=== PATIENT | female | born 1940 | race Caucasian/White ===

== ENCOUNTER 2017-09-02 17:19 | Inpatient (IN) | payer MEDICARE, MEDICAID ==
--- NOTE | 2017-09-02 17:44 | ED Physician Chart ---
ED Chief Complaint/HPI - Patient Information Date Seen:: 09/02/17 Time Seen:: 17:10 Chief Complaint:: Syncope; S/P Fall History of Present Illness:: onset x 2 hours of an unwitnessed fall from wheel chair resulting in left hip pain with syncope episode; pt denies H/As, neck pain, C/P, SOB, Abd. Pain, A/N/V /D/C, fever, chills, dizziness, cough, urinary s/s, or vertigo Allergies:: Allergies Allergy/AdvReac Type Severity Reaction Status Date / Time No Known Allergies Allergy Verified 09/02/17 17:27 Historian:: Patient, EMS Review:: Nurse's Note Reviewed, EMS run form Reviewed ED Review of Systems - Review of Systems General/Constitutional: Fever, Chills, No weight loss, Weakness, No diaphoresis , No edema, No loss of appetite Skin: No skin lesions, No rash, No bruising Head: No headache, No light-headedness Eyes: No loss of vision, No pain, No diplopia ENT: No earache, No nasal drainage, No sore throat, No tinnitus Neck: No neck pain, No swelling, No thyromegaly, No stiffness, No mass noted Cardio Vascular: No chest pain, No palpitations, No PND, No orthopnea, No edema Pulmonary: No SOB, No cough, No sputum, No wheezing GI: No nausea, No vomiting, No diarrhea, No pain, No melena, No hematochezia, No constipation, No hematemesis G/U: No dysuria, No frequency, No hematuria Musculoskeletal: No bone or joint pain, No back pain, No muscle pain Endocrine: No polyuria, No polydipsia Psychiatric: No prior psych history, No depression, No anxiety, No suicidal ideation Hematopoietic: No bruising, No lymphadenopathy Allergic/Immuno: No urticaria, No angioedema Neurological: Syncope, No focal symptoms, Weakness, No paresthesia, No headache , No seizure, No dizziness, Confusion, No vertigo ED Past Medical History - Past Medical History Obtainable: Yes Past Medical History: HTN, DM, CAD, CHF, Dyslipidemia, ESRD, Arthritis, Dementia Family History: Diabetes Melitus, HTN Social History: Non Smoker, No Alcohol, No Drug Use, Single, Care Facility Surgical History: other ([facility] Dialysis Catheter Insertion) Psychiatricy History: Dementia Medication: Reviewed Family Medical History - Family Member Mother History Unknown: Yes Living Status: ED Physical Exam - Physical Examination General/Constitutional: Awake, Well-developed, well-nourished, Alert, No distress, GCS 15, Non-toxic appearing, Ambulatory Head: Atraumatic Eyes: Lids, conjuctiva normal, PERRL, EOMI Skin: Nl inspection, No rash, No skin lesions, No ecchymosis, Well hydrated, No lymphadenopathy ENMT: External ears, nose nl, Nasal exam nl, Lips, teeth, gums nl Neck: Nontender, Full ROM w/o pain, No JVD, No nuchal rigidity, No bruit, No mass, No stridor Respiratory: Nl effort/Exclusion Other Respiratory comments:: Lungs: + Bibasilar Rales Cardio Vascular: RRR, No murmur, gallop, rubs, NL S1 S2 GI: No tenderness/rebounding/guarding, No organomegaly, No hernia, Normal BS's, Nondistended, No mass/bruits, No McBurney tenderness : No CVA tenderness Extremities: No tenderness or effusion, Full ROM, normal strength in all extremities, No edema, Normal digits & nails Other Extremities comments:: Left Hip tenderness Neuro/Psych: Alert/oriented, DTR's symmetric, Normal sensory exam, Normal motor strength, Judgement/insight normal, Mood normal, Normal gait, No focal deficits Other Neuro/Psych comments:: Disoriented and Confused Misc: Normal back, No paraspinal tenderness ED Labs/Radiology/EKG Results - Lab Results Comments:: Na+: 130; Glucose: 343; BUN: 27; Cr: 2.1; BNP: 3450; ED Septic Shock - . Is Septic Shock (SBP<90, OR Lactate>4 mmol\L) present?: No ED Reassessment (Disposition) - Reassessment Reassessment Condition:: Improved - Diagnosis Diagnosis:: Dx: Anemia; Hyponatremia; ESRD; S/P Dialysis; CHF; Hyperglycemia; Uncontrolled DM; Syncope; S/P Fall; Hip Pain - Aftercare/Follow up Instructions Aftercare/Follow-Up Instructions:: Counseled pt regarding lab results/diagnosis & need follow up, Counseled pt & family regarding lab results/diagnosis & need follow up - Patient Disposition Discharge/Transfer:: Acute Care w/in this hosp Accepting Physician:: Dr. Shane Time Called:: 1929 Time Responded:: 19:30 Admitted to:: Telemetry Spoke to:: Dr. Shane Admitting Medical Physician:: Dr. Shane Condition at Disposition:: Stable, Improved
[2017-09-02 18:19] LABS: % BASOPHILS 0.2 % (0.0-2.0); % EOSINOPHILS 2.2 % (0.0-5.0); % LYMPHOCYTES 12.1 % (20.0-50.0); % MONOCYTES 8.1 % (2.0-10.0); % NEUTROPHILS 77.4 % (40.0-80.0); MEAN CELL VOLUME 97.6 fl (81-100); MEAN CORPUSCULAR HEMOGLOBIN 33.6 pg (27.0-31.0); MEAN CORPUSCULAR HGB CONC 34.5 pg (28.0-36.0); MEAN PLATELET VOLUME 7.9 fl; NEUTROPHILE ABSOLUTE 4.8 Th/cmm (1.8-8.0); RED BLOOD COUNT 3.27 Mil/cmm (3.80-5.20); RED CELL DISTRIBUTION WIDTH 14.9 % (11.5-20.0); WHITE BLOOD COUNT 6.2 Th/cmm (4.8-10.8)
[2017-09-02 18:29] LABS: INR 1.14 (0.5-1.4)
[2017-09-02 18:34] LABS: HEMATOCRIT 31.9 % (41.0-60); PLATELET COUNT 165 Th/cmm (150-400)
[2017-09-02 18:45] LABS: ALB/GLOB RATIO 1.1 (1.0-1.8); ALKALINE PHOSPHATASE 203 U/L (34-104); ANION GAP 12.5 (7.0-16.0); BILIRUBIN,TOTAL 0.6 mg/dL (0.3-1.0); BUN - UREA NITROGEN 27 mg/dL (7-25); BUN/CREATININE RATIO 12.9; CALCIUM SERUM 8.6 mg/dL (8.6-10.3); CARBON DIOXIDE 24.5 mEq/L (21.0-31.0); CHLORIDE 97 mEq/L (98-107); CHOLESTEROL 117 mg/dL (<200); CREATININE - SERUM 2.1 mg/dL (0.6-1.2); GLUCOSE 343 mg/dL (70-105); SGOT 21 U/L (13-39); SGPT/ALT 15 U/L (7-52); SODIUM SERUM 130 mEq/L (136-145); TRIGLYCERIDES 120 mg/dL (<150)
[2017-09-02] MEDS ORDERED: INSULIN ASPART, RECOMBINANT 100 UNITS/ML SUBQ ONE (19:32)
[2017-09-02] MEDS ORDERED: BIOTIN PO SCH (20:45)
[2017-09-02] MEDS ORDERED: [UNRECOGNIZED DRUG - OTHER] PO SCH (20:45)
[2017-09-02] MEDS ORDERED: VIT B CMPLX PO SCH (20:45)
[2017-09-02] MEDS: Ferrous Sulfate 325 MG TAB PO SCH (22:29)
[2017-09-02 22:47] VITALS: BP 145/65
[2017-09-03] MEDS ORDERED: Levothyroxine 0.1 Mg Tab PO SCH (07:30)
--- NOTE | 2017-09-03 07:59 | Diagnostic Imaging Report ---
Pelvis and left hip 2 views Indication: pain Comparison: none Findings: Right femoral partially visualized fracture fixation hardware is noted. There appears to be a previous likely old fracture of the right inferior pubic ramus. Subtle lucency of the left inferior pubic ramus is noted. There is also indeterminate lucency of the left proximal femur. No dislocation. Mild degenerative changes of the hip joints are noted. Impression: Indeterminate lucency of the left proximal femurs possibly projectional, however, a nondisplaced fracture cannot be excluded. CT examination is recommended for further assessment. Questionable previous nondisplaced fractures of the bilateral inferior pubic rami. Again CT would further clarify. Partially visualized right femoral fracture fixation. In the setting of trauma, if clinical symptoms persist and there is continued concern for an occult fracture, follow up exams in 5-7 days is suggested.
[2017-09-03] MEDS ORDERED: INSULIN ASPART SLIDING SCALE 100 UNITS/ML UNIT SUBQ SCH (08:00)
--- NOTE | 2017-09-03 08:00 | Diagnostic Imaging Report ---
CHEST X-RAY: AP view INDICATION: pain COMPARISON: None FINDINGS: Findings of CHF are seen with right effusion and right lung infiltrates. Cardiomegaly is noted with atherosclerosis. A right-sided dialysis catheter seen with tip in the cavoatrial junction. The osseous structures are intact. IMPRESSION: CHF with small right effusion and right basal infiltrates. Cardiomegaly and atherosclerosis Right dialysis catheter with tip in the cavoatrial junction.
--- NOTE | 2017-09-03 08:06 | Diagnostic Imaging Report ---
Head CT without intravenous contrast Indication: Dementia, syncope, fall Comparison: None Technique: Axial images were obtained from the vertex to the skull base without IV contrast. Coronal reconstructions were made. Total DLP: 551, CTDI30 FINDINGS: Exam is motion. Images of the brain obtained without contrast demonstrate no evidence of acute hemorrhage. Atrophy is noted. Moderate supratentorial white matter disease noted. The ventricles and basal cisterns are patent. Mass effect or midline shift. Atherosclerosis is noted. No evidence of skull fracture or focal soft tissue swelling. IMPRESSION: No evidence of an acute intracranial hemorrhage. Moderate supratentorial white matter disease which is nonspecific and may be due to chronic microvessel ischemia.. Atrophy. Atherosclerotic vascular disease.
[2017-09-03] MEDS: Multivitamin Tab PO SCH (09:57)
[2017-09-03] MEDS: Ferrous Sulfate 325 MG TAB PO SCH (09:57)
--- NOTE | 2017-09-03 12:30 | Diagnostic Imaging Report ---
CT pelvis without IV contrast HISTORY: Fall, rule out fracture COMPARISON: Pelvis and left hip x-rays on 12/03/2016 Technique: Axial images were obtained from the lower abdomen to the proximal bilateral femurs without IV contrast. Reconstructions were made. total DLP: 446, CTDI12.4 Findings: There is diffuse anasarca. Copious stool is noted. There is a diastases of the rectus abdominis muscles with protrusion of the anterior abdominal wall at the midline. Mild free fluid is seen within the pelvis. Diffuse atherosclerotic vascular disease is noted. Diffuse anasarca is noted. Small pocket of gas is seen within the urinary bladder. Degenerative changes of the lower lumbar spine are noted. Degenerative changes of the SI joints are noted. There is a nondisplaced chronic right inferior pubic ramus fracture. There is partially visualized fracture fixation of the right proximal femoral shaft. Moderate degenerative changes of both hip joints are noted. The left hip joint is preserved. No evidence of an acute fracture. IMPRESSION: Evidence of fracture fixation of right femur with screw luis, partially visualized. Otherwise no evidence of an acute fracture. No evidence of dislocation. Degenerative changes. Anasarca. Small amount of free fluid is noted within the pelvis. Copious amount of stool noted. Mild diastases of the rectus muscles with slight protrusion of fat at the midline. Small pocket of gas along the nondependent aspect of the urinary bladder which may be due to recent instrumentation or infectious or inflammatory process. Atherosclerotic vascular disease.
[2017-09-03] MEDS: Nystatin Cream 100,000 u/gm Cream 15 gm TP SCH ×2 (13:00→20:30)
--- NOTE | 2017-09-03 15:32 | Diagnostic Imaging Report ---
Carotid ultrasound HISTORY: Dizziness COMPARISON: None Technique: Longitudinal and transverse sonographic sector images of the carotid arteries were obtained with doppler analysis. FINDINGS: Exam of the right side demonstrates mild generalized atherosclerotic vascular disease. The velocity and velocity ratios are within normal limits. Exam of the left side demonstrates moderate generalized atherosclerotic vascular disease with areas of calcified plaque formation greatest within the carotid bulb and proximal ICA. The velocity and velocity ratios are within normal limits. Antegrade vertebral artery flow is demonstrated bilaterally. IMPRESSION: Mild to moderate atherosclerotic vascular disease, left greater than right. No evidence of hemodynamically significant stenosis.
--- NOTE | 2017-09-03 17:15 | Cardiology ---
09/03/[address] Justin Shane. M-MODE ECHOCARDIOGRAM: Mitral valve, anterior leaflet of mitral valve shows decreased excursion, EF velocity. Posterior leaflet of mitral valve shows decreased excursion. Left ventricular posterior wall shows increased thickness, decreased excursion. Interventricular septum shows increased thickness, decreased excursion. There is hypertrophy of the left ventricle, ejection fraction 25%. Left atrium normal. Aortic root shows normal dimension, normal excursion of aortic leaflets. CONCLUSION: Hypertrophy of the left ventricle, cardiomyopathy, ejection fraction 25%. 2D ECHO: Long axis view shows enlarged left ventricular cavity with decreased ejection fraction, hypertrophy of the left ventricle. Left atrium normal. Aortic root shows normal dimension, normal excursion of aortic leaflets. Short axis view of mitral valve normal. Short axis view of aortic valve normal. Apical four chamber view shows hypertrophy of the left ventricle, ejection fraction 25%. Left atrium normal. Right ventricular cavity, right atrium normal, no pericardial effusion. CONCLUSION: Cardiomyopathy, ejection fraction 25%. Doppler study shows mild mitral regurgitation, mild tricuspid regurgitation, mild pulmonary regurgitation. Right ventricular systolic pressure 42 mmHg. JOB# [id number]
[2017-09-03] MEDS ORDERED: INSULIN ASPART, RECOMBINANT 100 UNITS/ML SUBQ ONE (17:37)
--- NOTE | 2017-09-03 19:05 | History & Physical ---
ADMIT DATE: 09/02/2017 CHIEF COMPLAINT: Fall. HISTORY OF PRESENT ILLNESS: This is a 76-year-old female with underlying history of end-stage renal disease, on hemodialysis on Thursday, Thursday, Thursday; diabetes with neuropathy; hypothyroidism and hypertension; prior history of fall, right hip fracture per family, who brought into the Emergency Room for evaluation of the fall and possible syncope. The patient is Hungarian speaking, grandson was at the bedside who helped providing most of the history. Per grandson, after finishing her dialysis yesterday while she was getting out of the facility sustained a fall. I was unclear whether she lost the consciousness or not. The patient was unable to provide me any history and family history. The patient does have some underlying history of dementia, so she is not good at providing any history. No proper informations about whether the patient had lost of consciousness available. The patient had a head CT done, which was negative for any stroke or any bleeding. The patient ____ Emergency Room hip and pelvis x-ray done which was suggestive of questionable nondisplaced fracture of the pelvis, so the patient was admitted for further evaluation and treatment. PAST MEDICAL HISTORY: ESRD, on hemodialysis on Thursday, Thursday, Thursday; diabetes with neuropathy; hypertension; and hypothyroidism. PAST SURGICAL HISTORY: Right hip fracture infection in the past. FAMILY HISTORY: No significant family history. SOCIAL HISTORY: Lives with family. No reported alcohol, tobacco or street drug use. CURRENT MEDICATIONS: The patient is currently on Lasix, Neurontin, Synthroid, Cozaar, Iron sulfate, Coreg, aspirin and vitamin C. REVIEW OF SYSTEMS: The patient denies any fever, no chills, no cough, no chest pain, no shortness of breath, no dizziness, no palpitations, no nausea, no vomiting, no diarrhea. No bloody stool. Complained of right hip area pain. ALLERGIES: No drug allergies reported. PHYSICAL EXAMINATION: VITAL SIGNS: Temperature 96.5, pulse 95, respirations 18, blood pressure ____. GENERAL APPEARANCE: The patient does not seem in acute distress. HEART: S1, S2 normal. LUNGS: Clear to auscultation bilaterally. ABDOMEN: Soft, nontender. NEUROLOGIC: The patient is awake. Moves all extremities. Grossly nonfocal exam. EXTREMITIES: Mild edema noted. No calf tenderness noted. AVAILABLE LABORATORY DATA: As follows; WBC is 6.2, hemoglobin 11.0, hematocrit 31.9, platelet count is 165. Sodium 130, potassium 4.0, BUN ____, A1c 8.8, AST 20, ALT 15. BNP is 3450, albumin 3.4, triglyceride 120, cholesterol 117 ____. Troponin 0.02 and 0.04. ____ right basilar infiltrate. Cardiomegaly noted. Pelvic x-ray questionable pubic rami fracture. ASSESSMENT: 1. Fall. 2. Questionable syncope. 3. Questionable nondisplaced pelvis fracture. 4. End stage renal disease, on hemodialysis on Thursday, Thursday, and Thursday. 5. Diabetes mellitus with hyperglycemia. 6. Diabetic neuropathy. 7. Hypertension. 8. Generalized debility. 9. Congestive heart failure. 10. [place] dermatitis. PLAN: The patient admitted to tele unit. The patient was continued on Lasix, beta-joslyn, insulin, Accu-Cheks has been ordered. Cardiology has been consulted. CT pelvis for further evaluation for underlying questionable fracture, orthostatic vitals ordered, carotid Doppler was ordered. We will follow up on the CAT scan results. Discussed with grandson ____ regarding patient's conditions and plan of care. The patient will be given nystatin cream for fungal rash on the abdominal fold area. JOB# [id number]
[2017-09-03] MEDS: INSULIN ASPART SLIDING SCALE 100 UNITS/ML UNIT SUBQ SCH (20:38)
--- NOTE | 2017-09-03 23:04 | Consultation ---
DATE OF CONSULTATION: 09/03/[address] Justin Shane. HISTORY AND PHYSICAL: This is a 76-year-old female patient who had a fall. Following this, the patient was brought to the Emergency Room. According to the family, the patient finished dialysis. Following this, the patient was going home the patient had a fall. No knowledge of possible syncope, loss of consciousness. The patient has dementia and difficult to get any history. PAST MEDICAL HISTORY: Diabetes mellitus type 2; diabetic peripheral neuropathy; diabetic CKD stage V; end-stage renal disease, on dialysis; hypothyroid; and hypertension. Right hip fracture with surgery, osteoporosis, and iron deficiency anemia. FAMILY HISTORY: Unremarkable. SOCIAL HISTORY: No history of smoking or alcohol abuse. ALLERGIES: No known allergies. PHYSICAL EXAMINATION: VITAL SIGNS: Blood pressure 130/80, pulse 70, and respirations 20. HEAD: Normocephalic. No lumps or bumps. EYES: Pupils are equal and reactive to light. Fundi show AV nicking, sclerae white, and conjunctivae pink. NECK: Carotid 2+. Normal upstroke. JVD flat. Thyroid not palpable. Lymph nodes not palpable. CHEST: Shows increased AP diameter. No kyphosis or scoliosis. LUNGS: Bilateral bronchovesicular breath sounds. Occasional wheeze. Basilar rales. HEART: PMI sixth intercostal space with lateral to midclavicular line. S1, S2, S3, S4, soft systolic murmur. ABDOMEN: Soft. Liver and spleen not palpable. No organomegaly. Bowel sounds active. NEUROLOGIC: Peripheral neuropathy. EXTREMITIES: Peripheral pulses, 1+ pedal edema. CLINICAL IMPRESSION: 1. Syncope. 2. Nondisplaced pelvic fracture. 3. Diabetes mellitus type 2. 4. Diabetic chronic kidney disease stage V. 5. End-stage renal disease, on dialysis. 6. Diabetic peripheral neuropathy. 7. Hypertension. 8. Iron deficiency anemia. 9. Osteoporosis. 10. Congestive heart failure. 11. Systolic dysfunction. 12. [place] dermatitis. The patient had an echocardiogram. The patient also has mild carotid stenosis. Echocardiogram showed cardiomyopathy, ejection fraction 25%, mild mitral regurgitation, tricuspid regurgitation, and prominent regurgitation. PLAN: The patient to get a BNP level and monitor the patient closely, and the patient will need physical therapy because of pelvic fracture. JOB# [id number]
--- NOTE | 2017-09-04 00:05 | Consultation ---
DATE OF CONSULTATION: RENAL CONSULTATION LOCATION: [facility], room #11. ATTENDING PHYSICIAN: Dr. Shane. Thank you very much, Dr. Shane for this consult. IDENTIFICATION: This is a 76-year-old female patient who is a known case of CKD 5, on chronic hemodialysis through right subclavian tunneled catheter. The patient fell down from the wheelchair. The patient came to the Emergency Room. According to the ER staff, the patient had a syncopal episode. The patient complained of left hip pain. There were no seizures or loss of consciousness. After in the Emergency Room, the patient was evaluated and was found to have elevated BNP and CHF. The patient has been admitted for further treatment. Renal consultation has been requested for the need for dialysis. Upon coming here, I have found out that the patient goes to the [facility] across the street. I have asked Dr. Ruiz Shane to refer this patient to Dr. Simpson's group. He has told me and also the staff has told me that none of their Nephrology Group people are on staff here and so I need to take care of this patient. The patient is conscious, little bit confused. According to nursing staff, no vomiting or diarrhea. No fever, no seizures since admission. The patient is oliguric. The patient also has a poor appetite. The patient has been scheduled for fistula surgery tomorrow and so the patient wants to go home today. PAST MEDICAL AND SURGICAL HISTORY: History of hypertension, diabetes mellitus, coronary artery disease, CHF, dyslipidemia, end-stage renal disease, dementia, arthritis. SOCIAL HISTORY: No history of alcoholism, smoking, or drug use. The patient stays at the SNF area. PHYSICAL EXAMINATION: GENERAL: A 76-year-old female patient. VITAL SIGNS: Temperature 96.5, pulse 95, blood pressure 119/60, respiration rate 18. Intake 2000 mL today. Output not available. HEART: Regular. LUNGS: Rhonchi in both the bases. ABDOMEN: Soft. EXTREMITIES: 1+ edema. Right PermCath site without cellulitis or bleeding. LABORATORY DATA: WBC 6.2, hemoglobin 11, platelet 165,000. Sodium 130, potassium 4, chloride 97, CO2 of 24, BUN 27, creatinine 2.1, calcium 8.6, albumin 3.4. ASSESSMENT: 1. Chronic kidney disease 5, on chronic hemodialysis Thursday, and Thursday. 2. Congestive heart failure. 3. Diabetes mellitus. 4. Hypertension. 5. Anemia. 6. Right subclavian tunneled catheter. PLAN: Hemodialysis will be done tonight with ultrafiltration of about ____ 2000 mL. Continue the patient on levothyroxine. Check CMP, phosphorus in the morning. If phosphorus is elevated, we will start the patient on phosphate binder. Hemoglobin is more than 11, hold Epogen. I will try to reach out to Dr. Simpson and Dr. Rosenbaum groups again to find out if they can take over this patient. This case has been discussed with Dr. Shane. JOB# [id number]
[2017-09-04 06:16] LABS: ALB/GLOB RATIO 1.2 (1.0-1.8); ALKALINE PHOSPHATASE 245 U/L (34-104); ANION GAP 9.3 (7.0-16.0); BILIRUBIN,TOTAL 0.5 mg/dL (0.3-1.0); BUN - UREA NITROGEN 27 mg/dL (7-25); BUN/CREATININE RATIO 11.3; CALCIUM SERUM 8.2 mg/dL (8.6-10.3); CARBON DIOXIDE 31.4 mEq/L (21.0-31.0); CHLORIDE 94 mEq/L (98-107); CREATININE - SERUM 2.4 mg/dL (0.6-1.2); GLUCOSE 81 mg/dL (70-105); PHOSPHOROUS 2.7 mg/dL (2.5-5.0); POTASSIUM SERUM 4.7 mEq/L (3.5-5.1); SGOT 50 U/L (13-39); SGPT/ALT 36 U/L (7-52); SODIUM SERUM 130 mEq/L (136-145)
[2017-09-04] MEDS: INSULIN ASPART SLIDING SCALE 100 UNITS/ML UNIT SUBQ SCH (06:54)
[2017-09-04] MEDS: Nystatin Cream 100,000 u/gm Cream 15 gm TP SCH (08:56)
[2017-09-04] MEDS: Multivitamin Tab PO SCH (08:57)
[2017-09-04] MEDS: Ferrous Sulfate 325 MG TAB PO SCH (08:57)
== END 2017-09-04 10:30 | disposition home or self-care (01) | DRG 291 ==
LOC: ER 17:19 → TELE 19:30
PROVIDERS: ADMIT Family Medicine; ATTEND Family Medicine
DX: I13.2 Hypertensive heart and chronic kidney disease with heart failure and with stage 5 chronic kidney disease, or end stage renal disease (principal); N18.6 End stage renal disease; E11.22 Type 2 diabetes mellitus with diabetic chronic kidney disease; E11.40 Type 2 diabetes mellitus with diabetic neuropathy, unspecified; F03.90 Unspecified dementia, unspecified severity, without behavioral disturbance, psychotic disturbance, mood disturbance, and anxiety; I08.1 Rheumatic disorders of both mitral and tricuspid valves; I50.20 Unspecified systolic (congestive) heart failure; E87.1 Hypo-osmolality and hyponatremia; S32.9XXA Fracture of unspecified parts of lumbosacral spine and pelvis, initial encounter for closed fracture; R55 Syncope and collapse; E11.65 Type 2 diabetes mellitus with hyperglycemia; R53.81 Other malaise; L30.8 Other specified dermatitis; D64.9 Anemia, unspecified; W05.0XXA Fall from non-moving wheelchair, initial encounter; M81.0 Age-related osteoporosis without current pathological fracture; I25.10 Atherosclerotic heart disease of native coronary artery without angina pectoris; E78.5 Hyperlipidemia, unspecified; M19.90 Unspecified osteoarthritis, unspecified site; E03.9 Hypothyroidism, unspecified; D50.9 Iron deficiency anemia, unspecified; I65.29 Occlusion and stenosis of unspecified carotid artery; I42.9 Cardiomyopathy, unspecified; Z99.2 Dependence on renal dialysis; Z83.3 Family history of diabetes mellitus; Y93.89 Activity, other specified; Y92.89 Other specified places as the place of occurrence of the external cause; Y99.8 Other external cause status; Z82.49 Family history of ischemic heart disease and other diseases of the circulatory system
CPT/HCPCS: 36415-UA; 70450-TC; 71010-TC; 72170-TC; 72192-TC; 80053-TC; 80061-TC; 82550-TC; 82948-90; 83036-90; 83880-TC; 84100-TC; 84443-TC; 84484-TC; 85025-TC; 85610-TC; 90937; 93005; 93880-TC; 97530; J1815; J7030; Z7610

== ENCOUNTER 2017-09-27 20:53 | Inpatient (IN) | payer MEDICARE, MEDICAID ==
--- NOTE | 2017-09-27 21:16 | ED Physician Chart ---
ED Chief Complaint/HPI - Patient Information Date Seen:: 09/27/17 Time Seen:: 21:05 Chief Complaint:: Suspected syncope with unwitnessed fall. History of Present Illness:: Brought in by ambulance from LTAC facility because pt had an unwitnessed fall at about 7 pm repeatedly. Pt has not been noticed to sustain any injury. Pt is [place] speaking. Interpretation is provided by nursing staff member Caitlyn. Pt has h/o dementia and is not fully cooperative; thus, H & P are limited. Pt has no specific complaint and appears to be comfortable. Allergies:: Allergies Allergy/AdvReac Type Severity Reaction Status Date / Time iodine Allergy Verified 09/27/17 21:04 morphine Allergy Verified 09/27/17 21:04 Vitals:: see Nurse Note. Historian:: Patient, Medical Records (from transferring facility) Family MD/PCP:: Dr. Moreira LMP:: postmenopausal Review:: Nurse's Note Reviewed, Transfer documents Reviewed ED Review of Systems - Review of Systems General/Constitutional: Other (Pt does not cooperate for ROS.) ED Past Medical History - Past Medical History Past Medical History: HTN, Thyroid disorder, Dementia, Other (ESRD on hemodialysis. Chronic anemia) Family History: Other (Pt does not cooperate to provide info on FHx.) Social History: Care Facility, Other (Pt does not cooperate to provide info on SHx.) Surgical History: other (Pt does not cooperate to provide info on Surgical Hx.) Psychiatricy History: Dementia Medication: Reviewed Family Medical History - Family Member Mother History Unknown: Yes Living Status: ED Physical Exam - Physical Examination General/Constitutional: Awake, Well-developed, well-nourished, Alert, No distress Other Gen/Cons comments:: Breathes comfortably, speaks clearly, but is not cooperative. Head: Atraumatic Eyes: PERRL, EOMI Other Eyes comments:: Mildly pale conjunctiva noticed. Skin: No ecchymosis, No lymphadenopathy ENMT: External ears, nose nl, Nasal exam nl, Oropharynx nl Neck: Nontender, Full ROM w/o pain, No JVD, No nuchal rigidity, No mass, No stridor Respiratory: Nl effort/Exclusion, Clear to Auscultation, No Wheeze/Rhonchi/Rales Cardio Vascular: RRR, No murmur, gallop, rubs Other Cardio Vascular comments:: A dialysis catheter noticed in R upper chest with clean site without erythema or exudate. GI: No tenderness/rebounding/guarding, No organomegaly, No hernia, Normal BS's, Nondistended, No mass/bruits Other GI comments:: Abdomen is soft. Extremities: No edema Other Extremities comments:: Both hips are nontender with good passive ROM. Nontender. No leg length discrepany. Pt can medially and laterally rotate both hips without difficulty. Neuro/Psych: Alert/oriented (knows her name and that she is in hospital.) Other Neuro/Psych comments:: Spontaneous movements noticed in all 4 extremities. Pt does not cooperate for full neurological exam. Misc: No paraspinal tenderness Other Misc comments:: Back: Nontender. Unremarkable. ED Labs/Radiology/EKG Results - Lab Results Results: Laboratory Tests 09/27/17 09/27/17 09/27/17 21:56 21:56 21:56 WBC 8.5 D RBC 3.47 L Hgb 11.3 L Hct 34.0 L MCV 98.2 MCH 32.5 H MCHC Differential 33.1 RDW 15.0 Plt Count 162 MPV 8.0 Neutrophils % 76.5 Lymphocytes % 11.1 L Monocytes % 9.0 Eosinophils % 2.3 Basophils % 1.1 PT 11.6 H INR 1.11 PTT (Actin FS) 29.0 Sodium 131 L Potassium 5.1 Chloride 95 L Carbon Dioxide 27.6 Anion Gap 13.5 BUN 48 H Creatinine 3.7 H Est GFR ( Amer) TNP Est GFR (Non-Af Amer) TNP BUN/Creatinine Ratio 13.0 Glucose 148 H Calcium 8.9 Total Bilirubin 0.6 AST 33 ALT 23 Alkaline Phosphatase 491 H Creatine Kinase 31 Troponin I Total Protein 6.9 Albumin 3.4 L Globulin 3.5 Albumin/Globulin Ratio 1.0 09/27/17 21:56 WBC RBC Hgb Hct MCV MCH MCHC Differential RDW Plt Count MPV Neutrophils % Lymphocytes % Monocytes % Eosinophils % Basophils % PT INR PTT (Actin FS) Sodium Potassium Chloride Carbon Dioxide Anion Gap BUN Creatinine Est GFR ( Amer) Est GFR (Non-Af Amer) BUN/Creatinine Ratio Glucose Calcium Total Bilirubin AST ALT Alkaline Phosphatase Creatine Kinase Troponin I 0.03 Total Protein Albumin Globulin Albumin/Globulin Ratio Urinalysis was not performed because pt is anuric. - EKG Interpretations EKG Time:: 21:34 Rate & Rhythm: NSR with VR 82 Comments:: LVH NSSTT changes. ED Septic Shock - . Is Septic Shock (SBP<90, OR Lactate>4 mmol\L) present?: No ED Reassessment (Disposition) - Reassessment Reassessment:: 2255 Pt has been repeatedly evaluated. Pt remains stable. Remaining lab results just became available. Case was discussed with Dr. Moreira with pertinent H & P, EKG, lab findings reviewed. Pt is to be admitted to Telemetry [place] for observation. Reassessment Condition:: Improved - Diagnosis Diagnosis:: H/O fall without any signs of physical trauma. Consider syncope vs deconditioning. Stable. ESRD on hemodialysis. Stable Chronic anemia. Stable Diabetes mellitus. Stable Dementia. Stable HTN. Stable. Elevated alkaline phosphatase of unknown significance. - Patient Disposition Admitted to:: Telemetry Admitting Medical Physician:: Serjio Moreira Time:: 22:55 Condition at Disposition:: Stable
[2017-09-27 22:13] LABS: % BASOPHILS 1.1 % (0.0-2.0); % EOSINOPHILS 2.3 % (0.0-5.0); % LYMPHOCYTES 11.1 % (20.0-50.0); % NEUTROPHILS 76.5 % (40.0-80.0); HEMOGLOBIN 11.3 gm/dL (12-16); MEAN CELL VOLUME 98.2 fl (81-100); MEAN CORPUSCULAR HEMOGLOBIN 32.5 pg (27.0-31.0); MEAN CORPUSCULAR HGB CONC 33.1 pg (28.0-36.0); NEUTROPHILE ABSOLUTE 6.5 Th/cmm (1.8-8.0); PLATELET COUNT 162 Th/cmm (150-400); RED BLOOD COUNT 3.47 Mil/cmm (3.80-5.20)
[2017-09-27 22:19] LABS: WHITE BLOOD COUNT 8.5 Th/cmm (4.8-10.8)
[2017-09-27 22:27] LABS: INR 1.11 (0.5-1.4); PROTHROMBIN TIME (TEST) 11.6 SECONDS (9.5-11.5)
[2017-09-27 22:30] LABS: ALKALINE PHOSPHATASE 491 U/L (34-104); ANION GAP 13.5 (7.0-16.0); BILIRUBIN,TOTAL 0.6 mg/dL (0.3-1.0); BUN - UREA NITROGEN 48 mg/dL (7-25); CALCIUM SERUM 8.9 mg/dL (8.6-10.3); CARBON DIOXIDE 27.6 mEq/L (21.0-31.0); CHLORIDE 95 mEq/L (98-107); CREATININE - SERUM 3.7 mg/dL (0.6-1.2); GLUCOSE 148 mg/dL (70-105); POTASSIUM SERUM 5.1 mEq/L (3.5-5.1); SGOT 33 U/L (13-39); SGPT/ALT 23 U/L (7-52); SODIUM SERUM 131 mEq/L (136-145)
[2017-09-28 05:23] LABS: % LYMPHOCYTES 15.6 % (20.0-50.0); % MONOCYTES 10.6 % (2.0-10.0); % NEUTROPHILS 69.8 % (40.0-80.0); HEMATOCRIT 33.4 % (41.0-60); MEAN CELL VOLUME 99.1 fl (81-100); MEAN CORPUSCULAR HEMOGLOBIN 32.6 pg (27.0-31.0); MEAN CORPUSCULAR HGB CONC 32.9 pg (28.0-36.0); MEAN PLATELET VOLUME 8.1 fl; NEUTROPHILE ABSOLUTE 5.2 Th/cmm (1.8-8.0); PLATELET COUNT 150 Th/cmm (150-400); RED BLOOD COUNT 3.37 Mil/cmm (3.80-5.20); RED CELL DISTRIBUTION WIDTH 15.1 % (11.5-20.0); WHITE BLOOD COUNT 7.5 Th/cmm (4.8-10.8)
[2017-09-28 05:50] LABS: ALKALINE PHOSPHATASE 448 U/L (34-104); BILIRUBIN,TOTAL 0.5 mg/dL (0.3-1.0); BUN - UREA NITROGEN 53 mg/dL (7-25); BUN/CREATININE RATIO 13.6; CALCIUM SERUM 8.6 mg/dL (8.6-10.3); CHLORIDE 96 mEq/L (98-107); CREATININE - SERUM 3.9 mg/dL (0.6-1.2); GLUCOSE 139 mg/dL (70-105); SGOT 30 U/L (13-39); SGPT/ALT 21 U/L (7-52); SODIUM SERUM 129 mEq/L (136-145)
[2017-09-28] MEDS ORDERED: Hydrocodone/APAP 5mg/325mg Tab PO PRN (08:15)
--- NOTE | 2017-09-28 11:24 | Diagnostic Imaging Report ---
Head CT without intravenous contrast Indication: Trauma Comparison: Head CT on 09/02/2017 Technique: Axial images were obtained from the vertex to the skull base without IV contrast. Coronal reconstructions were made. Total DLP: 584, CTDI31.8 FINDINGS: Images of the brain obtained without contrast demonstrate no evidence of an acute hemorrhage. Unchanged punctate calcifications the right frontal lobe are noted. Mild white matter disease is noted. Mild atrophy is noted. The ventricles and basal cisterns are patent. No mass effect or midline shift. No evidence of a skull fracture or focal soft tissue swelling. There is mild mucosal thickening of the paranasal sinuses. Atherosclerosis noted. IMPRESSION: No acute intracranial abnormality Mild atrophy. Mild supratentorial white matter disease which is nonspecific and may be due to chronic microvessel ischemia. Atherosclerotic vascular disease.
[2017-09-28] MEDS ORDERED: INSULIN ASPART, RECOMBINANT 100 UNITS/ML SUBQ SCH (11:30)
[2017-09-28] MEDS: INSULIN ASPART SLIDING SCALE 100 UNITS/ML UNIT SUBQ SCH ×2 (17:34→22:13)
[2017-09-28] MEDS ORDERED: Insulin Detemir 100 units/mL 10mL Vial SUBQ SCH (21:00)
--- NOTE | 2017-09-28 21:06 | History and Physical ---
History of Present Illness - HPI Chief Complaint: syncope HPI: 76 year old female who was brought to ER due to unwitness fall patient is admitted for further evaluation. Patient is a poor historian due to confusion. Vital Signs: Last Vital Signs Temp 98.5 F 09/28/17 20:00 Pulse 80 09/28/17 20:00 Resp 18 09/28/17 20:00 BP 130/59 09/28/17 20:00 Pulse Ox 97 09/28/17 20:00 Past Medical History Cardiovascular: Report: HTN Other History: hypothyroid dementia esrd on hd chronic anemia dm Family Medical History - Family Member Mother History Unknown: Yes (noncontributory) Living Status: Social History Smoke: No Alcohol: None Drugs: None [facility] - Medications Home Medications: Home Medication Medication Instructions Recorded Type Carvedilol [Coreg] 3.125 mg PO BID 09/02/17 History Furosemide [Lasix] 40 mg PO DAILY 09/02/17 History Losartan Potassium [Cozaar] 25 mg PO DAILY 09/02/17 History Acetaminophen [Tylenol] 650 mg PO Q6HR PRN 09/27/17 History Gabapentin [Neurontin] 300 mg PO TID 09/27/17 History Hydrocodone/Acetaminophen [[place] 1 tab PO Q6HR PRN 09/27/17 History 325 mg-5 mg*] Insulin Aspart, Recombinant See Protocol SUBQ ACHS 09/27/17 History [NovoLOG] Insulin Detemir [Levemir Insulin] 15 units SUBQ HS 09/27/17 History Levothyroxine [Synthroid] 0.1 mg PO QDAC 09/27/17 History Ondansetron [Zofran ODT] 4 mg PO Q6HR PRN 09/27/17 History - Allergies Allergies/Adverse Reactions: Allergies Allergy/AdvReac Type Severity Reaction Status Date / Time iodine Allergy Verified 09/27/17 21:04 morphine Allergy Verified 09/27/17 21:04 Review of Systems - Review of Systems Constitutional: Report: Weakness Eyes: Report: No Significant ENT: Report: No Significant Respiratory: Report: No Significant Cardiovascular: Report: No Significant Gastrointestinal: Report: No Significant Genitourinary: Report: No Significant Musculoskeletal: Report: No Significant Skin: Report: No Significant Neurological: Report: No Significant Physical Exam - Physical Exam HEENT: Report: Ears Nose Throat within normal limits Neck: Report: Within normal limits Cardiovascular Systems: Report: +s1/s2 noted Respiratory: Report: Breath Sounds are within normal limits Abdomen: Report: Non-tender to palpation Back: Report: Inspection of back is within normal limits. Extremities: Report: Non-tender to palpation. Skin: Report: Color of skin is within normal limits Neuro/Psych: Report: Disoriented to name time or place - Lab Results All Lab Results last 24 hours: Laboratory Results - last 24 hr 09/28/17 09/28/17 09/28/17 05:00 05:00 16:45 WBC 7.5 RBC 3.37 L Hgb 11.0 L Hct 33.4 L MCV 99.1 MCH 32.6 H MCHC Differential 32.9 RDW 15.1 Plt Count 150 MPV 8.1 Neutrophils % 69.8 Lymphocytes % 15.6 L Monocytes % 10.6 H Eosinophils % 3.0 Basophils % 1.0 Sodium 129 L Potassium 5.0 Chloride 96 L Carbon Dioxide 27.0 Anion Gap 11.0 BUN 53 H Creatinine 3.9 H Est GFR ( Amer) TNP Est GFR (Non-Af Amer) TNP BUN/Creatinine Ratio 13.6 Glucose 139 H POC Glucose 169 H Calcium 8.6 Total Bilirubin 0.5 AST 30 ALT 21 Alkaline Phosphatase 448 H Total Protein 6.4 Albumin 3.2 L Globulin 3.2 Albumin/Globulin Ratio 1.0 - Assessment Assessment: syncope s/p fall hyponatremia mild protein calorie malnutrition htn hypothyroid esrd on hd chronic anemia dm - Plan Plan: nephrology consult renal diet insuline sliding scale, accucheck fall precautions continue orders as per order sheet
[2017-09-29] VITALS: BP 125/62
[2017-09-29 05:16] LABS: % BASOPHILS 0.9 % (0.0-2.0); % EOSINOPHILS 2.6 % (0.0-5.0); % LYMPHOCYTES 18.6 % (20.0-50.0); % MONOCYTES 12.1 % (2.0-10.0); % NEUTROPHILS 65.8 % (40.0-80.0); HEMATOCRIT 36.4 % (41.0-60); HEMOGLOBIN 12.3 gm/dL (12-16); MEAN CELL VOLUME 97.8 fl (81-100); MEAN CORPUSCULAR HEMOGLOBIN 32.9 pg (27.0-31.0); MEAN CORPUSCULAR HGB CONC 33.7 pg (28.0-36.0); MEAN PLATELET VOLUME 7.9 fl; NEUTROPHILE ABSOLUTE 6.3 Th/cmm (1.8-8.0); PLATELET COUNT 174 Th/cmm (150-400); RED BLOOD COUNT 3.73 Mil/cmm (3.80-5.20); RED CELL DISTRIBUTION WIDTH 14.9 % (11.5-20.0)
[2017-09-29 05:31] LABS: WHITE BLOOD COUNT 9.6 Th/cmm (4.8-10.8)
[2017-09-29 05:35] LABS: ANION GAP 13.3 (7.0-16.0); BUN - UREA NITROGEN 39 mg/dL (7-25); BUN/CREATININE RATIO 12.6; CALCIUM SERUM 8.8 mg/dL (8.6-10.3); CHLORIDE 96 mEq/L (98-107); CREATININE - SERUM 3.1 mg/dL (0.6-1.2); GLUCOSE 47 mg/dL (70-105); POTASSIUM SERUM 4.3 mEq/L (3.5-5.1); SODIUM SERUM 134 mEq/L (136-145)
[2017-09-29] MEDS ORDERED: GLUCAGON HCl 1 MG KIT ONE (06:44)
--- NOTE | 2017-09-29 06:51 | History & Physical ---
ADMIT DATE: 09/28/2017 HISTORY OF PRESENT ILLNESS: The patient came from [facility] because he had unwitnessed fall, hit his head. The patient complaining of more confused than before. The patient is known to have underlying dementia. The patient seen in the ER and was admitted for head trauma, history of dementia and history of prior medical problems. PAST MEDICAL HISTORY: As enumerated above, has history of dementia, history of psychosis. PHYSICAL EXAMINATION: GENERAL: Alert, oriented, elderly female. VITAL SIGNS: As noted. HEAD: Normal. ENT: Normal. NECK: Supple. LUNGS: Clear. CARDIOVASCULAR SYSTEM: S1, S2 heard. ABDOMEN: Soft. Bowel sounds are heard. CENTRAL NERVOUS SYSTEM: Decreased sensorium and confusion. DIAGNOSES: The patient had a diagnosis of head trauma, confusion, loss of consciousness, toxic metabolic encephalopathy, history of dementia, and history of prior psychosis. PLAN: The patient is being admitted for neuropsychological evaluation including Neurology consult. Again the diagnosis; the patient has end-stage renal disease, on hemodialysis; chronic anemia; diabetes; dementia; elevated alkaline phosphatase and also head trauma. JOB# [id number]
[2017-09-29] MEDS: Levothyroxine 0.1 Mg Tab PO SCH (07:54)
[2017-09-29] MEDS: INSULIN ASPART SLIDING SCALE 100 UNITS/ML UNIT SUBQ SCH ×2 (07:54→20:26)
--- NOTE | 2017-09-29 10:00 | General Progress Note ---
Subjective - Review of Systems Events since last encounter: patient continues to be confused denies chest pain Objective - Results Result Diagrams: 09/29/17 04:50 09/29/17 04:50 Recent Labs: Laboratory Last Values WBC 9.6 Th/cmm (4.8-10.8) D 09/29/17 04:50 RBC 3.73 Mil/cmm (3.80-5.20) L 09/29/17 04:50 Hgb 12.3 gm/dL (12-16) 09/29/17 04:50 Hct 36.4 % (41.0-60) L 09/29/17 04:50 MCV 97.8 fl (81-100) 09/29/17 04:50 MCH 32.9 pg (27.0-31.0) H 09/29/17 04:50 MCHC Differential 33.7 pg (28.0-36.0) 09/29/17 04:50 RDW 14.9 % (11.5-20.0) 09/29/17 04:50 Plt Count 174 Th/cmm (150-400) 09/29/17 04:50 MPV 7.9 fl 09/29/17 04:50 Neutrophils % 65.8 % (40.0-80.0) 09/29/17 04:50 Lymphocytes % 18.6 % (20.0-50.0) L 09/29/17 04:50 Monocytes % 12.1 % (2.0-10.0) H 09/29/17 04:50 Eosinophils % 2.6 % (0.0-5.0) 09/29/17 04:50 Basophils % 0.9 % (0.0-2.0) 09/29/17 04:50 PT 11.6 SECONDS (9.5-11.5) H 09/27/17 21:56 INR 1.11 (0.5-1.4) 09/27/17 21:56 PTT (Actin FS) 29.0 SECONDS (26.0-38.0) 09/27/17 21:56 Sodium 134 mEq/L (136-145) L 09/29/17 04:50 Potassium 4.3 mEq/L (3.5-5.1) 09/29/17 04:50 Chloride 96 mEq/L (98-107) L 09/29/17 04:50 Carbon Dioxide 29.0 mEq/L (21.0-31.0) 09/29/17 04:50 Anion Gap 13.3 (7.0-16.0) 09/29/17 04:50 BUN 39 mg/dL (7-25) H 09/29/17 04:50 Creatinine 3.1 mg/dL (0.6-1.2) H 09/29/17 04:50 Est GFR ( Amer) TNP 09/29/17 04:50 Est GFR (Non-Af Amer) TNP 09/29/17 04:50 BUN/Creatinine Ratio 12.6 09/29/17 04:50 Glucose 47 mg/dL (70-105) L 09/29/17 04:50 POC Glucose 82 MG/DL (70 - 105) 09/29/17 09:34 Calcium 8.8 mg/dL (8.6-10.3) 09/29/17 04:50 Total Bilirubin 0.5 mg/dL (0.3-1.0) 09/28/17 05:00 AST 30 U/L (13-39) 09/28/17 05:00 ALT 21 U/L (7-52) 09/28/17 05:00 Alkaline Phosphatase 448 U/L (34-104) H 09/28/17 05:00 Creatine Kinase 31 U/L (30-223) 09/27/17 21:56 Troponin I 0.03 ng/mL (0.01-0.05) 09/27/17 21:56 Total Protein 6.4 gm/dL (6.0-8.3) 09/28/17 05:00 Albumin 3.2 gm/dL (3.7-5.3) L 09/28/17 05:00 Globulin 3.2 gm/dL 09/28/17 05:00 Albumin/Globulin Ratio 1.0 (1.0-1.8) 09/28/17 05:00 - Physical Exam Vitals and I&O: Vital Signs Temp 97.0 F 09/29/17 07:45 Pulse 75 09/29/17 09:49 Resp 19 09/29/17 07:45 BP 136/74 09/29/17 09:49 Pulse Ox 97 09/29/17 07:45 Intake & Output 09/28/17 09/29/17 09/29/17 18:59 06:59 18:59 Intake Total 200 Balance 200 Weight (lbs) 71.668 kg Intake: Oral 200 Other: # Voids 3 # Bowel Movements 1 Stool Characteristics Formed Active Medications: Current Medications Acetaminophen (Tylenol) 650 mg PO Q6H PRN PRN Reason: Pain or Fever >101 Stop: 11/27/17 08:14 Acetaminophen/Hydrocodone Bitart ([place] 5mg/325mg) 1 tab PO Q6H PRN PRN Reason: Pain (Moderate) Stop: 11/27/17 08:14 Carvedilol (Coreg) 3.125 mg PO BID ALINE Stop: 11/27/17 09:59 Last Admin: 09/29/17 09:49 Dose: 3.125 mg Furosemide (Lasix) 40 mg PO DAILY ALINE Stop: 11/27/17 09:59 Last Admin: 09/29/17 09:49 Dose: 40 mg Gabapentin (Neurontin) 300 mg PO TID ALINE Stop: 11/27/17 08:59 Last Admin: 09/29/17 09:49 Dose: 300 mg Levothyroxine Sodium (Synthroid) 0.1 mg PO QDAC ALINE Stop: 11/28/17 07:29 Last Admin: 09/29/17 07:54 Dose: Not Given Lorazepam (Ativan) 1 mg IVP Q6HR PRN; Protocol PRN Reason: Agitation Stop: 11/27/17 16:42 Last Admin: 09/28/17 17:35 Dose: 1 mg Losartan Potassium (Cozaar) 25 mg PO DAILY ALINE Stop: 11/27/17 09:59 Last Admin: 09/28/17 11:13 Dose: Not Given Miscellaneous (Clinical Monitoring) 1 ea MC DAILY PRN PRN Reason: RENAL Stop: 11/28/17 08:34 Ondansetron HCl (Zofran Odt) 4 mg PO Q6H PRN PRN Reason: Nausea / Vomiting Stop: 11/27/17 08:14 General: No acute distress HEENT: Atraumatic Neck: Supple Cardiovascular: Regular rate, Normal S1 Abdomen: Bowel sounds - Procedures Procedures: Procedures Procedure Code Date INJECT/INFUSE NEC 99.29 06/24/13 Assessment/Plan - Problem List Patient Problems: All Active Problems Chronic anemia (Acute) D64.9 Diabetes (Acute) E11.9 ESRD (end stage renal disease) on dialysis (Acute) N18.6, Z99.2 HTN (hypertension) (Acute) I10 Hyponatremia (Acute) E87.1 Hypothyroid (Acute) E03.9 Mild protein-calorie malnutrition (Acute) E44.1 Status post fall (Acute) Z91.81 Syncope (Acute) R55 Hyperglycemia (Active) R73.9 - Assessment Assessment: syncope s/p fall hyponatremia mild protein calorie malnutrition htn hypothyroid esrd on hd chronic anemia dm - Plan Plan: nephrology consult renal diet insuline sliding scale, accucheck fall precautions continue orders as per order sheet Nutritional Asmnt/Malnutr-PDOC - Dietary Evaluation Malnutrition Findings (Please click <Entered> for more info): Nutritional Asmnt/Malnutrition Start: 09/29/17 08: 02 Text: Status: Complete Freq: Document 09/29/17 08:02 [email or web address] (Rec: 09/29/17 08:23 [id number]) Nutritional Asmnt/Malnutrition Patient General Information Nutritional Screening Consult Diagnosis fall, syncope, head trauma, ESRD Pertinent Medical Hx/Surgical Hx ESRD on HD, DM, HTN, dementia, hypothyroidism, chronic anemia Subjective Information Pt just moved to ICU, sleeping , not intubated. Is confused and Cambodian speaking. Does not answer questions. No family present to answer questions. Current Diet Order/ Nutrition Support renal, 2 gm Na Patient / S.O Not Indicated Pertinent Medications lasix, insulin, synthroid Pertinent Labs 09/29 Na: 134, BUN: 39, cr: 3. 1, POC: 121-221 Nutritional Hx/Data Height 1.63 m Height (Calculated Centimeters) 162.6 Current Weight (lbs) 71.668 kg Weight (Calculated Kilograms) 71.7 Weight (Calculated Grams) 15560.6 [place] Body Weight 120 lbs % [place] Body Weight 132 Weight Status Overweight GI Symptoms GI Symptoms Last BM Food Allergies No Usual diet at home unable to obtain Skin Integrity/Comment: intact, scar tissue to L buttocks and coccyx, evaluated by wound RN Current %PO Good (75-100%) Estimated Nutritional Goals BEE in Kcals: Using Current wt Calories/Kcals/Kg 25-30 Kcals Calculated 9763-8413 kcals Protein: Using Current wt Protein g/k.2-1.5 Protein Calculated 98-108 g Fluid: ml 1500 mL or per MD order Nutritional Problem 1. Problem Problem Altered nutrition related lab values Etiology renal dysfunction, endocrine dysfunction Signs/Symptoms: POC: 121-221, BUN: 39, cr: 3.1 Malnutrition Alert Protein-Calorie Malnutrition N/A Is there a minimum of two criteria No selected? Query Text:Check all the applicable criteria. A minimum of two criteria are recommended for diagnosis of either severe or non-severe malnutrition. Malnutrition Related to Morbid Obesity Malnutrition related to morbid obesity No Intervention/Recommendation Recommendations by RD Protein supplementation Comments 1. Change diet to consistent CHO, renal for optimal glycemic control 2. Add Nepro daily for HD Expected Outcomes/Goals Expected Outcomes/Goals Goals: PO intake> 75%, consume 1 supplement/day, wt stable, labs approach WNL
--- NOTE | 2017-09-29 14:52 | Consultation ---
DATE OF CONSULTATION: 09/28/2017 RENAL CONSULTATION REASON FOR CONSULTATION: End-stage renal disease. HISTORY OF PRESENT ILLNESS: I was kindly asked by Dr. Moreira to evaluate this 76-year-old female who has dementia, hypertension and diabetes and hypothyroidism. She was brought to the Emergency Room because of chief complaint for fall. The patient was suspected for having a syncopal episode and therefore, she was admitted to the hospital. PAST MEDICAL HISTORY: Includes diabetes, hypertension, end-stage renal disease, and dementia. PAST SURGICAL HISTORY: Hemodialysis access. ALLERGIES: IODINE AND MORPHINE. SOCIAL HISTORY: Negative for smoking, alcohol or drugs. LABORATORY DATA: White count is 87.5, H and H is 11 and 33, platelets is 150. Chemistry shows serum sodium is 129, potassium 5.0, BUN is 53, creatinine is 3.9 and alkaline phosphatase is 440. PHYSICAL EXAMINATION: VITAL SIGNS: Blood pressure is 116/57, heart rate is 76, temperature is 97.4. HEENT: Anicteric sclerae. NECK: Supple. No JVD. LUNGS: Clear to auscultation bilaterally. CARDIOVASCULAR: Regular rate and rhythm. ABDOMEN: Soft, nontender, nondistended. EXTREMITIES: No edema. ASSESSMENT: A 76-year-old female with history of diabetes, hypertension, dementia, end-stage renal disease, admitted with possible syncopal episode. The patient will get her hemodialysis. We will continue to monitor the patient, continue her medications from the longterm and we will follow the patient closely. [facility]# [id number]
[2017-09-30 05:05] LABS: % EOSINOPHILS 2.8 % (0.0-5.0); % LYMPHOCYTES 15.9 % (20.0-50.0); % MONOCYTES 8.9 % (2.0-10.0); % NEUTROPHILS 72.4 % (40.0-80.0); HEMOGLOBIN 11.9 gm/dL (12-16); MEAN CELL VOLUME 98.6 fl (81-100); MEAN CORPUSCULAR HEMOGLOBIN 32.7 pg (27.0-31.0); MEAN CORPUSCULAR HGB CONC 33.2 pg (28.0-36.0); MEAN PLATELET VOLUME 7.9 fl; NEUTROPHILE ABSOLUTE 5.3 Th/cmm (1.8-8.0); PLATELET COUNT 164 Th/cmm (150-400); RED BLOOD COUNT 3.65 Mil/cmm (3.80-5.20); RED CELL DISTRIBUTION WIDTH 14.9 % (11.5-20.0)
[2017-09-30 05:22] LABS: WHITE BLOOD COUNT 7.2 Th/cmm (4.8-10.8)
[2017-09-30 05:23] LABS: ALKALINE PHOSPHATASE 461 U/L (34-104); ANION GAP 13.8 (7.0-16.0); BILIRUBIN,TOTAL 0.6 mg/dL (0.3-1.0); BUN - UREA NITROGEN 61 mg/dL (7-25); BUN/CREATININE RATIO 15.6; CALCIUM SERUM 8.6 mg/dL (8.6-10.3); CARBON DIOXIDE 26.8 mEq/L (21.0-31.0); CHLORIDE 95 mEq/L (98-107); CREATININE - SERUM 3.9 mg/dL (0.6-1.2); GLUCOSE 177 mg/dL (70-105); POTASSIUM SERUM 4.6 mEq/L (3.5-5.1); SGOT 27 U/L (13-39); SGPT/ALT 19 U/L (7-52); SODIUM SERUM 131 mEq/L (136-145)
[2017-09-30] MEDS: INSULIN ASPART SLIDING SCALE 100 UNITS/ML UNIT SUBQ SCH ×2 (06:32→11:38)
[2017-09-30] MEDS: Levothyroxine 0.1 Mg Tab PO SCH (06:32)
--- NOTE | 2017-09-30 09:26 | General Progress Note ---
Subjective - Review of Systems Events since last encounter: patient confused no fever Objective - Results Result Diagrams: 09/30/17 04:50 09/30/17 04:50 Recent Labs: Laboratory Last Values WBC 7.2 Th/cmm (4.8-10.8) D 09/30/17 04:50 RBC 3.65 Mil/cmm (3.80-5.20) L 09/30/17 04:50 Hgb 11.9 gm/dL (12-16) L 09/30/17 04:50 Hct 36.0 % (41.0-60) L 09/30/17 04:50 MCV 98.6 fl (81-100) 09/30/17 04:50 MCH 32.7 pg (27.0-31.0) H 09/30/17 04:50 MCHC Differential 33.2 pg (28.0-36.0) 09/30/17 04:50 RDW 14.9 % (11.5-20.0) 09/30/17 04:50 Plt Count 164 Th/cmm (150-400) 09/30/17 04:50 MPV 7.9 fl 09/30/17 04:50 Neutrophils % 72.4 % (40.0-80.0) 09/30/17 04:50 Lymphocytes % 15.9 % (20.0-50.0) L 09/30/17 04:50 Monocytes % 8.9 % (2.0-10.0) 09/30/17 04:50 Eosinophils % 2.8 % (0.0-5.0) 09/30/17 04:50 Basophils % 0.0 % (0.0-2.0) 09/30/17 04:50 PT 11.6 SECONDS (9.5-11.5) H 09/27/17 21:56 INR 1.11 (0.5-1.4) 09/27/17 21:56 PTT (Actin FS) 29.0 SECONDS (26.0-38.0) 09/27/17 21:56 Sodium 131 mEq/L (136-145) L 09/30/17 04:50 Potassium 4.6 mEq/L (3.5-5.1) 09/30/17 04:50 Chloride 95 mEq/L (98-107) L 09/30/17 04:50 Carbon Dioxide 26.8 mEq/L (21.0-31.0) 09/30/17 04:50 Anion Gap 13.8 (7.0-16.0) 09/30/17 04:50 BUN 61 mg/dL (7-25) H 09/30/17 04:50 Creatinine 3.9 mg/dL (0.6-1.2) H 09/30/17 04:50 Est GFR ( Amer) TNP 09/30/17 04:50 Est GFR (Non-Af Amer) TNP 09/30/17 04:50 BUN/Creatinine Ratio 15.6 09/30/17 04:50 Glucose 177 mg/dL (70-105) H 09/30/17 04:50 POC Glucose 291 MG/DL (70 - 105) H 09/29/17 20:23 Calcium 8.6 mg/dL (8.6-10.3) 09/30/17 04:50 Total Bilirubin 0.6 mg/dL (0.3-1.0) 09/30/17 04:50 AST 27 U/L (13-39) 09/30/17 04:50 ALT 19 U/L (7-52) 09/30/17 04:50 Alkaline Phosphatase 461 U/L (34-104) H 09/30/17 04:50 Creatine Kinase 31 U/L (30-223) 09/27/17 21:56 Troponin I 0.03 ng/mL (0.01-0.05) 09/27/17 21:56 Total Protein 6.7 gm/dL (6.0-8.3) 09/30/17 04:50 Albumin 3.3 gm/dL (3.7-5.3) L 09/30/17 04:50 Globulin 3.4 gm/dL 09/30/17 04:50 Albumin/Globulin Ratio 1.0 (1.0-1.8) 09/30/17 04:50 - Physical Exam Vitals and I&O: Vital Signs Temp 96.8 F 09/30/17 08:00 Pulse 81 09/30/17 08:00 Resp 18 09/30/17 08:00 BP 133/72 09/30/17 08:00 Pulse Ox 97 09/30/17 08:00 Intake & Output 1009/30/17 09/30/17 18:59 06:59 18:59 Intake Total 600 270 Balance 600 270 Weight (lbs) 71.033 kg 69.853 kg Intake: Oral 600 270 Other: # Voids 2 # Bowel Movements 1 1 Active Medications: Current Medications Acetaminophen (Tylenol) 650 mg PO Q6H PRN PRN Reason: Pain or Fever >101 Stop: 11/27/17 08:14 Acetaminophen/Hydrocodone Bitart ([place] 5mg/325mg) 1 tab PO Q6H PRN PRN Reason: Pain (Moderate) Stop: 11/27/17 08:14 Last Admin: 09/29/17 21:54 Dose: 1 tab Carvedilol (Coreg) 3.125 mg PO BID ALINE Stop: 11/27/17 09:59 Last Admin: 09/30/17 08:25 Dose: Not Given Furosemide (Lasix) 40 mg PO DAILY ALINE Stop: 11/27/17 09:59 Last Admin: 09/30/17 08:25 Dose: Not Given Gabapentin (Neurontin) 300 mg PO TID ALINE Stop: 11/27/17 08:59 Last Admin: 09/30/17 08:25 Dose: Not Given Insulin Aspart (Novolog Insulin Sliding Scale) 0 units SUBQ ACHS ALINE PRN Reason: Protocol Stop: 11/28/17 20:59 Last Admin: 09/30/17 06:32 Dose: 2 units Levothyroxine Sodium (Synthroid) 0.1 mg PO QDAC ALINE Stop: 11/28/17 07:29 Last Admin: 09/30/17 06:32 Dose: 0.1 mg Lorazepam (Ativan) 1 mg IVP Q6HR PRN; Protocol PRN Reason: Agitation Stop: 11/27/17 16:42 Last Admin: 09/28/17 17:35 Dose: 1 mg Losartan Potassium (Cozaar) 25 mg PO DAILY ALINE Stop: 11/27/17 09:59 Last Admin: 09/30/17 08:26 Dose: Not Given Miscellaneous (Clinical Monitoring) 1 ea MC DAILY PRN PRN Reason: RENAL Stop: 11/28/17 08:34 Mupirocin (Bactroban Oint) 1 appl NS BID ALINE Stop: 10/04/17 17:01 Last Admin: 09/30/17 08:24 Dose: 1 appl Ondansetron HCl (Zofran Odt) 4 mg PO Q6H PRN PRN Reason: Nausea / Vomiting Stop: 11/27/17 08:14 General: No acute distress HEENT: Atraumatic Neck: Supple Cardiovascular: Regular rate, Normal S1 Abdomen: Bowel sounds - Procedures Procedures: Procedures Procedure Code Date INJECT/INFUSE NEC 99.29 06/24/13 Assessment/Plan - Problem List Patient Problems: All Active Problems Chronic anemia (Acute) D64.9 Diabetes (Acute) E11.9 ESRD (end stage renal disease) on dialysis (Acute) N18.6, Z99.2 HTN (hypertension) (Acute) I10 Hyponatremia (Acute) E87.1 Hypothyroid (Acute) E03.9 Mild protein-calorie malnutrition (Acute) E44.1 Status post fall (Acute) Z91.81 Syncope (Acute) R55 Hyperglycemia (Active) R73.9 - Assessment Assessment: syncope s/p fall hyponatremia mild protein calorie malnutrition htn hypothyroid esrd on hd chronic anemia dm - Plan Plan: nephrology consult renal diet insuline sliding scale, accucheck fall precautions continue orders as per order sheet Nutritional Asmnt/Malnutr-PDOC - Dietary Evaluation Malnutrition Findings (Please click <Entered> for more info): Nutritional Asmnt/Malnutrition Start: 09/29/17 08: 02 Text: Status: Complete Freq: Document 09/29/17 08:02 [email or web address] (Rec: 09/29/17 08:23 [email or web address]) Nutritional Asmnt/Malnutrition Patient General Information Nutritional Screening Consult Diagnosis fall, syncope, head trauma, ESRD Pertinent Medical Hx/Surgical Hx ESRD on HD, DM, HTN, dementia, hypothyroidism, chronic anemia Subjective Information Pt just moved to ICU, sleeping , not intubated. Is confused and Omani speaking. Does not answer questions. No family present to answer questions. Current Diet Order/ Nutrition Support renal, 2 gm Na Patient / S.O Not Indicated Pertinent Medications lasix, insulin, synthroid Pertinent Labs 09/29 Na: 134, BUN: 39, cr: 3. 1, POC: 121-221 Nutritional Hx/Data Height 1.63 m Height (Calculated Centimeters) 162.6 Current Weight (lbs) 71.668 kg Weight (Calculated Kilograms) 71.7 Weight (Calculated Grams) 97995.6 [place] Body Weight 120 lbs % [place] Body Weight 132 Weight Status Overweight GI Symptoms GI Symptoms Last BM Food Allergies No Usual diet at home unable to obtain Skin Integrity/Comment: intact, scar tissue to L buttocks and coccyx, evaluated by wound RN Current %PO Good (75-100%) Estimated Nutritional Goals BEE in Kcals: Using Current wt Calories/Kcals/Kg 25-30 Kcals Calculated 4891-9940 kcals Protein: Using Current wt Protein g/k.2-1.5 Protein Calculated 98-108 g Fluid: ml 1500 mL or per MD order Nutritional Problem 1. Problem Problem Altered nutrition related lab values Etiology renal dysfunction, endocrine dysfunction Signs/Symptoms: POC: 121-221, BUN: 39, cr: 3.1 Malnutrition Alert Protein-Calorie Malnutrition N/A Is there a minimum of two criteria No selected? Query Text:Check all the applicable criteria. A minimum of two criteria are recommended for diagnosis of either severe or non-severe malnutrition. Malnutrition Related to Morbid Obesity Malnutrition related to morbid obesity No Intervention/Recommendation Recommendations by RD Protein supplementation Comments 1. Change diet to consistent CHO, renal for optimal glycemic control 2. Add Nepro daily for HD Expected Outcomes/Goals Expected Outcomes/Goals Goals: PO intake> 75%, consume 1 supplement/day, wt stable, labs approach WNL
--- NOTE | 2017-09-30 19:53 | Cardiology ---
09/30/2017 ECHOCARDIOGRAM REPORT The patient of Dr. Moreira M-MODE ECHOCARDIOGRAM: Mitral valve, anterior leaflet of the mitral valve shows decreased excursion, EF velocity. Posterior leaflet of mitral valve shows decreased excursion. Left ventricular posterior wall shows increased thickness, decreased excursion. Interventricular septum shows increased thickness, decreased excursion, ejection fraction of 30%. Left atrium normal. Aortic root shows normal dimension, normal excursion of aortic leaflets. CONCLUSION: Hypertrophy of the left ventricle, cardiomyopathy, ejection fraction of 30%. 2D echo on the same patient long axis view shows enlarged left ventricular cavity with decreased ejection fraction, hypertrophy of the left ventricle. Left atrium normal. Aortic root shows normal dimension, normal excursion of aortic leaflets. Short axis view of mitral valve normal. Short axis view of aortic valve normal. Apical four chamber view shows enlarged left ventricular cavity with decreased ejection fraction, hypertrophy of the left ventricle. Left atrium normal. Right ventricular cavity, right atrium normal, no pericardial effusion. CONCLUSION: Hypertrophy of the left ventricle, cardiomyopathy, ejection fraction 30%, and mild tricuspid regurgitation. JOB# [id number]
--- NOTE | 2017-09-30 20:20 | Consultation ---
DATE OF CONSULTATION: 09/29/[address] Moreira. HISTORY AND PHYSICAL: This is a 76-year-old female patient who had a fall. Following this, the patient had a head injury and the patient was brought to [facility] to the regular floor. The patient developed hypoglycemia. At this time, the patient was transferred to ICU and patient is sleepy and lethargic at that time. PAST MEDICAL HISTORY: The patient has a history of concussion, head injury, diabetes mellitus type 2, episodes of hypoglycemia, diabetes mellitus chronic kidney disease stage 5, end-stage renal disease on dialysis, iron deficiency anemia, dementia, psychosis, hypertension, protein-calorie malnutrition, hypothyroid. FAMILY HISTORY: Unremarkable. SOCIAL HISTORY: No history of smoking, alcohol abuse. ALLERGIES: None. PHYSICAL EXAMINATION: VITAL SIGNS: Blood pressure 128/82, pulse 78, respirations 28. HEAD: The patient has a head trauma. EYES: Pupils are equal and reactive to light. Fundi show AV nicking, sclerae white, conjunctivae pink. NECK: Carotid 2+. Normal upstroke. JVD flat. Thyroid not palpable. Lymph nodes not palpable. CHEST: Shows increased AP diameter. No kyphosis or scoliosis. LUNGS: Bilateral bronchovesicular breath sounds. Occasional wheeze. No rales. HEART: PMI fifth intercostal space with lateral to midclavicular line. S1, S2. No S3, S4, soft systolic murmur. ABDOMEN: Soft. Liver and spleen not palpable. No organomegaly. Bowel sounds active. NEUROLOGIC: No focal neurological deficit. EXTREMITIES: Peripheral pulses 2+. No pedal edema. CLINICAL IMPRESSION: Concussion, head trauma, hypoglycemia, diabetes mellitus type 2, diabetic chronic kidney disease stage 5, end-stage renal disease on dialysis, iron deficiency anemia, dementia, psychosis, hypertension, protein-calorie malnutrition, hypothyroid. PLAN: The patient to be monitored on ICU. Control diabetes. Echocardiogram and EKG to monitor for any arrhythmias. JOB# [id number]
--- NOTE | 2017-10-03 04:33 | Discharge Summary ---
DATE OF DISCHARGE: 09/30/2017 DISPOSITION: Discharged to [facility] where the patient was initially admitted because of history of fall and also the patient has a history of head trauma. HOSPITAL COURSE: The patient was admitted for head trauma and history of syncope, hyponatremia, hypothyroidism, ESRD, on hemodialysis, anemia, diabetes. The patient improved. The patient had a complete cardiac workup. The patient at one point became hypoglycemic, was transferred to ICU. The patient improved. The patient was stable for discharge on 09/30/2017 and discharged the patient back to [facility] and I will be following the patient there. FINAL DIAGNOSES: Status post syncope and status post fall and history of head trauma, status post hyponatremia, and history of end-stage renal disease, on dialysis, anemia and diabetes. MEDICATIONS: See reconciliation sheet. JOB# [id number]
== END 2017-09-30 13:20 | disposition home or self-care (01) | DRG 640 ==
LOC: ER 20:53 → TELE 23:00 → ICU 09-29 07:28 → TELE 09-30 05:19
PROVIDERS: ADMIT Internal Medicine; ATTEND Internal Medicine
PROC: 5A1D70Z Performance of Urinary Filtration, Intermittent, Less than 6 Hours Per Day (ICD-10-PCS; principal; 2017-09-28)
PROC: 5A1D70Z Performance of Urinary Filtration, Intermittent, Less than 6 Hours Per Day (ICD-10-PCS; 2017-09-29)
DX: E87.8 Other disorders of electrolyte and fluid balance, not elsewhere classified (principal); G92 Toxic encephalopathy; E11.22 Type 2 diabetes mellitus with diabetic chronic kidney disease; E11.649 Type 2 diabetes mellitus with hypoglycemia without coma; E44.1 Mild protein-calorie malnutrition; S06.0X9A Concussion with loss of consciousness of unspecified duration, initial encounter; N18.6 End stage renal disease; I12.0 Hypertensive chronic kidney disease with stage 5 chronic kidney disease or end stage renal disease; E87.1 Hypo-osmolality and hyponatremia; F03.90 Unspecified dementia, unspecified severity, without behavioral disturbance, psychotic disturbance, mood disturbance, and anxiety; D50.9 Iron deficiency anemia, unspecified; E03.9 Hypothyroidism, unspecified; W18.30XA Fall on same level, unspecified, initial encounter; Y93.89 Activity, other specified; Y92.89 Other specified places as the place of occurrence of the external cause; Y99.8 Other external cause status; Z68.26 Body mass index [BMI] 26.0-26.9, adult; Z88.5 Allergy status to narcotic agent; Z91.041 Radiographic dye allergy status; Z79.4 Long term (current) use of insulin; Z99.2 Dependence on renal dialysis
CPT/HCPCS: 36415-UA; 70450-TC; 80048-TC; 80053-TC; 82550-TC; 82948-90; 84484-TC; 85025-TC; 85610-TC; 90937; 93005; J1610; J1644; J1815; J2060; J7030; Z7610

== ENCOUNTER 2017-12-28 23:20 | Inpatient (IN) | payer MEDICARE, MEDICAID ==
[2017-12-28] MEDS ORDERED: Haloperidol Lactate 5 mg/mL 1mL Vial IM STA ×2 (23:50→23:55)
--- NOTE | 2017-12-28 23:54 | ED Physician Chart ---
ED Chief Complaint/HPI - Patient Information Date Seen:: 12/28/17 Time Seen:: 23:40 Chief Complaint:: clotted permacath History of Present Illness:: Dialysis could not be done today because patient's permacath was clotted. Allergies:: Allergies Allergy/AdvReac Type Severity Reaction Status Date / Time iodine Allergy Verified 09/27/17 21:04 morphine Allergy Verified 09/27/17 21:04 Vitals:: Vital Signs - 8 hr 12/28/17 23:31 Temp 97.7 F HR 69 RR 18 BP 106/77 O2 Sat % 96 Historian:: Patient, EMS Review:: Nurse's Note Reviewed, Transfer documents Reviewed ED Review of Systems - Review of Systems General/Constitutional: No fever, No chills Skin: No skin lesions Head: No headache Eyes: No loss of vision ENT: Earache Neck: No neck pain Cardio Vascular: No chest pain Pulmonary: No SOB GI: No nausea, No vomiting G/U: No hematuria Musculoskeletal: No bone or joint pain, No back pain, No muscle pain Endocrine: No polyuria, No polydipsia Psychiatric: No prior psych history Hematopoietic: No bruising Allergic/Immuno: No urticaria Neurological: No syncope ED Past Medical History - Past Medical History Past Medical History: HTN, DM, CHF, Thyroid disorder, Other (anemia; status post pneumonia; diabetic neuropathy; sacral decubitus; ) Family History: Other (unavailable) Social History: Care Facility Surgical History: other (permacath) Psychiatricy History: None Medication: Reviewed Family Medical History - Family Member Mother History Unknown: Yes (noncontributory) Living Status: Son Living Status: Still Living ED Physical Exam - Physical Examination General/Constitutional: Well-developed, well-nourished, Alert Other Gen/Cons comments:: Resists physical exam; pushes examiner away Head: Atraumatic Eyes: Lids, conjuctiva normal, PERRL Skin: Nl inspection, No rash ENMT: External ears, nose nl, Nasal exam nl Neck: No nuchal rigidity Respiratory: Nl effort/Exclusion Other Respiratory comments:: Left sided rales Cardio Vascular: RRR, No murmur, gallop, rubs GI: No tenderness/rebounding/guarding, No organomegaly Extremities: Normal digits & nails Neuro/Psych: No focal deficits ED Labs/Radiology/EKG Results - Lab Results Results: Chest x-ray showed cardiomegaly and right pleural effusion. ED Septic Shock - . Is Septic Shock (SBP<90, OR Lactate>4 mmol\L) present?: No - <6hrs of presentation: Vital Signs: Vital Signs - 8 hr 12/28/17 23:31 Temp 97.7 F HR 69 RR 18 BP 106/77 O2 Sat % 96 ED Reassessment (Disposition) - Reassessment Reassessment Condition:: Unchanged - Diagnosis Diagnosis:: Carotid permacath; the failure on dialysis; diabetes - Patient Disposition Admitted to:: Med/Surg Spoke to:: Serjio Moreira Admitting Medical Physician:: Serjio Moreira
[2017-12-28] MEDS ORDERED: Haloperidol Lactate 5 mg/mL 1mL Vial ONE (23:59)
[2017-12-29 04:38] VITALS: BP 164/66
[2017-12-29 05:49] LABS: HEMATOCRIT 32.1 % (41.0-60); HEMOGLOBIN 10.6 gm/dL (12-16); MEAN CELL VOLUME 94.6 fl (81-100); MEAN CORPUSCULAR HEMOGLOBIN 31.2 pg (27.0-31.0); MEAN CORPUSCULAR HGB CONC 32.9 pg (28.0-36.0); RED BLOOD COUNT 3.39 Mil/cmm (3.80-5.20)
[2017-12-29 05:55] LABS: PLATELET COUNT 228 Th/cmm (150-400); WHITE BLOOD COUNT 11.9 Th/cmm (4.8-10.8)
[2017-12-29 06:02] LABS: INR 1.27 (0.5-1.4); PROTHROMBIN TIME (TEST) 13.4 SECONDS (9.5-11.5)
[2017-12-29 06:06] LABS: ALBUMIN 3.4 gm/dL (3.7-5.3); ALKALINE PHOSPHATASE 219 U/L (34-104); ANION GAP 22.2 (7.0-16.0); BILIRUBIN,TOTAL 0.9 mg/dL (0.3-1.0); BUN - UREA NITROGEN 68 mg/dL (7-25); CALCIUM SERUM 8.9 mg/dL (8.6-10.3); CARBON DIOXIDE 20.2 mEq/L (21.0-31.0); CHLORIDE 92 mEq/L (98-107); GLUCOSE 207 mg/dL (70-105); SGOT 15 U/L (13-39); SGPT/ALT 13 U/L (7-52); SODIUM SERUM 128 mEq/L (136-145); TOTAL PROTEIN,SERUM 6.7 gm/dL (6.0-8.3)
[2017-12-29 06:29] LABS: POTASSIUM SERUM 6.4 mEq/L (3.5-5.1)
[2017-12-29 06:30] LABS: CREATININE - SERUM 4.9 mg/dL (0.6-1.2)
[2017-12-29] MEDS: INSULIN ASPART SLIDING SCALE 100 UNITS/ML UNIT SUBQ SCH ×4 (07:13→22:24)
[2017-12-29 07:25] LABS: BAND NEUTROPHILE 1 % (0-10); LYMPHOCYTE 6 % (20-50); MONOCYTE 5 % (2-10); TOTAL CELLS COUNTED 100
[2017-12-29 07:26] LABS: NEUTROPHILS 88 % (40-80); PLATELET ESTIMATE ADEQUATE (NORMAL)
[2017-12-29] MEDS ORDERED: Levothyroxine 0.1 Mg Tab PO SCH (07:30)
--- NOTE | 2017-12-29 08:25 | Diagnostic Imaging Report ---
CHEST X-RAY: AP view INDICATION: Left-sided rales COMPARISON: 09/02/2017 FINDINGS: Right dialysis catheter is noted with tip in the SVC. Findings of CHF are noted with right effusion. Bilateral infiltrates are seen right greater than left. Cardiomegaly is noted with atherosclerosis. Degenerative changes of the spine are noted. IMPRESSION: CHF and right effusion. Bilateral infiltrates are noted, right greater than left. Cardiomegaly and atherosclerotic vascular disease.
[2017-12-29] MEDS ORDERED: Pneumococcal Vaccine 0.5 mL Vial IM ONE (10:00)
[2017-12-29] MEDS ORDERED: Influenza Vaccine 0.5 mL Syr IM ONE (10:00)
--- NOTE | 2017-12-29 11:14 | General Progress Note ---
Subjective - Review of Systems Service Date: 12/29/17 Events since last encounter: K 6.4, getting Kayexalate left arm Steffanie likely not working well, was checked here few weeks ago, is patent will order Cathflo Objective - Results Result Diagrams: 12/29/17 05:04 12/29/17 05:04 Recent Labs: Laboratory Last Values WBC 11.9 Th/cmm (4.8-10.8) H D 12/29/17 05:04 RBC 3.39 Mil/cmm (3.80-5.20) L 12/29/17 05:04 Hgb 10.6 gm/dL (12-16) L 12/29/17 05:04 Hct 32.1 % (41.0-60) L D 12/29/17 05:04 MCV 94.6 fl (81-100) 12/29/17 05:04 MCH 31.2 pg (27.0-31.0) H 12/29/17 05:04 MCHC Differential 32.9 pg (28.0-36.0) 12/29/17 05:04 RDW 18.0 % (11.5-20.0) 12/29/17 05:04 Plt Count 228 Th/cmm (150-400) D 12/29/17 05:04 MPV 8.0 fl 12/29/17 05:04 Band Neutrophils % 1 % (0-10) 12/29/17 05:04 Neutrophils (Manual) 88 % (40-80) H 12/29/17 05:04 Lymphocytes 6 % (20-50) L 12/29/17 05:04 Monocytes 5 % (2-10) 12/29/17 05:04 Platelet Estimate ADEQUATE (NORMAL) 12/29/17 05:04 PT 13.4 SECONDS (9.5-11.5) H 12/29/17 05:04 INR 1.27 (0.5-1.4) 12/29/17 05:04 PTT (Actin FS) 27.9 SECONDS (26.0-38.0) 12/29/17 05:04 Sodium 128 mEq/L (136-145) L 12/29/17 05:04 Potassium 6.4 mEq/L (3.5-5.1) H* 12/29/17 05:04 Chloride 92 mEq/L (98-107) L 12/29/17 05:04 Carbon Dioxide 20.2 mEq/L (21.0-31.0) L 12/29/17 05:04 Anion Gap 22.2 (7.0-16.0) H 12/29/17 05:04 BUN 68 mg/dL (7-25) H 12/29/17 05:04 Creatinine 4.9 mg/dL (0.6-1.2) H* 12/29/17 05:04 Est GFR ( Amer) TNP 12/29/17 05:04 Est GFR (Non-Af Amer) TNP 12/29/17 05:04 BUN/Creatinine Ratio 13.9 12/29/17 05:04 Glucose 207 mg/dL (70-105) H 12/29/17 05:04 POC Glucose 211 MG/DL (70 - 105) H 12/29/17 05:01 Calcium 8.9 mg/dL (8.6-10.3) 12/29/17 05:04 Total Bilirubin 0.9 mg/dL (0.3-1.0) 12/29/17 05:04 AST 15 U/L (13-39) 12/29/17 05:04 ALT 13 U/L (7-52) 12/29/17 05:04 Alkaline Phosphatase 219 U/L (34-104) H 12/29/17 05:04 Total Protein 6.7 gm/dL (6.0-8.3) 12/29/17 05:04 Albumin 3.4 gm/dL (3.7-5.3) L 12/29/17 05:04 Globulin 3.3 gm/dL 12/29/17 05:04 Albumin/Globulin Ratio 1.0 (1.0-1.8) 12/29/17 05:04 - Physical Exam Vitals and I&O: Vital Signs Temp 100.3 F 12/29/17 08:00 Pulse 91 12/29/17 10:25 Resp 18 12/29/17 08:00 BP 140/96 12/29/17 10:25 Pulse Ox 100 12/29/17 08:00 Intake & Output 12/28/17 12/29/17 12/29/17 18:59 06:59 18:59 Intake Total 25 Balance 25 Weight (lbs) 69.853 kg Intake: Oral 25 Tube Feeding 0 Other: # Voids 2 # Bowel Movements 1 Stool Characteristics Soft Soft Formed Formed Active Medications: Current Medications Acetaminophen (Tylenol) 650 mg PO Q4H PRN PRN Reason: Pain or Fever >101 Stop: 02/27/18 09:47 Carvedilol (Coreg) 3.125 mg PO BID ALINE Stop: 02/27/18 08:59 Last Admin: 12/29/17 10:25 Dose: Not Given Insulin Aspart (Novolog Insulin Sliding Scale) 0 units SUBQ ACHS ALINE PRN Reason: Protocol Stop: 02/27/18 07:29 Last Admin: 12/29/17 07:13 Dose: 4 units Levothyroxine Sodium (Synthroid) 0.1 mg PO QDAC ALINE Stop: 02/27/18 07:29 Last Admin: 12/29/17 07:14 Dose: 0.1 mg Lorazepam (Ativan) 1 mg IVP Q6HR PRN; Protocol PRN Reason: Agitation Stop: 02/27/18 01:57 Losartan Potassium (Cozaar) 25 mg PO HS ALINE Stop: 02/27/18 20:59 Sodium Polystyrene Sulfonate (Kayexalate) 60 gm PO X1 ONE Stop: 12/29/17 13:01 - Procedures Procedures: Procedures Procedure Code Date INJECT/INFUSE NEC 99.29 06/24/13 PERFORMANCE OF URINARY FILTRATION, <6 HRS/DAY [id number] 09/27/17 Assessment/Plan - Problem List Patient Problems: All Active Problems Hyperglycemia (Active) R73.9 Chronic anemia (Acute) D64.9 Diabetes (Acute) E11.9 ESRD (end stage renal disease) on dialysis (Acute) N18.6, Z99.2 HTN (hypertension) (Acute) I10 Hyponatremia (Acute) E87.1 Hypothyroid (Acute) E03.9 Mild protein-calorie malnutrition (Acute) E44.1 Status post fall (Acute) Z91.81 Syncope (Acute) R55
--- NOTE | 2017-12-29 14:38 | Diagnostic Imaging Report ---
Left upper extremity arterial Doppler History: Steffanie fistula, Clotted shunt Comparison: None Technique: Sonography left upper external arteries was performed Doppler analysis. Findings: Exam of the left upper extremity arteries demonstrate moderate atherosclerotic vascular disease with areas of biphasic and monophasic waveforms. Patient's fistula was not well identified and may be occluded. IMPRESSION: Patient's left upper extremity fistula was not well identified and may be excluded. Please correlate clinically. If indicated dedicated fistulogram may be obtained for further assessment Moderate atherosclerotic vascular disease.
[2017-12-29] MEDS ORDERED: Dextrose 50% 50 mL Abboject IVP PRN (15:03)
[2017-12-29] MEDS ORDERED: INSULIN HUMAN REGULAR 100 UNITS/ML UNIT SUBQ SCH (16:30)
--- NOTE | 2017-12-29 21:28 | History and Physical ---
History of Present Illness - HPI Chief Complaint: clotted shunt HPI: This is a 77 year old female who is admitted to the telemetry due to clotted shunt patient was unable to get HD done. Vital Signs: Last Vital Signs Temp 97.4 F 12/29/17 15:55 Pulse 85 12/29/17 17:09 Resp 22 12/29/17 15:55 BP 125/75 12/29/17 17:09 Pulse Ox 97 12/29/17 15:55 Past Medical History Other History: HTN, DM, CHF, Thyroid disorder, anemia; status post pneumonia; diabetic neuropathy; sacral decubitus; ) - Past Surgical History Past Surgical History: Other (av shunt) Family Medical History - Family Member Mother History Unknown: Yes (noncontributory) Living Status: Son History Unknown: Yes Living Status: Still Living Social History Smoke: No Alcohol: None Drugs: None Lives: [facility] - Medications Home Medications: Home Medication Medication Instructions Recorded Type Carvedilol [Coreg] 3.125 mg PO BID 12/29/17 History Dextrose 50% [D50w] 50 ml IV PRN PRN 12/29/17 History Donepezil Hcl [Aricept] 5 mg PO DAILY 12/29/17 History Furosemide [Lasix] 40 mg PO DAILY 12/29/17 History Hydrocodone/Acetaminophen [[place] 1 each PO Q6H PRN 12/29/17 History 325 mg-5 mg*] Insulin Human Regular [NovoLIN R] See Protocol SUBQ ACHS 12/29/17 History Levothyroxine [Synthroid] 0.1 mg PO QDAC 12/29/17 History Losartan Potassium [Cozaar] 25 mg PO HS 12/29/17 History Memantine [Namenda] 5 mg PO DAILY 12/29/17 History QUEtiapine Fumarate [SEROquel] 12.5 mg PO BID 12/29/17 History - Allergies Allergies/Adverse Reactions: Allergies Allergy/AdvReac Type Severity Reaction Status Date / Time iodine Allergy Verified 09/27/17 21:04 morphine Allergy Verified 09/27/17 21:04 Review of Systems - Review of Systems Constitutional: Report: No Significant Eyes: Report: No Significant ENT: Report: No Significant Respiratory: Report: No Significant Cardiovascular: Report: No Significant Gastrointestinal: Report: No Significant Genitourinary: Report: No Significant Neurological: Report: Weakness Physical Exam - Physical Exam HEENT: Report: Ears Nose Throat within normal limits Neck: Report: Within normal limits Cardiovascular Systems: Report: +s1/s2 noted Respiratory: Report: Breath Sounds are within normal limits Abdomen: Report: Non-tender to palpation Extremities: Report: Non-tender to palpation. Skin: Report: Warm, Dry Neuro/Psych: Report: Mood affect is within normal limits - Lab Results All Lab Results last 24 hours: Laboratory Results - last 24 hr 12/29/17 12/29/17 12/29/17 05:01 05:04 05:04 WBC 11.9 H D RBC 3.39 L Hgb 10.6 L Hct 32.1 L D MCV 94.6 MCH 31.2 H MCHC Differential 32.9 RDW 18.0 Plt Count 228 D MPV 8.0 Band Neutrophils % 1 Neutrophils (Manual) 88 H Lymphocytes 6 L Monocytes 5 Platelet Estimate ADEQUATE PT 13.4 H INR 1.27 PTT (Actin FS) 27.9 Sodium Potassium Chloride Carbon Dioxide Anion Gap BUN Creatinine Est GFR ( Amer) Est GFR (Non-Af Amer) BUN/Creatinine Ratio Glucose POC Glucose 211 H Whole Bld Lactic Acid Calcium Total Bilirubin AST ALT Alkaline Phosphatase Total Protein Albumin Globulin Albumin/Globulin Ratio 12/29/17 12/29/17 12/29/17 05:04 11:00 11:23 WBC RBC Hgb Hct MCV MCH MCHC Differential RDW Plt Count MPV Band Neutrophils % Neutrophils (Manual) Lymphocytes Monocytes Platelet Estimate PT INR PTT (Actin FS) Sodium 128 L Potassium 6.4 H* Chloride 92 L Carbon Dioxide 20.2 L Anion Gap 22.2 H BUN 68 H Creatinine 4.9 H* Est GFR ( Amer) TNP Est GFR (Non-Af Amer) TNP BUN/Creatinine Ratio 13.9 Glucose 207 H POC Glucose 220 H Whole Bld Lactic Acid 1.68 Calcium 8.9 Total Bilirubin 0.9 AST 15 ALT 13 Alkaline Phosphatase 219 H Total Protein 6.7 Albumin 3.4 L Globulin 3.3 Albumin/Globulin Ratio 1.0 12/29/17 17:05 WBC RBC Hgb Hct MCV MCH MCHC Differential RDW Plt Count MPV Band Neutrophils % Neutrophils (Manual) Lymphocytes Monocytes Platelet Estimate PT INR PTT (Actin FS) Sodium Potassium Chloride Carbon Dioxide Anion Gap BUN Creatinine Est GFR ( Amer) Est GFR (Non-Af Amer) BUN/Creatinine Ratio Glucose POC Glucose 288 H Whole Bld Lactic Acid Calcium Total Bilirubin AST ALT Alkaline Phosphatase Total Protein Albumin Globulin Albumin/Globulin Ratio - Assessment Assessment: av shunt malfunction HTN DM CHF hypothyroid , anemia esrd on hd - Plan Plan: nephro consult surgical consult follow up labs in am continue current orders
[2017-12-30 06:41] LABS: % BASOPHILS 0.6 % (0.0-2.0); % EOSINOPHILS 0.4 % (0.0-5.0); % LYMPHOCYTES 8.7 % (20.0-50.0); % NEUTROPHILS 81.3 % (40.0-80.0); BASOPHILE ABSOLUTE 0.1 Th/cumm (0-0.2); HEMATOCRIT 30.8 % (41.0-60); HEMOGLOBIN 10.2 gm/dL (12-16); LYMPHOCYTE ABSOLUTE 0.9 Th/cmm (1.5-3.0); MEAN CELL VOLUME 94.9 fl (81-100); MEAN CORPUSCULAR HEMOGLOBIN 31.3 pg (27.0-31.0); MONOCYTE ABSOLUTE 0.9 Th/cmm (0.3-1.0); NEUTROPHILE ABSOLUTE 8.1 Th/cmm (1.8-8.0); PLATELET COUNT 223 Th/cmm (150-400); RED BLOOD COUNT 3.25 Mil/cmm (3.80-5.20); RED CELL DISTRIBUTION WIDTH 18.2 % (11.5-20.0)
[2017-12-30] MEDS: INSULIN ASPART SLIDING SCALE 100 UNITS/ML UNIT SUBQ SCH ×4 (06:58→21:50)
[2017-12-30] MEDS: Levothyroxine 0.1 Mg Tab PO SCH (06:59)
[2017-12-30 07:04] LABS: ALBUMIN 3.3 gm/dL (3.7-5.3); ALKALINE PHOSPHATASE 207 U/L (34-104); ANION GAP 20.6 (7.0-16.0); BILIRUBIN,TOTAL 0.7 mg/dL (0.3-1.0); BUN - UREA NITROGEN 70 mg/dL (7-25); CALCIUM SERUM 8.6 mg/dL (8.6-10.3); CHLORIDE 95 mEq/L (98-107); GLUCOSE 236 mg/dL (70-105); POTASSIUM SERUM 4.6 mEq/L (3.5-5.1); SGOT 23 U/L (13-39); SGPT/ALT 16 U/L (7-52); SODIUM SERUM 134 mEq/L (136-145); TOTAL PROTEIN,SERUM 6.5 gm/dL (6.0-8.3)
[2017-12-30 07:07] LABS: CREATININE - SERUM 5.4 mg/dL (0.6-1.2)
[2017-12-30] MEDS ORDERED: fentaNYL Citrate 100 mcg/2mL Vial ONE (08:22)
[2017-12-30] MEDS ORDERED: Midazolam 1mg/ml 2 ml vial IV ONE (08:23)
[2017-12-30] MEDS ORDERED: Thrombin, Bovine 5,000 IU Vial TP ONE (08:28)
[2017-12-30] MEDS ORDERED: Gelatin Sponge 100cm Spg TP ONE (08:29)
--- NOTE | 2017-12-30 10:08 | General Progress Note ---
Subjective - Review of Systems Events since last encounter: patient admitted for clotted shunt in no distress Objective - Results Result Diagrams: 12/30/17 06:10 12/30/17 06:10 Recent Labs: Laboratory Last Values WBC 10.0 Th/cmm (4.8-10.8) 12/30/17 06:10 RBC 3.25 Mil/cmm (3.80-5.20) L 12/30/17 06:10 Hgb 10.2 gm/dL (12-16) L 12/30/17 06:10 Hct 30.8 % (41.0-60) L 12/30/17 06:10 MCV 94.9 fl (81-100) 12/30/17 06:10 MCH 31.3 pg (27.0-31.0) H 12/30/17 06:10 MCHC Differential 33.0 pg (28.0-36.0) 12/30/17 06:10 RDW 18.2 % (11.5-20.0) 12/30/17 06:10 Plt Count 223 Th/cmm (150-400) 12/30/17 06:10 MPV 8.0 fl 12/30/17 06:10 Neutrophils % 81.3 % (40.0-80.0) H 12/30/17 06:10 Band Neutrophils % 1 % (0-10) 12/29/17 05:04 Lymphocytes % 8.7 % (20.0-50.0) L 12/30/17 06:10 Monocytes % 9.0 % (2.0-10.0) 12/30/17 06:10 Eosinophils % 0.4 % (0.0-5.0) 12/30/17 06:10 Basophils % 0.6 % (0.0-2.0) 12/30/17 06:10 Neutrophils (Manual) 88 % (40-80) H 12/29/17 05:04 Lymphocytes 6 % (20-50) L 12/29/17 05:04 Monocytes 5 % (2-10) 12/29/17 05:04 Platelet Estimate ADEQUATE (NORMAL) 12/29/17 05:04 PT 13.4 SECONDS (9.5-11.5) H 12/29/17 05:04 INR 1.27 (0.5-1.4) 12/29/17 05:04 PTT (Actin FS) 27.9 SECONDS (26.0-38.0) 12/29/17 05:04 Sodium 134 mEq/L (136-145) L 12/30/17 06:10 Potassium 4.6 mEq/L (3.5-5.1) 12/30/17 06:10 Chloride 95 mEq/L (98-107) L 12/30/17 06:10 Carbon Dioxide 23.0 mEq/L (21.0-31.0) 12/30/17 06:10 Anion Gap 20.6 (7.0-16.0) H 12/30/17 06:10 BUN 70 mg/dL (7-25) H 12/30/17 06:10 Creatinine 5.4 mg/dL (0.6-1.2) H* 12/30/17 06:10 Est GFR ( Amer) TNP 12/30/17 06:10 Est GFR (Non-Af Amer) TNP 12/30/17 06:10 BUN/Creatinine Ratio 13.0 12/30/17 06:10 Glucose 236 mg/dL (70-105) H 12/30/17 06:10 POC Glucose 227 MG/DL (70 - 105) H 12/30/17 07:48 Whole Bld Lactic Acid 1.68 mmol/L (0.60-1.99) 12/29/17 11:00 Calcium 8.6 mg/dL (8.6-10.3) 12/30/17 06:10 Total Bilirubin 0.7 mg/dL (0.3-1.0) 12/30/17 06:10 AST 23 U/L (13-39) 12/30/17 06:10 ALT 16 U/L (7-52) 12/30/17 06:10 Alkaline Phosphatase 207 U/L (34-104) H 12/30/17 06:10 Total Protein 6.5 gm/dL (6.0-8.3) 12/30/17 06:10 Albumin 3.3 gm/dL (3.7-5.3) L 12/30/17 06:10 Globulin 3.2 gm/dL 12/30/17 06:10 Albumin/Globulin Ratio 1.0 (1.0-1.8) 12/30/17 06:10 - Physical Exam Vitals and I&O: Vital Signs Temp 97.2 F 12/30/17 09:00 Pulse 89 12/30/17 09:00 Resp 18 12/30/17 09:42 BP 150/39 12/30/17 09:00 Pulse Ox 98 12/30/17 09:00 Intake & Output 12/29/17 12/30/17 12/30/17 18:59 06:59 18:59 Intake Total 200 Balance 200 Weight (lbs) 69.853 kg 66.451 kg Intake: Oral 200 Other: # Voids 2 # Bowel Movements 1 Stool Characteristics Soft Soft Soft Formed Brown Brown Active Medications: Current Medications Acetaminophen (Tylenol) 650 mg PO Q4H PRN PRN Reason: Pain or Fever >101 Stop: 02/27/18 09:47 Carvedilol (Coreg) 3.125 mg PO BID [facility] Stop: 02/27/18 08:59 Last Admin: 12/29/17 17:09 Dose: 3.125 mg Dextrose (D50w) 50 ml IVP PRN PRN PRN Reason: HYPOGLYCEMIA BS BELOW 70 Donepezil HCl (Aricept) 5 mg PO DAILY [facility] Stop: 02/28/18 08:59 Furosemide (Lasix) 40 mg PO DAILY [facility] Stop: 02/28/18 08:59 Insulin Aspart (Novolog Insulin Sliding Scale) 0 units SUBQ ACHS [facility] PRN Reason: Protocol Stop: 02/27/18 07:29 Last Admin: 12/30/17 06:58 Dose: 4 units Levothyroxine Sodium (Synthroid) 0.1 mg PO QDAC [facility] Stop: 02/28/18 07:29 Last Admin: 12/30/17 06:59 Dose: Not Given Lorazepam (Ativan) 1 mg IVP Q6HR PRN; Protocol PRN Reason: Agitation Stop: 02/27/18 01:57 Losartan Potassium (Cozaar) 25 mg PO HS [facility] Stop: 02/27/18 20:59 Last Admin: 12/29/17 22:24 Dose: 25 mg Memantine (Namenda) 5 mg PO DAILY [facility] Stop: 02/28/18 08:59 Miscellaneous (Clinical Monitoring) 1 ea MC DAILY PRN PRN Reason: RENAL Stop: 02/27/18 12:39 Quetiapine Fumarate (Seroquel) 12.5 mg PO BID [facility] PRN Reason: Protocol Stop: 02/27/18 16:59 General: No acute distress HEENT: Atraumatic Neck: Supple Cardiovascular: Regular rate, Normal S1 Lungs: Clear to auscultation Abdomen: Bowel sounds - Procedures Procedures: Procedures Procedure Code Date INJECT/INFUSE NEC 99.29 06/24/13 PERFORMANCE OF URINARY FILTRATION, <6 HRS/DAY [id number] 09/27/17 Assessment/Plan - Problem List Patient Problems: All Active Problems Hyperglycemia (Active) R73.9 Chronic anemia (Acute) D64.9 Diabetes (Acute) E11.9 ESRD (end stage renal disease) on dialysis (Acute) N18.6, Z99.2 HTN (hypertension) (Acute) I10 Hyponatremia (Acute) E87.1 Hypothyroid (Acute) E03.9 Mild protein-calorie malnutrition (Acute) E44.1 Status post fall (Acute) Z91.81 Syncope (Acute) R55 - Plan Plan: cpm Nutritional Asmnt/Malnutr-PDOC - Dietary Evaluation Malnutrition Findings (Please click <Entered> for more info): Nutritional Asmnt/Malnutrition Start: 12/29/17 16: 28 Text: Status: Complete Freq: Document 12/29/17 16:28 LCHENG (Rec: 12/29/17 16:43 [email or web address] [id number]) Nutritional Asmnt/Malnutrition Patient General Information Nutritional Screening High Risk Consult Diagnosis clotted shunt Pertinent Medical Hx/Surgical Hx HTN, DM, CHF, thyroid disorder , anemia, s/p PNA, sacral decubitus, diabetic neuropathy , permacath Subjective Information Consult received for DM and ESRD. Pt is [place]ian speaking. Pt seen having U/S at time of visit. Spoke with nurse, pt had oatmeal and some pancake this morning, PO intake about 25% of breakfast. Per nurse note pt does not want to eat today. Pt will receive dialysis noted. Current Diet Order/ Nutrition Support Renal Pertinent Medications Lasix, novolog, wynthroid, seroquel Pertinent Labs 12/29 Na 128, K 6.4, Cl 92, BUN 68, Cr 4.9, GLucose 207, POC 220, Alb 3.4 Nutritional Hx/Data Height 1.63 m Height (Calculated Centimeters) 162.6 Current Weight (lbs) 69.853 kg Weight (Calculated Kilograms) 69.9 Weight (Calculated Grams) 42247.2 [place] Body Weight 120 % [place] Body Weight 128 Body Mass Index (BMI) 26.4 Weight Status Overweight GI Symptoms GI Symptoms None Last BM 12/29 Difficult in: None Skin Integrity/Comment: rash to buttocks, scar to sacrum Estimated Nutritional Goals BEE in Kcals: Adj wt of IBW Calories/Kcals/Kg 25-30 Kcals Calculated 3686-6203 Protein: Adj wt of IBW Protein g/k-1.2 Protein Calculated 58-70 Fluid: ml 1450-1740ml (1ml/kcal) or per MD Nutritional Problem 1. Problem Problem altered nutrition related lab values Etiology hx of ESRD and DM Signs/Symptoms: BUN 68, Cr 4.9, GLucose 207, POC 220 Malnutrition Alert Protein-Calorie Malnutrition N/A Is there a minimum of two criteria No selected? Query Text:Check all the applicable criteria. A minimum of two criteria are recommended for diagnosis of either severe or non-severe malnutrition. Intervention/Recommendation Comments 1. Recommend [facility] renal diet for optiaml glycemic control. NITZA Cardenas notified. 2. Monitor PO intake, wt, labs and skin integrity 3. F/U as high risk in 2-3 days, 2/1-2/2 Expected Outcomes/Goals Expected Outcomes/Goals 1. PO intake to meet at least 75% of nutritional needs. 2. Wt stability, skin to remain intact, labs to improve
--- NOTE | 2017-12-30 11:03 | Diagnostic Imaging Report ---
Portable chest x-ray HISTORY: Shortness of breath, vascular catheter placement Compared to prior exam of December 29, 2017, a right-sided vascular catheter is seen with the tip in the superior vena cava near the junction with the right clavian vein. The heart remains enlarged. There is evidence for right pleural effusion. Pulmonary vascular redistribution and hazy interstitial markings consistent with mild edema noted. IMPRESSION: 1. Vascular catheter placement as noted above 2. Persistent cardiomegaly with evidence of congestive heart failure as described above.
--- NOTE | 2017-12-30 11:04 | Diagnostic Imaging Report ---
Vascular catheter placement (intraoperative fluoroscopic images and services) Intraoperative fluoroscopic images and services were provided for facilitation of a vascular catheter placement. 41 seconds fluoroscopy time was utilized.
[2017-12-30] MEDS ORDERED: VTE Chemical Prophylaxis Screen/Admission MC PRN (11:41)
--- NOTE | 2017-12-30 12:50 | General Progress Note ---
Subjective - Review of Systems Service Date: 12/30/17 Subjective: PATIENT HAS A NEW CATHETER Objective - Results Result Diagrams: 12/30/17 06:10 12/30/17 06:10 Recent Labs: Laboratory Last Values WBC 10.0 Th/cmm (4.8-10.8) 12/30/17 06:10 RBC 3.25 Mil/cmm (3.80-5.20) L 12/30/17 06:10 Hgb 10.2 gm/dL (12-16) L 12/30/17 06:10 Hct 30.8 % (41.0-60) L 12/30/17 06:10 MCV 94.9 fl (81-100) 12/30/17 06:10 MCH 31.3 pg (27.0-31.0) H 12/30/17 06:10 MCHC Differential 33.0 pg (28.0-36.0) 12/30/17 06:10 RDW 18.2 % (11.5-20.0) 12/30/17 06:10 Plt Count 223 Th/cmm (150-400) 12/30/17 06:10 MPV 8.0 fl 12/30/17 06:10 Neutrophils % 81.3 % (40.0-80.0) H 12/30/17 06:10 Band Neutrophils % 1 % (0-10) 12/29/17 05:04 Lymphocytes % 8.7 % (20.0-50.0) L 12/30/17 06:10 Monocytes % 9.0 % (2.0-10.0) 12/30/17 06:10 Eosinophils % 0.4 % (0.0-5.0) 12/30/17 06:10 Basophils % 0.6 % (0.0-2.0) 12/30/17 06:10 Neutrophils (Manual) 88 % (40-80) H 12/29/17 05:04 Lymphocytes 6 % (20-50) L 12/29/17 05:04 Monocytes 5 % (2-10) 12/29/17 05:04 Platelet Estimate ADEQUATE (NORMAL) 12/29/17 05:04 PT 13.4 SECONDS (9.5-11.5) H 12/29/17 05:04 INR 1.27 (0.5-1.4) 12/29/17 05:04 PTT (Actin FS) 27.9 SECONDS (26.0-38.0) 12/29/17 05:04 Sodium 134 mEq/L (136-145) L 12/30/17 06:10 Potassium 4.6 mEq/L (3.5-5.1) 12/30/17 06:10 Chloride 95 mEq/L (98-107) L 12/30/17 06:10 Carbon Dioxide 23.0 mEq/L (21.0-31.0) 12/30/17 06:10 Anion Gap 20.6 (7.0-16.0) H 12/30/17 06:10 BUN 70 mg/dL (7-25) H 12/30/17 06:10 Creatinine 5.4 mg/dL (0.6-1.2) H* 12/30/17 06:10 Est GFR ( Amer) TNP 12/30/17 06:10 Est GFR (Non-Af Amer) TNP 12/30/17 06:10 BUN/Creatinine Ratio 13.0 12/30/17 06:10 Glucose 236 mg/dL (70-105) H 12/30/17 06:10 POC Glucose 147 MG/DL (70 - 105) H 12/30/17 12:08 Whole Bld Lactic Acid 1.68 mmol/L (0.60-1.99) 12/29/17 11:00 Calcium 8.6 mg/dL (8.6-10.3) 12/30/17 06:10 Total Bilirubin 0.7 mg/dL (0.3-1.0) 12/30/17 06:10 AST 23 U/L (13-39) 12/30/17 06:10 ALT 16 U/L (7-52) 12/30/17 06:10 Alkaline Phosphatase 207 U/L (34-104) H 12/30/17 06:10 Total Protein 6.5 gm/dL (6.0-8.3) 12/30/17 06:10 Albumin 3.3 gm/dL (3.7-5.3) L 12/30/17 06:10 Globulin 3.2 gm/dL 12/30/17 06:10 Albumin/Globulin Ratio 1.0 (1.0-1.8) 12/30/17 06:10 - Physical Exam Vitals and I&O: Vital Signs Temp 98.7 F 12/30/17 12:22 Pulse 89 12/30/17 12:22 Resp 20 12/30/17 12:22 BP 116/59 12/30/17 12:22 Pulse Ox 99 12/30/17 12:22 Intake & Output 12/29/17 12/30/17 12/30/17 18:59 06:59 18:59 Intake Total 200 Balance 200 Weight (lbs) 69.853 kg 66.451 kg Intake: Oral 200 Other: # Voids 2 # Bowel Movements 1 Stool Characteristics Soft Soft Soft Formed Brown Brown Active Medications: Current Medications Acetaminophen (Tylenol) 650 mg PO Q4H PRN PRN Reason: Pain or Fever >101 Stop: 02/27/18 09:47 Carvedilol (Coreg) 3.125 mg PO BID [facility] Stop: 02/27/18 08:59 Last Admin: 12/30/17 10:44 Dose: Not Given Dextrose (D50w) 50 ml IVP PRN PRN PRN Reason: HYPOGLYCEMIA BS BELOW 70 Donepezil HCl (Aricept) 5 mg PO DAILY [facility] Stop: 02/28/18 08:59 Last Admin: 12/30/17 10:45 Dose: Not Given Furosemide (Lasix) 40 mg PO DAILY [facility] Stop: 02/28/18 08:59 Last Admin: 12/30/17 10:45 Dose: Not Given Insulin Aspart (Novolog Insulin Sliding Scale) 0 units SUBQ ACHS [facility] PRN Reason: Protocol Stop: 02/27/18 07:29 Last Admin: 12/30/17 12:10 Dose: Not Given Levothyroxine Sodium (Synthroid) 0.1 mg PO QDAC [facility] Stop: 02/28/18 07:29 Last Admin: 12/30/17 06:59 Dose: Not Given Lorazepam (Ativan) 1 mg IVP Q6HR PRN; Protocol PRN Reason: Agitation Stop: 02/27/18 01:57 Losartan Potassium (Cozaar) 25 mg PO HS [facility] Stop: 02/27/18 20:59 Last Admin: 12/29/17 22:24 Dose: 25 mg Memantine (Namenda) 5 mg PO DAILY [facility] Stop: 02/28/18 08:59 Last Admin: 12/30/17 10:46 Dose: Not Given Miscellaneous (Clinical Monitoring) 1 ea MC DAILY PRN PRN Reason: RENAL Stop: 02/27/18 12:39 Miscellaneous ([employer] Prophylaxis Screen/ Admission) 1 ea MC PRN PRN PRN Reason: PROTOCOL Stop: 02/28/18 11:40 Quetiapine Fumarate (Seroquel) 12.5 mg PO BID [facility] PRN Reason: Protocol Stop: 02/27/18 16:59 General: No acute distress HEENT: Atraumatic Neck: Supple Cardiovascular: Regular rate, Normal S1 Lungs: Clear to auscultation Abdomen: Bowel sounds - Procedures Procedures: Procedures Procedure Code Date INJECT/INFUSE NEC 99.29 06/24/13 PERFORMANCE OF URINARY FILTRATION, <6 HRS/DAY [id number] 09/27/17 Assessment/Plan - Problem List Patient Problems: All Active Problems Hyperglycemia (Active) R73.9 Chronic anemia (Acute) D64.9 Diabetes (Acute) E11.9 ESRD (end stage renal disease) on dialysis (Acute) N18.6, Z99.2 HTN (hypertension) (Acute) I10 Hyponatremia (Acute) E87.1 Hypothyroid (Acute) E03.9 Mild protein-calorie malnutrition (Acute) E44.1 Status post fall (Acute) Z91.81 Syncope (Acute) R55 - Assessment Assessment: ESRD CLOTTED CATHETER S/P REPLACE CATHETER - Plan Plan: REPEAT HD TODAY Nutritional Asmnt/Malnutr-PDOC - Dietary Evaluation Malnutrition Findings (Please click <Entered> for more info): Nutritional Asmnt/Malnutrition Start: 12/29/17 16: 28 Text: Status: Complete Freq: Document 12/29/17 16:28 ARA (Rec: 12/29/17 16:43 [place] [id number]) Nutritional Asmnt/Malnutrition Patient General Information Nutritional Screening High Risk Consult Diagnosis clotted shunt Pertinent Medical Hx/Surgical Hx HTN, DM, CHF, thyroid disorder , anemia, s/p PNA, sacral decubitus, diabetic neuropathy , permacath Subjective Information Consult received for DM and ESRD. Pt is [place] speaking. Pt seen having U/S at time of visit. Spoke with nurse, pt had oatmeal and some pancake this morning, PO intake about 25% of breakfast. Per nurse note pt does not want to eat today. Pt will receive dialysis noted. Current Diet Order/ Nutrition Support Renal Pertinent Medications Lasix, novolog, wynthroid, seroquel Pertinent Labs 12/29 Na 128, K 6.4, Cl 92, BUN 68, Cr 4.9, GLucose 207, POC 220, Alb 3.4 Nutritional Hx/Data Height 1.63 m Height (Calculated Centimeters) 162.6 Current Weight (lbs) 69.853 kg Weight (Calculated Kilograms) 69.9 Weight (Calculated Grams) 06065.2 [place] Body Weight 120 % [place] Body Weight 128 Body Mass Index (BMI) 26.4 Weight Status Overweight GI Symptoms GI Symptoms None Last BM 12/29 Difficult in: None Skin Integrity/Comment: rash to buttocks, scar to sacrum Estimated Nutritional Goals BEE in Kcals: Adj wt of IBW Calories/Kcals/Kg 25-30 Kcals Calculated 0414-3318 Protein: Adj wt of IBW Protein g/k-1.2 Protein Calculated 58-70 Fluid: ml 1450-1740ml (1ml/kcal) or per MD Nutritional Problem 1. Problem Problem altered nutrition related lab values Etiology hx of ESRD and DM Signs/Symptoms: BUN 68, Cr 4.9, GLucose 207, POC 220 Malnutrition Alert Protein-Calorie Malnutrition N/A Is there a minimum of two criteria No selected? Query Text:Check all the applicable criteria. A minimum of two criteria are recommended for diagnosis of either severe or non-severe malnutrition. Intervention/Recommendation Comments 1. Recommend [facility] renal diet for optiaml glycemic control. NITZA Cardenas notified. 2. Monitor PO intake, wt, labs and skin integrity 3. F/U as high risk in 2-3 days, 2/1-2/2 Expected Outcomes/Goals Expected Outcomes/Goals 1. PO intake to meet at least 75% of nutritional needs. 2. Wt stability, skin to remain intact, labs to improve
[2017-12-30] MEDS ORDERED: Heparin Sodium 1,000 Units/mL Vial HD ONE (15:30)
--- NOTE | 2017-12-30 15:33 | Consultation ---
DATE OF CONSULTATION: 12/29/2017 RENAL CONSULTATION REASON FOR CONSULTATION: End-stage renal disease, on chronic hemodialysis. HISTORY OF PRESENT ILLNESS: I was kindly asked to evaluate this patient who is well known to our service. The patient is a 77-year-old female with dementia, hypertension, and diabetes. The patient has had multiple admissions to hospital because of malfunctioning catheter, either because she chewed on it or she got clotted. The patient was admitted to the hospital yesterday after her catheter was not working. The patient was not dialyzed yesterday. PAST MEDICAL HISTORY: Dementia, hypertension, diabetes, and hypothyroidism. PAST SURGICAL HISTORY: Multiple hemodialysis access. ALLERGIES: IODINE and MORPHINE. SOCIAL HISTORY: Negative for smoking, alcohol, or drugs. The patient is demented. Lives with family. LABORATORY DATA: Shows her white count is 11, H and H is 10 and 32, and platelets is 228. Potassium is 6.4, serum sodium is 128, BUN 68, and creatinine is 4.9. PHYSICAL EXAMINATION: VITAL SIGNS: Blood pressure is 140/96, heart is 91, and temperature is 98.0. HEENT: Anicteric sclerae. NECK: Supple. No JVD. LUNGS: Clear to auscultation bilaterally. CARDIOVASCULAR: Regular rate and rhythm. ABDOMEN: Soft, nontender, nondistended. EXTREMITIES: There is no edema. ASSESSMENT AND PLAN: This is a 77-year-old female with history of dementia, hypertension, diabetes, end-stage renal disease, multiple failed access; admitted to the hospital with clotted Perm-A-Cath. The patient was seen by Dr. Mckinney, who placed activation of catheter. We will try to dialyze through the catheter again today. JOB# [id number]
[2017-12-30 16:22] LABS: A1C % 8.3 % (4.0-6.0)
[2017-12-30] MEDS: NYSTATIN 100000 UNITS/GM POWD TP SCH (16:52)
[2017-12-31 06:35] LABS: % BASOPHILS 0.1 % (0.0-2.0); % EOSINOPHILS 1.4 % (0.0-5.0); % LYMPHOCYTES 13.2 % (20.0-50.0); % NEUTROPHILS 74.3 % (40.0-80.0); EOSINOPHILE ABSOLUTE 0.1 Th/cmm (0.1-0.4); HEMATOCRIT 28.3 % (41.0-60); HEMOGLOBIN 9.2 gm/dL (12-16); LYMPHOCYTE ABSOLUTE 0.9 Th/cmm (1.5-3.0); MEAN CORPUSCULAR HEMOGLOBIN 30.7 pg (27.0-31.0); MEAN CORPUSCULAR HGB CONC 32.3 pg (28.0-36.0); MEAN PLATELET VOLUME 7.9 fl; MONOCYTE ABSOLUTE 0.7 Th/cmm (0.3-1.0); NEUTROPHILE ABSOLUTE 4.9 Th/cmm (1.8-8.0); PLATELET COUNT 191 Th/cmm (150-400); RED BLOOD COUNT 2.98 Mil/cmm (3.80-5.20)
[2017-12-31 06:37] LABS: WHITE BLOOD COUNT 6.6 Th/cmm (4.8-10.8)
[2017-12-31 06:50] LABS: ALBUMIN 2.8 gm/dL (3.7-5.3); ALKALINE PHOSPHATASE 152 U/L (34-104); ANION GAP 16.5 (7.0-16.0); BILIRUBIN,TOTAL 0.6 mg/dL (0.3-1.0); BUN - UREA NITROGEN 48 mg/dL (7-25); CARBON DIOXIDE 25.5 mEq/L (21.0-31.0); CHLORIDE 97 mEq/L (98-107); SGOT 11 U/L (13-39); SGPT/ALT 10 U/L (7-52); SODIUM SERUM 135 mEq/L (136-145); TOTAL PROTEIN,SERUM 5.6 gm/dL (6.0-8.3)
[2017-12-31] MEDS: INSULIN ASPART SLIDING SCALE 100 UNITS/ML UNIT SUBQ SCH ×2 (07:05→11:57)
[2017-12-31] MEDS: Levothyroxine 0.1 Mg Tab PO SCH (07:06)
[2017-12-31 07:30] LABS: CREATININE - SERUM 4.7 mg/dL (0.6-1.2)
[2017-12-31 07:31] LABS: GLUCOSE 144 mg/dL (70-105)
--- NOTE | 2017-12-31 08:29 | General Progress Note ---
Subjective - Review of Systems Events since last encounter: patient awake with no signs of pain Objective - Results Result Diagrams: 12/31/17 06:00 12/31/17 06:00 Recent Labs: Laboratory Last Values WBC 6.6 Th/cmm (4.8-10.8) D 12/31/17 06:00 RBC 2.98 Mil/cmm (3.80-5.20) L 12/31/17 06:00 Hgb 9.2 gm/dL (12-16) L 12/31/17 06:00 Hct 28.3 % (41.0-60) L 12/31/17 06:00 MCV 95.0 fl (81-100) 12/31/17 06:00 MCH 30.7 pg (27.0-31.0) 12/31/17 06:00 MCHC Differential 32.3 pg (28.0-36.0) 12/31/17 06:00 RDW 18.0 % (11.5-20.0) 12/31/17 06:00 Plt Count 191 Th/cmm (150-400) 12/31/17 06:00 MPV 7.9 fl 12/31/17 06:00 Neutrophils % 74.3 % (40.0-80.0) 12/31/17 06:00 Band Neutrophils % 1 % (0-10) 12/29/17 05:04 Lymphocytes % 13.2 % (20.0-50.0) L 12/31/17 06:00 Monocytes % 11.0 % (2.0-10.0) H 12/31/17 06:00 Eosinophils % 1.4 % (0.0-5.0) 12/31/17 06:00 Basophils % 0.1 % (0.0-2.0) 12/31/17 06:00 Neutrophils (Manual) 88 % (40-80) H 12/29/17 05:04 Lymphocytes 6 % (20-50) L 12/29/17 05:04 Monocytes 5 % (2-10) 12/29/17 05:04 Platelet Estimate ADEQUATE (NORMAL) 12/29/17 05:04 PT 13.4 SECONDS (9.5-11.5) H 12/29/17 05:04 INR 1.27 (0.5-1.4) 12/29/17 05:04 PTT (Actin FS) 27.9 SECONDS (26.0-38.0) 12/29/17 05:04 Sodium 135 mEq/L (136-145) L 12/31/17 06:00 Potassium 4.0 mEq/L (3.5-5.1) 12/31/17 06:00 Chloride 97 mEq/L (98-107) L 12/31/17 06:00 Carbon Dioxide 25.5 mEq/L (21.0-31.0) 12/31/17 06:00 Anion Gap 16.5 (7.0-16.0) H 12/31/17 06:00 BUN 48 mg/dL (7-25) H 12/31/17 06:00 Creatinine 4.7 mg/dL (0.6-1.2) H* 12/31/17 06:00 Est GFR ( Amer) TNP 12/31/17 06:00 Est GFR (Non-Af Amer) TNP 12/31/17 06:00 BUN/Creatinine Ratio 10.2 12/31/17 06:00 Glucose 144 mg/dL (70-105) H D 12/31/17 06:00 POC Glucose 163 MG/DL (70 - 105) H 12/31/17 06:27 Hemoglobin A1c % 8.3 % (4.0-6.0) H 12/29/17 05:04 Whole Bld Lactic Acid 1.68 mmol/L (0.60-1.99) 12/29/17 11:00 Calcium 8.0 mg/dL (8.6-10.3) L 12/31/17 06:00 Total Bilirubin 0.6 mg/dL (0.3-1.0) 12/31/17 06:00 AST 11 U/L (13-39) L 12/31/17 06:00 ALT 10 U/L (7-52) 12/31/17 06:00 Alkaline Phosphatase 152 U/L (34-104) H 12/31/17 06:00 Total Protein 5.6 gm/dL (6.0-8.3) L 12/31/17 06:00 Albumin 2.8 gm/dL (3.7-5.3) L 12/31/17 06:00 Globulin 2.8 gm/dL 12/31/17 06:00 Albumin/Globulin Ratio 1.0 (1.0-1.8) 12/31/17 06:00 - Physical Exam Vitals and I&O: Vital Signs Temp 98.5 F 12/31/17 05:00 Pulse 73 12/31/17 05:00 Resp 18 12/31/17 05:00 BP 142/61 12/31/17 05:00 Pulse Ox 100 12/31/17 05:00 Intake & Output 12/30/17 12/31/17 12/31/17 18:59 06:59 18:59 Intake Total 240 Balance 240 Weight (lbs) 66.451 kg 65.544 kg Intake: Oral 240 Other: # Voids 3 1 # Bowel Movements 0 Stool Characteristics Soft Soft Brown Brown Active Medications: Current Medications Acetaminophen (Tylenol) 650 mg PO Q4H PRN PRN Reason: Pain or Fever >101 Stop: 02/27/18 09:47 Carvedilol (Coreg) 3.125 mg PO BID [facility] Stop: 02/27/18 08:59 Last Admin: 12/30/17 16:50 Dose: 3.125 mg Dextrose (D50w) 50 ml IVP PRN PRN PRN Reason: HYPOGLYCEMIA BS BELOW 70 Donepezil HCl (Aricept) 5 mg PO DAILY [facility] Stop: 02/28/18 08:59 Last Admin: 12/30/17 10:45 Dose: Not Given Furosemide (Lasix) 40 mg PO DAILY [facility] Stop: 02/28/18 08:59 Last Admin: 12/30/17 10:45 Dose: Not Given Insulin Aspart (Novolog Insulin Sliding Scale) 0 units SUBQ ACHS [facility] PRN Reason: Protocol Stop: 02/27/18 07:29 Last Admin: 12/31/17 07:05 Dose: 2 units Levothyroxine Sodium (Synthroid) 0.1 mg PO QDAC [facility] Stop: 02/28/18 07:29 Last Admin: 12/31/17 07:06 Dose: Not Given Lorazepam (Ativan) 1 mg IVP Q6HR PRN; Protocol PRN Reason: Agitation Stop: 02/27/18 01:57 Losartan Potassium (Cozaar) 25 mg PO HS [facility] Stop: 02/27/18 20:59 Last Admin: 12/30/17 22:48 Dose: Not Given Memantine (Namenda) 5 mg PO DAILY [facility] Stop: 02/28/18 08:59 Last Admin: 12/30/17 10:46 Dose: Not Given Miscellaneous (Clinical Monitoring) 1 ea MC DAILY PRN PRN Reason: RENAL Stop: 02/27/18 12:39 Miscellaneous (Vte Chemical Prophylaxis Screen/ Admission) 1 ea MC PRN PRN PRN Reason: PROTOCOL Stop: 02/28/18 11:40 Mupirocin (Bactroban Oint) 1 appl NS BID [facility] Stop: 01/04/18 09:01 Last Admin: 12/30/17 16:52 Dose: 1 appl Nystatin (Nystop) 100 units TP BID [facility] Stop: 02/28/18 16:59 Last Admin: 12/30/17 16:52 Dose: 100 units Quetiapine Fumarate (Seroquel) 12.5 mg PO BID [facility] PRN Reason: Protocol Stop: 02/27/18 16:59 Last Admin: 12/30/17 16:55 Dose: 12.5 mg General: No acute distress HEENT: Atraumatic Neck: Supple Cardiovascular: Regular rate, Normal S1 Lungs: Clear to auscultation Abdomen: Bowel sounds - Procedures Procedures: Procedures Procedure Code Date INJECT/INFUSE NEC 99.29 06/24/13 PERFORMANCE OF URINARY FILTRATION, <6 HRS/DAY [id number] 09/27/17 Assessment/Plan - Problem List Patient Problems: All Active Problems Hyperglycemia (Active) R73.9 Chronic anemia (Acute) D64.9 Diabetes (Acute) E11.9 ESRD (end stage renal disease) on dialysis (Acute) N18.6, Z99.2 HTN (hypertension) (Acute) I10 Hyponatremia (Acute) E87.1 Hypothyroid (Acute) E03.9 Mild protein-calorie malnutrition (Acute) E44.1 Status post fall (Acute) Z91.81 Syncope (Acute) R55 - Plan Plan: cpm Nutritional Asmnt/Malnutr-PDOC - Dietary Evaluation Malnutrition Findings (Please click <Entered> for more info): Nutritional Asmnt/Malnutrition Start: 12/29/17 16: 28 Text: Status: Complete Freq: Document 12/29/17 16:28 GRACEG (Rec: 12/29/17 16:43 LCARAG [email or web address]) Nutritional Asmnt/Malnutrition Patient General Information Nutritional Screening High Risk Consult Diagnosis clotted shunt Pertinent Medical Hx/Surgical Hx HTN, DM, CHF, thyroid disorder , anemia, s/p PNA, sacral decubitus, diabetic neuropathy , permacath Subjective Information Consult received for DM and ESRD. Pt is Welsh speaking. Pt seen having U/S at time of visit. Spoke with nurse, pt had oatmeal and some pancake this morning, PO intake about 25% of breakfast. Per nurse note pt does not want to eat today. Pt will receive dialysis noted. Current Diet Order/ Nutrition Support Renal Pertinent Medications Lasix, novolog, wynthroid, seroquel Pertinent Labs 12/29 Na 128, K 6.4, Cl 92, BUN 68, Cr 4.9, GLucose 207, POC 220, Alb 3.4 Nutritional Hx/Data Height 1.63 m Height (Calculated Centimeters) 162.6 Current Weight (lbs) 69.853 kg Weight (Calculated Kilograms) 69.9 Weight (Calculated Grams) 80812.2 [place] Body Weight 120 % [place] Body Weight 128 Body Mass Index (BMI) 26.4 Weight Status Overweight GI Symptoms GI Symptoms None Last BM 12/29 Difficult in: None Skin Integrity/Comment: rash to buttocks, scar to sacrum Estimated Nutritional Goals BEE in Kcals: Adj wt of IBW Calories/Kcals/Kg 25-30 Kcals Calculated 4572-7403 Protein: Adj wt of IBW Protein g/k-1.2 Protein Calculated 58-70 Fluid: ml 1450-1740ml (1ml/kcal) or per MD Nutritional Problem 1. Problem Problem altered nutrition related lab values Etiology hx of ESRD and DM Signs/Symptoms: BUN 68, Cr 4.9, GLucose 207, POC 220 Malnutrition Alert Protein-Calorie Malnutrition N/A Is there a minimum of two criteria No selected? Query Text:Check all the applicable criteria. A minimum of two criteria are recommended for diagnosis of either severe or non-severe malnutrition. Intervention/Recommendation Comments 1. Recommend [facility] renal diet for optiaml glycemic control. NITZA Cardenas notified. 2. Monitor PO intake, wt, labs and skin integrity 3. F/U as high risk in 2-3 days, 2/1-2/2 Expected Outcomes/Goals Expected Outcomes/Goals 1. PO intake to meet at least 75% of nutritional needs. 2. Wt stability, skin to remain intact, labs to improve
--- NOTE | 2017-12-31 08:44 | General Progress Note ---
Subjective - Review of Systems Service Date: 12/31/17 Events since last encounter: HD via new Permcath will need permanent access Objective - Results Result Diagrams: 12/31/17 06:00 12/31/17 06:00 Recent Labs: Laboratory Last Values WBC 6.6 Th/cmm (4.8-10.8) D 12/31/17 06:00 RBC 2.98 Mil/cmm (3.80-5.20) L 12/31/17 06:00 Hgb 9.2 gm/dL (12-16) L 12/31/17 06:00 Hct 28.3 % (41.0-60) L 12/31/17 06:00 MCV 95.0 fl (81-100) 12/31/17 06:00 MCH 30.7 pg (27.0-31.0) 12/31/17 06:00 MCHC Differential 32.3 pg (28.0-36.0) 12/31/17 06:00 RDW 18.0 % (11.5-20.0) 12/31/17 06:00 Plt Count 191 Th/cmm (150-400) 12/31/17 06:00 MPV 7.9 fl 12/31/17 06:00 Neutrophils % 74.3 % (40.0-80.0) 12/31/17 06:00 Band Neutrophils % 1 % (0-10) 12/29/17 05:04 Lymphocytes % 13.2 % (20.0-50.0) L 12/31/17 06:00 Monocytes % 11.0 % (2.0-10.0) H 12/31/17 06:00 Eosinophils % 1.4 % (0.0-5.0) 12/31/17 06:00 Basophils % 0.1 % (0.0-2.0) 12/31/17 06:00 Neutrophils (Manual) 88 % (40-80) H 12/29/17 05:04 Lymphocytes 6 % (20-50) L 12/29/17 05:04 Monocytes 5 % (2-10) 12/29/17 05:04 Platelet Estimate ADEQUATE (NORMAL) 12/29/17 05:04 PT 13.4 SECONDS (9.5-11.5) H 12/29/17 05:04 INR 1.27 (0.5-1.4) 12/29/17 05:04 PTT (Actin FS) 27.9 SECONDS (26.0-38.0) 12/29/17 05:04 Sodium 135 mEq/L (136-145) L 12/31/17 06:00 Potassium 4.0 mEq/L (3.5-5.1) 12/31/17 06:00 Chloride 97 mEq/L (98-107) L 12/31/17 06:00 Carbon Dioxide 25.5 mEq/L (21.0-31.0) 12/31/17 06:00 Anion Gap 16.5 (7.0-16.0) H 12/31/17 06:00 BUN 48 mg/dL (7-25) H 12/31/17 06:00 Creatinine 4.7 mg/dL (0.6-1.2) H* 12/31/17 06:00 Est GFR ( Amer) TNP 12/31/17 06:00 Est GFR (Non-Af Amer) TNP 12/31/17 06:00 BUN/Creatinine Ratio 10.2 12/31/17 06:00 Glucose 144 mg/dL (70-105) H D 12/31/17 06:00 POC Glucose 163 MG/DL (70 - 105) H 12/31/17 06:27 Hemoglobin A1c % 8.3 % (4.0-6.0) H 12/29/17 05:04 Whole Bld Lactic Acid 1.68 mmol/L (0.60-1.99) 12/29/17 11:00 Calcium 8.0 mg/dL (8.6-10.3) L 12/31/17 06:00 Total Bilirubin 0.6 mg/dL (0.3-1.0) 12/31/17 06:00 AST 11 U/L (13-39) L 12/31/17 06:00 ALT 10 U/L (7-52) 12/31/17 06:00 Alkaline Phosphatase 152 U/L (34-104) H 12/31/17 06:00 Total Protein 5.6 gm/dL (6.0-8.3) L 12/31/17 06:00 Albumin 2.8 gm/dL (3.7-5.3) L 12/31/17 06:00 Globulin 2.8 gm/dL 12/31/17 06:00 Albumin/Globulin Ratio 1.0 (1.0-1.8) 12/31/17 06:00 - Physical Exam Vitals and I&O: Vital Signs Temp 98.5 F 12/31/17 05:00 Pulse 73 12/31/17 05:00 Resp 18 12/31/17 05:00 BP 142/61 12/31/17 05:00 Pulse Ox 100 12/31/17 05:00 Intake & Output 12/30/17 12/31/17 12/31/17 18:59 06:59 18:59 Intake Total 240 Balance 240 Weight (lbs) 66.451 kg 65.544 kg Intake: Oral 240 Other: # Voids 3 1 # Bowel Movements 0 Stool Characteristics Soft Soft Brown Brown Active Medications: Current Medications Acetaminophen (Tylenol) 650 mg PO Q4H PRN PRN Reason: Pain or Fever >101 Stop: 02/27/18 09:47 Carvedilol (Coreg) 3.125 mg PO BID [facility] Stop: 02/27/18 08:59 Last Admin: 12/30/17 16:50 Dose: 3.125 mg Dextrose (D50w) 50 ml IVP PRN PRN PRN Reason: HYPOGLYCEMIA BS BELOW 70 Donepezil HCl (Aricept) 5 mg PO DAILY [facility] Stop: 02/28/18 08:59 Last Admin: 12/30/17 10:45 Dose: Not Given Furosemide (Lasix) 40 mg PO DAILY [facility] Stop: 02/28/18 08:59 Last Admin: 12/30/17 10:45 Dose: Not Given Insulin Aspart (Novolog Insulin Sliding Scale) 0 units SUBQ ACHS [facility] PRN Reason: Protocol Stop: 02/27/18 07:29 Last Admin: 12/31/17 07:05 Dose: 2 units Levothyroxine Sodium (Synthroid) 0.1 mg PO QDAC [facility] Stop: 02/28/18 07:29 Last Admin: 12/31/17 07:06 Dose: Not Given Lorazepam (Ativan) 1 mg IVP Q6HR PRN; Protocol PRN Reason: Agitation Stop: 02/27/18 01:57 Losartan Potassium (Cozaar) 25 mg PO HS [facility] Stop: 02/27/18 20:59 Last Admin: 12/30/17 22:48 Dose: Not Given Memantine (Namenda) 5 mg PO DAILY [facility] Stop: 02/28/18 08:59 Last Admin: 12/30/17 10:46 Dose: Not Given Miscellaneous (Clinical Monitoring) 1 ea MC DAILY PRN PRN Reason: RENAL Stop: 02/27/18 12:39 Miscellaneous (Vte Chemical Prophylaxis Screen/ Admission) 1 ea MC PRN PRN PRN Reason: PROTOCOL Stop: 02/28/18 11:40 Mupirocin (Bactroban Oint) 1 appl NS BID [facility] Stop: 01/04/18 09:01 Last Admin: 12/30/17 16:52 Dose: 1 appl Nystatin (Nystop) 100 units TP BID [facility] Stop: 02/28/18 16:59 Last Admin: 12/30/17 16:52 Dose: 100 units Quetiapine Fumarate (Seroquel) 12.5 mg PO BID [facility] PRN Reason: Protocol Stop: 02/27/18 16:59 Last Admin: 12/30/17 16:55 Dose: 12.5 mg General: No acute distress HEENT: Atraumatic Neck: Supple Cardiovascular: Regular rate, Normal S1 Lungs: Clear to auscultation Abdomen: Bowel sounds - Procedures Procedures: Procedures Procedure Code Date INJECT/INFUSE NEC 99.29 06/24/13 PERFORMANCE OF URINARY FILTRATION, <6 HRS/DAY [id number] 09/27/17 Assessment/Plan - Problem List Patient Problems: All Active Problems Hyperglycemia (Active) R73.9 Chronic anemia (Acute) D64.9 Diabetes (Acute) E11.9 ESRD (end stage renal disease) on dialysis (Acute) N18.6, Z99.2 HTN (hypertension) (Acute) I10 Hyponatremia (Acute) E87.1 Hypothyroid (Acute) E03.9 Mild protein-calorie malnutrition (Acute) E44.1 Status post fall (Acute) Z91.81 Syncope (Acute) R55 Nutritional Asmnt/Malnutr-PDOC - Dietary Evaluation Malnutrition Findings (Please click <Entered> for more info): Nutritional Asmnt/Malnutrition Start: 12/29/17 16: 28 Text: Status: Complete Freq: Document 12/29/17 16:28 RODRÍGUEZ (Rec: 12/29/17 16:43 RODRÍGUEZ [facility]) Nutritional Asmnt/Malnutrition Patient General Information Nutritional Screening High Risk Consult Diagnosis clotted shunt Pertinent Medical Hx/Surgical Hx HTN, DM, CHF, thyroid disorder , anemia, s/p PNA, sacral decubitus, diabetic neuropathy , permacath Subjective Information Consult received for DM and ESRD. Pt is Azeri speaking. Pt seen having U/S at time of visit. Spoke with nurse, pt had oatmeal and some pancake this morning, PO intake about 25% of breakfast. Per nurse note pt does not want to eat today. Pt will receive dialysis noted. Current Diet Order/ Nutrition Support Renal Pertinent Medications Lasix, novolog, wynthroid, seroquel Pertinent Labs 12/29 Na 128, K 6.4, Cl 92, BUN 68, Cr 4.9, GLucose 207, POC 220, Alb 3.4 Nutritional Hx/Data Height 1.63 m Height (Calculated Centimeters) 162.6 Current Weight (lbs) 69.853 kg Weight (Calculated Kilograms) 69.9 Weight (Calculated Grams) 11273.2 [place] Body Weight 120 % [place] Body Weight 128 Body Mass Index (BMI) 26.4 Weight Status Overweight GI Symptoms GI Symptoms None Last BM 12/29 Difficult in: None Skin Integrity/Comment: rash to buttocks, scar to sacrum Estimated Nutritional Goals BEE in Kcals: Adj wt of IBW Calories/Kcals/Kg 25-30 Kcals Calculated 9612-5547 Protein: Adj wt of IBW Protein g/k-1.2 Protein Calculated 58-70 Fluid: ml 1450-1740ml (1ml/kcal) or per MD Nutritional Problem 1. Problem Problem altered nutrition related lab values Etiology hx of ESRD and DM Signs/Symptoms: BUN 68, Cr 4.9, GLucose 207, POC 220 Malnutrition Alert Protein-Calorie Malnutrition N/A Is there a minimum of two criteria No selected? Query Text:Check all the applicable criteria. A minimum of two criteria are recommended for diagnosis of either severe or non-severe malnutrition. Intervention/Recommendation Comments 1. Recommend [facility] renal diet for optiaml glycemic control. NITZA Cardenas notified. 2. Monitor PO intake, wt, labs and skin integrity 3. F/U as high risk in 2-3 days, 2/1-2/2 Expected Outcomes/Goals Expected Outcomes/Goals 1. PO intake to meet at least 75% of nutritional needs. 2. Wt stability, skin to remain intact, labs to improve
[2017-12-31] MEDS: NYSTATIN 100000 UNITS/GM POWD TP SCH ×2 (09:25→11:23)
--- NOTE | 2017-12-31 11:20 | General Progress Note ---
Subjective - Review of Systems Service Date: 12/31/17 Subjective: PATIENT HAS A NEW CATHETER Objective - Results Result Diagrams: 12/31/17 06:00 12/31/17 06:00 Recent Labs: Laboratory Last Values WBC 6.6 Th/cmm (4.8-10.8) D 12/31/17 06:00 RBC 2.98 Mil/cmm (3.80-5.20) L 12/31/17 06:00 Hgb 9.2 gm/dL (12-16) L 12/31/17 06:00 Hct 28.3 % (41.0-60) L 12/31/17 06:00 MCV 95.0 fl (81-100) 12/31/17 06:00 MCH 30.7 pg (27.0-31.0) 12/31/17 06:00 MCHC Differential 32.3 pg (28.0-36.0) 12/31/17 06:00 RDW 18.0 % (11.5-20.0) 12/31/17 06:00 Plt Count 191 Th/cmm (150-400) 12/31/17 06:00 MPV 7.9 fl 12/31/17 06:00 Neutrophils % 74.3 % (40.0-80.0) 12/31/17 06:00 Band Neutrophils % 1 % (0-10) 12/29/17 05:04 Lymphocytes % 13.2 % (20.0-50.0) L 12/31/17 06:00 Monocytes % 11.0 % (2.0-10.0) H 12/31/17 06:00 Eosinophils % 1.4 % (0.0-5.0) 12/31/17 06:00 Basophils % 0.1 % (0.0-2.0) 12/31/17 06:00 Neutrophils (Manual) 88 % (40-80) H 12/29/17 05:04 Lymphocytes 6 % (20-50) L 12/29/17 05:04 Monocytes 5 % (2-10) 12/29/17 05:04 Platelet Estimate ADEQUATE (NORMAL) 12/29/17 05:04 PT 13.4 SECONDS (9.5-11.5) H 12/29/17 05:04 INR 1.27 (0.5-1.4) 12/29/17 05:04 PTT (Actin FS) 27.9 SECONDS (26.0-38.0) 12/29/17 05:04 Sodium 135 mEq/L (136-145) L 12/31/17 06:00 Potassium 4.0 mEq/L (3.5-5.1) 12/31/17 06:00 Chloride 97 mEq/L (98-107) L 12/31/17 06:00 Carbon Dioxide 25.5 mEq/L (21.0-31.0) 12/31/17 06:00 Anion Gap 16.5 (7.0-16.0) H 12/31/17 06:00 BUN 48 mg/dL (7-25) H 12/31/17 06:00 Creatinine 4.7 mg/dL (0.6-1.2) H* 12/31/17 06:00 Est GFR ( Amer) TNP 12/31/17 06:00 Est GFR (Non-Af Amer) TNP 12/31/17 06:00 BUN/Creatinine Ratio 10.2 12/31/17 06:00 Glucose 144 mg/dL (70-105) H D 12/31/17 06:00 POC Glucose 163 MG/DL (70 - 105) H 12/31/17 06:27 Hemoglobin A1c % 8.3 % (4.0-6.0) H 12/29/17 05:04 Whole Bld Lactic Acid 1.68 mmol/L (0.60-1.99) 12/29/17 11:00 Calcium 8.0 mg/dL (8.6-10.3) L 12/31/17 06:00 Total Bilirubin 0.6 mg/dL (0.3-1.0) 12/31/17 06:00 AST 11 U/L (13-39) L 12/31/17 06:00 ALT 10 U/L (7-52) 12/31/17 06:00 Alkaline Phosphatase 152 U/L (34-104) H 12/31/17 06:00 Total Protein 5.6 gm/dL (6.0-8.3) L 12/31/17 06:00 Albumin 2.8 gm/dL (3.7-5.3) L 12/31/17 06:00 Globulin 2.8 gm/dL 12/31/17 06:00 Albumin/Globulin Ratio 1.0 (1.0-1.8) 12/31/17 06:00 - Physical Exam Vitals and I&O: Vital Signs Temp 98.5 F 12/31/17 05:00 Pulse 73 12/31/17 05:00 Resp 18 12/31/17 05:00 BP 142/61 12/31/17 05:00 Pulse Ox 100 12/31/17 05:00 Intake & Output 12/30/17 12/31/17 12/31/17 18:59 06:59 18:59 Intake Total 240 Balance 240 Weight (lbs) 66.451 kg 65.544 kg Intake: Oral 240 Other: # Voids 3 1 # Bowel Movements 0 Stool Characteristics Soft Soft Soft Brown Brown Brown Active Medications: Current Medications Acetaminophen (Tylenol) 650 mg PO Q4H PRN PRN Reason: Pain or Fever >101 Stop: 02/27/18 09:47 Carvedilol (Coreg) 3.125 mg PO BID [facility] Stop: 02/27/18 08:59 Last Admin: 12/30/17 16:50 Dose: 3.125 mg Dextrose (D50w) 50 ml IVP PRN PRN PRN Reason: HYPOGLYCEMIA BS BELOW 70 Donepezil HCl (Aricept) 5 mg PO DAILY [facility] Stop: 02/28/18 08:59 Last Admin: 12/31/17 09:25 Dose: Not Given Furosemide (Lasix) 40 mg PO DAILY [facility] Stop: 02/28/18 08:59 Last Admin: 12/31/17 09:25 Dose: Not Given Insulin Aspart (Novolog Insulin Sliding Scale) 0 units SUBQ ACHS [facility] PRN Reason: Protocol Stop: 02/27/18 07:29 Last Admin: 12/31/17 07:05 Dose: 2 units Levothyroxine Sodium (Synthroid) 0.1 mg PO QDAC [facility] Stop: 02/28/18 07:29 Last Admin: 12/31/17 07:06 Dose: Not Given Lorazepam (Ativan) 1 mg IVP Q6HR PRN; Protocol PRN Reason: Agitation Stop: 02/27/18 01:57 Losartan Potassium (Cozaar) 25 mg PO HS [facility] Stop: 02/27/18 20:59 Last Admin: 12/30/17 22:48 Dose: Not Given Memantine (Namenda) 5 mg PO DAILY [facility] Stop: 02/28/18 08:59 Last Admin: 12/31/17 09:25 Dose: Not Given Miscellaneous (Clinical Monitoring) 1 ea MC DAILY PRN PRN Reason: RENAL Stop: 02/27/18 12:39 Miscellaneous (Vte Chemical Prophylaxis Screen/ Admission) 1 ea MC PRN PRN PRN Reason: PROTOCOL Stop: 02/28/18 11:40 Mupirocin (Bactroban Oint) 1 appl NS BID [facility] Stop: 01/04/18 09:01 Last Admin: 12/30/17 16:52 Dose: 1 appl Nystatin (Nystop) 100 units TP BID [facility] Stop: 02/28/18 16:59 Last Admin: 12/30/17 16:52 Dose: 100 units Quetiapine Fumarate (Seroquel) 12.5 mg PO BID [facility] PRN Reason: Protocol Stop: 02/27/18 16:59 Last Admin: 12/30/17 16:55 Dose: 12.5 mg General: No acute distress HEENT: Atraumatic Neck: Supple Cardiovascular: Regular rate, Normal S1 Lungs: Clear to auscultation Abdomen: Bowel sounds - Procedures Procedures: Procedures Procedure Code Date INJECT/INFUSE NEC 99.29 06/24/13 PERFORMANCE OF URINARY FILTRATION, <6 HRS/DAY [id number] 09/27/17 Assessment/Plan - Problem List Patient Problems: All Active Problems Hyperglycemia (Active) R73.9 Chronic anemia (Acute) D64.9 Diabetes (Acute) E11.9 ESRD (end stage renal disease) on dialysis (Acute) N18.6, Z99.2 HTN (hypertension) (Acute) I10 Hyponatremia (Acute) E87.1 Hypothyroid (Acute) E03.9 Mild protein-calorie malnutrition (Acute) E44.1 Status post fall (Acute) Z91.81 Syncope (Acute) R55 - Assessment Assessment: ESRD CLOTTED CATHETER S/P REPLACE CATHETER - Plan Plan: stable.continue hd support Nutritional Asmnt/Malnutr-PDOC - Dietary Evaluation Malnutrition Findings (Please click <Entered> for more info): Nutritional Asmnt/Malnutrition Start: 12/29/17 16: 28 Text: Status: Complete Freq: Document 12/29/17 16:28 LCHENG (Rec: 12/29/17 16:43 LCHENG [email or web address]) Nutritional Asmnt/Malnutrition Patient General Information Nutritional Screening High Risk Consult Diagnosis clotted shunt Pertinent Medical Hx/Surgical Hx HTN, DM, CHF, thyroid disorder , anemia, s/p PNA, sacral decubitus, diabetic neuropathy , permacath Subjective Information Consult received for DM and ESRD. Pt is [place] speaking. Pt seen having U/S at time of visit. Spoke with nurse, pt had oatmeal and some pancake this morning, PO intake about 25% of breakfast. Per nurse note pt does not want to eat today. Pt will receive dialysis noted. Current Diet Order/ Nutrition Support Renal Pertinent Medications Lasix, novolog, wynthroid, seroquel Pertinent Labs 12/29 Na 128, K 6.4, Cl 92, BUN 68, Cr 4.9, GLucose 207, POC 220, Alb 3.4 Nutritional Hx/Data Height 1.63 m Height (Calculated Centimeters) 162.6 Current Weight (lbs) 69.853 kg Weight (Calculated Kilograms) 69.9 Weight (Calculated Grams) 94110.2 Odem Body Weight 120 % Odem Body Weight 128 Body Mass Index (BMI) 26.4 Weight Status Overweight GI Symptoms GI Symptoms None Last BM 12/29 Difficult in: None Skin Integrity/Comment: rash to buttocks, scar to sacrum Estimated Nutritional Goals BEE in Kcals: Adj wt of IBW Calories/Kcals/Kg 25-30 Kcals Calculated [id number] Protein: Adj wt of IBW Protein g/k-1.2 Protein Calculated 58-70 Fluid: ml 1450-1740ml (1ml/kcal) or per MD Nutritional Problem 1. Problem Problem altered nutrition related lab values Etiology hx of ESRD and DM Signs/Symptoms: BUN 68, Cr 4.9, GLucose 207, POC 220 Malnutrition Alert Protein-Calorie Malnutrition N/A Is there a minimum of two criteria No selected? Query Text:Check all the applicable criteria. A minimum of two criteria are recommended for diagnosis of either severe or non-severe malnutrition. Intervention/Recommendation Comments 1. Recommend [facility] renal diet for optiaml glycemic control. NITZA Cardenas notified. 2. Monitor PO intake, wt, labs and skin integrity 3. F/U as high risk in 2-3 days, 2/1-2/2 Expected Outcomes/Goals Expected Outcomes/Goals 1. PO intake to meet at least 75% of nutritional needs. 2. Wt stability, skin to remain intact, labs to improve
--- NOTE | 2017-12-31 13:45 | Internal Medicine Prog Note ---
Internal Medicine Subjective - Subjective Service Date: 12/31/17 Patient seen and examined:: with staff Patient is:: awake Per staff patient has:: tolerating meds Internal Medicine Objective - Results Result Diagrams: 12/31/17 06:00 12/31/17 06:00 Recent Labs: Laboratory Last Values WBC 6.6 Th/cmm (4.8-10.8) D 12/31/17 06:00 RBC 2.98 Mil/cmm (3.80-5.20) L 12/31/17 06:00 Hgb 9.2 gm/dL (12-16) L 12/31/17 06:00 Hct 28.3 % (41.0-60) L 12/31/17 06:00 MCV 95.0 fl (81-100) 12/31/17 06:00 MCH 30.7 pg (27.0-31.0) 12/31/17 06:00 MCHC Differential 32.3 pg (28.0-36.0) 12/31/17 06:00 RDW 18.0 % (11.5-20.0) 12/31/17 06:00 Plt Count 191 Th/cmm (150-400) 12/31/17 06:00 MPV 7.9 fl 12/31/17 06:00 Neutrophils % 74.3 % (40.0-80.0) 12/31/17 06:00 Band Neutrophils % 1 % (0-10) 12/29/17 05:04 Lymphocytes % 13.2 % (20.0-50.0) L 12/31/17 06:00 Monocytes % 11.0 % (2.0-10.0) H 12/31/17 06:00 Eosinophils % 1.4 % (0.0-5.0) 12/31/17 06:00 Basophils % 0.1 % (0.0-2.0) 12/31/17 06:00 Neutrophils (Manual) 88 % (40-80) H 12/29/17 05:04 Lymphocytes 6 % (20-50) L 12/29/17 05:04 Monocytes 5 % (2-10) 12/29/17 05:04 Platelet Estimate ADEQUATE (NORMAL) 12/29/17 05:04 PT 13.4 SECONDS (9.5-11.5) H 12/29/17 05:04 INR 1.27 (0.5-1.4) 12/29/17 05:04 PTT (Actin FS) 27.9 SECONDS (26.0-38.0) 12/29/17 05:04 Sodium 135 mEq/L (136-145) L 12/31/17 06:00 Potassium 4.0 mEq/L (3.5-5.1) 12/31/17 06:00 Chloride 97 mEq/L (98-107) L 12/31/17 06:00 Carbon Dioxide 25.5 mEq/L (21.0-31.0) 12/31/17 06:00 Anion Gap 16.5 (7.0-16.0) H 12/31/17 06:00 BUN 48 mg/dL (7-25) H 12/31/17 06:00 Creatinine 4.7 mg/dL (0.6-1.2) H* 12/31/17 06:00 Est GFR ( Amer) TNP 12/31/17 06:00 Est GFR (Non-Af Amer) TNP 12/31/17 06:00 BUN/Creatinine Ratio 10.2 12/31/17 06:00 Glucose 144 mg/dL (70-105) H D 12/31/17 06:00 POC Glucose 278 MG/DL (70 - 105) H 12/31/17 11:30 Hemoglobin A1c % 8.3 % (4.0-6.0) H 12/29/17 05:04 Whole Bld Lactic Acid 1.68 mmol/L (0.60-1.99) 12/29/17 11:00 Calcium 8.0 mg/dL (8.6-10.3) L 12/31/17 06:00 Total Bilirubin 0.6 mg/dL (0.3-1.0) 12/31/17 06:00 AST 11 U/L (13-39) L 12/31/17 06:00 ALT 10 U/L (7-52) 12/31/17 06:00 Alkaline Phosphatase 152 U/L (34-104) H 12/31/17 06:00 Total Protein 5.6 gm/dL (6.0-8.3) L 12/31/17 06:00 Albumin 2.8 gm/dL (3.7-5.3) L 12/31/17 06:00 Globulin 2.8 gm/dL 12/31/17 06:00 Albumin/Globulin Ratio 1.0 (1.0-1.8) 12/31/17 06:00 - Physical Exam Vitals and I&O: Vital Signs Temp 98.5 F 12/31/17 05:00 Pulse 108 12/31/17 11:24 Resp 18 12/31/17 05:00 BP 126/74 12/31/17 11:24 Pulse Ox 100 12/31/17 05:00 Intake & Output 12/30/17 12/31/17 12/31/17 18:59 06:59 18:59 Intake Total 240 Balance 240 Weight (lbs) 146 lb 8 oz 144 lb 8 oz Intake: Oral 240 Other: # Voids 3 1 # Bowel Movements 0 Stool Characteristics Soft Soft Soft Brown Brown Brown Active Medications: Current Medications Acetaminophen (Tylenol) 650 mg PO Q4H PRN PRN Reason: Pain or Fever >101 Stop: 02/27/18 09:47 Carvedilol (Coreg) 3.125 mg PO BID [facility] Stop: 02/27/18 08:59 Last Admin: 12/31/17 11:24 Dose: 3.125 mg Dextrose (D50w) 50 ml IVP PRN PRN PRN Reason: HYPOGLYCEMIA BS BELOW 70 Donepezil HCl (Aricept) 5 mg PO DAILY [facility] Stop: 02/28/18 08:59 Last Admin: 12/31/17 11:24 Dose: 5 mg Furosemide (Lasix) 40 mg PO DAILY [facility] Stop: 02/28/18 08:59 Last Admin: 12/31/17 11:23 Dose: 40 mg Insulin Aspart (Novolog Insulin Sliding Scale) 0 units SUBQ ACHS [facility] PRN Reason: Protocol Stop: 02/27/18 07:29 Last Admin: 12/31/17 11:57 Dose: 6 units Levothyroxine Sodium (Synthroid) 0.1 mg PO QDAC [facility] Stop: 02/28/18 07:29 Last Admin: 12/31/17 07:06 Dose: Not Given Lorazepam (Ativan) 1 mg IVP Q6HR PRN; Protocol PRN Reason: Agitation Stop: 02/27/18 01:57 Losartan Potassium (Cozaar) 25 mg PO HS [facility] Stop: 02/27/18 20:59 Last Admin: 12/30/17 22:48 Dose: Not Given Memantine (Namenda) 5 mg PO DAILY [facility] Stop: 02/28/18 08:59 Last Admin: 12/31/17 11:25 Dose: 5 mg Miscellaneous (Clinical Monitoring) 1 ea [facility] DAILY PRN PRN Reason: RENAL Stop: 02/27/18 12:39 Miscellaneous (Vte Chemical Prophylaxis Screen/ Admission) 1 ea [facility] PRN PRN PRN Reason: PROTOCOL Stop: 02/28/18 11:40 Mupirocin (Bactroban Oint) 1 appl NS BID [facility] Stop: 01/04/18 09:01 Last Admin: 12/31/17 11:23 Dose: 1 appl Nystatin (Nystop) 100 units TP BID [facility] Stop: 02/28/18 16:59 Last Admin: 12/31/17 11:23 Dose: 100 units Quetiapine Fumarate (Seroquel) 12.5 mg PO BID [facility] PRN Reason: Protocol Stop: 02/27/18 16:59 Last Admin: 12/31/17 11:34 Dose: 12.5 mg General: alert HEENT: NC/AT, PERRLA, EOMI Neck: Supple Lungs: CTAB Cardiovascular: RRR, Normal S1, Normal S2, without murmur Abdomen: soft, non-tender, non-distended, positive bowel sound Neurological: no change - Procedures Procedures: Procedures Procedure Code Date INJECT/INFUSE NEC 99.29 06/24/13 PERFORMANCE OF URINARY FILTRATION, <6 HRS/DAY [id number] 09/27/17 Internal Medicine Assmt/Plan - Assessment Assessment: av shunt malfunction HTN DM CHF hypothyroid , anemia esrd on hd - Plan Plan: follow up labs in am continue current orders Nutritional Asmnt/Malnutr-PDOC - Dietary Evaluation Malnutrition Findings (Please click <Entered> for more info): Nutritional Asmnt/Malnutrition Start: 12/29/17 16: 28 Text: Status: Complete Freq: Document 12/29/17 16:28 RODRÍGUEZ (Rec: 12/29/17 16:43 RODRÍGUEZ [email or web address]) Nutritional Asmnt/Malnutrition Patient General Information Nutritional Screening High Risk Consult Diagnosis clotted shunt Pertinent Medical Hx/Surgical Hx HTN, DM, CHF, thyroid disorder , anemia, s/p PNA, sacral decubitus, diabetic neuropathy , permacath Subjective Information Consult received for DM and ESRD. Pt is [place] speaking. Pt seen having U/S at time of visit. Spoke with nurse, pt had oatmeal and some pancake this morning, PO intake about 25% of breakfast. Per nurse note pt does not want to eat today. Pt will receive dialysis noted. Current Diet Order/ Nutrition Support Renal Pertinent Medications Lasix, novolog, wynthroid, seroquel Pertinent Labs 12/29 Na 128, K 6.4, Cl 92, BUN 68, Cr 4.9, GLucose 207, POC 220, Alb 3.4 Nutritional Hx/Data Height 5 ft 4 in Height (Calculated Centimeters) 162.6 Current Weight (lbs) 154 lb Weight (Calculated Kilograms) 69.9 Weight (Calculated Grams) 41575.2 [place] Body Weight 120 % [place] Body Weight 128 Body Mass Index (BMI) 26.4 Weight Status Overweight GI Symptoms GI Symptoms None Last BM 12/29 Difficult in: None Skin Integrity/Comment: rash to buttocks, scar to sacrum Estimated Nutritional Goals BEE in Kcals: Adj wt of IBW Calories/Kcals/Kg 25-30 Kcals Calculated 2233-4585 Protein: Adj wt of IBW Protein g/k-1.2 Protein Calculated 58-70 Fluid: ml 1450-1740ml (1ml/kcal) or per MD Nutritional Problem 1. Problem Problem altered nutrition related lab values Etiology hx of ESRD and DM Signs/Symptoms: BUN 68, Cr 4.9, GLucose 207, POC 220 Malnutrition Alert Protein-Calorie Malnutrition N/A Is there a minimum of two criteria No selected? Query Text:Check all the applicable criteria. A minimum of two criteria are recommended for diagnosis of either severe or non-severe malnutrition. Intervention/Recommendation Comments 1. Recommend [facility] renal diet for optiaml glycemic control. NITZA Cardenas notified. 2. Monitor PO intake, wt, labs and skin integrity 3. F/U as high risk in 2-3 days, 2/1-2/2 Expected Outcomes/Goals Expected Outcomes/Goals 1. PO intake to meet at least 75% of nutritional needs. 2. Wt stability, skin to remain intact, labs to improve
--- NOTE | 2017-12-31 18:59 | History & Physical ---
ADMIT DATE: 12/29/2017 REFERRING PHYSICIAN: Dr. Moreira. REASON FOR CONSULTATION: Clotted left arm AV shunt. Thank you for referring this patient. The patient is a 77-year-old female admitted because of nonfunctioning left arm AV shunt. The patient has a right subclavian Perm-A-Cath which is apparently is not working well either. PAST MEDICAL HISTORY: Includes hypertension, diabetes mellitus, CHF, thyroid disease, diabetic neuropathy, and sacral decubitus ulcer. LABORATORY STUDIES: WBC is normal, hemoglobin 10.2, potassium is 5.4, BUN of 17, and creatinine of 5.4. PHYSICAL EXAMINATION: The patient is very poorly cooperative. The patient underwent ultrasound study of the left arm AV shunt and this confirms occlusion of this shunt. PLAN: We will order catheterization flow to the right subclavian Perm-A-Cath and see if it can be utilized for dialysis. Otherwise, this may have to be changed, either permanent shunt or fistula will be necessary. JOB# [id number]
--- NOTE | 2018-01-01 01:11 | Operative Report ---
DATE OF SURGERY: 12/30/2017 PREOPERATIVE DIAGNOSES: 1. Clotted left arm AV shunt. 2. Malfunctioning PermCath, right subclavian vein. 3. Diabetes mellitus. 4. End-stage renal disease. POSTOPERATIVE DIAGNOSES: 1. Clotted left arm AV shunt. 2. Malfunctioning PermCath, right subclavian vein. 3. Diabetes mellitus. 4. End-stage renal disease. OPERATION DONE: Removal and replacement of right subclavian PermCath under fluoroscopy. SURGEON: Dr. Mckinney ANESTHESIA: MAC. ANESTHESIOLOGIST: Dr. Whitney DESCRIPTION OF PROCEDURE: The patient was given IV sedation. The right chest and neck were prepped with Betadine and draped. A 1% lidocaine was used to infiltrate the exit site and the entry site of the catheter. With blunt and sharp dissection, the catheter cuff was removed from the subcutaneous tissues. A guidewire was inserted under fluoroscopy and was found to follow the course into the inferior vena cava. The old catheter was removed and a new 24 cm PermCath was inserted in its place. This was anchored to the skin with 2-0 nylon. The patient tolerated the procedure well. JOB# [id number]
--- NOTE | 2018-01-23 18:12 | Discharge Summary ---
DATE OF DISCHARGE: 12/31/2017 HISTORY: Essentially, this patient, I got a call from home as the patient is having problem with starting an IV and the patient was having swelling and redness to shunt area. The patient came to the Emergency Room and then admitted a 77-year-old female, basically malfunctioning hemodialysis catheter. REVIEW OF SYSTEMS: The patient except for the arm pain and arm swelling, all the other review of systems was negative. SOCIAL HISTORY: Lives in a home and the patient has a Perma catheter in the right subclavian area. PAST MEDICAL HISTORY: The patient's past medical history included end-stage renal disease, on hemodialysis dependent; history of hypertension; history of diabetes; history of dementia; history of hypothyroidism; and history of anemia. PHYSICAL EXAMINATION: GENERAL: The patient is awake and alert. VITAL SIGNS: Stable. HEAD: Normal. ENT: Normal. NECK: Supple and nontender. LUNGS: Clear. CARDIOVASCULAR SYSTEM: S1 and S2 heard. EXTREMITIES: Left arm shunt area swelling and tenderness was noted. DIAGNOSES: Left shunt area cellulitis and nonfunctioning shunt, a right-sided subclavian Perma catheter, hemodialysis end-stage renal disease, hypertension, history of dementia, and history of osteoarthritis. PLAN: The patient was admitted and was given IV antibiotics. The magnet maker was called in and he did the dialysis. The patient's magnet maker felt that the patient still has swelling and the need to be completely treated with IV antibiotics. The patient was transferred to [facility] for continuation of care where I will be following the patient. [facility]# [id number]
== END 2017-12-31 17:22 | DRG 314 ==
LOC: ER 23:20 → MSI 23:45
PROVIDERS: ADMIT Internal Medicine; ATTEND Internal Medicine
PROC: 5A1D70Z Performance of Urinary Filtration, Intermittent, Less than 6 Hours Per Day (ICD-10-PCS; 2017-12-29)
PROC: 05PY33Z Removal of Infusion Device from Upper Vein, Percutaneous Approach (ICD-10-PCS; principal; 2017-12-30)
PROC: 02HV33Z Insertion of Infusion Device into Superior Vena Cava, Percutaneous Approach (ICD-10-PCS; 2017-12-30)
PROC: B5181ZA Fluoroscopy of Superior Vena Cava using Low Osmolar Contrast, Guidance (ICD-10-PCS; 2017-12-30)
PROC: 5A1D70Z Performance of Urinary Filtration, Intermittent, Less than 6 Hours Per Day (ICD-10-PCS; 2017-12-30)
DX: T82.41XA Breakdown (mechanical) of vascular dialysis catheter, initial encounter (principal); N18.6 End stage renal disease; I13.2 Hypertensive heart and chronic kidney disease with heart failure and with stage 5 chronic kidney disease, or end stage renal disease; E11.22 Type 2 diabetes mellitus with diabetic chronic kidney disease; E11.40 Type 2 diabetes mellitus with diabetic neuropathy, unspecified; T82.868A Thrombosis due to vascular prosthetic devices, implants and grafts, initial encounter; I50.9 Heart failure, unspecified; D64.9 Anemia, unspecified; E03.9 Hypothyroidism, unspecified; F03.90 Unspecified dementia, unspecified severity, without behavioral disturbance, psychotic disturbance, mood disturbance, and anxiety; Y83.8 Other surgical procedures as the cause of abnormal reaction of the patient, or of later complication, without mention of misadventure at the time of the procedure; Y92.89 Other specified places as the place of occurrence of the external cause; Z88.6 Allergy status to analgesic agent; Z79.4 Long term (current) use of insulin
CPT/HCPCS: 36415-UA; 71045-TC; 76000-TC; 80053-TC; 82948-90; 83036-90; 83605; 85007-TC; 85025-TC; 85027-TC; 85610-TC; 90732; 90937; 93931-LT-TC; J1630; J1644; J1815; J2250; J2997; J3010; J7030; Z7610

== ENCOUNTER 2018-01-09 01:19 | Inpatient (IN) | payer MEDICARE, MEDICAID ==
[2018-01-09 01:57] LABS: % BASOPHILS 2.4 % (0.0-2.0); % EOSINOPHILS 1.2 % (0.0-5.0); % LYMPHOCYTES 12.1 % (20.0-50.0); % MONOCYTES 8.2 % (2.0-10.0); % NEUTROPHILS 76.1 % (40.0-80.0); BASOPHILE ABSOLUTE 0.2 Th/cumm (0-0.2); EOSINOPHILE ABSOLUTE 0.1 Th/cmm (0.1-0.4); HEMOGLOBIN 9.9 gm/dL (12-16); MEAN CELL VOLUME 94.5 fl (81-100); MEAN CORPUSCULAR HGB CONC 32.9 pg (28.0-36.0); MEAN PLATELET VOLUME 7.6 fl; MONOCYTE ABSOLUTE 0.7 Th/cmm (0.3-1.0); RED BLOOD COUNT 3.17 Mil/cmm (3.80-5.20); RED CELL DISTRIBUTION WIDTH 17.3 % (11.5-20.0)
[2018-01-09 02:03] LABS: PLATELET COUNT 232 Th/cmm (150-400)
[2018-01-09 02:18] LABS: ALB/GLOB RATIO 0.9 (1.0-1.8); ALBUMIN 3.1 gm/dL (3.7-5.3); ALKALINE PHOSPHATASE 154 U/L (34-104); BILIRUBIN,TOTAL 0.5 mg/dL (0.3-1.0); CALCIUM SERUM 8.8 mg/dL (8.6-10.3); CARBON DIOXIDE 22.8 mEq/L (21.0-31.0); CHLORIDE 90 mEq/L (98-107); GLUCOSE 276 mg/dL (70-105); POTASSIUM SERUM 5.8 mEq/L (3.5-5.1); SGOT 14 U/L (13-39); SGPT/ALT 11 U/L (7-52); SODIUM SERUM 126 mEq/L (136-145); TOTAL PROTEIN,SERUM 6.5 gm/dL (6.0-8.3)
[2018-01-09 02:26] LABS: BUN - UREA NITROGEN 81 mg/dL (7-25)
[2018-01-09 02:27] LABS: CREATININE - SERUM 5.3 mg/dL (0.6-1.2)
--- NOTE | 2018-01-09 02:34 | ED Physician Chart ---
ED Chief Complaint/HPI - Patient Information Date Seen:: 01/09/18 Time Seen:: 01:45 Chief Complaint:: Permacath damaged History of Present Illness:: 77 yo female with ESRD on hemodialysis was brought from [facility] to ER due to damaged permacath which was bitten by the patient. Patient was alert and confused. Allergies:: Allergies Allergy/AdvReac Type Severity Reaction Status Date / Time iodine Allergy Verified 09/27/17 21:04 morphine Allergy Verified 09/27/17 21:04 Vitals:: Vital Signs - 8 hr 01/09/18 01:35 Temp 97.7 F HR 77 RR 18 BP 119/75 O2 Sat % 97 ED Review of Systems - Review of Systems General/Constitutional: No fever Skin: Skin lesions Head: No headache Eyes: No pain ENT: No nasal drainage Neck: No neck pain Cardio Vascular: No chest pain Pulmonary: No SOB GI: No nausea, No vomiting G/U: No frequency Musculoskeletal: No back pain Psychiatric: Prior psych history Neurological: Weakness ED Past Medical History - Past Medical History Past Medical History: HTN, DM, ESRD, Thyroid disorder, Dementia, Other (anemia) Social History: Non Smoker, No Alcohol, No Drug Use Surgical History: other (Permacath placement) Family Medical History - Family Member Mother History Unknown: Yes (noncontributory) Living Status: Son History Unknown: Yes Ethnicity: Living Status: Still Living ED Physical Exam - Physical Examination General/Constitutional: Awake Other Gen/Cons comments:: Confused Eyes: PERRL Skin: No ecchymosis ENMT: Nasal exam nl Neck: No nuchal rigidity Other Respiratory comments:: mild rhonchi, damaged permacath on the chest Cardio Vascular: RRR, No murmur, gallop, rubs, NL S1 S2 ( ) GI: No tenderness/rebounding/guarding Extremities: normal strength in all extremities Neuro/Psych: No focal deficits ED Labs/Radiology/EKG Results - Lab Results Results: Laboratory Tests 01/09/18 01/09/18 01:50 01:50 WBC 8.0 D RBC 3.17 L Hgb 9.9 L Hct 30.0 L MCV 94.5 MCH 31.0 MCHC Differential 32.9 RDW 17.3 Plt Count 232 D MPV 7.6 Neutrophils % 76.1 Lymphocytes % 12.1 L Monocytes % 8.2 Eosinophils % 1.2 Basophils % 2.4 H Sodium 126 L Potassium 5.8 H Chloride 90 L Carbon Dioxide 22.8 Anion Gap 19.0 H BUN 81 H* Creatinine 5.3 H* Est GFR ( Amer) TNP Est GFR (Non-Af Amer) TNP BUN/Creatinine Ratio 15.3 Glucose 276 H Calcium 8.8 Total Bilirubin 0.5 AST 14 ALT 11 Alkaline Phosphatase 154 H Total Protein 6.5 Albumin 3.1 L Globulin 3.4 Albumin/Globulin Ratio 0.9 L ED Assessment - Assessment General Assessment: Damaged Permacath End stage renal disease on hemodialysis Anemia of chronic kidney disease Hyponatremia Hyperkalemia Agitation Assessment/Comments:: CBC, CMP Admit to med surg for replacement of the [facility] ED Septic Shock - . Is Septic Shock (SBP<90, OR Lactate>4 mmol\L) present?: No - <6hrs of presentation: Vital Signs: Vital Signs - 8 hr 01/09/18 01:35 Temp 97.7 F HR 77 RR 18 BP 119/75 O2 Sat % 97 ED Reassessment (Disposition) - Reassessment Reassessment Condition:: Unchanged - Patient Disposition Discharge/Transfer:: Acute Care w/in this hosp Admitting Medical Physician:: Serjio Moreira ED Discharge Plan - Patient Disposition Admit/Discharge/Transfer: Acute Care w/in this hosp Condition at Disposition: Stable
[2018-01-09] MEDS ORDERED: Sodium Chloride 0.9% 1,000 ML IV SCH (07:02)
[2018-01-09 14:09] LABS: A1C % 8.6 % (4.0-6.0)
--- NOTE | 2018-01-09 19:02 | History & Physical ---
ADMIT DATE: 01/09/2018 CHIEF COMPLAINT: Hemodialysis catheter malfunction. HISTORY OF PRESENT ILLNESS: This is a 77-year-old female who was admitted from a long-term facility to the Emergency Room with a chief complaint of malfunctioned hemodialysis catheter. REVIEW OF SYSTEMS: GENERAL: This is a 77-year-old female that appears as stated. Generalized. No fever. No chills. EYES: No eye pain, no blurring of vision. NECK: No neck pain, no nuchal rigidity. CHEST: No chest pain. No palpitation. PULMONARY: No shortness of breath, no coughing. GASTROINTESTINAL: No diarrhea, no constipation, no abdominal pain. MUSCULOSKELETAL: No joint pain. No muscle pain. SOCIAL HISTORY: The patient lives in a long-term facility prior to hospitalization. PAST SURGICAL HISTORY: The patient has history of Perm-A-Cath placement. FAMILY HISTORY: Unremarkable. PAST MEDICAL HISTORY: Includes end-stage renal disease, hemodialysis dependent; hypertension; diabetes; dementia; hypothyroidism; and anemia. PHYSICAL EXAMINATION: VITAL SIGNS: Temperature 98.1, heart rate 74, respirations of 18, and blood pressure 139/65. HEENT: Head is atraumatic and normocephalic. Eyes: Bilateral conjunctivae are clear. Bilateral pupils are equally round and reactive. NECK: Supple. No JVD. CARDIOVASCULAR: S1 and S2, without murmur. PULMONARY: Clear to auscultation. GASTROINTESTINAL: Soft and nontender without guarding. Positive bowel sounds. MUSCULOSKELETAL: No clubbing. No cyanosis noted. ASSESSMENT: 1. End-stage renal disease, hemodialysis dependent. 2. Hemodialysis catheter malfunction. 3. Hypertension. 4. Dementia. 5. Osteoarthritis. PLAN: We will consult with the surgeon for hemodialysis catheter replacement. Also, we will follow up with a air motor repairer. We will try to do dialysis for today to see if the catheter could be used for the meantime. Also going to put the patient on fluid restriction and also try to call the patient's son, Abundio at [phone] to give the patient's update, but unfortunately his son was unable to answer his phone. Otherwise, we will keep the patient inpatient and monitor the patient's status. Treatment plans were discussed with the patient's nurse. Treatment plans were discussed with Dr Moreira. JOB# [id number]
--- NOTE | 2018-01-09 22:35 | Consultation ---
DATE OF CONSULTATION: 01/09/2018 RENAL CONSULTATION I was seeing this consult through the kind request of Dr. Moreira. REASON FOR CONSULTATION: Stat dialysis. HISTORY OF PRESENT ILLNESS: The patient is a 77-year-old female patient known to us with end-stage renal disease. She was brought in because her catheter was damage. She does have dementia. She has a tunneled catheter and she chews on the ports of the catheter. PAST MEDICAL HISTORY: Significant for dementia, end-stage renal disease, anemia, and diabetes. PAST SURGICAL HISTORY: She has had multiple procedures for catheters because she keeps on chewing them, damaging the catheters. ALLERGIES: IODINE and MORPHINE. CURRENT MEDICATIONS: Tylenol as needed, lorazepam as needed, and sodium chloride at 20 mL per hour. REVIEW OF SYSTEMS: Unable to obtain due to the patient's poor mental status. PHYSICAL EXAMINATION: VITAL SIGNS: Temperature 99.8, heart rate 74, respiratory rate is 18, and blood pressure 134/65. GENERAL: She is quite drowsy at this time. She is sleeping. HEENT: Normocephalic, atraumatic. Pupils are reactive. Oral mucosa is pink and moist. NECK: Supple. Tunneled catheter on the right side. LUNGS: Have few rhonchi. ABDOMEN: Soft. EXTREMITIES: Have no edema. LABORATORY DATA AND DIAGNOSTIC DATA: WBC is 8, hemoglobin 9.9, hematocrit 30, and platelets of 232. Sodium 126, potassium of 5.8, chloride 90, bicarbonate 22.8, BUN 81, creatinine 5.3, and glucose of 276. Lactic acid is 2.79 and albumin 3.1. IMPRESSION AND RECOMMENDATIONS: 1. High lactic acid. Nursing staff report that blood cultures have been sent. 2. Hyperkalemia. I ordered for Kayexalate while waiting for dialysis staff to arrive to assess to see if the catheter actually is usable or not for dialysis today. 3. Hyponatremia, partially due to hyperglycemia and partially due to renal failure. We should be able to correct with giving some insulin and for dialysis. 4. Dementia, severe. 5. Diabetes. Continue insulin. 6. Anemia. Continue Epogen. 7. Possible catheter damage from the patient biting. We will sterilize the catheter and assess once the dialysis nurse is here. JOB# [id number]
[2018-01-09] MEDS: INSULIN ASPART, RECOMBINANT 100 UNITS/ML SUBQ SCH (23:00)
--- NOTE | 2018-01-09 23:53 | Consultation ---
Consult Note - Consult Note Service Date: 01/09/18 Referring Physician: Serjio Moreira Consult Note: PHYSICIAN Consultation Note: Date of Admission: 01/09/18 Purpose of Consultation: Chief Complaint: Patient KENJI BLAKE was admitted to location Medical/ Surgical Unit I with ACUTE KIDNEY FAILURE,DIALYSIS,AGITATION,ALOC. History of Present Illness: 77 year old female with history of anxiety disorder , CKD 5 on HD, Obesity, for damaging her HD catheter on right upper chest by biting . so she was brought to ER for further evaluation. She had done the same in the past and admitted to the hospital for same reason. Her HD catheter was also changed on multiple occasions. There is no fever documented. confused. Past Medical History: Allergies Allergy/AdvReac Type Severity Reaction Status Date / Time iodine Allergy Verified 09/27/17 21:04 morphine Allergy Verified 09/27/17 21:04 Vital Signs Temp 98.1 F 01/09/18 18:00 Pulse 74 01/09/18 18:00 Resp 18 01/09/18 18:00 BP 139/65 01/09/18 18:00 Pulse Ox 94 01/09/18 18:00 Intake & Output 01/09/18 01/09/18 01/10/18 06:59 18:59 06:59 Intake Total 100 Output Total 1 Balance 99 Weight (lbs) 65.317 kg Intake: Oral 100 Output: Urine/Stool Mix 1 Other: # Voids 3 # Bowel Movements 1 Laboratory Results - last 24 hr 01/09/18 01/09/18 01/09/18 05:12 07:13 16:04 POC Glucose 281 H 340 H Hemoglobin A1c % 8.6 H Whole Bld Lactic Acid 01/09/18 01/09/18 16:29 18:54 POC Glucose Hemoglobin A1c % Whole Bld Lactic Acid 2.79 H* 1.34 Home Medication Medication Instructions Recorded Type Acetaminophen [Tylenol] 650 mg PO Q4HR PRN 01/09/18 History Amino Acids/Protein Hydrolys 30 ml PO TID 01/09/18 History [Pro-Stat Sugar Free Awc 887 ml] Carvedilol 3.125 mg PO BID 01/09/18 History Dextrose 50% [D50w] 50 ml IV PRN PRN 01/09/18 History Donepezil Hcl [Aricept] 5 mg PO DAILY 01/09/18 History Furosemide 40 mg PO DAILY 01/09/18 History Hydrocodone/Acetaminophen [[place] 1 each PO Q6H PRN 01/09/18 History 325 mg-5 mg*] Insulin Human Regular [NovoLIN R] See Protocol SUBQ ACHS 01/09/18 History Levothyroxine Sodium 100 mcg PO QDAC 01/09/18 History Losartan Potassium [Cozaar] 25 mg PO HS 01/09/18 History Memantine [Namenda] 5 mg PO DAILY 01/09/18 History QUEtiapine Fumarate [SEROquel] 12.5 mg PO DAILY 01/09/18 History QUEtiapine Fumarate [SEROquel] 25 mg PO HS 01/09/18 History Current Medications Generic Name Dose Route Start Last Admin Trade Name Freq PRN Reason Stop Dose Admin Acetaminophen 650 mg 01/09/18 15:27 01/09/18 16:01 Tylenol 650mg Supp RC 03/10/18 15:26 650 mg Q6H PRN Administration fever/pain Epoetin Artemio 5,000 units 01/09/18 18:15 Epogen SUBQ 03/10/18 18:14 TuThSa ALINE Folic Acid 1 mg 01/10/18 09:00 Folate PO 03/11/18 08:59 DAILY [facility] Sodium Chloride 1,000 mls @ 50 mls/hr 01/09/18 07:02 01/09/18 09:26 Nacl 0.9% IV 03/10/18 07:01 50 mls/hr .Q20H [facility]INE Administration Insulin Aspart 0 units 01/09/18 21:00 Novolog SUBQ 03/10/18 20:59 [facility] Protocol Lorazepam 1 mg 01/09/18 07:06 01/09/18 15:10 Ativan IVP 03/10/18 07:05 1 mg Q4HR PRN Administration Agitation Protocol Miscellaneous 1 ea 01/09/18 19:36 Vancomycin Iv Per Pharmacy MC 03/10/18 19:35 PRN PRN PROTOCOL Vitamin B Complex/Vitamin C 1 tab 01/10/18 09:00 Vitamin B Complex W/C PO 03/11/18 08:59 DAILY [facility] Review of Systems: A 12 point ROS was reviewed with the pertinent positive and negatives noted in the HPI. Social History Smoking Status Unknown if ever smoked Drug Use No Alcohol Use No Family Medical History Family Medical History Start: 01/09/18 02: 58 Freq: ONCE Status: Active Document 01/09/18 02:58 STEPHANIE (Rec: 01/09/18 14:14 STEPHANIE NANCI-WOW -ED2) Family Medical History Son History Unknown Yes Ethnicity Mother History Unknown Yes Ethnicity Physical Exam: General: Comfortable, no t in distress. HEENT: Head: NC NT. Oral cavilty is moist pink tongue, eyes pallor is present. eyes: pallor present,no icterus. Neck: Supple, no JVD, no carotid bruit. Cardio: S1 and S2 wnl. Respiratory: CTAP. Abdominal: Soft NT ND BS+ Genital/Urinary: deferred. Extremities: NCCE. Neurological: AAOx3. Assessment: 1. Malfuntion or infection of the HD catheter. 2. CKD 5 on HD. 3. Obesity Plan: Vanco IV and change the HD catheter. Signed, Doroteo Coronel M.D. [id number]
[2018-01-10] MEDS: INSULIN ASPART, RECOMBINANT 100 UNITS/ML SUBQ SCH ×4 (06:40→21:40)
[2018-01-10 06:41] LABS: HEMATOCRIT 31.8 % (41.0-60); HEMOGLOBIN 10.8 gm/dL (12-16); LYMPHOCYTE ABSOLUTE 0.5 Th/cmm (1.5-3.0); MEAN CELL VOLUME 93.9 fl (81-100); MEAN CORPUSCULAR HEMOGLOBIN 32.1 pg (27.0-31.0); MEAN CORPUSCULAR HGB CONC 34.1 pg (28.0-36.0); MEAN PLATELET VOLUME 8.1 fl; MONOCYTE ABSOLUTE 0.6 Th/cmm (0.3-1.0); NEUTROPHILE ABSOLUTE 22.4 Th/cmm (1.8-8.0); PLATELET COUNT 247 Th/cmm (150-400); RED BLOOD COUNT 3.38 Mil/cmm (3.80-5.20)
[2018-01-10 06:59] LABS: WHITE BLOOD COUNT 23.5 Th/cmm (4.8-10.8)
[2018-01-10 07:02] LABS: ALBUMIN 3.4 gm/dL (3.7-5.3); ALKALINE PHOSPHATASE 142 U/L (34-104); ANION GAP 25.1 (7.0-16.0); BILIRUBIN,TOTAL 0.8 mg/dL (0.3-1.0); CALCIUM SERUM 9.1 mg/dL (8.6-10.3); CARBON DIOXIDE 15.1 mEq/L (21.0-31.0); CHLORIDE 93 mEq/L (98-107); GLUCOSE 387 mg/dL (70-105); SGOT 12 U/L (13-39); SGPT/ALT 10 U/L (7-52); SODIUM SERUM 127 mEq/L (136-145); TOTAL PROTEIN,SERUM 6.8 gm/dL (6.0-8.3)
[2018-01-10 07:37] LABS: POTASSIUM SERUM 6.2 mEq/L (3.5-5.1)
[2018-01-10 07:38] LABS: BUN - UREA NITROGEN 89 mg/dL (7-25); CREATININE - SERUM 5.8 mg/dL (0.6-1.2)
[2018-01-10 07:49] LABS: BAND NEUTROPHILE 8 % (0-10); LYMPHOCYTE 2 % (20-50); MONOCYTE 1 % (2-10); NEUTROPHILS 89 % (40-80); TOTAL CELLS COUNTED 100
--- NOTE | 2018-01-10 09:18 | General Progress Note ---
Subjective - Review of Systems Service Date: 01/10/18 Events since last encounter: Austen left subclavian Plan: vein mapping of upper extremities as patient needs shunt or fistula - she bites catheters discussed plan with son who agrees Objective - Results Result Diagrams: 01/10/18 05:46 01/10/18 05:46 Recent Labs: Laboratory Last Values WBC 23.5 Th/cmm (4.8-10.8) H* 01/10/18 05:46 RBC 3.38 Mil/cmm (3.80-5.20) L 01/10/18 05:46 Hgb 10.8 gm/dL (12-16) L 01/10/18 05:46 Hct 31.8 % (41.0-60) L 01/10/18 05:46 MCV 93.9 fl (81-100) 01/10/18 05:46 MCH 32.1 pg (27.0-31.0) H 01/10/18 05:46 MCHC Differential 34.1 pg (28.0-36.0) 01/10/18 05:46 RDW 17.0 % (11.5-20.0) 01/10/18 05:46 Plt Count 247 Th/cmm (150-400) 01/10/18 05:46 MPV 8.1 fl 01/10/18 05:46 Neutrophils % 76.1 % (40.0-80.0) 01/09/18 01:50 Band Neutrophils % 8 % (0-10) 01/10/18 05:46 Lymphocytes % 12.1 % (20.0-50.0) L 01/09/18 01:50 Monocytes % 8.2 % (2.0-10.0) 01/09/18 01:50 Eosinophils % 1.2 % (0.0-5.0) 01/09/18 01:50 Basophils % 2.4 % (0.0-2.0) H 01/09/18 01:50 Neutrophils (Manual) 89 % (40-80) H 01/10/18 05:46 Lymphocytes 2 % (20-50) L 01/10/18 05:46 Monocytes 1 % (2-10) L 01/10/18 05:46 Sodium 127 mEq/L (136-145) L 01/10/18 05:46 Potassium 6.2 mEq/L (3.5-5.1) H* 01/10/18 05:46 Chloride 93 mEq/L (98-107) L 01/10/18 05:46 Carbon Dioxide 15.1 mEq/L (21.0-31.0) L 01/10/18 05:46 Anion Gap 25.1 (7.0-16.0) H 01/10/18 05:46 BUN 89 mg/dL (7-25) H* 01/10/18 05:46 Creatinine 5.8 mg/dL (0.6-1.2) H* 01/10/18 05:46 Est GFR ( Amer) TNP 01/10/18 05:46 Est GFR (Non-Af Amer) TNP 01/10/18 05:46 BUN/Creatinine Ratio 15.3 01/10/18 05:46 Glucose 387 mg/dL (70-105) H 01/10/18 05:46 POC Glucose 386 MG/DL (70 - 105) H 01/10/18 06:36 Hemoglobin A1c % 8.6 % (4.0-6.0) H 01/09/18 07:13 Whole Bld Lactic Acid 1.34 mmol/L (0.60-1.99) 01/09/18 18:54 Calcium 9.1 mg/dL (8.6-10.3) 01/10/18 05:46 Total Bilirubin 0.8 mg/dL (0.3-1.0) 01/10/18 05:46 AST 12 U/L (13-39) L 01/10/18 05:46 ALT 10 U/L (7-52) 01/10/18 05:46 Alkaline Phosphatase 142 U/L (34-104) H 01/10/18 05:46 Total Protein 6.8 gm/dL (6.0-8.3) 01/10/18 05:46 Albumin 3.4 gm/dL (3.7-5.3) L 01/10/18 05:46 Globulin 3.4 gm/dL 01/10/18 05:46 Albumin/Globulin Ratio 1.0 (1.0-1.8) 01/10/18 05:46 - Physical Exam Vitals and I&O: Vital Signs Temp 98.0 F 01/10/18 04:00 Pulse 84 01/10/18 04:00 Resp 18 01/10/18 04:00 BP 127/71 01/10/18 04:00 Pulse Ox 99 01/10/18 04:00 Intake & Output 01/09/18 01/10/18 01/10/18 18:59 06:59 18:59 Intake Total 100 30 Output Total 1 Balance 99 30 Weight (lbs) 65.317 kg 65.317 kg Intake: Oral 100 30 Output: Urine/Stool Mix 1 Other: # Voids 3 # Bowel Movements 1 1 Stool Characteristics Soft Formed Active Medications: Current Medications Acetaminophen (Tylenol 650mg Supp) 650 mg RC Q6H PRN PRN Reason: fever/pain Stop: 03/10/18 15:26 Last Admin: 01/09/18 16:01 Dose: 650 mg Epoetin Artemio (Epogen) 5,000 units SUBQ TuThSa [facility] Stop: 03/10/18 18:14 Folic Acid (Folate) 1 mg PO DAILY [facility] Stop: 03/11/18 08:59 Heparin Sodium (Porcine) (Heparin) 5,000 units SUBQ Q12HR [facility] Stop: 03/11/18 08:59 Sodium Chloride (Nacl 0.9%) 1,000 mls @ 50 mls/hr IV .Q20H [facility] Stop: 03/10/18 07:01 Last Admin: 01/09/18 09:26 Dose: 50 mls/hr Insulin Aspart (Novolog) 0 units SUBQ ACHS [facility] PRN Reason: Protocol Stop: 03/10/18 20:59 Last Admin: 01/10/18 06:40 Dose: 6 units Lorazepam (Ativan) 1 mg IVP Q4HR PRN; Protocol PRN Reason: Agitation Stop: 03/10/18 07:05 Last Admin: 01/10/18 02:29 Dose: 1 mg Miscellaneous (Vancomycin Iv Per Pharmacy) 1 ea MC PRN PRN PRN Reason: PROTOCOL Stop: 03/10/18 19:35 Vitamin B Complex/Vitamin C (Vitamin B Complex W/C) 1 tab PO DAILY [facility] Stop: 03/11/18 08:59 - Procedures Procedures: Procedures Procedure Code Date FLUOROSCOPY OF SUP VENA CAVA USING L OSM CONTRAST, GUIDANCE [id number] 12/28/17 INJECT/INFUSE NEC 99.29 06/24/13 INSERTION OF INFUSION DEV INTO SUP VENA CAVA, PERC APPROACH [id number] 12/28/17 PERFORMANCE OF URINARY FILTRATION, <6 HRS/DAY [id number] 12/28/17 REMOVAL OF INFUSION DEVICE FROM UPPER VEIN, PERC APPROACH [id number] 12/28/17
--- NOTE | 2018-01-10 10:34 | General Progress Note ---
Subjective - Review of Systems Events since last encounter: needs shunt or fistula pt bites catheters Objective - Results Result Diagrams: 01/10/18 05:46 01/10/18 05:46 Recent Labs: Laboratory Last Values WBC 23.5 Th/cmm (4.8-10.8) H* 01/10/18 05:46 RBC 3.38 Mil/cmm (3.80-5.20) L 01/10/18 05:46 Hgb 10.8 gm/dL (12-16) L 01/10/18 05:46 Hct 31.8 % (41.0-60) L 01/10/18 05:46 MCV 93.9 fl (81-100) 01/10/18 05:46 MCH 32.1 pg (27.0-31.0) H 01/10/18 05:46 MCHC Differential 34.1 pg (28.0-36.0) 01/10/18 05:46 RDW 17.0 % (11.5-20.0) 01/10/18 05:46 Plt Count 247 Th/cmm (150-400) 01/10/18 05:46 MPV 8.1 fl 01/10/18 05:46 Neutrophils % 76.1 % (40.0-80.0) 01/09/18 01:50 Band Neutrophils % 8 % (0-10) 01/10/18 05:46 Lymphocytes % 12.1 % (20.0-50.0) L 01/09/18 01:50 Monocytes % 8.2 % (2.0-10.0) 01/09/18 01:50 Eosinophils % 1.2 % (0.0-5.0) 01/09/18 01:50 Basophils % 2.4 % (0.0-2.0) H 01/09/18 01:50 Neutrophils (Manual) 89 % (40-80) H 01/10/18 05:46 Lymphocytes 2 % (20-50) L 01/10/18 05:46 Monocytes 1 % (2-10) L 01/10/18 05:46 Sodium 127 mEq/L (136-145) L 01/10/18 05:46 Potassium 6.2 mEq/L (3.5-5.1) H* 01/10/18 05:46 Chloride 93 mEq/L (98-107) L 01/10/18 05:46 Carbon Dioxide 15.1 mEq/L (21.0-31.0) L 01/10/18 05:46 Anion Gap 25.1 (7.0-16.0) H 01/10/18 05:46 BUN 89 mg/dL (7-25) H* 01/10/18 05:46 Creatinine 5.8 mg/dL (0.6-1.2) H* 01/10/18 05:46 Est GFR ( Amer) TNP 01/10/18 05:46 Est GFR (Non-Af Amer) TNP 01/10/18 05:46 BUN/Creatinine Ratio 15.3 01/10/18 05:46 Glucose 387 mg/dL (70-105) H 01/10/18 05:46 POC Glucose 386 MG/DL (70 - 105) H 01/10/18 06:36 Hemoglobin A1c % 8.6 % (4.0-6.0) H 01/09/18 07:13 Whole Bld Lactic Acid 1.34 mmol/L (0.60-1.99) 01/09/18 18:54 Calcium 9.1 mg/dL (8.6-10.3) 01/10/18 05:46 Total Bilirubin 0.8 mg/dL (0.3-1.0) 01/10/18 05:46 AST 12 U/L (13-39) L 01/10/18 05:46 ALT 10 U/L (7-52) 01/10/18 05:46 Alkaline Phosphatase 142 U/L (34-104) H 01/10/18 05:46 Total Protein 6.8 gm/dL (6.0-8.3) 01/10/18 05:46 Albumin 3.4 gm/dL (3.7-5.3) L 01/10/18 05:46 Globulin 3.4 gm/dL 01/10/18 05:46 Albumin/Globulin Ratio 1.0 (1.0-1.8) 01/10/18 05:46 - Physical Exam Vitals and I&O: Vital Signs Temp 98.0 F 01/10/18 04:00 Pulse 84 01/10/18 04:00 Resp 18 01/10/18 04:00 BP 127/71 01/10/18 04:00 Pulse Ox 99 01/10/18 04:00 Intake & Output 01/09/18 01/10/18 01/10/18 18:59 06:59 18:59 Intake Total 100 30 Output Total 1 Balance 99 30 Weight (lbs) 65.317 kg 65.317 kg Intake: Oral 100 30 Output: Urine/Stool Mix 1 Other: # Voids 3 # Bowel Movements 1 1 Stool Characteristics Soft Formed Active Medications: Current Medications Acetaminophen (Tylenol 650mg Supp) 650 mg RC Q6H PRN PRN Reason: fever/pain Stop: 03/10/18 15:26 Last Admin: 01/09/18 16:01 Dose: 650 mg Epoetin Artemio (Epogen) 5,000 units SUBQ TuThSa [facility] Stop: 03/10/18 18:14 Folic Acid (Folate) 1 mg PO DAILY [facility] Stop: 03/11/18 08:59 Heparin Sodium (Porcine) (Heparin) 5,000 units SUBQ Q12HR [facility] Stop: 03/11/18 08:59 Sodium Chloride (Nacl 0.9%) 1,000 mls @ 50 mls/hr IV .Q20H [facility] Stop: 03/10/18 07:01 Last Admin: 01/09/18 09:26 Dose: 50 mls/hr Insulin Aspart (Novolog) 0 units SUBQ ACHS [facility] PRN Reason: Protocol Stop: 03/10/18 20:59 Last Admin: 01/10/18 06:40 Dose: 6 units Lorazepam (Ativan) 1 mg IVP Q4HR PRN; Protocol PRN Reason: Agitation Stop: 03/10/18 07:05 Last Admin: 01/10/18 02:29 Dose: 1 mg Miscellaneous (Vancomycin Iv Per Pharmacy) 1 ea MC PRN PRN PRN Reason: PROTOCOL Stop: 03/10/18 19:35 Vitamin B Complex/Vitamin C (Vitamin B Complex W/C) 1 tab PO DAILY [facility] Stop: 03/11/18 08:59 - Procedures Procedures: Procedures Procedure Code Date FLUOROSCOPY OF SUP VENA CAVA USING L OSM CONTRAST, GUIDANCE [id number] 12/28/17 INJECT/INFUSE NEC 99.29 06/24/13 INSERTION OF INFUSION DEV INTO SUP VENA CAVA, PERC APPROACH [id number] 12/28/17 PERFORMANCE OF URINARY FILTRATION, <6 HRS/DAY [id number] 12/28/17 REMOVAL OF INFUSION DEVICE FROM UPPER VEIN, PERC APPROACH [id number] 12/28/17
--- NOTE | 2018-01-10 10:52 | Diagnostic Imaging Report ---
Portable chest x-ray HISTORY: Shortness of breath, vascular catheter placement Compared with prior exam of December 30, 2017, a left-sided vascular catheter has been inserted. The tip extends into the region of the superior vena cava. No change in a previously positioned right-sided vascular catheter. The heart remains enlarged. Evidence of right pleural effusion. Pulmonary vascular redistribution consistent with underlying cardiac decompensation. IMPRESSION: 1. New vascular catheter with the tip in the region of the superior vena cava 2. Persistent cardiomegaly with a right pleural effusion and findings consistent with congestive heart failure.
--- NOTE | 2018-01-10 11:41 | Consultation ---
DATE OF CONSULTATION: 01/10/2018 VASCULAR CONSULTATION REFERRING PHYSICIAN: Dr. Moreira/Dr. Rhodes. REASON FOR CONSULTATION: Malfunctioning PermCath, right subclavian vein. Thank you for referring this patient to me. HISTORY OF PRESENT ILLNESS: This is a 77-year-old female admitted from assisted because of malfunctioning catheter. It appears that the patient also bites on this catheter in spite of restraints. She has end-stage renal disease and been on dialysis for about 1 year. Per information, she also has hypertension and severe dementia and osteoarthritis. Per information from the son, who was called on the phone, she has had a shunt or fistula placed in the left arm about 2 months ago at [facility]. This appears to be malfunctioning or occluded. On admission, the laboratory studies showed the potassium to be high at 5.8 and now it has gone up to 6.2 and dialysis is to be done stat. She has a dose of Kayexalate. BUN is 89 with creatinine of 5.8. The WBC is 23,500. PHYSICAL EXAMINATION: The patient is not cooperative at all. She is restrained. ASSESSMENT AND PLAN: The son was called over the phone and the following procedure will be done. 1. Placement of Austen catheter, left subclavian vein under ultrasound guidance. Informed consent regarding complications discussed with the son. 2. Ultrasound will be done to determine patency of the upper extremity vessels with a goal of placing shunt or fistula in either right or left arm. 3. Change Perm-A-Cath following negative cultures. JOB# [id number]
[2018-01-10] MEDS: Ascorbic Acid/Vit B Complex Tab PO SCH (12:01)
--- NOTE | 2018-01-10 12:14 | General Progress Note ---
Subjective - Review of Systems Service Date: 01/10/18 Events since last encounter: Pt did not cooperate with taking kayexalate. Nursing staff gave rectally. Potassium is higher today. Dr. Mckinney placed new L subclavian oseas for emergent HD. Still has the damaged tunneled catheter on the R side. and grandson at bedside. Objective - Results Result Diagrams: 01/10/18 05:46 01/10/18 05:46 Recent Labs: Laboratory Last Values WBC 23.5 Th/cmm (4.8-10.8) H* 01/10/18 05:46 RBC 3.38 Mil/cmm (3.80-5.20) L 01/10/18 05:46 Hgb 10.8 gm/dL (12-16) L 01/10/18 05:46 Hct 31.8 % (41.0-60) L 01/10/18 05:46 MCV 93.9 fl (81-100) 01/10/18 05:46 MCH 32.1 pg (27.0-31.0) H 01/10/18 05:46 MCHC Differential 34.1 pg (28.0-36.0) 01/10/18 05:46 RDW 17.0 % (11.5-20.0) 01/10/18 05:46 Plt Count 247 Th/cmm (150-400) 01/10/18 05:46 MPV 8.1 fl 01/10/18 05:46 Neutrophils % 76.1 % (40.0-80.0) 01/09/18 01:50 Band Neutrophils % 8 % (0-10) 01/10/18 05:46 Lymphocytes % 12.1 % (20.0-50.0) L 01/09/18 01:50 Monocytes % 8.2 % (2.0-10.0) 01/09/18 01:50 Eosinophils % 1.2 % (0.0-5.0) 01/09/18 01:50 Basophils % 2.4 % (0.0-2.0) H 01/09/18 01:50 Neutrophils (Manual) 89 % (40-80) H 01/10/18 05:46 Lymphocytes 2 % (20-50) L 01/10/18 05:46 Monocytes 1 % (2-10) L 01/10/18 05:46 Sodium 127 mEq/L (136-145) L 01/10/18 05:46 Potassium 6.2 mEq/L (3.5-5.1) H* 01/10/18 05:46 Chloride 93 mEq/L (98-107) L 01/10/18 05:46 Carbon Dioxide 15.1 mEq/L (21.0-31.0) L 01/10/18 05:46 Anion Gap 25.1 (7.0-16.0) H 01/10/18 05:46 BUN 89 mg/dL (7-25) H* 01/10/18 05:46 Creatinine 5.8 mg/dL (0.6-1.2) H* 01/10/18 05:46 Est GFR ( Amer) TNP 01/10/18 05:46 Est GFR (Non-Af Amer) TNP 01/10/18 05:46 BUN/Creatinine Ratio 15.3 01/10/18 05:46 Glucose 387 mg/dL (70-105) H 01/10/18 05:46 POC Glucose 369 MG/DL (70 - 105) H 01/10/18 12:03 Hemoglobin A1c % 8.6 % (4.0-6.0) H 01/09/18 07:13 Whole Bld Lactic Acid 1.34 mmol/L (0.60-1.99) 01/09/18 18:54 Calcium 9.1 mg/dL (8.6-10.3) 01/10/18 05:46 Total Bilirubin 0.8 mg/dL (0.3-1.0) 01/10/18 05:46 AST 12 U/L (13-39) L 01/10/18 05:46 ALT 10 U/L (7-52) 01/10/18 05:46 Alkaline Phosphatase 142 U/L (34-104) H 01/10/18 05:46 Total Protein 6.8 gm/dL (6.0-8.3) 01/10/18 05:46 Albumin 3.4 gm/dL (3.7-5.3) L 01/10/18 05:46 Globulin 3.4 gm/dL 01/10/18 05:46 Albumin/Globulin Ratio 1.0 (1.0-1.8) 01/10/18 05:46 - Physical Exam Vitals and I&O: Vital Signs Temp 98.0 F 01/10/18 04:00 Pulse 84 01/10/18 04:00 Resp 18 01/10/18 04:00 BP 127/71 01/10/18 04:00 Pulse Ox 99 01/10/18 04:00 Intake & Output 01/09/18 01/10/18 01/10/18 18:59 06:59 18:59 Intake Total 100 30 Output Total 1 Balance 99 30 Weight (lbs) 65.317 kg 65.317 kg Intake: Oral 100 30 Output: Urine/Stool Mix 1 Other: # Voids 3 # Bowel Movements 1 1 Stool Characteristics Soft Formed Active Medications: Current Medications Acetaminophen (Tylenol 650mg Supp) 650 mg RC Q6H PRN PRN Reason: fever/pain Stop: 03/10/18 15:26 Last Admin: 01/09/18 16:01 Dose: 650 mg Epoetin Artemio (Epogen) 5,000 units SUBQ TuThSa [facility] Stop: 03/10/18 18:14 Folic Acid (Folate) 1 mg PO DAILY [facility] Stop: 03/11/18 08:59 Last Admin: 01/10/18 12:01 Dose: 1 mg Heparin Sodium (Porcine) (Heparin) 5,000 units SUBQ Q12HR [facility] Stop: 03/11/18 08:59 Last Admin: 01/10/18 12:01 Dose: 5,000 units Sodium Chloride (Nacl 0.9%) 1,000 mls @ 50 mls/hr IV .Q20H [facility] Stop: 03/10/18 07:01 Last Admin: 01/09/18 09:26 Dose: 50 mls/hr Insulin Aspart (Novolog) 0 units SUBQ ACHS [facility] PRN Reason: Protocol Stop: 03/10/18 20:59 Last Admin: 01/10/18 06:40 Dose: 6 units Lorazepam (Ativan) 1 mg IVP Q4HR PRN; Protocol PRN Reason: Agitation Stop: 03/10/18 07:05 Last Admin: 01/10/18 02:29 Dose: 1 mg Miscellaneous (Vancomycin Iv Per Pharmacy) 1 ea MC PRN PRN PRN Reason: PROTOCOL Stop: 03/10/18 19:35 Vitamin B Complex/Vitamin C (Vitamin B Complex W/C) 1 tab PO DAILY [facility] Stop: 03/11/18 08:59 Last Admin: 01/10/18 12:01 Dose: 1 tab General: Other (Severe dementia) HEENT: Atraumatic, PERRLA Neck: Supple Cardiovascular: Regular rate Lungs: Clear to auscultation Abdomen: Bowel sounds - Procedures Procedures: Procedures Procedure Code Date FLUOROSCOPY OF SUP VENA CAVA USING L OSM CONTRAST, GUIDANCE [id number] 12/28/17 INJECT/INFUSE NEC 99.29 06/24/13 INSERTION OF INFUSION DEV INTO SUP VENA CAVA, PERC APPROACH [id number] 12/28/17 PERFORMANCE OF URINARY FILTRATION, <6 HRS/DAY 2T4C80U 12/28/17 REMOVAL OF INFUSION DEVICE FROM UPPER VEIN, PERC APPROACH [id number] 12/28/17 Assessment/Plan - Problem List Patient Problems: All Active Problems Chronic anemia (Acute) D64.9 Diabetes (Acute) E11.9 ESRD (end stage renal disease) on dialysis (Acute) N18.6, Z99.2 HTN (hypertension) (Acute) I10 Hyperkalemia (Acute) E87.5 Hypothyroid (Acute) E03.9 - Assessment Assessment: New oseas is placed on L subclavian by Dr. Mckinney. HD staff is notified of the potassium and urgent need of HD. - Plan Plan: Ordered HD. Kayexalate ordered to give if HD is not arriving soon.
--- NOTE | 2018-01-10 12:29 | Operative Report ---
DATE OF SURGERY: 01/10/2018 PREOPERATIVE DIAGNOSES: 1. Hyperkalemia. 2. End-stage renal disease. 3. Dementia. POSTOPERATIVE DIAGNOSES: 1. Hyperkalemia. 2. End-stage renal disease. 3. Dementia. OPERATION DONE: Placement of Austen catheter, left subclavian vein under ultrasound guidance. Informed consent discussed with the son prior to the procedure including possible complications. DESCRIPTION OF PROCEDURE: The patient's left chest was prepped with ChloraPrep. A 1% lidocaine was used to infiltrate the area identified on ultrasound. An incision was made and a size 18 needle was used to locate the vein. The guide was inserted, the dilator and then the triple lumen catheter. It was anchored to chest wall with 3-0 silk. Portable chest x-ray will be done. JOB# [id number]
[2018-01-10 15:21] LABS: HEMATOCRIT 30.4 % (41.0-60); HEMOGLOBIN 9.9 gm/dL (12-16); LYMPHOCYTE ABSOLUTE 0.6 Th/cmm (1.5-3.0); MEAN CELL VOLUME 95.6 fl (81-100); MEAN CORPUSCULAR HGB CONC 32.4 pg (28.0-36.0); MEAN PLATELET VOLUME 7.8 fl; MONOCYTE ABSOLUTE 0.6 Th/cmm (0.3-1.0); NEUTROPHILE ABSOLUTE 15.9 Th/cmm (1.8-8.0); PLATELET COUNT 214 Th/cmm (150-400); RED BLOOD COUNT 3.18 Mil/cmm (3.80-5.20); RED CELL DISTRIBUTION WIDTH 17.8 % (11.5-20.0)
[2018-01-10 15:26] LABS: WHITE BLOOD COUNT 17.1 Th/cmm (4.8-10.8)
[2018-01-10 16:00] LABS: ANION GAP 25.8 (7.0-16.0); CALCIUM SERUM 9.1 mg/dL (8.6-10.3); CARBON DIOXIDE 15.5 mEq/L (21.0-31.0); CHLORIDE 95 mEq/L (98-107); GLUCOSE 384 mg/dL (70-105); POTASSIUM SERUM 5.3 mEq/L (3.5-5.1); SODIUM SERUM 131 mEq/L (136-145)
[2018-01-10 17:10] LABS: BUN - UREA NITROGEN 92 mg/dL (7-25); CREATININE - SERUM 7.3 mg/dL (0.6-1.2)
[2018-01-10 22:14] LABS: BAND NEUTROPHILE 5 % (0-10); BASOPHIL 0 % (0-3); EOSINOPHIL 0 % (0-5); LYMPHOCYTE 2 % (20-50); MONOCYTE 5 % (2-10); NEUTROPHILS 88 % (40-80); TOTAL CELLS COUNTED 100
[2018-01-10 22:15] LABS: PLATELET ESTIMATE ADEQUATE (NORMAL); PLATELET MORPHOLOGY NORMAL (NORMAL)
[2018-01-11 07:17] LABS: ALBUMIN 3.1 gm/dL (3.7-5.3); ALKALINE PHOSPHATASE 116 U/L (34-104); ANION GAP 18.3 (7.0-16.0); BILIRUBIN,TOTAL 0.8 mg/dL (0.3-1.0); BUN - UREA NITROGEN 49 mg/dL (7-25); CALCIUM SERUM 8.8 mg/dL (8.6-10.3); CARBON DIOXIDE 26.9 mEq/L (21.0-31.0); CHLORIDE 96 mEq/L (98-107); SGOT 14 U/L (13-39); SGPT/ALT 9 U/L (7-52); SODIUM SERUM 138 mEq/L (136-145); TOTAL PROTEIN,SERUM 6.2 gm/dL (6.0-8.3)
[2018-01-11 07:22] LABS: CREATININE - SERUM 4.9 mg/dL (0.6-1.2)
[2018-01-11 07:23] LABS: GLUCOSE 166 mg/dL (70-105); POTASSIUM SERUM 3.2 mEq/L (3.5-5.1)
[2018-01-11] MEDS: Ascorbic Acid/Vit B Complex Tab PO SCH (08:44)
[2018-01-11] MEDS: INSULIN ASPART, RECOMBINANT 100 UNITS/ML SUBQ SCH ×4 (08:45→21:16)
--- NOTE | 2018-01-11 09:03 | Diagnostic Imaging Report ---
Venous mapping study History: Venous mapping for shunt or fistula for dialysis Comparison: None Technique/procedure: Sonography of the lateral upper extremity veins was performed in multiple planes. Venous mapping measurements were obtained. Findings: Right: Centimeters Upper proximal cephalic: 0.3 Upper mid cephalic: 0.18 Upper distal cephalic 0.19 Lower proximal cephalic: 0.23 Lower mid cephalic: 0.2 Lower distal cephalic: 0.22 Axillary: 0.88 Brachial proximal: 0.88 Brachial mid: 0.31 Brachial distal: 0.35 Basilic proximal : 0.84 Basilic mid: 0.32 Basilic distal :0.4 Radial: 0.25 Ulnar 0.19 Left: Centimeters Upper proximal cephalic: 0.26 Upper mid cephalic: 0.17 Upper distal cephalic: 0.17 Lower proximal cephalic: 0.22 Lower mid cephalic: 0.13 Lower distal cephalic: 0.15 Axillary: 0.89 Brachial proximal colon 0.45 Brachial mid: 0.3 to Brachial distal: 0.41 Basilic proximal 0.43 Basilic mid 0.27 Basilic distal 0.3 to Radial: 0.18 Ulnar: 0.16 No gross DVT was visualized in the bilateral upper extremities. IMPRESSION: Venous measurements bilaterally as detailed above. No gross DVT identified.
--- NOTE | 2018-01-11 14:00 | General Progress Note ---
Subjective - Review of Systems Service Date: 01/11/18 Events since last encounter: malfunctioning permcath might be source of septicemia, WBC of 23,00 yesterday await blood culture Objective - Results Result Diagrams: 01/10/18 15:04 01/11/18 06:33 Recent Labs: Laboratory Last Values WBC 17.1 Th/cmm (4.8-10.8) H D 01/10/18 15:04 RBC 3.18 Mil/cmm (3.80-5.20) L 01/10/18 15:04 Hgb 9.9 gm/dL (12-16) L 01/10/18 15:04 Hct 30.4 % (41.0-60) L 01/10/18 15:04 MCV 95.6 fl (81-100) 01/10/18 15:04 MCH 31.0 pg (27.0-31.0) 01/10/18 15:04 MCHC Differential 32.4 pg (28.0-36.0) 01/10/18 15:04 RDW 17.8 % (11.5-20.0) 01/10/18 15:04 Plt Count 214 Th/cmm (150-400) 01/10/18 15:04 MPV 7.8 fl 01/10/18 15:04 Neutrophils % 76.1 % (40.0-80.0) 01/09/18 01:50 Band Neutrophils % 5 % (0-10) 01/10/18 15:04 Lymphocytes % 12.1 % (20.0-50.0) L 01/09/18 01:50 Monocytes % 8.2 % (2.0-10.0) 01/09/18 01:50 Eosinophils % 1.2 % (0.0-5.0) 01/09/18 01:50 Basophils % 2.4 % (0.0-2.0) H 01/09/18 01:50 Neutrophils (Manual) 88 % (40-80) H 01/10/18 15:04 Lymphocytes 2 % (20-50) L 01/10/18 15:04 Monocytes 5 % (2-10) 01/10/18 15:04 Eosinophils 0 % (0-5) 01/10/18 15:04 Basophils 0 % (0-3) 01/10/18 15:04 Platelet Estimate ADEQUATE (NORMAL) 01/10/18 15:04 Platelet Morphology NORMAL (NORMAL) 01/10/18 15:04 RBC Morph Micro Appear NORMAL (NORMAL) 01/10/18 15:04 Sodium 138 mEq/L (136-145) 01/11/18 06:33 Potassium 3.2 mEq/L (3.5-5.1) L D 01/11/18 06:33 Chloride 96 mEq/L (98-107) L 01/11/18 06:33 Carbon Dioxide 26.9 mEq/L (21.0-31.0) 01/11/18 06:33 Anion Gap 18.3 (7.0-16.0) H 01/11/18 06:33 BUN 49 mg/dL (7-25) H 01/11/18 06:33 Creatinine 4.9 mg/dL (0.6-1.2) H* 01/11/18 06:33 Est GFR ( Amer) TNP 01/11/18 06:33 Est GFR (Non-Af Amer) TNP 01/11/18 06:33 BUN/Creatinine Ratio 10.0 01/11/18 06:33 Glucose 166 mg/dL (70-105) H D 01/11/18 06:33 POC Glucose 238 MG/DL (70 - 105) H 01/11/18 11:32 Hemoglobin A1c % 8.6 % (4.0-6.0) H 01/09/18 07:13 Whole Bld Lactic Acid 1.34 mmol/L (0.60-1.99) 01/09/18 18:54 Calcium 8.8 mg/dL (8.6-10.3) 01/11/18 06:33 Total Bilirubin 0.8 mg/dL (0.3-1.0) 01/11/18 06:33 AST 14 U/L (13-39) 01/11/18 06:33 ALT 9 U/L (7-52) 01/11/18 06:33 Alkaline Phosphatase 116 U/L (34-104) H 01/11/18 06:33 Total Protein 6.2 gm/dL (6.0-8.3) 01/11/18 06:33 Albumin 3.1 gm/dL (3.7-5.3) L 01/11/18 06:33 Globulin 3.1 gm/dL 01/11/18 06:33 Albumin/Globulin Ratio 1.0 (1.0-1.8) 01/11/18 06:33 Random Vancomycin 11.7 ug/mL (5.0-40.0) 01/11/18 06:33 - Physical Exam Vitals and I&O: Vital Signs Temp 98.0 F 01/11/18 04:00 Pulse 85 01/11/18 04:00 Resp 20 01/11/18 08:00 BP 132/58 01/11/18 04:00 Pulse Ox 97 01/11/18 04:00 Intake & Output 01/10/18 01/11/18 01/11/18 18:59 06:59 18:59 Intake Total 1100 50 Balance 1100 50 Weight (lbs) 65.862 kg 65.771 kg Intake: Intake, IV Amount 1000 Sodium Chloride 0.9% 1, 1000 000 ml @ 50 mls/hr IV . Q20H [facility] Rx#:[id number] Oral 100 50 Other: # Voids 2 # Bowel Movements 1 0 Stool Characteristics Soft Soft Soft Formed Formed Formed Active Medications: Current Medications Acetaminophen (Tylenol 650mg Supp) 650 mg RC Q6H PRN PRN Reason: fever/pain Stop: 03/10/18 15:26 Last Admin: 01/09/18 16:01 Dose: 650 mg Epoetin Artemio (Epogen) 5,000 units SUBQ TuThSa [facility] Stop: 03/10/18 18:14 Folic Acid (Folate) 1 mg PO DAILY [facility] Stop: 03/11/18 08:59 Last Admin: 01/11/18 08:44 Dose: 1 mg Heparin Sodium (Porcine) (Heparin) 5,000 units SUBQ Q12HR [facility] Stop: 03/11/18 08:59 Last Admin: 01/11/18 08:45 Dose: 5,000 units Insulin Aspart (Novolog) 0 units SUBQ ACHS [facility] PRN Reason: Protocol Stop: 03/10/18 20:59 Last Admin: 01/11/18 12:21 Dose: 4 units Lorazepam (Ativan) 1 mg IVP Q4HR PRN; Protocol PRN Reason: Agitation Stop: 03/10/18 07:05 Last Admin: 01/10/18 02:29 Dose: 1 mg Miscellaneous (Vancomycin Iv Per Pharmacy) 1 ea MC PRN PRN PRN Reason: PROTOCOL Stop: 03/10/18 19:35 Vitamin B Complex/Vitamin C (Vitamin B Complex W/C) 1 tab PO DAILY [facility] Stop: 03/11/18 08:59 Last Admin: 01/11/18 08:44 Dose: 1 tab General: Other (Severe dementia) HEENT: Atraumatic, PERRLA Neck: Supple Cardiovascular: Regular rate Lungs: Clear to auscultation Abdomen: Bowel sounds - Procedures Procedures: Procedures Procedure Code Date FLUOROSCOPY OF SUP VENA CAVA USING L OSM CONTRAST, GUIDANCE [id number] 12/28/17 INJECT/INFUSE NEC 99.29 06/24/13 INSERT TUNNELED CV CATH [id number] 01/09/18 INSERTION OF INFUSION DEV INTO L SUBCLAV VEIN, PERC APPROACH [id number] 01/09/18 INSERTION OF INFUSION DEV INTO SUP VENA CAVA, PERC APPROACH [id number] 12/28/17 PERFORMANCE OF URINARY FILTRATION, <6 HRS/DAY [id number] 12/28/17 REMOVAL OF INFUSION DEVICE FROM UPPER VEIN, PERC APPROACH [id number] 12/28/17 Assessment/Plan - Problem List Patient Problems: All Active Problems Chronic anemia (Acute) D64.9 Diabetes (Acute) E11.9 ESRD (end stage renal disease) on dialysis (Acute) N18.6, Z99.2 HTN (hypertension) (Acute) I10 Hyperkalemia (Acute) E87.5 Hypothyroid (Acute) E03.9
--- NOTE | 2018-01-11 15:52 | General Progress Note ---
Subjective - Review of Systems Service Date: 01/11/18 Subjective: pt seen and examined new catheter in place Objective - Results Result Diagrams: 01/10/18 15:04 01/11/18 06:33 Recent Labs: Laboratory Last Values WBC 17.1 Th/cmm (4.8-10.8) H D 01/10/18 15:04 RBC 3.18 Mil/cmm (3.80-5.20) L 01/10/18 15:04 Hgb 9.9 gm/dL (12-16) L 01/10/18 15:04 Hct 30.4 % (41.0-60) L 01/10/18 15:04 MCV 95.6 fl (81-100) 01/10/18 15:04 MCH 31.0 pg (27.0-31.0) 01/10/18 15:04 MCHC Differential 32.4 pg (28.0-36.0) 01/10/18 15:04 RDW 17.8 % (11.5-20.0) 01/10/18 15:04 Plt Count 214 Th/cmm (150-400) 01/10/18 15:04 MPV 7.8 fl 01/10/18 15:04 Neutrophils % 76.1 % (40.0-80.0) 01/09/18 01:50 Band Neutrophils % 5 % (0-10) 01/10/18 15:04 Lymphocytes % 12.1 % (20.0-50.0) L 01/09/18 01:50 Monocytes % 8.2 % (2.0-10.0) 01/09/18 01:50 Eosinophils % 1.2 % (0.0-5.0) 01/09/18 01:50 Basophils % 2.4 % (0.0-2.0) H 01/09/18 01:50 Neutrophils (Manual) 88 % (40-80) H 01/10/18 15:04 Lymphocytes 2 % (20-50) L 01/10/18 15:04 Monocytes 5 % (2-10) 01/10/18 15:04 Eosinophils 0 % (0-5) 01/10/18 15:04 Basophils 0 % (0-3) 01/10/18 15:04 Platelet Estimate ADEQUATE (NORMAL) 01/10/18 15:04 Platelet Morphology NORMAL (NORMAL) 01/10/18 15:04 RBC Morph Micro Appear NORMAL (NORMAL) 01/10/18 15:04 Sodium 138 mEq/L (136-145) 01/11/18 06:33 Potassium 3.2 mEq/L (3.5-5.1) L D 01/11/18 06:33 Chloride 96 mEq/L (98-107) L 01/11/18 06:33 Carbon Dioxide 26.9 mEq/L (21.0-31.0) 01/11/18 06:33 Anion Gap 18.3 (7.0-16.0) H 01/11/18 06:33 BUN 49 mg/dL (7-25) H 01/11/18 06:33 Creatinine 4.9 mg/dL (0.6-1.2) H* 01/11/18 06:33 Est GFR ( Amer) TNP 01/11/18 06:33 Est GFR (Non-Af Amer) TNP 01/11/18 06:33 BUN/Creatinine Ratio 10.0 01/11/18 06:33 Glucose 166 mg/dL (70-105) H D 01/11/18 06:33 POC Glucose 238 MG/DL (70 - 105) H 01/11/18 11:32 Hemoglobin A1c % 8.6 % (4.0-6.0) H 01/09/18 07:13 Whole Bld Lactic Acid 1.34 mmol/L (0.60-1.99) 01/09/18 18:54 Calcium 8.8 mg/dL (8.6-10.3) 01/11/18 06:33 Total Bilirubin 0.8 mg/dL (0.3-1.0) 01/11/18 06:33 AST 14 U/L (13-39) 01/11/18 06:33 ALT 9 U/L (7-52) 01/11/18 06:33 Alkaline Phosphatase 116 U/L (34-104) H 01/11/18 06:33 Total Protein 6.2 gm/dL (6.0-8.3) 01/11/18 06:33 Albumin 3.1 gm/dL (3.7-5.3) L 01/11/18 06:33 Globulin 3.1 gm/dL 01/11/18 06:33 Albumin/Globulin Ratio 1.0 (1.0-1.8) 01/11/18 06:33 Random Vancomycin 11.7 ug/mL (5.0-40.0) 01/11/18 06:33 - Physical Exam Vitals and I&O: Vital Signs Temp 99.0 F 01/11/18 12:00 Pulse 80 01/11/18 12:00 Resp 18 01/11/18 12:00 BP 129/60 01/11/18 12:00 Pulse Ox 98 01/11/18 12:00 Intake & Output 01/10/18 01/11/18 01/11/18 18:59 06:59 18:59 Intake Total 1100 50 Balance 1100 50 Weight (lbs) 65.862 kg 65.771 kg Intake: Intake, IV Amount 1000 Sodium Chloride 0.9% 1, 1000 000 ml @ 50 mls/hr IV . Q20H [facility] Rx#:[id number] Oral 100 50 Other: # Voids 2 # Bowel Movements 1 0 Stool Characteristics Soft Soft Soft Formed Formed Formed Active Medications: Current Medications Acetaminophen (Tylenol 650mg Supp) 650 mg RC Q6H PRN PRN Reason: fever/pain Stop: 03/10/18 15:26 Last Admin: 01/09/18 16:01 Dose: 650 mg Epoetin Artemio (Epogen) 5,000 units SUBQ TuThSa [facility] Stop: 03/10/18 18:14 Folic Acid (Folate) 1 mg PO DAILY [facility] Stop: 03/11/18 08:59 Last Admin: 01/11/18 08:44 Dose: 1 mg Heparin Sodium (Porcine) (Heparin) 5,000 units SUBQ Q12HR [facility] Stop: 03/11/18 08:59 Last Admin: 01/11/18 08:45 Dose: 5,000 units Insulin Aspart (Novolog) 0 units SUBQ ACHS [facility] PRN Reason: Protocol Stop: 03/10/18 20:59 Last Admin: 01/11/18 12:21 Dose: 4 units Lorazepam (Ativan) 1 mg IVP Q4HR PRN; Protocol PRN Reason: Agitation Stop: 03/10/18 07:05 Last Admin: 01/10/18 02:29 Dose: 1 mg Miscellaneous (Vancomycin Iv Per Pharmacy) 1 ea MC PRN PRN PRN Reason: PROTOCOL Stop: 03/10/18 19:35 Vitamin B Complex/Vitamin C (Vitamin B Complex W/C) 1 tab PO DAILY [facility] Stop: 03/11/18 08:59 Last Admin: 01/11/18 08:44 Dose: 1 tab General: Other (Severe dementia) HEENT: Atraumatic, PERRLA Neck: Supple Cardiovascular: Regular rate Lungs: Clear to auscultation Abdomen: Bowel sounds - Procedures Procedures: Procedures Procedure Code Date FLUOROSCOPY OF SUP VENA CAVA USING L OSM CONTRAST, GUIDANCE [id number] 12/28/17 INJECT/INFUSE NEC 99.29 06/24/13 INSERT TUNNELED CV CATH [id number] 01/09/18 INSERTION OF INFUSION DEV INTO L SUBCLAV VEIN, PERC APPROACH [id number] 01/09/18 INSERTION OF INFUSION DEV INTO SUP VENA CAVA, PERC APPROACH [id number] 12/28/17 PERFORMANCE OF URINARY FILTRATION, <6 HRS/DAY [id number] 12/28/17 REMOVAL OF INFUSION DEVICE FROM UPPER VEIN, PERC APPROACH [id number] 12/28/17 Assessment/Plan - Problem List Patient Problems: All Active Problems Chronic anemia (Acute) D64.9 Diabetes (Acute) E11.9 ESRD (end stage renal disease) on dialysis (Acute) N18.6, Z99.2 HTN (hypertension) (Acute) I10 Hyperkalemia (Acute) E87.5 Hypothyroid (Acute) E03.9 - Assessment Assessment: catheter failure - Plan Plan: continue hd support
--- NOTE | 2018-01-11 16:18 | General Progress Note ---
Subjective - Review of Systems Events since last encounter: seen in no distress Objective - Results Result Diagrams: 01/10/18 15:04 01/11/18 06:33 Recent Labs: Laboratory Last Values WBC 17.1 Th/cmm (4.8-10.8) H D 01/10/18 15:04 RBC 3.18 Mil/cmm (3.80-5.20) L 01/10/18 15:04 Hgb 9.9 gm/dL (12-16) L 01/10/18 15:04 Hct 30.4 % (41.0-60) L 01/10/18 15:04 MCV 95.6 fl (81-100) 01/10/18 15:04 MCH 31.0 pg (27.0-31.0) 01/10/18 15:04 MCHC Differential 32.4 pg (28.0-36.0) 01/10/18 15:04 RDW 17.8 % (11.5-20.0) 01/10/18 15:04 Plt Count 214 Th/cmm (150-400) 01/10/18 15:04 MPV 7.8 fl 01/10/18 15:04 Neutrophils % 76.1 % (40.0-80.0) 01/09/18 01:50 Band Neutrophils % 5 % (0-10) 01/10/18 15:04 Lymphocytes % 12.1 % (20.0-50.0) L 01/09/18 01:50 Monocytes % 8.2 % (2.0-10.0) 01/09/18 01:50 Eosinophils % 1.2 % (0.0-5.0) 01/09/18 01:50 Basophils % 2.4 % (0.0-2.0) H 01/09/18 01:50 Neutrophils (Manual) 88 % (40-80) H 01/10/18 15:04 Lymphocytes 2 % (20-50) L 01/10/18 15:04 Monocytes 5 % (2-10) 01/10/18 15:04 Eosinophils 0 % (0-5) 01/10/18 15:04 Basophils 0 % (0-3) 01/10/18 15:04 Platelet Estimate ADEQUATE (NORMAL) 01/10/18 15:04 Platelet Morphology NORMAL (NORMAL) 01/10/18 15:04 RBC Morph Micro Appear NORMAL (NORMAL) 01/10/18 15:04 Sodium 138 mEq/L (136-145) 01/11/18 06:33 Potassium 3.2 mEq/L (3.5-5.1) L D 01/11/18 06:33 Chloride 96 mEq/L (98-107) L 01/11/18 06:33 Carbon Dioxide 26.9 mEq/L (21.0-31.0) 01/11/18 06:33 Anion Gap 18.3 (7.0-16.0) H 01/11/18 06:33 BUN 49 mg/dL (7-25) H 01/11/18 06:33 Creatinine 4.9 mg/dL (0.6-1.2) H* 01/11/18 06:33 Est GFR ( Amer) TNP 01/11/18 06:33 Est GFR (Non-Af Amer) TNP 01/11/18 06:33 BUN/Creatinine Ratio 10.0 01/11/18 06:33 Glucose 166 mg/dL (70-105) H D 01/11/18 06:33 POC Glucose 238 MG/DL (70 - 105) H 01/11/18 11:32 Hemoglobin A1c % 8.6 % (4.0-6.0) H 01/09/18 07:13 Whole Bld Lactic Acid 1.34 mmol/L (0.60-1.99) 01/09/18 18:54 Calcium 8.8 mg/dL (8.6-10.3) 01/11/18 06:33 Total Bilirubin 0.8 mg/dL (0.3-1.0) 01/11/18 06:33 AST 14 U/L (13-39) 01/11/18 06:33 ALT 9 U/L (7-52) 01/11/18 06:33 Alkaline Phosphatase 116 U/L (34-104) H 01/11/18 06:33 Total Protein 6.2 gm/dL (6.0-8.3) 01/11/18 06:33 Albumin 3.1 gm/dL (3.7-5.3) L 01/11/18 06:33 Globulin 3.1 gm/dL 01/11/18 06:33 Albumin/Globulin Ratio 1.0 (1.0-1.8) 01/11/18 06:33 Random Vancomycin 11.7 ug/mL (5.0-40.0) 01/11/18 06:33 - Physical Exam Vitals and I&O: Vital Signs Temp 99.0 F 01/11/18 12:00 Pulse 80 01/11/18 12:00 Resp 18 01/11/18 12:00 BP 129/60 01/11/18 12:00 Pulse Ox 98 01/11/18 12:00 Intake & Output 01/10/18 01/11/18 01/11/18 18:59 06:59 18:59 Intake Total 1100 50 Balance 1100 50 Weight (lbs) 65.862 kg 65.771 kg Intake: Intake, IV Amount 1000 Sodium Chloride 0.9% 1, 1000 000 ml @ 50 mls/hr IV . Q20H [facility] Rx#:[id number] Oral 100 50 Other: # Voids 2 # Bowel Movements 1 0 Stool Characteristics Soft Soft Soft Formed Formed Formed Active Medications: Current Medications Acetaminophen (Tylenol 650mg Supp) 650 mg RC Q6H PRN PRN Reason: fever/pain Stop: 03/10/18 15:26 Last Admin: 01/09/18 16:01 Dose: 650 mg Epoetin Artemio (Epogen) 5,000 units SUBQ Tu[facility]Sa [facility] Stop: 03/10/18 18:14 Folic Acid (Folate) 1 mg PO DAILY [facility] Stop: 03/11/18 08:59 Last Admin: 01/11/18 08:44 Dose: 1 mg Heparin Sodium (Porcine) (Heparin) 5,000 units SUBQ Q12HR [facility] Stop: 03/11/18 08:59 Last Admin: 01/11/18 08:45 Dose: 5,000 units Insulin Aspart (Novolog) 0 units SUBQ ACHS [facility] PRN Reason: Protocol Stop: 03/10/18 20:59 Last Admin: 01/11/18 12:21 Dose: 4 units Lorazepam (Ativan) 1 mg IVP Q4HR PRN; Protocol PRN Reason: Agitation Stop: 03/10/18 07:05 Last Admin: 01/10/18 02:29 Dose: 1 mg Miscellaneous (Vancomycin Iv Per Pharmacy) 1 ea MC PRN PRN PRN Reason: PROTOCOL Stop: 03/10/18 19:35 Vitamin B Complex/Vitamin C (Vitamin B Complex W/C) 1 tab PO DAILY [facility] Stop: 03/11/18 08:59 Last Admin: 01/11/18 08:44 Dose: 1 tab General: Other (Severe dementia) HEENT: Atraumatic, PERRLA Neck: Supple Cardiovascular: Regular rate Lungs: Clear to auscultation Abdomen: Bowel sounds - Procedures Procedures: Procedures Procedure Code Date FLUOROSCOPY OF SUP VENA CAVA USING L OSM CONTRAST, GUIDANCE [id number] 12/28/17 INJECT/INFUSE NEC 99.29 06/24/13 INSERT TUNNELED CV CATH [id number] 01/09/18 INSERTION OF INFUSION DEV INTO L SUBCLAV VEIN, PERC APPROACH [id number] 01/09/18 INSERTION OF INFUSION DEV INTO SUP VENA CAVA, PERC APPROACH [id number] 12/28/17 PERFORMANCE OF URINARY FILTRATION, <6 HRS/DAY [id number] 12/28/17 REMOVAL OF INFUSION DEVICE FROM UPPER VEIN, PERC APPROACH [id number] 12/28/17 Assessment/Plan - Problem List Patient Problems: All Active Problems Chronic anemia (Acute) D64.9 Diabetes (Acute) E11.9 ESRD (end stage renal disease) on dialysis (Acute) N18.6, Z99.2 HTN (hypertension) (Acute) I10 Hyperkalemia (Acute) E87.5 Hypothyroid (Acute) E03.9
--- NOTE | 2018-01-11 18:54 | Operative Report ---
DATE OF SURGERY: 01/11/2018 PREOPERATIVE DIAGNOSES: 1. Septicemia. 2. Malfunctioning Perm-A-Cath, left subclavian vein. 3. End-stage renal disease. POSTOPERATIVE DIAGNOSES: Septicemia, malfunctioning Perm-A-Cath, left subclavian vein End-stage renal disease. OPERATION DONE: Removal of tunneled catheter. PROCEDURE: The right chest exit site of the catheter was prepped with Betadine and draped. 1% lidocaine was used to clean the area. Scissors were then used to remove the catheter and the tip was sent in a sterile cup for culture and sensitivity. JOB# [id number]
[2018-01-12 07:03] LABS: BUN - UREA NITROGEN 64 mg/dL (7-25); CALCIUM SERUM 8.7 mg/dL (8.6-10.3); CARBON DIOXIDE 27.3 mEq/L (21.0-31.0); CHLORIDE 98 mEq/L (98-107); GLUCOSE 162 mg/dL (70-105); POTASSIUM SERUM 3.3 mEq/L (3.5-5.1); SODIUM SERUM 139 mEq/L (136-145)
[2018-01-12 07:06] LABS: CREATININE - SERUM 4.8 mg/dL (0.6-1.2)
[2018-01-12 07:12] LABS: HEMOGLOBIN 9.8 gm/dL (12-16); MEAN CORPUSCULAR HEMOGLOBIN 30.7 pg (27.0-31.0); MEAN CORPUSCULAR HGB CONC 32.7 pg (28.0-36.0); RED BLOOD COUNT 3.19 Mil/cmm (3.80-5.20); WHITE BLOOD COUNT 10.1 Th/cmm (4.8-10.8)
[2018-01-12 07:13] LABS: % EOSINOPHILS 0.6 % (0.0-5.0); % LYMPHOCYTES 12.1 % (20.0-50.0); % MONOCYTES 13.1 % (2.0-10.0); % NEUTROPHILS 74.2 % (40.0-80.0); EOSINOPHILE ABSOLUTE 0.1 Th/cmm (0.1-0.4); LYMPHOCYTE ABSOLUTE 1.2 Th/cmm (1.5-3.0); MEAN PLATELET VOLUME 8.1 fl; MONOCYTE ABSOLUTE 1.3 Th/cmm (0.3-1.0); NEUTROPHILE ABSOLUTE 7.5 Th/cmm (1.8-8.0); RED CELL DISTRIBUTION WIDTH 17.2 % (11.5-20.0)
[2018-01-12 07:14] LABS: PLATELET COUNT 171 Th/cmm (150-400)
[2018-01-12] MEDS: Ascorbic Acid/Vit B Complex Tab PO SCH (09:09)
[2018-01-12] MEDS: INSULIN ASPART, RECOMBINANT 100 UNITS/ML SUBQ SCH ×4 (09:10→22:48)
--- NOTE | 2018-01-12 10:09 | General Progress Note ---
Subjective - Review of Systems Service Date: 01/12/18 Events since last encounter: discussed procedures with Dr. Pierre and son blood culture positive with treatment for 3 days Plan: placement of permcath and left arm fistula vs shunt Objective - Results Result Diagrams: 01/12/18 06:05 01/12/18 06:05 Recent Labs: Laboratory Last Values WBC 10.1 Th/cmm (4.8-10.8) D 01/12/18 06:05 RBC 3.19 Mil/cmm (3.80-5.20) L 01/12/18 06:05 Hgb 9.8 gm/dL (12-16) L 01/12/18 06:05 Hct 30.0 % (41.0-60) L 01/12/18 06:05 MCV 94.0 fl (81-100) 01/12/18 06:05 MCH 30.7 pg (27.0-31.0) 01/12/18 06:05 MCHC Differential 32.7 pg (28.0-36.0) 01/12/18 06:05 RDW 17.2 % (11.5-20.0) 01/12/18 06:05 Plt Count 171 Th/cmm (150-400) D 01/12/18 06:05 MPV 8.1 fl 01/12/18 06:05 Neutrophils % 74.2 % (40.0-80.0) 01/12/18 06:05 Band Neutrophils % 5 % (0-10) 01/10/18 15:04 Lymphocytes % 12.1 % (20.0-50.0) L 01/12/18 06:05 Monocytes % 13.1 % (2.0-10.0) H 01/12/18 06:05 Eosinophils % 0.6 % (0.0-5.0) 01/12/18 06:05 Basophils % 0.0 % (0.0-2.0) 01/12/18 06:05 Neutrophils (Manual) 88 % (40-80) H 01/10/18 15:04 Lymphocytes 2 % (20-50) L 01/10/18 15:04 Monocytes 5 % (2-10) 01/10/18 15:04 Eosinophils 0 % (0-5) 01/10/18 15:04 Basophils 0 % (0-3) 01/10/18 15:04 Platelet Estimate ADEQUATE (NORMAL) 01/10/18 15:04 Platelet Morphology NORMAL (NORMAL) 01/10/18 15:04 RBC Morph Micro Appear NORMAL (NORMAL) 01/10/18 15:04 Sodium 139 mEq/L (136-145) 01/12/18 06:05 Potassium 3.3 mEq/L (3.5-5.1) L 01/12/18 06:05 Chloride 98 mEq/L (98-107) 01/12/18 06:05 Carbon Dioxide 27.3 mEq/L (21.0-31.0) 01/12/18 06:05 Anion Gap 17.0 (7.0-16.0) H 01/12/18 06:05 BUN 64 mg/dL (7-25) H 01/12/18 06:05 Creatinine 4.8 mg/dL (0.6-1.2) H* 01/12/18 06:05 Est GFR ( Amer) TNP 01/12/18 06:05 Est GFR (Non-Af Amer) TNP 01/12/18 06:05 BUN/Creatinine Ratio 13.3 01/12/18 06:05 Glucose 162 mg/dL (70-105) H 01/12/18 06:05 POC Glucose 146 MG/DL (70 - 105) H 01/12/18 06:59 Hemoglobin A1c % 8.6 % (4.0-6.0) H 01/09/18 07:13 Whole Bld Lactic Acid 1.34 mmol/L (0.60-1.99) 01/09/18 18:54 Calcium 8.7 mg/dL (8.6-10.3) 01/12/18 06:05 Total Bilirubin 0.8 mg/dL (0.3-1.0) 01/11/18 06:33 AST 14 U/L (13-39) 01/11/18 06:33 ALT 9 U/L (7-52) 01/11/18 06:33 Alkaline Phosphatase 116 U/L (34-104) H 01/11/18 06:33 Total Protein 6.2 gm/dL (6.0-8.3) 01/11/18 06:33 Albumin 3.1 gm/dL (3.7-5.3) L 01/11/18 06:33 Globulin 3.1 gm/dL 01/11/18 06:33 Albumin/Globulin Ratio 1.0 (1.0-1.8) 01/11/18 06:33 Random Vancomycin 24.1 ug/mL (5.0-40.0) 01/12/18 06:05 - Physical Exam Vitals and I&O: Vital Signs Temp 96.7 F 01/12/18 08:41 Pulse 87 01/12/18 08:41 Resp 20 01/12/18 08:41 BP 128/71 01/12/18 08:41 Pulse Ox 99 01/12/18 08:41 Intake & Output 01/11/18 01/12/18 01/12/18 18:59 06:59 18:59 Intake Total 420 250 Balance 420 250 Weight (lbs) 65.771 kg 62.686 kg 62.686 kg Intake: Oral 420 250 Other: # Voids 2 2 # Bowel Movements 2 Stool Characteristics Soft Soft Formed Formed Active Medications: Current Medications Acetaminophen (Tylenol 650mg Supp) 650 mg RC Q6H PRN PRN Reason: fever/pain Stop: 03/10/18 15:26 Last Admin: 01/09/18 16:01 Dose: 650 mg Epoetin Artemio (Epogen) 5,000 units SUBQ TuThSa [facility] Stop: 03/10/18 18:14 Folic Acid (Folate) 1 mg PO DAILY [facility] Stop: 03/11/18 08:59 Last Admin: 01/12/18 09:09 Dose: 1 mg Heparin Sodium (Porcine) (Heparin) 5,000 units SUBQ Q12HR [facility] Stop: 03/11/18 08:59 Last Admin: 01/12/18 09:09 Dose: 5,000 units Insulin Aspart (Novolog) 0 units SUBQ ACHS [facility] PRN Reason: Protocol Stop: 03/10/18 20:59 Last Admin: 01/12/18 09:10 Dose: Not Given Lorazepam (Ativan) 1 mg IVP Q4HR PRN; Protocol PRN Reason: Agitation Stop: 03/10/18 07:05 Last Admin: 01/12/18 02:59 Dose: 1 mg Miscellaneous (Vancomycin Iv Per Pharmacy) 1 ea MC PRN PRN PRN Reason: PROTOCOL Stop: 03/10/18 19:35 Vitamin B Complex/Vitamin C (Vitamin B Complex W/C) 1 tab PO DAILY [facility] Stop: 03/11/18 08:59 Last Admin: 01/12/18 09:09 Dose: 1 tab General: Other (Severe dementia) HEENT: Atraumatic, PERRLA Neck: Supple Cardiovascular: Regular rate Lungs: Clear to auscultation Abdomen: Bowel sounds - Procedures Procedures: Procedures Procedure Code Date FLUOROSCOPY OF SUP VENA CAVA USING L OSM CONTRAST, GUIDANCE [id number] 12/28/17 INJECT/INFUSE NEC 99.29 06/24/13 INSERT TUNNELED CV CATH [id number] 01/09/18 INSERTION OF INFUSION DEV INTO L SUBCLAV VEIN, PERC APPROACH [id number] 01/09/18 INSERTION OF INFUSION DEV INTO SUP VENA CAVA, PERC APPROACH [id number] 12/28/17 PERFORMANCE OF URINARY FILTRATION, <6 HRS/DAY [id number] 12/28/17 REMOVAL OF INFUSION DEVICE FROM UPPER VEIN, PERC APPROACH [id number] 12/28/17 Assessment/Plan - Problem List Patient Problems: All Active Problems Chronic anemia (Acute) D64.9 Diabetes (Acute) E11.9 ESRD (end stage renal disease) on dialysis (Acute) N18.6, Z99.2 HTN (hypertension) (Acute) I10 Hyperkalemia (Acute) E87.5 Hypothyroid (Acute) E03.9 Nutritional Asmnt/Malnutr-PDOC - Dietary Evaluation Malnutrition Findings (Please click <Entered> for more info): Nutritional Asmnt/Malnutrition Start: 01/11/18 16: 26 Text: Status: Complete Freq: Document 01/11/18 17:04 RODRÍGUEZ (Rec: 01/11/18 17:19 [id number] Nutritional Asmnt/Malnutrition Patient General Information Nutritional Screening High Risk Consult Diagnosis acute kidney failure, dialysis , agitation, ALOC Pertinent Medical Hx/Surgical Hx ESRD, dialysis, HTN, DM, dementia, hypothyroidism, dementia, perm-A-cath Subjective Information consult received for high BS. Pt seen sleeping at time of visit. Per notes, pt received dialysis on 01/10. RN reported pt ate well, consumed 100% of meals today. Per records, PO intake 25-75% on 01/10. Current Diet Order/ Nutrition Support CCHO 60gm, mechanical soft, potassium 2gm per day, fluid restriction 1000ml Pertinent Medications folate, novolog, vit B complex , vit C Pertinent Labs 01/11 Na 138, K 3.2, Cl 96, BUN 49, Cr 4.9, glucose 166, POC 168-286 Nutritional Hx/Data Height 1.63 m Height (Calculated Centimeters) 162.6 Current Weight (lbs) 65.771 kg Weight (Calculated Kilograms) 65.8 Weight (Calculated Grams) 47165.9 [place] Body Weight 120 % [place] Body Weight 121 Body Mass Index (BMI) 24.9 Weight Status Approriate GI Symptoms GI Symptoms None Last BM 01/10 Difficult in: None Skin Integrity/Comment: scar pressure area to buttocks DRY HEELS, HEALING ULCER BUTTOCKS Estimated Nutritional Goals BEE in Kcals: Using Current wt Calories/Kcals/Kg 25-30 Kcals Calculated 2605-3050 Protein: Using Current wt Protein g/k-1.3 Protein Calculated 66-86 Fluid: ml 1650-1980ml (1ml/kcal) Nutritional Problem 1. Problem Problem altered nutrition related lab values Etiology hx of DM, ESRD Signs/Symptoms: BUN 49, Cr 4.9, glucose 166, POC 168-286 Malnutrition Alert Protein-Calorie Malnutrition N/A Is there a minimum of two criteria No selected? Query Text:Check all the applicable criteria. A minimum of two criteria are recommended for diagnosis of either severe or non-severe malnutrition. Intervention/Recommendation Comments 1. Continue with current diet as ordered. 2. Monitor PO intake, wt, labs and skin integrity 3. F/U as moderate risk in 3-5 days, 01/14-01/16 Expected Outcomes/Goals Expected Outcomes/Goals 1. PO intake to meet at least 75% of nutritional needs. 2. Wt stability, skin to remain intact, labs to approach WNL.
--- NOTE | 2018-01-12 11:47 | Internal Medicine Prog Note ---
Internal Medicine Subjective - Subjective Service Date: 01/12/18 Patient seen and examined:: with staff Patient is:: awake Per staff patient has:: tolerating meds Internal Medicine Objective - Results Result Diagrams: 01/12/18 06:05 01/12/18 06:05 Recent Labs: Laboratory Last Values WBC 10.1 Th/cmm (4.8-10.8) D 01/12/18 06:05 RBC 3.19 Mil/cmm (3.80-5.20) L 01/12/18 06:05 Hgb 9.8 gm/dL (12-16) L 01/12/18 06:05 Hct 30.0 % (41.0-60) L 01/12/18 06:05 MCV 94.0 fl (81-100) 01/12/18 06:05 MCH 30.7 pg (27.0-31.0) 01/12/18 06:05 MCHC Differential 32.7 pg (28.0-36.0) 01/12/18 06:05 RDW 17.2 % (11.5-20.0) 01/12/18 06:05 Plt Count 171 Th/cmm (150-400) D 01/12/18 06:05 MPV 8.1 fl 01/12/18 06:05 Neutrophils % 74.2 % (40.0-80.0) 01/12/18 06:05 Band Neutrophils % 5 % (0-10) 01/10/18 15:04 Lymphocytes % 12.1 % (20.0-50.0) L 01/12/18 06:05 Monocytes % 13.1 % (2.0-10.0) H 01/12/18 06:05 Eosinophils % 0.6 % (0.0-5.0) 01/12/18 06:05 Basophils % 0.0 % (0.0-2.0) 01/12/18 06:05 Neutrophils (Manual) 88 % (40-80) H 01/10/18 15:04 Lymphocytes 2 % (20-50) L 01/10/18 15:04 Monocytes 5 % (2-10) 01/10/18 15:04 Eosinophils 0 % (0-5) 01/10/18 15:04 Basophils 0 % (0-3) 01/10/18 15:04 Platelet Estimate ADEQUATE (NORMAL) 01/10/18 15:04 Platelet Morphology NORMAL (NORMAL) 01/10/18 15:04 RBC Morph Micro Appear NORMAL (NORMAL) 01/10/18 15:04 Sodium 139 mEq/L (136-145) 01/12/18 06:05 Potassium 3.3 mEq/L (3.5-5.1) L 01/12/18 06:05 Chloride 98 mEq/L (98-107) 01/12/18 06:05 Carbon Dioxide 27.3 mEq/L (21.0-31.0) 01/12/18 06:05 Anion Gap 17.0 (7.0-16.0) H 01/12/18 06:05 BUN 64 mg/dL (7-25) H 01/12/18 06:05 Creatinine 4.8 mg/dL (0.6-1.2) H* 01/12/18 06:05 Est GFR ( Amer) TNP 01/12/18 06:05 Est GFR (Non-Af Amer) TNP 01/12/18 06:05 BUN/Creatinine Ratio 13.3 01/12/18 06:05 Glucose 162 mg/dL (70-105) H 01/12/18 06:05 POC Glucose 146 MG/DL (70 - 105) H 01/12/18 06:59 Hemoglobin A1c % 8.6 % (4.0-6.0) H 01/09/18 07:13 Whole Bld Lactic Acid 1.34 mmol/L (0.60-1.99) 01/09/18 18:54 Calcium 8.7 mg/dL (8.6-10.3) 01/12/18 06:05 Total Bilirubin 0.8 mg/dL (0.3-1.0) 01/11/18 06:33 AST 14 U/L (13-39) 01/11/18 06:33 ALT 9 U/L (7-52) 01/11/18 06:33 Alkaline Phosphatase 116 U/L (34-104) H 01/11/18 06:33 Total Protein 6.2 gm/dL (6.0-8.3) 01/11/18 06:33 Albumin 3.1 gm/dL (3.7-5.3) L 01/11/18 06:33 Globulin 3.1 gm/dL 01/11/18 06:33 Albumin/Globulin Ratio 1.0 (1.0-1.8) 01/11/18 06:33 Random Vancomycin 24.1 ug/mL (5.0-40.0) 01/12/18 06:05 - Physical Exam Vitals and I&O: Vital Signs Temp 96.7 F 01/12/18 08:41 Pulse 87 01/12/18 08:41 Resp 20 01/12/18 08:41 BP 128/71 01/12/18 08:41 Pulse Ox 99 01/12/18 08:41 Intake & Output 01/11/18 01/12/18 01/12/18 18:59 06:59 18:59 Intake Total 420 250 Balance 420 250 Weight (lbs) 145 lb 138 lb 3.2 oz 138 lb 3.2 oz Intake: Oral 420 250 Other: # Voids 2 2 # Bowel Movements 2 Stool Characteristics Soft Soft Soft Formed Formed Formed Active Medications: Current Medications Acetaminophen (Tylenol 650mg Supp) 650 mg RC Q6H PRN PRN Reason: fever/pain Stop: 03/10/18 15:26 Last Admin: 01/09/18 16:01 Dose: 650 mg Epoetin Artemio (Epogen) 5,000 units SUBQ TuThSa [facility] Stop: 03/10/18 18:14 Folic Acid (Folate) 1 mg PO DAILY [facility] Stop: 03/11/18 08:59 Last Admin: 01/12/18 09:09 Dose: 1 mg Heparin Sodium (Porcine) (Heparin) 5,000 units SUBQ Q12HR [facility] Stop: 03/11/18 08:59 Last Admin: 01/12/18 09:09 Dose: 5,000 units Insulin Aspart (Novolog) 0 units SUBQ ACHS [facility] PRN Reason: Protocol Stop: 03/10/18 20:59 Last Admin: 01/12/18 09:10 Dose: Not Given Lorazepam (Ativan) 1 mg IVP Q4HR PRN; Protocol PRN Reason: Agitation Stop: 03/10/18 07:05 Last Admin: 01/12/18 02:59 Dose: 1 mg Miscellaneous (Vancomycin Iv Per Pharmacy) 1 ea MC PRN PRN PRN Reason: PROTOCOL Stop: 03/10/18 19:35 Vitamin B Complex/Vitamin C (Vitamin B Complex W/C) 1 tab PO DAILY [facility] Stop: 03/11/18 08:59 Last Admin: 01/12/18 09:09 Dose: 1 tab General: weak, alert HEENT: NC/AT, PERRLA Cardiovascular: RRR, Normal S1, Normal S2, without murmur Abdomen: soft, non-tender, non-distended, positive bowel sound Neurological: alert - Procedures Procedures: Procedures Procedure Code Date FLUOROSCOPY OF SUP VENA CAVA USING L OSM CONTRAST, GUIDANCE [id number] 12/28/17 INJECT/INFUSE NEC 99.29 06/24/13 INSERT TUNNELED CV CATH 73757 01/09/18 INSERTION OF INFUSION DEV INTO L SUBCLAV VEIN, PERC APPROACH [id number] 01/09/18 INSERTION OF INFUSION DEV INTO SUP VENA CAVA, PERC APPROACH [id number] 12/28/17 PERFORMANCE OF URINARY FILTRATION, <6 HRS/DAY [id number] 12/28/17 REMOVAL OF INFUSION DEVICE FROM UPPER VEIN, PERC APPROACH [id number] 12/28/17 Internal Medicine Assmt/Plan - Assessment Assessment: Chronic anemia (Acute) D64.9 Diabetes (Acute) E11.9 ESRD (end stage renal disease) on dialysis (Acute) N18.6, Z99.2 HTN (hypertension) (Acute) I10 Hyperkalemia (Acute) E87.5 Hypothyroid (Acute) E03.9 - Plan Plan: for placement of Permcath under fluoroscopy , right arm fistula vs shunt and today monitor h/h follow up labs in am continue current plan of care Nutritional Asmnt/Malnutr-PDOC - Dietary Evaluation Malnutrition Findings (Please click <Entered> for more info): Nutritional Asmnt/Malnutrition Start: 01/11/18 16: 26 Text: Status: Complete Freq: Document 01/11/18 17:04 RODRÍGUEZ (Rec: 01/11/18 17:19 AAR [email or web address]) Nutritional Asmnt/Malnutrition Patient General Information Nutritional Screening High Risk Consult Diagnosis acute kidney failure, dialysis , agitation, ALOC Pertinent Medical Hx/Surgical Hx ESRD, dialysis, HTN, DM, dementia, hypothyroidism, dementia, perm-A-cath Subjective Information consult received for high BS. Pt seen sleeping at time of visit. Per notes, pt received dialysis on 01/10. RN reported pt ate well, consumed 100% of meals today. Per records, PO intake 25-75% on 01/10. Current Diet Order/ Nutrition Support CCHO 60gm, mechanical soft, potassium 2gm per day, fluid restriction 1000ml Pertinent Medications folate, novolog, vit B complex , vit C Pertinent Labs 01/11 Na 138, K 3.2, Cl 96, BUN 49, Cr 4.9, glucose 166, POC 168-286 Nutritional Hx/Data Height 5 ft 4 in Height (Calculated Centimeters) 162.6 Current Weight (lbs) 145 lb Weight (Calculated Kilograms) 65.8 Weight (Calculated Grams) 33629.9 Bath Body Weight 120 % Bath Body Weight 121 Body Mass Index (BMI) 24.9 Weight Status Approriate GI Symptoms GI Symptoms None Last BM 01/10 Difficult in: None Skin Integrity/Comment: scar pressure area to buttocks DRY HEELS, HEALING ULCER BUTTOCKS Estimated Nutritional Goals BEE in Kcals: Using Current wt Calories/Kcals/Kg 25-30 Kcals Calculated 7201-7610 Protein: Using Current wt Protein g/k-1.3 Protein Calculated 66-86 Fluid: ml 1650-1980ml (1ml/kcal) Nutritional Problem 1. Problem Problem altered nutrition related lab values Etiology hx of DM, ESRD Signs/Symptoms: BUN 49, Cr 4.9, glucose 166, POC 168-286 Malnutrition Alert Protein-Calorie Malnutrition N/A Is there a minimum of two criteria No selected? Query Text:Check all the applicable criteria. A minimum of two criteria are recommended for diagnosis of either severe or non-severe malnutrition. Intervention/Recommendation Comments 1. Continue with current diet as ordered. 2. Monitor PO intake, wt, labs and skin integrity 3. F/U as moderate risk in 3-5 days, 01/14-01/16 Expected Outcomes/Goals Expected Outcomes/Goals 1. PO intake to meet at least 75% of nutritional needs. 2. Wt stability, skin to remain intact, labs to approach WNL.
[2018-01-12 11:54] LABS: INR 1.36 (0.5-1.4); PROTHROMBIN TIME (TEST) 14.4 SECONDS (9.5-11.5)
--- NOTE | 2018-01-12 12:38 | General Progress Note ---
Subjective - Review of Systems Service Date: 01/12/18 Subjective: pt seen and examined new catheter in place Objective - Results Result Diagrams: 01/12/18 06:05 01/12/18 06:05 Recent Labs: Laboratory Last Values WBC 10.1 Th/cmm (4.8-10.8) D 01/12/18 06:05 RBC 3.19 Mil/cmm (3.80-5.20) L 01/12/18 06:05 Hgb 9.8 gm/dL (12-16) L 01/12/18 06:05 Hct 30.0 % (41.0-60) L 01/12/18 06:05 MCV 94.0 fl (81-100) 01/12/18 06:05 MCH 30.7 pg (27.0-31.0) 01/12/18 06:05 MCHC Differential 32.7 pg (28.0-36.0) 01/12/18 06:05 RDW 17.2 % (11.5-20.0) 01/12/18 06:05 Plt Count 171 Th/cmm (150-400) D 01/12/18 06:05 MPV 8.1 fl 01/12/18 06:05 Neutrophils % 74.2 % (40.0-80.0) 01/12/18 06:05 Band Neutrophils % 5 % (0-10) 01/10/18 15:04 Lymphocytes % 12.1 % (20.0-50.0) L 01/12/18 06:05 Monocytes % 13.1 % (2.0-10.0) H 01/12/18 06:05 Eosinophils % 0.6 % (0.0-5.0) 01/12/18 06:05 Basophils % 0.0 % (0.0-2.0) 01/12/18 06:05 Neutrophils (Manual) 88 % (40-80) H 01/10/18 15:04 Lymphocytes 2 % (20-50) L 01/10/18 15:04 Monocytes 5 % (2-10) 01/10/18 15:04 Eosinophils 0 % (0-5) 01/10/18 15:04 Basophils 0 % (0-3) 01/10/18 15:04 Platelet Estimate ADEQUATE (NORMAL) 01/10/18 15:04 Platelet Morphology NORMAL (NORMAL) 01/10/18 15:04 RBC Morph Micro Appear NORMAL (NORMAL) 01/10/18 15:04 PT 14.4 SECONDS (9.5-11.5) H 01/12/18 11:37 INR 1.36 (0.5-1.4) 01/12/18 11:37 PTT (Actin FS) 32.0 SECONDS (26.0-38.0) 01/12/18 11:37 Sodium 139 mEq/L (136-145) 01/12/18 06:05 Potassium 3.3 mEq/L (3.5-5.1) L 01/12/18 06:05 Chloride 98 mEq/L (98-107) 01/12/18 06:05 Carbon Dioxide 27.3 mEq/L (21.0-31.0) 01/12/18 06:05 Anion Gap 17.0 (7.0-16.0) H 01/12/18 06:05 BUN 64 mg/dL (7-25) H 01/12/18 06:05 Creatinine 4.8 mg/dL (0.6-1.2) H* 01/12/18 06:05 Est GFR ( Amer) TNP 01/12/18 06:05 Est GFR (Non-Af Amer) TNP 01/12/18 06:05 BUN/Creatinine Ratio 13.3 01/12/18 06:05 Glucose 162 mg/dL (70-105) H 01/12/18 06:05 POC Glucose 146 MG/DL (70 - 105) H 01/12/18 06:59 Hemoglobin A1c % 8.6 % (4.0-6.0) H 01/09/18 07:13 Whole Bld Lactic Acid 1.34 mmol/L (0.60-1.99) 01/09/18 18:54 Calcium 8.7 mg/dL (8.6-10.3) 01/12/18 06:05 Total Bilirubin 0.8 mg/dL (0.3-1.0) 01/11/18 06:33 AST 14 U/L (13-39) 01/11/18 06:33 ALT 9 U/L (7-52) 01/11/18 06:33 Alkaline Phosphatase 116 U/L (34-104) H 01/11/18 06:33 Total Protein 6.2 gm/dL (6.0-8.3) 01/11/18 06:33 Albumin 3.1 gm/dL (3.7-5.3) L 01/11/18 06:33 Globulin 3.1 gm/dL 01/11/18 06:33 Albumin/Globulin Ratio 1.0 (1.0-1.8) 01/11/18 06:33 Random Vancomycin 24.1 ug/mL (5.0-40.0) 01/12/18 06:05 - Physical Exam Vitals and I&O: Vital Signs Temp 96.7 F 01/12/18 08:41 Pulse 87 01/12/18 08:41 Resp 20 01/12/18 08:41 BP 128/71 01/12/18 08:41 Pulse Ox 99 01/12/18 08:41 Intake & Output 01/11/18 01/12/18 01/12/18 18:59 06:59 18:59 Intake Total 420 250 Balance 420 250 Weight (lbs) 65.771 kg 62.686 kg 62.686 kg Intake: Oral 420 250 Other: # Voids 2 2 # Bowel Movements 2 Stool Characteristics Soft Soft Soft Formed Formed Formed Active Medications: Current Medications Acetaminophen (Tylenol 650mg Supp) 650 mg RC Q6H PRN PRN Reason: fever/pain Stop: 03/10/18 15:26 Last Admin: 01/09/18 16:01 Dose: 650 mg Epoetin Artemio (Epogen) 5,000 units SUBQ TuThSa [facility] Stop: 03/10/18 18:14 Folic Acid (Folate) 1 mg PO DAILY [facility] Stop: 03/11/18 08:59 Last Admin: 01/12/18 09:09 Dose: 1 mg Heparin Sodium (Porcine) (Heparin) 5,000 units SUBQ Q12HR [facility] Stop: 03/11/18 08:59 Last Admin: 01/12/18 09:09 Dose: 5,000 units Vancomycin HCl 1.25 gm/ Sodium (Chloride) 250 mls @ 165 mls/hr IV ONCE ONE Stop: 01/13/18 10:30 Insulin Aspart (Novolog) 0 units SUBQ ACHS [facility] PRN Reason: Protocol Stop: 03/10/18 20:59 Last Admin: 01/12/18 09:10 Dose: Not Given Lorazepam (Ativan) 1 mg IVP Q4HR PRN; Protocol PRN Reason: Agitation Stop: 03/10/18 07:05 Last Admin: 01/12/18 02:59 Dose: 1 mg Miscellaneous (Vancomycin Iv Per Pharmacy) 1 ea MC PRN PRN PRN Reason: PROTOCOL Stop: 03/10/18 19:35 Vitamin B Complex/Vitamin C (Vitamin B Complex W/C) 1 tab PO DAILY [facility] Stop: 03/11/18 08:59 Last Admin: 01/12/18 09:09 Dose: 1 tab General: Other (Severe dementia) HEENT: Atraumatic, PERRLA Neck: Supple Cardiovascular: Regular rate Lungs: Clear to auscultation Abdomen: Bowel sounds - Procedures Procedures: Procedures Procedure Code Date FLUOROSCOPY OF SUP VENA CAVA USING L OSM CONTRAST, GUIDANCE [id number] 12/28/17 INJECT/INFUSE NEC 99.29 06/24/13 INSERT TUNNELED CV CATH [id number] 01/09/18 INSERTION OF INFUSION DEV INTO L SUBCLAV VEIN, PERC APPROACH [id number] 01/09/18 INSERTION OF INFUSION DEV INTO SUP VENA CAVA, PERC APPROACH [id number] 12/28/17 PERFORMANCE OF URINARY FILTRATION, <6 HRS/DAY 8X5M11V 12/28/17 REMOVAL OF INFUSION DEVICE FROM UPPER VEIN, PERC APPROACH [id number] 12/28/17 Assessment/Plan - Problem List Patient Problems: All Active Problems Chronic anemia (Acute) D64.9 Diabetes (Acute) E11.9 ESRD (end stage renal disease) on dialysis (Acute) N18.6, Z99.2 HTN (hypertension) (Acute) I10 Hyperkalemia (Acute) E87.5 Hypothyroid (Acute) E03.9 - Assessment Assessment: catheter failure - Plan Plan: continue hd support staph infection on abx possible plan for placement of permcath and AVF Nutritional Asmnt/Malnutr-PDOC - Dietary Evaluation Malnutrition Findings (Please click <Entered> for more info): Nutritional Asmnt/Malnutrition Start: 01/11/18 16: 26 Text: Status: Complete Freq: Document 01/11/18 17:04 RORDÍGUEZ (Rec: 01/11/18 17:19 ARA [email or web address]) Nutritional Asmnt/Malnutrition Patient General Information Nutritional Screening High Risk Consult Diagnosis acute kidney failure, dialysis , agitation, ALOC Pertinent Medical Hx/Surgical Hx ESRD, dialysis, HTN, DM, dementia, hypothyroidism, dementia, perm-A-cath Subjective Information consult received for high BS. Pt seen sleeping at time of visit. Per notes, pt received dialysis on 01/10. RN reported pt ate well, consumed 100% of meals today. Per records, PO intake 25-75% on 01/10. Current Diet Order/ Nutrition Support CCHO 60gm, mechanical soft, potassium 2gm per day, fluid restriction 1000ml Pertinent Medications folate, novolog, vit B complex , vit C Pertinent Labs 01/11 Na 138, K 3.2, Cl 96, BUN 49, Cr 4.9, glucose 166, POC 168-286 Nutritional Hx/Data Height 1.63 m Height (Calculated Centimeters) 162.6 Current Weight (lbs) 65.771 kg Weight (Calculated Kilograms) 65.8 Weight (Calculated Grams) 96783.9 [place] Body Weight 120 % [place] Body Weight 121 Body Mass Index (BMI) 24.9 Weight Status Approriate GI Symptoms GI Symptoms None Last BM 01/10 Difficult in: None Skin Integrity/Comment: scar pressure area to buttocks DRY HEELS, HEALING ULCER BUTTOCKS Estimated Nutritional Goals BEE in Kcals: Using Current wt Calories/Kcals/Kg 25-30 Kcals Calculated 2733-6354 Protein: Using Current wt Protein g/k-1.3 Protein Calculated 66-86 Fluid: ml 1650-1980ml (1ml/kcal) Nutritional Problem 1. Problem Problem altered nutrition related lab values Etiology hx of DM, ESRD Signs/Symptoms: BUN 49, Cr 4.9, glucose 166, POC 168-286 Malnutrition Alert Protein-Calorie Malnutrition N/A Is there a minimum of two criteria No selected? Query Text:Check all the applicable criteria. A minimum of two criteria are recommended for diagnosis of either severe or non-severe malnutrition. Intervention/Recommendation Comments 1. Continue with current diet as ordered. 2. Monitor PO intake, wt, labs and skin integrity 3. F/U as moderate risk in 3-5 days, 01/14-01/16 Expected Outcomes/Goals Expected Outcomes/Goals 1. PO intake to meet at least 75% of nutritional needs. 2. Wt stability, skin to remain intact, labs to approach WNL.
--- NOTE | 2018-01-12 12:59 | Infectious Disease Prog Note ---
Infectious Disease Subjective - Review of Systems Service Date: 01/12/18 Events since last encounter: Blood cultures grew MRSA. Subjective: Patient has not developed any fever. Infectious Disease Objective - Results Result Diagrams: 01/12/18 06:05 01/12/18 06:05 Recent Labs: Laboratory Last Values WBC 10.1 Th/cmm (4.8-10.8) D 01/12/18 06:05 RBC 3.19 Mil/cmm (3.80-5.20) L 01/12/18 06:05 Hgb 9.8 gm/dL (12-16) L 01/12/18 06:05 Hct 30.0 % (41.0-60) L 01/12/18 06:05 MCV 94.0 fl (81-100) 01/12/18 06:05 MCH 30.7 pg (27.0-31.0) 01/12/18 06:05 MCHC Differential 32.7 pg (28.0-36.0) 01/12/18 06:05 RDW 17.2 % (11.5-20.0) 01/12/18 06:05 Plt Count 171 Th/cmm (150-400) D 01/12/18 06:05 MPV 8.1 fl 01/12/18 06:05 Neutrophils % 74.2 % (40.0-80.0) 01/12/18 06:05 Band Neutrophils % 5 % (0-10) 01/10/18 15:04 Lymphocytes % 12.1 % (20.0-50.0) L 01/12/18 06:05 Monocytes % 13.1 % (2.0-10.0) H 01/12/18 06:05 Eosinophils % 0.6 % (0.0-5.0) 01/12/18 06:05 Basophils % 0.0 % (0.0-2.0) 01/12/18 06:05 Neutrophils (Manual) 88 % (40-80) H 01/10/18 15:04 Lymphocytes 2 % (20-50) L 01/10/18 15:04 Monocytes 5 % (2-10) 01/10/18 15:04 Eosinophils 0 % (0-5) 01/10/18 15:04 Basophils 0 % (0-3) 01/10/18 15:04 Platelet Estimate ADEQUATE (NORMAL) 01/10/18 15:04 Platelet Morphology NORMAL (NORMAL) 01/10/18 15:04 RBC Morph Micro Appear NORMAL (NORMAL) 01/10/18 15:04 PT 14.4 SECONDS (9.5-11.5) H 01/12/18 11:37 INR 1.36 (0.5-1.4) 01/12/18 11:37 PTT (Actin FS) 32.0 SECONDS (26.0-38.0) 01/12/18 11:37 Sodium 139 mEq/L (136-145) 01/12/18 06:05 Potassium 3.3 mEq/L (3.5-5.1) L 01/12/18 06:05 Chloride 98 mEq/L (98-107) 01/12/18 06:05 Carbon Dioxide 27.3 mEq/L (21.0-31.0) 01/12/18 06:05 Anion Gap 17.0 (7.0-16.0) H 01/12/18 06:05 BUN 64 mg/dL (7-25) H 01/12/18 06:05 Creatinine 4.8 mg/dL (0.6-1.2) H* 01/12/18 06:05 Est GFR ( Amer) TNP 01/12/18 06:05 Est GFR (Non-Af Amer) TNP 01/12/18 06:05 BUN/Creatinine Ratio 13.3 01/12/18 06:05 Glucose 162 mg/dL (70-105) H 01/12/18 06:05 POC Glucose 146 MG/DL (70 - 105) H 01/12/18 06:59 Hemoglobin A1c % 8.6 % (4.0-6.0) H 01/09/18 07:13 Whole Bld Lactic Acid 1.34 mmol/L (0.60-1.99) 01/09/18 18:54 Calcium 8.7 mg/dL (8.6-10.3) 01/12/18 06:05 Total Bilirubin 0.8 mg/dL (0.3-1.0) 01/11/18 06:33 AST 14 U/L (13-39) 01/11/18 06:33 ALT 9 U/L (7-52) 01/11/18 06:33 Alkaline Phosphatase 116 U/L (34-104) H 01/11/18 06:33 Total Protein 6.2 gm/dL (6.0-8.3) 01/11/18 06:33 Albumin 3.1 gm/dL (3.7-5.3) L 01/11/18 06:33 Globulin 3.1 gm/dL 01/11/18 06:33 Albumin/Globulin Ratio 1.0 (1.0-1.8) 01/11/18 06:33 Random Vancomycin 24.1 ug/mL (5.0-40.0) 01/12/18 06:05 - Physical Exam Vitals and I&O: Vital Signs Temp 96.7 F 01/12/18 08:41 Pulse 87 01/12/18 08:41 Resp 20 01/12/18 08:41 BP 128/71 01/12/18 08:41 Pulse Ox 99 01/12/18 08:41 Intake & Output 01/11/18 01/12/18 01/12/18 18:59 06:59 18:59 Intake Total 420 250 Balance 420 250 Weight (lbs) 65.771 kg 62.686 kg 62.686 kg Intake: Oral 420 250 Other: # Voids 2 2 # Bowel Movements 2 Stool Characteristics Soft Soft Soft Formed Formed Formed Active Medications: Current Medications Acetaminophen (Tylenol 650mg Supp) 650 mg RC Q6H PRN PRN Reason: fever/pain Stop: 03/10/18 15:26 Last Admin: 01/09/18 16:01 Dose: 650 mg Epoetin Artemio (Epogen) 5,000 units SUBQ TuThSa [facility] Stop: 03/10/18 18:14 Folic Acid (Folate) 1 mg PO DAILY [facility] Stop: 03/11/18 08:59 Last Admin: 01/12/18 09:09 Dose: 1 mg Heparin Sodium (Porcine) (Heparin) 5,000 units SUBQ Q12HR [facility] Stop: 03/11/18 08:59 Last Admin: 01/12/18 09:09 Dose: 5,000 units Vancomycin HCl 1.25 gm/ Sodium (Chloride) 250 mls @ 165 mls/hr IV ONCE ONE Stop: 01/13/18 10:30 Insulin Aspart (Novolog) 0 units SUBQ ACHS [facility] PRN Reason: Protocol Stop: 03/10/18 20:59 Last Admin: 01/12/18 12:40 Dose: Not Given Lorazepam (Ativan) 1 mg IVP Q4HR PRN; Protocol PRN Reason: Agitation Stop: 03/10/18 07:05 Last Admin: 01/12/18 02:59 Dose: 1 mg Miscellaneous (Vancomycin Iv Per Pharmacy) 1 ea MC PRN PRN PRN Reason: PROTOCOL Stop: 03/10/18 19:35 Vitamin B Complex/Vitamin C (Vitamin B Complex W/C) 1 tab PO DAILY [facility] Stop: 03/11/18 08:59 Last Admin: 01/12/18 09:09 Dose: 1 tab General: no acute distress, well developed, well nourished HEENT: atraumatic, normocephalic, PERRLA, EOMI, no moist mucous membrane Neck: supple, thyromegaly Cardiovascular: S1S2, regular Lungs: clear to auscultation bilaterally, clear to percussion Abdomen: soft, no tender, no distended, no hepatomegaly Extremities: no cyanosis, no clubbing, no edema Neurological: awake, alert, oriented Skin: intact - Procedures Procedures: Procedures Procedure Code Date FLUOROSCOPY OF SUP VENA CAVA USING L OSM CONTRAST, GUIDANCE [id number] 12/28/17 INJECT/INFUSE NEC 99.29 06/24/13 INSERT TUNNELED CV CATH [id number] 01/09/18 INSERTION OF INFUSION DEV INTO L SUBCLAV VEIN, PERC APPROACH [id number] 01/09/18 INSERTION OF INFUSION DEV INTO SUP VENA CAVA, PERC APPROACH [id number] 12/28/17 PERFORMANCE OF URINARY FILTRATION, <6 HRS/DAY [id number] 12/28/17 REMOVAL OF INFUSION DEVICE FROM UPPER VEIN, PERC APPROACH [id number] 12/28/17 Infectious Disease Assmt/Plan - Problem List Patient Problems: All Active Problems Chronic anemia (Acute) D64.9 Diabetes (Acute) E11.9 ESRD (end stage renal disease) on dialysis (Acute) N18.6, Z99.2 HTN (hypertension) (Acute) I10 Hyperkalemia (Acute) E87.5 Hypothyroid (Acute) E03.9 - Assessment Assessment: 1. High grade MRSA sepsis. MRSA ( Vanco MICHELLE is 2). Suspect endocarditis. 2. Line sepsis. 3. DM2 4. CKD 5 on HD. 5. HTN. 6. Anemia of chronic disease. - Plan Plan: WIll continue vancomycin IV and add gentamicin for synergy. I have asked the lab to reveal gentamicin susceptibility pattern. If she continue to be bacteremic in next 3 to 4 days, may need dual therapy. Will get echocardiogram and if negqative may try to arrnge SETH. LAUREANO [facility] at [facility] and staff reported of [facility] Nutritional Asmnt/Malnutr-PDOC - Dietary Evaluation Malnutrition Findings (Please click <Entered> for more info): Nutritional Asmnt/Malnutrition Start: 01/11/18 16: 26 Text: Status: Complete Freq: Document 01/11/18 17:04 LCHENG (Rec: 01/11/18 17:19 HENG [email or web address]) Nutritional Asmnt/Malnutrition Patient General Information Nutritional Screening High Risk Consult Diagnosis acute kidney failure, dialysis , agitation, ALOC Pertinent Medical Hx/Surgical Hx ESRD, dialysis, HTN, DM, dementia, hypothyroidism, dementia, perm-A-cath Subjective Information consult received for high BS. Pt seen sleeping at time of visit. Per notes, pt received dialysis on 01/10. RN reported pt ate well, consumed 100% of meals today. Per records, PO intake 25-75% on 01/10. Current Diet Order/ Nutrition Support CCHO 60gm, mechanical soft, potassium 2gm per day, fluid restriction 1000ml Pertinent Medications folate, novolog, vit B complex , vit C Pertinent Labs 01/11 Na 138, K 3.2, Cl 96, BUN 49, Cr 4.9, glucose 166, POC 168-286 Nutritional Hx/Data Height 1.63 m Height (Calculated Centimeters) 162.6 Current Weight (lbs) 65.771 kg Weight (Calculated Kilograms) 65.8 Weight (Calculated Grams) 46973.9 [place] Body Weight 120 % [place] Body Weight 121 Body Mass Index (BMI) 24.9 Weight Status Approriate GI Symptoms GI Symptoms None Last BM 01/10 Difficult in: None Skin Integrity/Comment: scar pressure area to buttocks DRY HEELS, HEALING ULCER BUTTOCKS Estimated Nutritional Goals BEE in Kcals: Using Current wt Calories/Kcals/Kg 25-30 Kcals Calculated 5203-4054 Protein: Using Current wt Protein g/k-1.3 Protein Calculated 66-86 Fluid: ml 1650-1980ml (1ml/kcal) Nutritional Problem 1. Problem Problem altered nutrition related lab values Etiology hx of DM, ESRD Signs/Symptoms: BUN 49, Cr 4.9, glucose 166, POC 168-286 Malnutrition Alert Protein-Calorie Malnutrition N/A Is there a minimum of two criteria No selected? Query Text:Check all the applicable criteria. A minimum of two criteria are recommended for diagnosis of either severe or non-severe malnutrition. Intervention/Recommendation Comments 1. Continue with current diet as ordered. 2. Monitor PO intake, wt, labs and skin integrity 3. F/U as moderate risk in 3-5 days, 01/14-01/16 Expected Outcomes/Goals Expected Outcomes/Goals 1. PO intake to meet at least 75% of nutritional needs. 2. Wt stability, skin to remain intact, labs to approach WNL.
[2018-01-12] MEDS ORDERED: Probiotic Screen MC PRN (16:00)
[2018-01-12] MEDS: Epoetin Alfa 20000 Units/mL Vial SUBQ SCH (17:49)
[2018-01-13 07:07] LABS: % BASOPHILS 0.9 % (0.0-2.0); % EOSINOPHILS 0.5 % (0.0-5.0); % LYMPHOCYTES 10.8 % (20.0-50.0); % MONOCYTES 11.4 % (2.0-10.0); % NEUTROPHILS 76.4 % (40.0-80.0); BASOPHILE ABSOLUTE 0.1 Th/cumm (0-0.2); HEMATOCRIT 28.4 % (41.0-60); HEMOGLOBIN 9.3 gm/dL (12-16); LYMPHOCYTE ABSOLUTE 0.9 Th/cmm (1.5-3.0); MEAN CORPUSCULAR HEMOGLOBIN 30.7 pg (27.0-31.0); MEAN CORPUSCULAR HGB CONC 32.7 pg (28.0-36.0); MEAN PLATELET VOLUME 8.1 fl; NEUTROPHILE ABSOLUTE 6.4 Th/cmm (1.8-8.0); PLATELET COUNT 156 Th/cmm (150-400); RED BLOOD COUNT 3.02 Mil/cmm (3.80-5.20); RED CELL DISTRIBUTION WIDTH 17.1 % (11.5-20.0); WHITE BLOOD COUNT 8.4 Th/cmm (4.8-10.8)
[2018-01-13 07:37] LABS: ANION GAP 16.2 (7.0-16.0); BUN - UREA NITROGEN 47 mg/dL (7-25); CALCIUM SERUM 8.6 mg/dL (8.6-10.3); CARBON DIOXIDE 26.1 mEq/L (21.0-31.0); CHLORIDE 98 mEq/L (98-107); CREATININE - SERUM 3.7 mg/dL (0.6-1.2); GLUCOSE 281 mg/dL (70-105); POTASSIUM SERUM 3.3 mEq/L (3.5-5.1); SODIUM SERUM 137 mEq/L (136-145)
[2018-01-13] MEDS: INSULIN ASPART, RECOMBINANT 100 UNITS/ML SUBQ SCH ×4 (07:38→20:25)
[2018-01-13 08:07] LABS: ALB/GLOB RATIO 0.9 (1.0-1.8); ALBUMIN 2.9 gm/dL (3.7-5.3); ALKALINE PHOSPHATASE 112 U/L (34-104); BILIRUBIN,TOTAL 0.8 mg/dL (0.3-1.0); SGOT 17 U/L (13-39); SGPT/ALT 9 U/L (7-52)
--- NOTE | 2018-01-13 10:06 | General Progress Note ---
Subjective - Review of Systems Service Date: 01/13/18 Events since last encounter: await blood culture report from [facility] 2 days ago Objective - Results Result Diagrams: 01/13/18 06:45 01/13/18 06:45 Recent Labs: Laboratory Last Values WBC 8.4 Th/cmm (4.8-10.8) 01/13/18 06:45 RBC 3.02 Mil/cmm (3.80-5.20) L 01/13/18 06:45 Hgb 9.3 gm/dL (12-16) L 01/13/18 06:45 Hct 28.4 % (41.0-60) L 01/13/18 06:45 MCV 94.0 fl (81-100) 01/13/18 06:45 MCH 30.7 pg (27.0-31.0) 01/13/18 06:45 MCHC Differential 32.7 pg (28.0-36.0) 01/13/18 06:45 RDW 17.1 % (11.5-20.0) 01/13/18 06:45 Plt Count 156 Th/cmm (150-400) 01/13/18 06:45 MPV 8.1 fl 01/13/18 06:45 Neutrophils % 76.4 % (40.0-80.0) 01/13/18 06:45 Band Neutrophils % 5 % (0-10) 01/10/18 15:04 Lymphocytes % 10.8 % (20.0-50.0) L 01/13/18 06:45 Monocytes % 11.4 % (2.0-10.0) H 01/13/18 06:45 Eosinophils % 0.5 % (0.0-5.0) 01/13/18 06:45 Basophils % 0.9 % (0.0-2.0) 01/13/18 06:45 Neutrophils (Manual) 88 % (40-80) H 01/10/18 15:04 Lymphocytes 2 % (20-50) L 01/10/18 15:04 Monocytes 5 % (2-10) 01/10/18 15:04 Eosinophils 0 % (0-5) 01/10/18 15:04 Basophils 0 % (0-3) 01/10/18 15:04 Platelet Estimate ADEQUATE (NORMAL) 01/10/18 15:04 Platelet Morphology NORMAL (NORMAL) 01/10/18 15:04 RBC Morph Micro Appear NORMAL (NORMAL) 01/10/18 15:04 PT 14.4 SECONDS (9.5-11.5) H 01/12/18 11:37 INR 1.36 (0.5-1.4) 01/12/18 11:37 PTT (Actin FS) 32.0 SECONDS (26.0-38.0) 01/12/18 11:37 Sodium 137 mEq/L (136-145) 01/13/18 06:45 Potassium 3.3 mEq/L (3.5-5.1) L 01/13/18 06:45 Chloride 98 mEq/L (98-107) 01/13/18 06:45 Carbon Dioxide 26.1 mEq/L (21.0-31.0) 01/13/18 06:45 Anion Gap 16.2 (7.0-16.0) H 01/13/18 06:45 BUN 47 mg/dL (7-25) H 01/13/18 06:45 Creatinine 3.7 mg/dL (0.6-1.2) H 01/13/18 06:45 Est GFR ( Amer) TNP 01/13/18 06:45 Est GFR (Non-Af Amer) TNP 01/13/18 06:45 BUN/Creatinine Ratio 12.7 01/13/18 06:45 Glucose 281 mg/dL (70-105) H 01/13/18 06:45 POC Glucose 259 MG/DL (70 - 105) H 01/13/18 06:49 Hemoglobin A1c % 8.6 % (4.0-6.0) H 01/09/18 07:13 Whole Bld Lactic Acid 1.34 mmol/L (0.60-1.99) 01/09/18 18:54 Calcium 8.6 mg/dL (8.6-10.3) 01/13/18 06:45 Total Bilirubin 0.8 mg/dL (0.3-1.0) 01/13/18 06:45 AST 17 U/L (13-39) 01/13/18 06:45 ALT 9 U/L (7-52) 01/13/18 06:45 Alkaline Phosphatase 112 U/L (34-104) H 01/13/18 06:45 Total Protein 6.0 gm/dL (6.0-8.3) 01/13/18 06:45 Albumin 2.9 gm/dL (3.7-5.3) L 01/13/18 06:45 Globulin 3.1 gm/dL 01/13/18 06:45 Albumin/Globulin Ratio 0.9 (1.0-1.8) L 01/13/18 06:45 Random Vancomycin 24.1 ug/mL (5.0-40.0) 01/12/18 06:05 - Physical Exam Vitals and I&O: Vital Signs Temp 98.4 F 01/13/18 04:00 Pulse 98 01/13/18 04:00 Resp 20 01/13/18 04:00 BP 126/70 01/13/18 04:00 Pulse Ox 98 01/13/18 04:00 Intake & Output 01/12/18 01/13/18 01/13/18 18:59 06:59 18:59 Intake Total 750 250 Balance 750 250 Weight (lbs) 62.596 kg 58.377 kg Intake: Oral 750 250 Other: # Voids 2 2 # Bowel Movements 0 1 Stool Characteristics Soft Formed Active Medications: Current Medications Acetaminophen (Tylenol 650mg Supp) 650 mg RC Q6H PRN PRN Reason: fever/pain Stop: 03/10/18 15:26 Last Admin: 01/09/18 16:01 Dose: 650 mg Epoetin Artemio (Epogen) 5,000 units SUBQ TuThSa [facility] Stop: 03/10/18 18:14 Last Admin: 01/12/18 17:49 Dose: 5,000 units Folic Acid (Folate) 1 mg PO DAILY [facility] Stop: 03/11/18 08:59 Last Admin: 01/12/18 09:09 Dose: 1 mg Heparin Sodium (Porcine) (Heparin) 5,000 units SUBQ Q12HR [facility] Stop: 03/11/18 08:59 Last Admin: 01/12/18 22:48 Dose: 5,000 units Vancomycin HCl 1.25 gm/ Sodium (Chloride) 250 mls @ 165 mls/hr IV ONCE ONE Stop: 01/13/18 10:30 Insulin Aspart (Novolog) 0 units SUBQ ACHS [facility] PRN Reason: Protocol Stop: 03/10/18 20:59 Last Admin: 01/13/18 07:38 Dose: 6 units Lactobacillus Rhamnosus (Culturelle 15b) 1 each PO DAILY [facility] Stop: 03/14/18 08:59 Lorazepam (Ativan) 1 mg IVP Q4HR PRN; Protocol PRN Reason: Agitation Stop: 03/10/18 07:05 Last Admin: 01/13/18 02:26 Dose: 1 mg Miscellaneous (Vancomycin Iv Per Pharmacy) 1 [facility] PRN PRN PRN Reason: PROTOCOL Stop: 03/10/18 19:35 Miscellaneous (Gentamicin Iv Per Pharmacy) 1 [facility] PRN PRN PRN Reason: PROTOCOL Stop: 03/13/18 12:52 Miscellaneous (Probiotic Screen) 1 [facility] PRN PRN PRN Reason: PROTOCOL Stop: 03/13/18 15:59 Vitamin B Complex/Vitamin C (Vitamin B Complex W/C) 1 tab PO DAILY [facility] Stop: 03/11/18 08:59 Last Admin: 01/12/18 09:09 Dose: 1 tab General: Other (Severe dementia) HEENT: Atraumatic, PERRLA Neck: Supple Cardiovascular: Regular rate Lungs: Clear to auscultation Abdomen: Bowel sounds - Procedures Procedures: Procedures Procedure Code Date FLUOROSCOPY OF SUP VENA CAVA USING L OSM CONTRAST, GUIDANCE T3361CQ 12/28/17 INJECT/INFUSE NEC 99.29 06/24/13 INSERT TUNNELED CV CATH [id number] 01/09/18 INSERTION OF INFUSION DEV INTO L SUBCLAV VEIN, PERC APPROACH [id number] 01/09/18 INSERTION OF INFUSION DEV INTO SUP VENA CAVA, PERC APPROACH [id number] 12/28/17 PERFORMANCE OF URINARY FILTRATION, <6 HRS/DAY [id number] 12/28/17 REMOVAL OF INFUSION DEVICE FROM UPPER VEIN, PERC APPROACH [id number] 12/28/17 Assessment/Plan - Problem List Patient Problems: All Active Problems Chronic anemia (Acute) D64.9 Diabetes (Acute) E11.9 ESRD (end stage renal disease) on dialysis (Acute) N18.6, Z99.2 HTN (hypertension) (Acute) I10 Hyperkalemia (Acute) E87.5 Hypothyroid (Acute) E03.9 Nutritional Asmnt/Malnutr-PDOC - Dietary Evaluation Malnutrition Findings (Please click <Entered> for more info): Nutritional Asmnt/Malnutrition Start: 01/11/18 16: 26 Text: Status: Complete Freq: Document 01/11/18 17:04 RODRÍGUEZ (Rec: 01/11/18 17:19 LCZACH [email or web address]) Nutritional Asmnt/Malnutrition Patient General Information Nutritional Screening High Risk Consult Diagnosis acute kidney failure, dialysis , agitation, ALOC Pertinent Medical Hx/Surgical Hx ESRD, dialysis, HTN, DM, dementia, hypothyroidism, dementia, perm-A-cath Subjective Information consult received for high BS. Pt seen sleeping at time of visit. Per notes, pt received dialysis on 01/10. RN reported pt ate well, consumed 100% of meals today. Per records, PO intake 25-75% on 01/10. Current Diet Order/ Nutrition Support CCHO 60gm, mechanical soft, potassium 2gm per day, fluid restriction 1000ml Pertinent Medications folate, novolog, vit B complex , vit C Pertinent Labs 01/11 Na 138, K 3.2, Cl 96, BUN 49, Cr 4.9, glucose 166, POC 168-286 Nutritional Hx/Data Height 1.63 m Height (Calculated Centimeters) 162.6 Current Weight (lbs) 65.771 kg Weight (Calculated Kilograms) 65.8 Weight (Calculated Grams) 86080.9 [place] Body Weight 120 % [place] Body Weight 121 Body Mass Index (BMI) 24.9 Weight Status Approriate GI Symptoms GI Symptoms None Last BM 01/10 Difficult in: None Skin Integrity/Comment: scar pressure area to buttocks DRY HEELS, HEALING ULCER BUTTOCKS Estimated Nutritional Goals BEE in Kcals: Using Current wt Calories/Kcals/Kg 25-30 Kcals Calculated 3358-6319 Protein: Using Current wt Protein g/k-1.3 Protein Calculated 66-86 Fluid: ml 1650-1980ml (1ml/kcal) Nutritional Problem 1. Problem Problem altered nutrition related lab values Etiology hx of DM, ESRD Signs/Symptoms: BUN 49, Cr 4.9, glucose 166, POC 168-286 Malnutrition Alert Protein-Calorie Malnutrition N/A Is there a minimum of two criteria No selected? Query Text:Check all the applicable criteria. A minimum of two criteria are recommended for diagnosis of either severe or non-severe malnutrition. Intervention/Recommendation Comments 1. Continue with current diet as ordered. 2. Monitor PO intake, wt, labs and skin integrity 3. F/U as moderate risk in 3-5 days, 01/14-01/16 Expected Outcomes/Goals Expected Outcomes/Goals 1. PO intake to meet at least 75% of nutritional needs. 2. Wt stability, skin to remain intact, labs to approach WNL.
--- NOTE | 2018-01-13 10:44 | General Progress Note ---
Subjective - Review of Systems Service Date: 01/13/18 Subjective: pt seen and examined new catheter in place Objective - Results Result Diagrams: 01/13/18 06:45 01/13/18 06:45 Recent Labs: Laboratory Last Values WBC 8.4 Th/cmm (4.8-10.8) 01/13/18 06:45 RBC 3.02 Mil/cmm (3.80-5.20) L 01/13/18 06:45 Hgb 9.3 gm/dL (12-16) L 01/13/18 06:45 Hct 28.4 % (41.0-60) L 01/13/18 06:45 MCV 94.0 fl (81-100) 01/13/18 06:45 MCH 30.7 pg (27.0-31.0) 01/13/18 06:45 MCHC Differential 32.7 pg (28.0-36.0) 01/13/18 06:45 RDW 17.1 % (11.5-20.0) 01/13/18 06:45 Plt Count 156 Th/cmm (150-400) 01/13/18 06:45 MPV 8.1 fl 01/13/18 06:45 Neutrophils % 76.4 % (40.0-80.0) 01/13/18 06:45 Band Neutrophils % 5 % (0-10) 01/10/18 15:04 Lymphocytes % 10.8 % (20.0-50.0) L 01/13/18 06:45 Monocytes % 11.4 % (2.0-10.0) H 01/13/18 06:45 Eosinophils % 0.5 % (0.0-5.0) 01/13/18 06:45 Basophils % 0.9 % (0.0-2.0) 01/13/18 06:45 Neutrophils (Manual) 88 % (40-80) H 01/10/18 15:04 Lymphocytes 2 % (20-50) L 01/10/18 15:04 Monocytes 5 % (2-10) 01/10/18 15:04 Eosinophils 0 % (0-5) 01/10/18 15:04 Basophils 0 % (0-3) 01/10/18 15:04 Platelet Estimate ADEQUATE (NORMAL) 01/10/18 15:04 Platelet Morphology NORMAL (NORMAL) 01/10/18 15:04 RBC Morph Micro Appear NORMAL (NORMAL) 01/10/18 15:04 PT 14.4 SECONDS (9.5-11.5) H 01/12/18 11:37 INR 1.36 (0.5-1.4) 01/12/18 11:37 PTT (Actin FS) 32.0 SECONDS (26.0-38.0) 01/12/18 11:37 Sodium 137 mEq/L (136-145) 01/13/18 06:45 Potassium 3.3 mEq/L (3.5-5.1) L 01/13/18 06:45 Chloride 98 mEq/L (98-107) 01/13/18 06:45 Carbon Dioxide 26.1 mEq/L (21.0-31.0) 01/13/18 06:45 Anion Gap 16.2 (7.0-16.0) H 01/13/18 06:45 BUN 47 mg/dL (7-25) H 01/13/18 06:45 Creatinine 3.7 mg/dL (0.6-1.2) H 01/13/18 06:45 Est GFR ( Amer) TNP 01/13/18 06:45 Est GFR (Non-Af Amer) TNP 01/13/18 06:45 BUN/Creatinine Ratio 12.7 01/13/18 06:45 Glucose 281 mg/dL (70-105) H 01/13/18 06:45 POC Glucose 259 MG/DL (70 - 105) H 01/13/18 06:49 Hemoglobin A1c % 8.6 % (4.0-6.0) H 01/09/18 07:13 Whole Bld Lactic Acid 1.34 mmol/L (0.60-1.99) 01/09/18 18:54 Calcium 8.6 mg/dL (8.6-10.3) 01/13/18 06:45 Total Bilirubin 0.8 mg/dL (0.3-1.0) 01/13/18 06:45 AST 17 U/L (13-39) 01/13/18 06:45 ALT 9 U/L (7-52) 01/13/18 06:45 Alkaline Phosphatase 112 U/L (34-104) H 01/13/18 06:45 Total Protein 6.0 gm/dL (6.0-8.3) 01/13/18 06:45 Albumin 2.9 gm/dL (3.7-5.3) L 01/13/18 06:45 Globulin 3.1 gm/dL 01/13/18 06:45 Albumin/Globulin Ratio 0.9 (1.0-1.8) L 01/13/18 06:45 Random Vancomycin 24.1 ug/mL (5.0-40.0) 01/12/18 06:05 - Physical Exam Vitals and I&O: Vital Signs Temp 98.4 F 01/13/18 04:00 Pulse 98 01/13/18 04:00 Resp 20 01/13/18 04:00 BP 126/70 01/13/18 04:00 Pulse Ox 98 01/13/18 04:00 Intake & Output 01/12/18 01/13/18 01/13/18 18:59 06:59 18:59 Intake Total 750 250 Balance 750 250 Weight (lbs) 62.596 kg 58.377 kg Intake: Oral 750 250 Other: # Voids 2 2 # Bowel Movements 0 1 Stool Characteristics Soft Formed Active Medications: Current Medications Acetaminophen (Tylenol 650mg Supp) 650 mg RC Q6H PRN PRN Reason: fever/pain Stop: 03/10/18 15:26 Last Admin: 01/09/18 16:01 Dose: 650 mg Epoetin Artemio (Epogen) 5,000 units SUBQ TuThSa [facility] Stop: 03/10/18 18:14 Last Admin: 01/12/18 17:49 Dose: 5,000 units Folic Acid (Folate) 1 mg PO DAILY [facility] Stop: 03/11/18 08:59 Last Admin: 01/12/18 09:09 Dose: 1 mg Heparin Sodium (Porcine) (Heparin) 5,000 units SUBQ Q12HR [facility] Stop: 03/11/18 08:59 Last Admin: 01/12/18 22:48 Dose: 5,000 units Insulin Aspart (Novolog) 0 units SUBQ ACHS [facility] PRN Reason: Protocol Stop: 03/10/18 20:59 Last Admin: 01/13/18 07:38 Dose: 6 units Lactobacillus Rhamnosus (Culturelle 15b) 1 each PO DAILY [facility] Stop: 03/14/18 08:59 Lorazepam (Ativan) 1 mg IVP Q4HR PRN; Protocol PRN Reason: Agitation Stop: 03/10/18 07:05 Last Admin: 01/13/18 02:26 Dose: 1 mg Miscellaneous (Vancomycin Iv Per Pharmacy) 1 [facility] PRN PRN PRN Reason: PROTOCOL Stop: 03/10/18 19:35 Miscellaneous (Gentamicin Iv Per Pharmacy) 1 [facility] PRN PRN PRN Reason: PROTOCOL Stop: 03/13/18 12:52 Miscellaneous (Probiotic Screen) 1 [facility] PRN PRN PRN Reason: PROTOCOL Stop: 03/13/18 15:59 Vitamin B Complex/Vitamin C (Vitamin B Complex W/C) 1 tab PO DAILY [facility] Stop: 03/11/18 08:59 Last Admin: 01/12/18 09:09 Dose: 1 tab General: Other (Severe dementia) HEENT: Atraumatic, PERRLA Neck: Supple Cardiovascular: Regular rate Lungs: Clear to auscultation Abdomen: Bowel sounds - Procedures Procedures: Procedures Procedure Code Date FLUOROSCOPY OF SUP VENA CAVA USING L OSM CONTRAST, GUIDANCE [id number] 12/28/17 INJECT/INFUSE NEC 99.29 06/24/13 INSERT TUNNELED CV CATH [id number] 01/09/18 INSERTION OF INFUSION DEV INTO L SUBCLAV VEIN, PERC APPROACH [id number] 01/09/18 INSERTION OF INFUSION DEV INTO SUP VENA CAVA, PERC APPROACH [id number] 12/28/17 PERFORMANCE OF URINARY FILTRATION, <6 HRS/DAY [id number] 12/28/17 REMOVAL OF INFUSION DEVICE FROM UPPER VEIN, PERC APPROACH [id number] 12/28/17 Assessment/Plan - Problem List Patient Problems: All Active Problems Chronic anemia (Acute) D64.9 Diabetes (Acute) E11.9 ESRD (end stage renal disease) on dialysis (Acute) N18.6, Z99.2 HTN (hypertension) (Acute) I10 Hyperkalemia (Acute) E87.5 Hypothyroid (Acute) E03.9 - Assessment Assessment: catheter failure - Plan Plan: continue hd support staph infection on abx placement of permcath and AVF Nutritional Asmnt/Malnutr-PDOC - Dietary Evaluation Malnutrition Findings (Please click <Entered> for more info): Nutritional Asmnt/Malnutrition Start: 01/11/18 16: 26 Text: Status: Complete Freq: Document 01/11/18 17:04 LCARAG (Rec: 01/11/18 17:19 LCARAG [email or web address]) Nutritional Asmnt/Malnutrition Patient General Information Nutritional Screening High Risk Consult Diagnosis acute kidney failure, dialysis , agitation, ALOC Pertinent Medical Hx/Surgical Hx ESRD, dialysis, HTN, DM, dementia, hypothyroidism, dementia, perm-A-cath Subjective Information consult received for high BS. Pt seen sleeping at time of visit. Per notes, pt received dialysis on 01/10. RN reported pt ate well, consumed 100% of meals today. Per records, PO intake 25-75% on 01/10. Current Diet Order/ Nutrition Support CCHO 60gm, mechanical soft, potassium 2gm per day, fluid restriction 1000ml Pertinent Medications folate, novolog, vit B complex , vit C Pertinent Labs 01/11 Na 138, K 3.2, Cl 96, BUN 49, Cr 4.9, glucose 166, POC 168-286 Nutritional Hx/Data Height 1.63 m Height (Calculated Centimeters) 162.6 Current Weight (lbs) 65.771 kg Weight (Calculated Kilograms) 65.8 Weight (Calculated Grams) 77071.9 [place] Body Weight 120 % [place] Body Weight 121 Body Mass Index (BMI) 24.9 Weight Status Approriate GI Symptoms GI Symptoms None Last BM 01/10 Difficult in: None Skin Integrity/Comment: scar pressure area to buttocks DRY HEELS, HEALING ULCER BUTTOCKS Estimated Nutritional Goals BEE in Kcals: Using Current wt Calories/Kcals/Kg 25-30 Kcals Calculated 1278-5434 Protein: Using Current wt Protein g/k-1.3 Protein Calculated 66-86 Fluid: ml 1650-1980ml (1ml/kcal) Nutritional Problem 1. Problem Problem altered nutrition related lab values Etiology hx of DM, ESRD Signs/Symptoms: BUN 49, Cr 4.9, glucose 166, POC 168-286 Malnutrition Alert Protein-Calorie Malnutrition N/A Is there a minimum of two criteria No selected? Query Text:Check all the applicable criteria. A minimum of two criteria are recommended for diagnosis of either severe or non-severe malnutrition. Intervention/Recommendation Comments 1. Continue with current diet as ordered. 2. Monitor PO intake, wt, labs and skin integrity 3. F/U as moderate risk in 3-5 days, 01/14-01/16 Expected Outcomes/Goals Expected Outcomes/Goals 1. PO intake to meet at least 75% of nutritional needs. 2. Wt stability, skin to remain intact, labs to approach WNL.
[2018-01-13] MEDS: Lactobacillus Rhamnosus GG 15 Billion CFU CAP.SPRINK PO SCH (10:49)
[2018-01-13] MEDS: Ascorbic Acid/Vit B Complex Tab PO SCH (10:50)
--- NOTE | 2018-01-13 12:43 | Infectious Disease Prog Note ---
Infectious Disease Subjective - Review of Systems Service Date: 01/13/18 Subjective: Patient has not developed any fever. Infectious Disease Objective - Results Result Diagrams: 01/13/18 06:45 01/13/18 06:45 Recent Labs: Laboratory Last Values WBC 8.4 Th/cmm (4.8-10.8) 01/13/18 06:45 RBC 3.02 Mil/cmm (3.80-5.20) L 01/13/18 06:45 Hgb 9.3 gm/dL (12-16) L 01/13/18 06:45 Hct 28.4 % (41.0-60) L 01/13/18 06:45 MCV 94.0 fl (81-100) 01/13/18 06:45 MCH 30.7 pg (27.0-31.0) 01/13/18 06:45 MCHC Differential 32.7 pg (28.0-36.0) 01/13/18 06:45 RDW 17.1 % (11.5-20.0) 01/13/18 06:45 Plt Count 156 Th/cmm (150-400) 01/13/18 06:45 MPV 8.1 fl 01/13/18 06:45 Neutrophils % 76.4 % (40.0-80.0) 01/13/18 06:45 Band Neutrophils % 5 % (0-10) 01/10/18 15:04 Lymphocytes % 10.8 % (20.0-50.0) L 01/13/18 06:45 Monocytes % 11.4 % (2.0-10.0) H 01/13/18 06:45 Eosinophils % 0.5 % (0.0-5.0) 01/13/18 06:45 Basophils % 0.9 % (0.0-2.0) 01/13/18 06:45 Neutrophils (Manual) 88 % (40-80) H 01/10/18 15:04 Lymphocytes 2 % (20-50) L 01/10/18 15:04 Monocytes 5 % (2-10) 01/10/18 15:04 Eosinophils 0 % (0-5) 01/10/18 15:04 Basophils 0 % (0-3) 01/10/18 15:04 Platelet Estimate ADEQUATE (NORMAL) 01/10/18 15:04 Platelet Morphology NORMAL (NORMAL) 01/10/18 15:04 RBC Morph Micro Appear NORMAL (NORMAL) 01/10/18 15:04 PT 14.4 SECONDS (9.5-11.5) H 01/12/18 11:37 INR 1.36 (0.5-1.4) 01/12/18 11:37 PTT (Actin FS) 32.0 SECONDS (26.0-38.0) 01/12/18 11:37 Sodium 137 mEq/L (136-145) 01/13/18 06:45 Potassium 3.3 mEq/L (3.5-5.1) L 01/13/18 06:45 Chloride 98 mEq/L (98-107) 01/13/18 06:45 Carbon Dioxide 26.1 mEq/L (21.0-31.0) 01/13/18 06:45 Anion Gap 16.2 (7.0-16.0) H 01/13/18 06:45 BUN 47 mg/dL (7-25) H 01/13/18 06:45 Creatinine 3.7 mg/dL (0.6-1.2) H 01/13/18 06:45 Est GFR ( Amer) TNP 01/13/18 06:45 Est GFR (Non-Af Amer) TNP 01/13/18 06:45 BUN/Creatinine Ratio 12.7 01/13/18 06:45 Glucose 281 mg/dL (70-105) H 01/13/18 06:45 POC Glucose 259 MG/DL (70 - 105) H 01/13/18 06:49 Hemoglobin A1c % 8.6 % (4.0-6.0) H 01/09/18 07:13 Whole Bld Lactic Acid 1.34 mmol/L (0.60-1.99) 01/09/18 18:54 Calcium 8.6 mg/dL (8.6-10.3) 01/13/18 06:45 Total Bilirubin 0.8 mg/dL (0.3-1.0) 01/13/18 06:45 AST 17 U/L (13-39) 01/13/18 06:45 ALT 9 U/L (7-52) 01/13/18 06:45 Alkaline Phosphatase 112 U/L (34-104) H 01/13/18 06:45 Total Protein 6.0 gm/dL (6.0-8.3) 01/13/18 06:45 Albumin 2.9 gm/dL (3.7-5.3) L 01/13/18 06:45 Globulin 3.1 gm/dL 01/13/18 06:45 Albumin/Globulin Ratio 0.9 (1.0-1.8) L 01/13/18 06:45 Random Vancomycin 24.1 ug/mL (5.0-40.0) 01/12/18 06:05 - Physical Exam Vitals and I&O: Vital Signs Temp 97.3 F 01/13/18 11:30 Pulse 99 01/13/18 11:30 Resp 18 01/13/18 11:30 BP 106/35 01/13/18 11:30 Pulse Ox 94 01/13/18 11:30 Intake & Output 01/12/18 01/13/18 01/13/18 18:59 06:59 18:59 Intake Total 750 250 Balance 750 250 Weight (lbs) 62.596 kg 58.377 kg Intake: Oral 750 250 Other: # Voids 2 2 # Bowel Movements 0 1 Stool Characteristics Soft Formed Active Medications: Current Medications Acetaminophen (Tylenol 650mg Supp) 650 mg RC Q6H PRN PRN Reason: fever/pain Stop: 03/10/18 15:26 Last Admin: 01/09/18 16:01 Dose: 650 mg Epoetin Artemio (Epogen) 5,000 units SUBQ TuThSa [facility] Stop: 03/10/18 18:14 Last Admin: 01/12/18 17:49 Dose: 5,000 units Folic Acid (Folate) 1 mg PO DAILY [facility] Stop: 03/11/18 08:59 Last Admin: 01/13/18 10:49 Dose: 1 mg Heparin Sodium (Porcine) (Heparin) 5,000 units SUBQ Q12HR [facility] Stop: 03/11/18 08:59 Last Admin: 01/13/18 10:50 Dose: 5,000 units Insulin Aspart (Novolog) 0 units SUBQ ACHS [facility] PRN Reason: Protocol Stop: 03/10/18 20:59 Last Admin: 01/13/18 07:38 Dose: 6 units Lactobacillus Rhamnosus (Culturelle 15b) 1 each PO DAILY [facility] Stop: 03/14/18 08:59 Last Admin: 01/13/18 10:49 Dose: 1 each Lorazepam (Ativan) 1 mg IVP Q4HR PRN; Protocol PRN Reason: Agitation Stop: 03/10/18 07:05 Last Admin: 01/13/18 10:52 Dose: 1 mg Miscellaneous (Vancomycin Iv Per Pharmacy) 1 [facility] PRN PRN PRN Reason: PROTOCOL Stop: 03/10/18 19:35 Miscellaneous (Gentamicin Iv Per Pharmacy) 1 [facility] PRN PRN PRN Reason: PROTOCOL Stop: 03/13/18 12:52 Miscellaneous (Probiotic Screen) 1 [facility] PRN PRN PRN Reason: PROTOCOL Stop: 03/13/18 15:59 Vitamin B Complex/Vitamin C (Vitamin B Complex W/C) 1 tab PO DAILY [facility] Stop: 03/11/18 08:59 Last Admin: 01/13/18 10:50 Dose: 1 tab General: no acute distress, well developed, well nourished HEENT: atraumatic, normocephalic, PERRLA Neck: supple, no thyromegaly Cardiovascular: S1S2, regular Lungs: clear to auscultation bilaterally, clear to percussion Abdomen: soft, no tender, no distended, no mass Extremities: no cyanosis, no clubbing, no edema Neurological: awake, alert, oriented Skin: intact - Procedures Procedures: Procedures Procedure Code Date FLUOROSCOPY OF SUP VENA CAVA USING L OSM CONTRAST, GUIDANCE [id number] 12/28/17 INJECT/INFUSE NEC 99.29 06/24/13 INSERT TUNNELED CV CATH [id number] 01/09/18 INSERTION OF INFUSION DEV INTO L SUBCLAV VEIN, PERC APPROACH [id number] 01/09/18 INSERTION OF INFUSION DEV INTO SUP VENA CAVA, PERC APPROACH [id number] 12/28/17 PERFORMANCE OF URINARY FILTRATION, <6 HRS/DAY [id number] 12/28/17 REMOVAL OF INFUSION DEVICE FROM UPPER VEIN, PERC APPROACH 66ZL32H 12/28/17 Infectious Disease Assmt/Plan - Problem List Patient Problems: All Active Problems Chronic anemia (Acute) D64.9 Diabetes (Acute) E11.9 ESRD (end stage renal disease) on dialysis (Acute) N18.6, Z99.2 HTN (hypertension) (Acute) I10 Hyperkalemia (Acute) E87.5 Hypothyroid (Acute) E03.9 - Assessment Assessment: 1. High grade MRSA sepsis. MRSA ( Vanco MICHELLE is 2). Suspect endocarditis. 2. Line sepsis. 3. DM2 4. CKD 5 on HD. 5. HTN. 6. Anemia of chronic disease. - Plan Plan: WIll continue vancomycin IV and add gentamicin for synergy. I have asked the lab to reveal gentamicin susceptibility pattern. If she continue to be bacteremic in next 3 to 4 days, may need dual therapy. Will get echocardiogram and if negqative may try to arrnge [facility] and staff reported of [facility] Nutritional Asmnt/Malnutr-PDOC - Dietary Evaluation Malnutrition Findings (Please click <Entered> for more info): Nutritional Asmnt/Malnutrition Start: 01/11/18 16: 26 Text: Status: Complete Freq: Document 01/11/18 17:04 LCHENG (Rec: 01/11/18 17:19 LCARAG [email or web address]) Nutritional Asmnt/Malnutrition Patient General Information Nutritional Screening High Risk Consult Diagnosis acute kidney failure, dialysis , agitation, ALOC Pertinent Medical Hx/Surgical Hx ESRD, dialysis, HTN, DM, dementia, hypothyroidism, dementia, perm-A-cath Subjective Information consult received for high BS. Pt seen sleeping at time of visit. Per notes, pt received dialysis on 01/10. RN reported pt ate well, consumed 100% of meals today. Per records, PO intake 25-75% on 01/10. Current Diet Order/ Nutrition Support CCHO 60gm, mechanical soft, potassium 2gm per day, fluid restriction 1000ml Pertinent Medications folate, novolog, vit B complex , vit C Pertinent Labs 01/11 Na 138, K 3.2, Cl 96, BUN 49, Cr 4.9, glucose 166, POC 168-286 Nutritional Hx/Data Height 1.63 m Height (Calculated Centimeters) 162.6 Current Weight (lbs) 65.771 kg Weight (Calculated Kilograms) 65.8 Weight (Calculated Grams) 01416.9 Polo Body Weight 120 % Polo Body Weight 121 Body Mass Index (BMI) 24.9 Weight Status Approriate GI Symptoms GI Symptoms None Last BM 01/10 Difficult in: None Skin Integrity/Comment: scar pressure area to buttocks DRY HEELS, HEALING ULCER BUTTOCKS Estimated Nutritional Goals BEE in Kcals: Using Current wt Calories/Kcals/Kg 25-30 Kcals Calculated 4662-4326 Protein: Using Current wt Protein g/k-1.3 Protein Calculated 66-86 Fluid: ml 1650-1980ml (1ml/kcal) Nutritional Problem 1. Problem Problem altered nutrition related lab values Etiology hx of DM, ESRD Signs/Symptoms: BUN 49, Cr 4.9, glucose 166, POC 168-286 Malnutrition Alert Protein-Calorie Malnutrition N/A Is there a minimum of two criteria No selected? Query Text:Check all the applicable criteria. A minimum of two criteria are recommended for diagnosis of either severe or non-severe malnutrition. Intervention/Recommendation Comments 1. Continue with current diet as ordered. 2. Monitor PO intake, wt, labs and skin integrity 3. F/U as moderate risk in 3-5 days, 01/14-01/16 Expected Outcomes/Goals Expected Outcomes/Goals 1. PO intake to meet at least 75% of nutritional needs. 2. Wt stability, skin to remain intact, labs to approach WNL.
--- NOTE | 2018-01-13 12:49 | Diagnostic Imaging Report ---
Exam: CT examination abdomen pelvis. HISTORY: Abscess. Total DLP equals 577 CTDI equals 12.1 I is: Multiple contiguous thin section of the abdomen pelvis obtained from lower chest to the pubic symphysis without administration of intravenous or oral contrast material therefore the study is limited. The study was correlated with the previous CT examination of pelvis of 09/03/2017. The study demonstrates cardiomegaly with superimposed bilateral pneumonia and effusions. The visualized liver parenchyma and spleen are intact. The aorta and mesenteric vessels are diffusely ossified. The visualized pancreas intact. The adrenal glands intact. The kidneys atrophic with the nonobstructing renal calcifications bilaterally. There is evidence for small amount of free fluid the abdomen suggestive ascitic fluid There is evidence for fecal impaction in the rectosigmoid junction and rectum. There is no evidence of diverticulitis. Bony structures demonstrate no evidence for lytic or blastic changes. IMPRESSION: 1. Cardiomegaly bilateral pneumonia superimposed effusions 2. Ascitic fluid in the abdomen 3. Diffuse atherosclerotic vascular calcifications 4. Renal atrophy bilateral nonobstructing renal calculi. 5. Fecal impaction the rectum
--- NOTE | 2018-01-13 12:52 | Diagnostic Imaging Report ---
Exam: CT examination of chest Diagnosis nodules Total DLP equals 245 CTDI equals 0.6. Findings: Multiple contiguous thin section of the chest were obtained from thoracic outlet to the upper abdomen without the administration of contrast material therefore the study is limited The study demonstrates normal appearance of the great vessels of the neck. Adenopathy is difficult to exclude due to lack of contrast material There is evidence for extensive right-sided infiltrate with superimposed the large effusion Less pronounced left basilar infiltrate and small effusion present. The heart is enlarged. Adenopathy is difficult to exclude without contrast material The vascular calcification of the aortic arch and thoracic aorta appreciated. Bony thorax demonstrate no evidence for lytic or blastic lesions. IMPRESSION bilateral pneumonia, superimposed effusions greater on the right side. Cardiomegaly. The study is limited without administration of intravenous contrast material.
--- NOTE | 2018-01-13 15:42 | Cardiology ---
01/12/[address] Moreira PROCEDURE: Echocardiogram. M-MODE ECHOCARDIOGRAM: Mitral valve, anterior leaflet of mitral valve shows decreased excursion, EF velocity. Posterior leaflet of mitral valve shows decreased excursion. Left ventricle posterior wall shows increased thickness, decreased excursion. Interventricular septum shows increased thickness, decreased excursion. There is hypertrophy of the left ventricle, ejection fraction 20%. Left atrium normal. Aortic root shows normal dimension, normal excursion of aortic leaflets. CONCLUSION: Minimal hypertrophy of the left ventricle, cardiomyopathy, ejection fraction 20%. 2D ECHO: Long axis view shows enlarged left ventricular cavity with decreased ejection fraction, minimal hypertrophy of the left ventricle. Left atrium normal. Aortic root shows normal dimension, normal excursion of aortic leaflets. Short axis view of mitral valve normal. Short axis view of aortic valve normal. Apical four chamber view shows enlarged left ventricular cavity with decreased ejection fraction, minimal hypertrophy of the left ventricle. Left atrium normal. Right ventricular cavity, right atrium normal. No pericardial effusion. CONCLUSION: Cardiomyopathy, mild left ventricular hypertrophy. Ejection fraction 20%. Doppler study shows moderate mitral regurgitation, moderate tricuspid regurgitation, right ventricular systolic pressure 51 mmHg with mild pulmonary hypertension, mild pulmonary regurgitation. [facility]# [id number]
[2018-01-13] MEDS ORDERED: MINERAL OIL ENEMA 135 ML BOTTLE RC ONE (19:13)
--- NOTE | 2018-01-13 21:01 | Consultation ---
DATE OF CONSULTATION: 01/13/2018 REASON FOR CONSULTATION: Fecal impaction and anemia. HISTORY OF PRESENT ILLNESS: This consult was obtained through the courtesy of Dr. Moreira for this 77-year-old with history of dementia, end-stage renal disease on hemodialysis, hypertension, diabetes, hypothyroidism, and anemia; admitted to the hospital a few days ago with malfunctioning hemodialysis catheter. This has been corrected. The patient has been in the hospital. There was a possibility of an abscess, so she underwent a CAT scan today, which showed fecal impaction, so GI consult was called in for further evaluation. The patient unfortunately not able to provide any history. PAST MEDICAL HISTORY: Dementia, end-stage renal disease, hypertension, diabetes, anemia, and hypothyroidism. PAST SURGICAL HISTORY: Shunt related surgery. SOCIAL HISTORY: Nonsmoker, nonalcoholic, IV drug abuser. FAMILY HISTORY: Noncontributory and unremarkable. REVIEW OF SYSTEMS: Unobtainable. ALLERGIES: Iodine and morphine. MEDICATIONS: The patient is on Tylenol, Epogen, folate, heparin subcutaneous, NovoLog, Culturelle, Ativan, vancomycin, gentamicin, and vitamin D. PHYSICAL EXAMINATION: GENERAL: The patient is awake, responsive, in no acute distress. VITAL SIGNS: Blood pressure is 128/59, heart rate was 102, respiratory rate was 17, and temperature is 97.8. HEAD AND NECK: Pupils reactive to light. Extraocular muscles could not be tested. Oral cavity, no lesion. NECK: Supple. CHEST: Good air entry. LUNGS: Clear to auscultation. CARDIOVASCULAR SYSTEM: Regular rate and rhythm. No murmur or gallop. ABDOMEN: Soft, positive bowel sounds. Abdomen was not tender. EXTREMITIES: Lower extremities, no edema. CENTRAL NERVOUS SYSTEM: Grossly nonfocal. LABORATORY DATA AND DIAGNOSTIC STUDIES: Hemoglobin is 9.3, hematocrit is 28.4, and normal indices. Chemistry showed BUN and creatinine of 47 and 3.7. Liver enzymes were normal. Alkaline phosphatase 112. The patient had a CT of the chest, which showed bilateral pneumonia and effusion, cardiomegaly and a CT of the abdomen and pelvis showed fecal impaction, some ascites and atherosclerotic vascular changes. IMPRESSION: A 77-year-old with fecal impaction and anemia. ASSESSMENT AND PLAN: 1. Fecal impaction, most probably from medications, bedridden, decreased motility. So at this time, will give the patient a dose of mineral oil enema and then mineral oil t.i.d. for 2-3 days. If improving, we will continue. If not, we will give the patient GoLYTELY one cup every hour. 2. Anemia, most probably colonic and most probably colonic disease, so we will need to get some information from the state archivist and the primary doctor what was done before and if needed and there is over bleeding, we will do some iron studies if it has not been done. If bleeding, then we will do endoscopy and colonoscopy, which I doubt that the patient will need it given that she is known to have anemia for a while, so more than likely she had some workup done before. Other medical problems such as diabetes, hypertension, hyperlipidemia, etc., as per Dr. Moreira. Thank you Dr. Moreira for allowing me to participate in the care of the patient. If you have any further questions, please let me know. JOB# [id number]
--- NOTE | 2018-01-14 02:20 | Consultation ---
DATE OF CONSULTATION: 01/13/[address] Moreira. HISTORY OF PRESENT ILLNESS: This 77-year-old obese female patient who apparently was brought in due to damaging of the hemodialysis catheter. During the hospital stay, the patient was found to have septicemia. The patient's echocardiogram showed cardiomyopathy and hence Cardiology consult is requested. PAST MEDICAL HISTORY: Iron-deficiency anemia, dementia, CKD stage V, and end-stage renal disease, on dialysis. FAMILY HISTORY: Unremarkable. SOCIAL HISTORY: No history of smoking, alcohol abuse. ALLERGIES: None. PHYSICAL EXAMINATION: VITAL SIGNS: Blood pressure 110/70, pulse 80, and respirations 28. HEAD: Normocephalic. No lumps or bumps. EYES: Pupils equal, reactive to light. Fundi showed AV nicking, sclerae white, conjunctivae pink. NECK: Carotid 2+. Normal upstroke. JVD 10 cm above sternal angle. Thyroid not palpable. Lymph nodes not palpable. CHEST: Shows increased AP diameter. No kyphosis, scoliosis. LUNGS: Bilateral rales. Decreased breath sounds both the bases. HEART: PMI sixth intercostal space with lateral to midclavicular line. S1, S2, S3, S4, soft systolic murmur. He has ____ murmur radiating to the left axilla. ABDOMEN: Soft, hepatojugular reflux positive. Bowel sounds active. NEUROLOGIC: Unremarkable. EXTREMITIES: Peripheral pulses 1+, pedal edema 1+. CLINICAL IMPRESSION: Congestive heart failure; systolic dysfunction; acute cardiomyopathy; septicemia; iron-deficiency anemia; dementia; chronic kidney disease stage V, end-stage renal disease, on dialysis; iron-deficiency anemia; and bilateral pneumonia with pleural effusion. PLAN: The patient to continue on ultrafiltration, IV antibiotics. The patient also has mild pulmonary hypertension. JOB# [id number]
[2018-01-14] MEDS: INSULIN ASPART, RECOMBINANT 100 UNITS/ML SUBQ SCH ×4 (06:31→20:26)
[2018-01-14] MEDS: Lactobacillus Rhamnosus GG 15 Billion CFU CAP.SPRINK PO SCH (09:06)
[2018-01-14] MEDS: Ascorbic Acid/Vit B Complex Tab PO SCH (09:10)
--- NOTE | 2018-01-14 14:49 | General Progress Note ---
Subjective - Review of Systems Service Date: 01/14/18 Subjective: pt seen and examined new catheter in place Objective - Results Result Diagrams: 01/13/18 06:45 01/13/18 06:45 Recent Labs: Laboratory Last Values WBC 8.4 Th/cmm (4.8-10.8) 01/13/18 06:45 RBC 3.02 Mil/cmm (3.80-5.20) L 01/13/18 06:45 Hgb 9.3 gm/dL (12-16) L 01/13/18 06:45 Hct 28.4 % (41.0-60) L 01/13/18 06:45 MCV 94.0 fl (81-100) 01/13/18 06:45 MCH 30.7 pg (27.0-31.0) 01/13/18 06:45 MCHC Differential 32.7 pg (28.0-36.0) 01/13/18 06:45 RDW 17.1 % (11.5-20.0) 01/13/18 06:45 Plt Count 156 Th/cmm (150-400) 01/13/18 06:45 MPV 8.1 fl 01/13/18 06:45 Neutrophils % 76.4 % (40.0-80.0) 01/13/18 06:45 Band Neutrophils % 5 % (0-10) 01/10/18 15:04 Lymphocytes % 10.8 % (20.0-50.0) L 01/13/18 06:45 Monocytes % 11.4 % (2.0-10.0) H 01/13/18 06:45 Eosinophils % 0.5 % (0.0-5.0) 01/13/18 06:45 Basophils % 0.9 % (0.0-2.0) 01/13/18 06:45 Neutrophils (Manual) 88 % (40-80) H 01/10/18 15:04 Lymphocytes 2 % (20-50) L 01/10/18 15:04 Monocytes 5 % (2-10) 01/10/18 15:04 Eosinophils 0 % (0-5) 01/10/18 15:04 Basophils 0 % (0-3) 01/10/18 15:04 Platelet Estimate ADEQUATE (NORMAL) 01/10/18 15:04 Platelet Morphology NORMAL (NORMAL) 01/10/18 15:04 RBC Morph Micro Appear NORMAL (NORMAL) 01/10/18 15:04 PT 14.4 SECONDS (9.5-11.5) H 01/12/18 11:37 INR 1.36 (0.5-1.4) 01/12/18 11:37 PTT (Actin FS) 32.0 SECONDS (26.0-38.0) 01/12/18 11:37 Sodium 137 mEq/L (136-145) 01/13/18 06:45 Potassium 3.3 mEq/L (3.5-5.1) L 01/13/18 06:45 Chloride 98 mEq/L (98-107) 01/13/18 06:45 Carbon Dioxide 26.1 mEq/L (21.0-31.0) 01/13/18 06:45 Anion Gap 16.2 (7.0-16.0) H 01/13/18 06:45 BUN 47 mg/dL (7-25) H 01/13/18 06:45 Creatinine 3.7 mg/dL (0.6-1.2) H 01/13/18 06:45 Est GFR ( Amer) TNP 01/13/18 06:45 Est GFR (Non-Af Amer) TNP 01/13/18 06:45 BUN/Creatinine Ratio 12.7 01/13/18 06:45 Glucose 281 mg/dL (70-105) H 01/13/18 06:45 POC Glucose 157 MG/DL (70 - 105) H 01/14/18 10:50 Hemoglobin A1c % 8.6 % (4.0-6.0) H 01/09/18 07:13 Whole Bld Lactic Acid 1.34 mmol/L (0.60-1.99) 01/09/18 18:54 Calcium 8.6 mg/dL (8.6-10.3) 01/13/18 06:45 Total Bilirubin 0.8 mg/dL (0.3-1.0) 01/13/18 06:45 AST 17 U/L (13-39) 01/13/18 06:45 ALT 9 U/L (7-52) 01/13/18 06:45 Alkaline Phosphatase 112 U/L (34-104) H 01/13/18 06:45 Total Protein 6.0 gm/dL (6.0-8.3) 01/13/18 06:45 Albumin 2.9 gm/dL (3.7-5.3) L 01/13/18 06:45 Globulin 3.1 gm/dL 01/13/18 06:45 Albumin/Globulin Ratio 0.9 (1.0-1.8) L 01/13/18 06:45 Gentamicin 2.7 ug/mL (0.5-10.0) 01/14/18 04:45 Random Vancomycin 33.9 ug/mL (5.0-40.0) 01/14/18 04:45 - Physical Exam Vitals and I&O: Vital Signs Temp 96.5 F 01/14/18 08:00 Pulse 93 01/14/18 08:00 Resp 20 01/14/18 08:09 BP 136/66 01/14/18 08:00 Pulse Ox 98 01/14/18 08:00 Intake & Output 01/13/18 01/14/18 01/14/18 18:59 06:59 18:59 Intake Total 480 120 Balance 480 120 Weight (lbs) 58.377 kg 57.606 kg Intake: Oral 480 120 Other: # Voids 2 # Bowel Movements 1 Active Medications: Current Medications Acetaminophen (Tylenol 650mg Supp) 650 mg RC Q6H PRN PRN Reason: fever/pain Stop: 03/10/18 15:26 Last Admin: 01/09/18 16:01 Dose: 650 mg Epoetin Artemio (Epogen) 5,000 units SUBQ TuThSa [facility] Stop: 03/10/18 18:14 Last Admin: 01/12/18 17:49 Dose: 5,000 units Folic Acid (Folate) 1 mg PO DAILY [facility] Stop: 03/11/18 08:59 Last Admin: 01/14/18 09:07 Dose: 1 mg Heparin Sodium (Porcine) (Heparin) 5,000 units SUBQ Q12HR [facility] Stop: 03/11/18 08:59 Last Admin: 01/14/18 09:10 Dose: 5,000 units Gentamicin Sulfate 100 mg/ (Sodium Chloride) 102.5 mls @ 100 mls/hr IV 2000 ONE Stop: 01/14/18 21:01 Insulin Aspart (Novolog) 0 units SUBQ ACHS [facility] PRN Reason: Protocol Stop: 03/10/18 20:59 Last Admin: 01/14/18 12:05 Dose: 2 units Lactobacillus Rhamnosus (Culturelle 15b) 1 each PO DAILY [facility] Stop: 03/14/18 08:59 Last Admin: 01/14/18 09:06 Dose: 1 each Lorazepam (Ativan) 1 mg IVP Q4HR PRN; Protocol PRN Reason: Agitation Stop: 03/10/18 07:05 Last Admin: 01/14/18 12:15 Dose: 1 mg Mineral Oil (Mineral Oil 30 Ml) 30 ml PO TID [facility] Stop: 01/16/18 20:59 Last Admin: 01/14/18 09:07 Dose: 30 ml Miscellaneous (Vancomycin Iv Per Pharmacy) 1 ea PRN PRN PRN Reason: PROTOCOL Stop: 03/10/18 19:35 Miscellaneous (Gentamicin Iv Per Pharmacy) 1 ea PRN PRN PRN Reason: PROTOCOL Stop: 03/13/18 12:52 Miscellaneous (Probiotic Screen) 1 ea PRN PRN PRN Reason: PROTOCOL Stop: 03/13/18 15:59 Vitamin B Complex/Vitamin C (Vitamin B Complex W/C) 1 tab PO DAILY [facility] Stop: 03/11/18 08:59 Last Admin: 01/14/18 09:10 Dose: 1 tab General: Other (Severe dementia) HEENT: Atraumatic, PERRLA Neck: Supple Cardiovascular: Regular rate Lungs: Clear to auscultation Abdomen: Bowel sounds - Procedures Procedures: Procedures Procedure Code Date FLUOROSCOPY OF SUP VENA CAVA USING L OSM CONTRAST, GUIDANCE [id number] 12/28/17 INJECT/INFUSE NEC 99.29 06/24/13 INSERT TUNNELED CV CATH [id number] 01/09/18 INSERTION OF INFUSION DEV INTO L SUBCLAV VEIN, PERC APPROACH [id number] 01/09/18 INSERTION OF INFUSION DEV INTO SUP VENA CAVA, PERC APPROACH [id number] 12/28/17 PERFORMANCE OF URINARY FILTRATION, <6 HRS/DAY [id number] 12/28/17 REMOVAL OF INFUSION DEVICE FROM UPPER VEIN, COMPONENT DESIGN ENGINEER APPROACH [id number] 01/09/18 REMOVAL OF INFUSION DEVICE FROM UPPER VEIN, PERC APPROACH [id number] 12/28/17 REMOVAL TUNNELED CV CATH [id number] 01/09/18 Assessment/Plan - Problem List Patient Problems: All Active Problems Chronic anemia (Acute) D64.9 Diabetes (Acute) E11.9 ESRD (end stage renal disease) on dialysis (Acute) N18.6, Z99.2 HTN (hypertension) (Acute) I10 Hyperkalemia (Acute) E87.5 Hypothyroid (Acute) E03.9 - Assessment Assessment: catheter failure - Plan Plan: continue hd support staph infection on abx placement of permcath and AVF Nutritional Asmnt/Malnutr-PDOC - Dietary Evaluation Malnutrition Findings (Please click <Entered> for more info): Nutritional Asmnt/Malnutrition Start: 01/11/18 16: 26 Text: Status: Complete Freq: Document 01/11/18 17:04 RODRÍGUEZ (Rec: 01/11/18 17:19 RODRÍGUEZ [email or web address]) Nutritional Asmnt/Malnutrition Patient General Information Nutritional Screening High Risk Consult Diagnosis acute kidney failure, dialysis , agitation, ALOC Pertinent Medical Hx/Surgical Hx ESRD, dialysis, HTN, DM, dementia, hypothyroidism, dementia, perm-A-cath Subjective Information consult received for high BS. Pt seen sleeping at time of visit. Per notes, pt received dialysis on 01/10. RN reported pt ate well, consumed 100% of meals today. Per records, PO intake 25-75% on 01/10. Current Diet Order/ Nutrition Support CCHO 60gm, mechanical soft, potassium 2gm per day, fluid restriction 1000ml Pertinent Medications folate, novolog, vit B complex , vit C Pertinent Labs 01/11 Na 138, K 3.2, Cl 96, BUN 49, Cr 4.9, glucose 166, POC 168-286 Nutritional Hx/Data Height 1.63 m Height (Calculated Centimeters) 162.6 Current Weight (lbs) 65.771 kg Weight (Calculated Kilograms) 65.8 Weight (Calculated Grams) 50675.9 [place] Body Weight 120 % [place] Body Weight 121 Body Mass Index (BMI) 24.9 Weight Status Approriate GI Symptoms GI Symptoms None Last BM 01/10 Difficult in: None Skin Integrity/Comment: scar pressure area to buttocks DRY HEELS, HEALING ULCER BUTTOCKS Estimated Nutritional Goals BEE in Kcals: Using Current wt Calories/Kcals/Kg 25-30 Kcals Calculated 9823-0851 Protein: Using Current wt Protein g/k-1.3 Protein Calculated 66-86 Fluid: ml 1650-1980ml (1ml/kcal) Nutritional Problem 1. Problem Problem altered nutrition related lab values Etiology hx of DM, ESRD Signs/Symptoms: BUN 49, Cr 4.9, glucose 166, POC 168-286 Malnutrition Alert Protein-Calorie Malnutrition N/A Is there a minimum of two criteria No selected? Query Text:Check all the applicable criteria. A minimum of two criteria are recommended for diagnosis of either severe or non-severe malnutrition. Intervention/Recommendation Comments 1. Continue with current diet as ordered. 2. Monitor PO intake, wt, labs and skin integrity 3. F/U as moderate risk in 3-5 days, 01/14-01/16 Expected Outcomes/Goals Expected Outcomes/Goals 1. PO intake to meet at least 75% of nutritional needs. 2. Wt stability, skin to remain intact, labs to approach WNL.
--- NOTE | 2018-01-14 14:52 | Infectious Disease Prog Note ---
Infectious Disease Subjective - Review of Systems Service Date: 01/14/18 Subjective: Patient has not developed any fever. Infectious Disease Objective - Results Result Diagrams: 01/13/18 06:45 01/13/18 06:45 Recent Labs: Laboratory Last Values WBC 8.4 Th/cmm (4.8-10.8) 01/13/18 06:45 RBC 3.02 Mil/cmm (3.80-5.20) L 01/13/18 06:45 Hgb 9.3 gm/dL (12-16) L 01/13/18 06:45 Hct 28.4 % (41.0-60) L 01/13/18 06:45 MCV 94.0 fl (81-100) 01/13/18 06:45 MCH 30.7 pg (27.0-31.0) 01/13/18 06:45 MCHC Differential 32.7 pg (28.0-36.0) 01/13/18 06:45 RDW 17.1 % (11.5-20.0) 01/13/18 06:45 Plt Count 156 Th/cmm (150-400) 01/13/18 06:45 MPV 8.1 fl 01/13/18 06:45 Neutrophils % 76.4 % (40.0-80.0) 01/13/18 06:45 Band Neutrophils % 5 % (0-10) 01/10/18 15:04 Lymphocytes % 10.8 % (20.0-50.0) L 01/13/18 06:45 Monocytes % 11.4 % (2.0-10.0) H 01/13/18 06:45 Eosinophils % 0.5 % (0.0-5.0) 01/13/18 06:45 Basophils % 0.9 % (0.0-2.0) 01/13/18 06:45 Neutrophils (Manual) 88 % (40-80) H 01/10/18 15:04 Lymphocytes 2 % (20-50) L 01/10/18 15:04 Monocytes 5 % (2-10) 01/10/18 15:04 Eosinophils 0 % (0-5) 01/10/18 15:04 Basophils 0 % (0-3) 01/10/18 15:04 Platelet Estimate ADEQUATE (NORMAL) 01/10/18 15:04 Platelet Morphology NORMAL (NORMAL) 01/10/18 15:04 RBC Morph Micro Appear NORMAL (NORMAL) 01/10/18 15:04 PT 14.4 SECONDS (9.5-11.5) H 01/12/18 11:37 INR 1.36 (0.5-1.4) 01/12/18 11:37 PTT (Actin FS) 32.0 SECONDS (26.0-38.0) 01/12/18 11:37 Sodium 137 mEq/L (136-145) 01/13/18 06:45 Potassium 3.3 mEq/L (3.5-5.1) L 01/13/18 06:45 Chloride 98 mEq/L (98-107) 01/13/18 06:45 Carbon Dioxide 26.1 mEq/L (21.0-31.0) 01/13/18 06:45 Anion Gap 16.2 (7.0-16.0) H 01/13/18 06:45 BUN 47 mg/dL (7-25) H 01/13/18 06:45 Creatinine 3.7 mg/dL (0.6-1.2) H 01/13/18 06:45 Est GFR ( Amer) TNP 01/13/18 06:45 Est GFR (Non-Af Amer) TNP 01/13/18 06:45 BUN/Creatinine Ratio 12.7 01/13/18 06:45 Glucose 281 mg/dL (70-105) H 01/13/18 06:45 POC Glucose 157 MG/DL (70 - 105) H 01/14/18 10:50 Hemoglobin A1c % 8.6 % (4.0-6.0) H 01/09/18 07:13 Whole Bld Lactic Acid 1.34 mmol/L (0.60-1.99) 01/09/18 18:54 Calcium 8.6 mg/dL (8.6-10.3) 01/13/18 06:45 Total Bilirubin 0.8 mg/dL (0.3-1.0) 01/13/18 06:45 AST 17 U/L (13-39) 01/13/18 06:45 ALT 9 U/L (7-52) 01/13/18 06:45 Alkaline Phosphatase 112 U/L (34-104) H 01/13/18 06:45 Total Protein 6.0 gm/dL (6.0-8.3) 01/13/18 06:45 Albumin 2.9 gm/dL (3.7-5.3) L 01/13/18 06:45 Globulin 3.1 gm/dL 01/13/18 06:45 Albumin/Globulin Ratio 0.9 (1.0-1.8) L 01/13/18 06:45 Gentamicin 2.7 ug/mL (0.5-10.0) 01/14/18 04:45 Random Vancomycin 33.9 ug/mL (5.0-40.0) 01/14/18 04:45 - Physical Exam Vitals and I&O: Vital Signs Temp 96.5 F 01/14/18 08:00 Pulse 93 01/14/18 08:00 Resp 20 01/14/18 08:09 BP 136/66 01/14/18 08:00 Pulse Ox 98 01/14/18 08:00 Intake & Output 01/13/18 01/14/18 01/14/18 18:59 06:59 18:59 Intake Total 480 120 Balance 480 120 Weight (lbs) 58.377 kg 57.606 kg Intake: Oral 480 120 Other: # Voids 2 # Bowel Movements 1 Active Medications: Current Medications Acetaminophen (Tylenol 650mg Supp) 650 mg RC Q6H PRN PRN Reason: fever/pain Stop: 03/10/18 15:26 Last Admin: 01/09/18 16:01 Dose: 650 mg Epoetin Artemio (Epogen) 5,000 units SUBQ TuThSa [facility] Stop: 03/10/18 18:14 Last Admin: 01/12/18 17:49 Dose: 5,000 units Folic Acid (Folate) 1 mg PO DAILY [facility] Stop: 03/11/18 08:59 Last Admin: 01/14/18 09:07 Dose: 1 mg Heparin Sodium (Porcine) (Heparin) 5,000 units SUBQ Q12HR [facility] Stop: 03/11/18 08:59 Last Admin: 01/14/18 09:10 Dose: 5,000 units Gentamicin Sulfate 100 mg/ (Sodium Chloride) 102.5 mls @ 100 mls/hr IV 2000 ONE Stop: 01/14/18 21:01 Insulin Aspart (Novolog) 0 units SUBQ ACHS [facility] PRN Reason: Protocol Stop: 03/10/18 20:59 Last Admin: 01/14/18 12:05 Dose: 2 units Lactobacillus Rhamnosus (Culturelle 15b) 1 each PO DAILY [facility] Stop: 03/14/18 08:59 Last Admin: 01/14/18 09:06 Dose: 1 each Lorazepam (Ativan) 1 mg IVP Q4HR PRN; Protocol PRN Reason: Agitation Stop: 03/10/18 07:05 Last Admin: 01/14/18 12:15 Dose: 1 mg Mineral Oil (Mineral Oil 30 Ml) 30 ml PO TID [facility] Stop: 01/16/18 20:59 Last Admin: 01/14/18 09:07 Dose: 30 ml Miscellaneous (Vancomycin Iv Per Pharmacy) 1 ea PRN PRN PRN Reason: PROTOCOL Stop: 03/10/18 19:35 Miscellaneous (Gentamicin Iv Per Pharmacy) 1 [facility] PRN PRN PRN Reason: PROTOCOL Stop: 03/13/18 12:52 Miscellaneous (Probiotic Screen) 1 ea PRN PRN PRN Reason: PROTOCOL Stop: 03/13/18 15:59 Vitamin B Complex/Vitamin C (Vitamin B Complex W/C) 1 tab PO DAILY [facility] Stop: 03/11/18 08:59 Last Admin: 01/14/18 09:10 Dose: 1 tab General: no acute distress, well developed, well nourished HEENT: atraumatic, normocephalic, PERRLA, EOMI Neck: supple, no thyromegaly Cardiovascular: S1S2, regular Lungs: clear to auscultation bilaterally, clear to percussion Abdomen: soft, no tender, no hepatomegaly Extremities: no cyanosis, no clubbing, no edema Neurological: awake, alert, oriented Skin: intact - Procedures Procedures: Procedures Procedure Code Date FLUOROSCOPY OF SUP VENA CAVA USING L OSM CONTRAST, GUIDANCE [id number] 12/28/17 INJECT/INFUSE NEC 99.29 06/24/13 INSERT TUNNELED CV CATH [id number] 01/09/18 INSERTION OF INFUSION DEV INTO L SUBCLAV VEIN, PERC APPROACH [id number] 01/09/18 INSERTION OF INFUSION DEV INTO SUP VENA CAVA, PERC APPROACH [id number] 12/28/17 PERFORMANCE OF URINARY FILTRATION, <6 HRS/DAY [id number] 12/28/17 REMOVAL OF INFUSION DEVICE FROM UPPER VEIN, ESCROW CLOSER APPROACH [id number] 01/09/18 REMOVAL OF INFUSION DEVICE FROM UPPER VEIN, PERC APPROACH [id number] 12/28/17 REMOVAL TUNNELED CV CATH [id number] 01/09/18 Infectious Disease Assmt/Plan - Problem List Patient Problems: All Active Problems Chronic anemia (Acute) D64.9 Diabetes (Acute) E11.9 ESRD (end stage renal disease) on dialysis (Acute) N18.6, Z99.2 HTN (hypertension) (Acute) I10 Hyperkalemia (Acute) E87.5 Hypothyroid (Acute) E03.9 - Assessment Assessment: 1. High grade MRSA sepsis. MRSA ( Vanco MICHELLE is 2). Suspect endocarditis. 2. Line sepsis. 3. DM2 4. CKD 5 on HD. 5. HTN. 6. Anemia of chronic disease. - Plan Plan: WIll continue vancomycin IV and gentamicin for synergy. I have asked the lab to reveal gentamicin susceptibility pattern. Ltac eval DW micro at [facility]. and staff reported of [facility] Nutritional Asmnt/Malnutr-PDOC - Dietary Evaluation Malnutrition Findings (Please click <Entered> for more info): Nutritional Asmnt/Malnutrition Start: 01/11/18 16: 26 Text: Status: Complete Freq: Document 01/11/18 17:04 RODRÍGUEZ (Rec: 01/11/18 17:19 RODRÍGUEZ CHRISTINE-[email or web address]) Nutritional Asmnt/Malnutrition Patient General Information Nutritional Screening High Risk Consult Diagnosis acute kidney failure, dialysis , agitation, ALOC Pertinent Medical Hx/Surgical Hx ESRD, dialysis, HTN, DM, dementia, hypothyroidism, dementia, perm-A-cath Subjective Information consult received for high BS. Pt seen sleeping at time of visit. Per notes, pt received dialysis on 01/10. RN reported pt ate well, consumed 100% of meals today. Per records, PO intake 25-75% on 01/10. Current Diet Order/ Nutrition Support CCHO 60gm, mechanical soft, potassium 2gm per day, fluid restriction 1000ml Pertinent Medications folate, novolog, vit B complex , vit C Pertinent Labs 01/11 Na 138, K 3.2, Cl 96, BUN 49, Cr 4.9, glucose 166, POC 168-286 Nutritional Hx/Data Height 1.63 m Height (Calculated Centimeters) 162.6 Current Weight (lbs) 65.771 kg Weight (Calculated Kilograms) 65.8 Weight (Calculated Grams) 67048.9 [place] Body Weight 120 % [place] Body Weight 121 Body Mass Index (BMI) 24.9 Weight Status Approriate GI Symptoms GI Symptoms None Last BM 01/10 Difficult in: None Skin Integrity/Comment: scar pressure area to buttocks DRY HEELS, HEALING ULCER BUTTOCKS Estimated Nutritional Goals BEE in Kcals: Using Current wt Calories/Kcals/Kg 25-30 Kcals Calculated 4505-9997 Protein: Using Current wt Protein g/k-1.3 Protein Calculated 66-86 Fluid: ml 1650-1980ml (1ml/kcal) Nutritional Problem 1. Problem Problem altered nutrition related lab values Etiology hx of DM, ESRD Signs/Symptoms: BUN 49, Cr 4.9, glucose 166, POC 168-286 Malnutrition Alert Protein-Calorie Malnutrition N/A Is there a minimum of two criteria No selected? Query Text:Check all the applicable criteria. A minimum of two criteria are recommended for diagnosis of either severe or non-severe malnutrition. Intervention/Recommendation Comments 1. Continue with current diet as ordered. 2. Monitor PO intake, wt, labs and skin integrity 3. F/U as moderate risk in 3-5 days, 01/14-01/16 Expected Outcomes/Goals Expected Outcomes/Goals 1. PO intake to meet at least 75% of nutritional needs. 2. Wt stability, skin to remain intact, labs to approach WNL.
--- NOTE | 2018-01-14 16:20 | General Progress Note ---
Subjective - Review of Systems Events since last encounter: in o distress Objective - Results Result Diagrams: 01/13/18 06:45 01/13/18 06:45 Recent Labs: Laboratory Last Values WBC 8.4 Th/cmm (4.8-10.8) 01/13/18 06:45 RBC 3.02 Mil/cmm (3.80-5.20) L 01/13/18 06:45 Hgb 9.3 gm/dL (12-16) L 01/13/18 06:45 Hct 28.4 % (41.0-60) L 01/13/18 06:45 MCV 94.0 fl (81-100) 01/13/18 06:45 MCH 30.7 pg (27.0-31.0) 01/13/18 06:45 MCHC Differential 32.7 pg (28.0-36.0) 01/13/18 06:45 RDW 17.1 % (11.5-20.0) 01/13/18 06:45 Plt Count 156 Th/cmm (150-400) 01/13/18 06:45 MPV 8.1 fl 01/13/18 06:45 Neutrophils % 76.4 % (40.0-80.0) 01/13/18 06:45 Band Neutrophils % 5 % (0-10) 01/10/18 15:04 Lymphocytes % 10.8 % (20.0-50.0) L 01/13/18 06:45 Monocytes % 11.4 % (2.0-10.0) H 01/13/18 06:45 Eosinophils % 0.5 % (0.0-5.0) 01/13/18 06:45 Basophils % 0.9 % (0.0-2.0) 01/13/18 06:45 Neutrophils (Manual) 88 % (40-80) H 01/10/18 15:04 Lymphocytes 2 % (20-50) L 01/10/18 15:04 Monocytes 5 % (2-10) 01/10/18 15:04 Eosinophils 0 % (0-5) 01/10/18 15:04 Basophils 0 % (0-3) 01/10/18 15:04 Platelet Estimate ADEQUATE (NORMAL) 01/10/18 15:04 Platelet Morphology NORMAL (NORMAL) 01/10/18 15:04 RBC Morph Micro Appear NORMAL (NORMAL) 01/10/18 15:04 PT 14.4 SECONDS (9.5-11.5) H 01/12/18 11:37 INR 1.36 (0.5-1.4) 01/12/18 11:37 PTT (Actin FS) 32.0 SECONDS (26.0-38.0) 01/12/18 11:37 Sodium 137 mEq/L (136-145) 01/13/18 06:45 Potassium 3.3 mEq/L (3.5-5.1) L 01/13/18 06:45 Chloride 98 mEq/L (98-107) 01/13/18 06:45 Carbon Dioxide 26.1 mEq/L (21.0-31.0) 01/13/18 06:45 Anion Gap 16.2 (7.0-16.0) H 01/13/18 06:45 BUN 47 mg/dL (7-25) H 01/13/18 06:45 Creatinine 3.7 mg/dL (0.6-1.2) H 01/13/18 06:45 Est GFR ( Amer) TNP 01/13/18 06:45 Est GFR (Non-Af Amer) TNP 01/13/18 06:45 BUN/Creatinine Ratio 12.7 01/13/18 06:45 Glucose 281 mg/dL (70-105) H 01/13/18 06:45 POC Glucose 157 MG/DL (70 - 105) H 01/14/18 10:50 Hemoglobin A1c % 8.6 % (4.0-6.0) H 01/09/18 07:13 Whole Bld Lactic Acid 1.34 mmol/L (0.60-1.99) 01/09/18 18:54 Calcium 8.6 mg/dL (8.6-10.3) 01/13/18 06:45 Total Bilirubin 0.8 mg/dL (0.3-1.0) 01/13/18 06:45 AST 17 U/L (13-39) 01/13/18 06:45 ALT 9 U/L (7-52) 01/13/18 06:45 Alkaline Phosphatase 112 U/L (34-104) H 01/13/18 06:45 Total Protein 6.0 gm/dL (6.0-8.3) 01/13/18 06:45 Albumin 2.9 gm/dL (3.7-5.3) L 01/13/18 06:45 Globulin 3.1 gm/dL 01/13/18 06:45 Albumin/Globulin Ratio 0.9 (1.0-1.8) L 01/13/18 06:45 Gentamicin 2.7 ug/mL (0.5-10.0) 01/14/18 04:45 Random Vancomycin 33.9 ug/mL (5.0-40.0) 01/14/18 04:45 - Physical Exam Vitals and I&O: Vital Signs Temp 96.5 F 01/14/18 08:00 Pulse 93 01/14/18 08:00 Resp 20 01/14/18 08:09 BP 136/66 01/14/18 08:00 Pulse Ox 98 01/14/18 08:00 Intake & Output 01/13/18 01/14/18 01/14/18 18:59 06:59 18:59 Intake Total 480 120 Balance 480 120 Weight (lbs) 58.377 kg 57.606 kg Intake: Oral 480 120 Other: # Voids 2 # Bowel Movements 1 Active Medications: Current Medications Acetaminophen (Tylenol 650mg Supp) 650 mg RC Q6H PRN PRN Reason: fever/pain Stop: 03/10/18 15:26 Last Admin: 01/09/18 16:01 Dose: 650 mg Epoetin Artemio (Epogen) 5,000 units SUBQ TuThSa [facility] Stop: 03/10/18 18:14 Last Admin: 01/12/18 17:49 Dose: 5,000 units Folic Acid (Folate) 1 mg PO DAILY [facility] Stop: 03/11/18 08:59 Last Admin: 01/14/18 09:07 Dose: 1 mg Heparin Sodium (Porcine) (Heparin) 5,000 units SUBQ Q12HR [facility] Stop: 03/11/18 08:59 Last Admin: 01/14/18 09:10 Dose: 5,000 units Gentamicin Sulfate 100 mg/ (Sodium Chloride) 102.5 mls @ 100 mls/hr IV 2000 ONE Stop: 01/14/18 21:01 Insulin Aspart (Novolog) 0 units SUBQ ACHS [facility] PRN Reason: Protocol Stop: 03/10/18 20:59 Last Admin: 01/14/18 12:05 Dose: 2 units Lactobacillus Rhamnosus (Culturelle 15b) 1 each PO DAILY [facility] Stop: 03/14/18 08:59 Last Admin: 01/14/18 09:06 Dose: 1 each Lorazepam (Ativan) 1 mg IVP Q4HR PRN; Protocol PRN Reason: Agitation Stop: 03/10/18 07:05 Last Admin: 01/14/18 12:15 Dose: 1 mg Mineral Oil (Mineral Oil 30 Ml) 30 ml PO TID [facility] Stop: 01/16/18 20:59 Last Admin: 01/14/18 15:44 Dose: Not Given Miscellaneous (Vancomycin Iv Per Pharmacy) 1 ea PRN PRN PRN Reason: PROTOCOL Stop: 03/10/18 19:35 Miscellaneous (Gentamicin Iv Per Pharmacy) 1 [facility] PRN PRN PRN Reason: PROTOCOL Stop: 03/13/18 12:52 Miscellaneous (Probiotic Screen) 1 [facility] PRN PRN PRN Reason: PROTOCOL Stop: 03/13/18 15:59 Vitamin B Complex/Vitamin C (Vitamin B Complex W/C) 1 tab PO DAILY [facility] Stop: 03/11/18 08:59 Last Admin: 01/14/18 09:10 Dose: 1 tab General: Other (Severe dementia) HEENT: Atraumatic, PERRLA Neck: Supple Cardiovascular: Regular rate Lungs: Clear to auscultation Abdomen: Bowel sounds - Procedures Procedures: Procedures Procedure Code Date FLUOROSCOPY OF SUP VENA CAVA USING L OSM CONTRAST, GUIDANCE [id number] 12/28/17 INJECT/INFUSE NEC 99.29 06/24/13 INSERT TUNNELED CV CATH [id number] 01/09/18 INSERTION OF INFUSION DEV INTO L SUBCLAV VEIN, PERC APPROACH [id number] 01/09/18 INSERTION OF INFUSION DEV INTO SUP VENA CAVA, PERC APPROACH [id number] 12/28/17 PERFORMANCE OF URINARY FILTRATION, <6 HRS/DAY [id number] 12/28/17 REMOVAL OF INFUSION DEVICE FROM UPPER VEIN, CAMPUS SUPERVISOR APPROACH [id number] 01/09/18 REMOVAL OF INFUSION DEVICE FROM UPPER VEIN, PERC APPROACH [id number] 12/28/17 REMOVAL TUNNELED CV CATH [id number] 01/09/18 Assessment/Plan - Problem List Patient Problems: All Active Problems Chronic anemia (Acute) D64.9 Diabetes (Acute) E11.9 ESRD (end stage renal disease) on dialysis (Acute) N18.6, Z99.2 HTN (hypertension) (Acute) I10 Hyperkalemia (Acute) E87.5 Hypothyroid (Acute) E03.9 Nutritional Asmnt/Malnutr-PDOC - Dietary Evaluation Malnutrition Findings (Please click <Entered> for more info): Nutritional Asmnt/Malnutrition Start: 01/11/18 16: 26 Text: Status: Complete Freq: Document 01/11/18 17:04 GRACE (Rec: 01/11/18 17:19 [facility]) Nutritional Asmnt/Malnutrition Patient General Information Nutritional Screening High Risk Consult Diagnosis acute kidney failure, dialysis , agitation, ALOC Pertinent Medical Hx/Surgical Hx ESRD, dialysis, HTN, DM, dementia, hypothyroidism, dementia, perm-A-cath Subjective Information consult received for high BS. Pt seen sleeping at time of visit. Per notes, pt received dialysis on 01/10. RN reported pt ate well, consumed 100% of meals today. Per records, PO intake 25-75% on 01/10. Current Diet Order/ Nutrition Support CCHO 60gm, mechanical soft, potassium 2gm per day, fluid restriction 1000ml Pertinent Medications folate, novolog, vit B complex , vit C Pertinent Labs 01/11 Na 138, K 3.2, Cl 96, BUN 49, Cr 4.9, glucose 166, POC 168-286 Nutritional Hx/Data Height 1.63 m Height (Calculated Centimeters) 162.6 Current Weight (lbs) 65.771 kg Weight (Calculated Kilograms) 65.8 Weight (Calculated Grams) 84942.9 [place] Body Weight 120 % [place] Body Weight 121 Body Mass Index (BMI) 24.9 Weight Status Approriate GI Symptoms GI Symptoms None Last BM 01/10 Difficult in: None Skin Integrity/Comment: scar pressure area to buttocks DRY HEELS, HEALING ULCER BUTTOCKS Estimated Nutritional Goals BEE in Kcals: Using Current wt Calories/Kcals/Kg 25-30 Kcals Calculated 2951-6299 Protein: Using Current wt Protein g/k-1.3 Protein Calculated 66-86 Fluid: ml 1650-1980ml (1ml/kcal) Nutritional Problem 1. Problem Problem altered nutrition related lab values Etiology hx of DM, ESRD Signs/Symptoms: BUN 49, Cr 4.9, glucose 166, POC 168-286 Malnutrition Alert Protein-Calorie Malnutrition N/A Is there a minimum of two criteria No selected? Query Text:Check all the applicable criteria. A minimum of two criteria are recommended for diagnosis of either severe or non-severe malnutrition. Intervention/Recommendation Comments 1. Continue with current diet as ordered. 2. Monitor PO intake, wt, labs and skin integrity 3. F/U as moderate risk in 3-5 days, 01/14-01/16 Expected Outcomes/Goals Expected Outcomes/Goals 1. PO intake to meet at least 75% of nutritional needs. 2. Wt stability, skin to remain intact, labs to approach WNL.
[2018-01-14] MEDS: Epoetin Alfa 20000 Units/mL Vial SUBQ SCH (17:55)
[2018-01-15 05:16] LABS: % BASOPHILS 0.1 % (0.0-2.0); % EOSINOPHILS 2.8 % (0.0-5.0); % LYMPHOCYTES 18.1 % (20.0-50.0); % MONOCYTES 10.4 % (2.0-10.0); % NEUTROPHILS 68.6 % (40.0-80.0); EOSINOPHILE ABSOLUTE 0.2 Th/cmm (0.1-0.4); HEMOGLOBIN 10.1 gm/dL (12-16); LYMPHOCYTE ABSOLUTE 1.2 Th/cmm (1.5-3.0); MEAN CELL VOLUME 93.4 fl (81-100); MEAN CORPUSCULAR HEMOGLOBIN 30.5 pg (27.0-31.0); MEAN CORPUSCULAR HGB CONC 32.6 pg (28.0-36.0); MEAN PLATELET VOLUME 8.3 fl; MONOCYTE ABSOLUTE 0.7 Th/cmm (0.3-1.0); NEUTROPHILE ABSOLUTE 4.7 Th/cmm (1.8-8.0); PLATELET COUNT 182 Th/cmm (150-400); RED BLOOD COUNT 3.32 Mil/cmm (3.80-5.20); RED CELL DISTRIBUTION WIDTH 16.5 % (11.5-20.0); WHITE BLOOD COUNT 6.8 Th/cmm (4.8-10.8)
[2018-01-15 05:29] LABS: ALB/GLOB RATIO 0.7 (1.0-1.8); ALBUMIN 2.5 gm/dL (3.7-5.3); ALKALINE PHOSPHATASE 118 U/L (34-104); ANION GAP 15.2 (7.0-16.0); BILIRUBIN,TOTAL 0.7 mg/dL (0.3-1.0); BUN - UREA NITROGEN 48 mg/dL (7-25); CALCIUM SERUM 8.4 mg/dL (8.6-10.3); CARBON DIOXIDE 25.1 mEq/L (21.0-31.0); CHLORIDE 99 mEq/L (98-107); CREATININE - SERUM 3.9 mg/dL (0.6-1.2); GLUCOSE 122 mg/dL (70-105); POTASSIUM SERUM 3.3 mEq/L (3.5-5.1); SGOT 14 U/L (13-39); SGPT/ALT 9 U/L (7-52); SODIUM SERUM 136 mEq/L (136-145); TOTAL PROTEIN,SERUM 5.9 gm/dL (6.0-8.3)
[2018-01-15] MEDS: INSULIN ASPART, RECOMBINANT 100 UNITS/ML SUBQ SCH ×4 (06:30→20:32)
[2018-01-15] MEDS: Lactobacillus Rhamnosus GG 15 Billion CFU CAP.SPRINK PO SCH (08:43)
[2018-01-15] MEDS: Ascorbic Acid/Vit B Complex Tab PO SCH (08:49)
--- NOTE | 2018-01-15 08:58 | Diagnostic Imaging Report ---
KUB single view HISTORY: Abdominal pain. COMPARISON: CT abdomen and pelvis on 01/13/2018 FINDINGS: There is distal fecal impaction. The remaining bowel gas pattern is nonspecific. Atherosclerosis is noted. Postsurgical changes of right femur are noted. IMPRESSION: Distal fecal impaction. The remaining bowel gas pattern is nonspecific.
[2018-01-15] MEDS: Vitamin B Complex w/Vitamin C Tab PO SCH (10:00)
--- NOTE | 2018-01-15 12:23 | Internal Medicine Prog Note ---
Internal Medicine Subjective - Subjective Service Date: 01/15/18 Patient seen and examined:: with staff Patient is:: awake Per staff patient has:: tolerating meds Internal Medicine Objective - Results Result Diagrams: 01/15/18 04:45 01/15/18 04:45 Recent Labs: Laboratory Last Values WBC 6.8 Th/cmm (4.8-10.8) 01/15/18 04:45 RBC 3.32 Mil/cmm (3.80-5.20) L 01/15/18 04:45 Hgb 10.1 gm/dL (12-16) L 01/15/18 04:45 Hct 31.0 % (41.0-60) L 01/15/18 04:45 MCV 93.4 fl (81-100) 01/15/18 04:45 MCH 30.5 pg (27.0-31.0) 01/15/18 04:45 MCHC Differential 32.6 pg (28.0-36.0) 01/15/18 04:45 RDW 16.5 % (11.5-20.0) 01/15/18 04:45 Plt Count 182 Th/cmm (150-400) 01/15/18 04:45 MPV 8.3 fl 01/15/18 04:45 Neutrophils % 68.6 % (40.0-80.0) 01/15/18 04:45 Band Neutrophils % 5 % (0-10) 01/10/18 15:04 Lymphocytes % 18.1 % (20.0-50.0) L 01/15/18 04:45 Monocytes % 10.4 % (2.0-10.0) H 01/15/18 04:45 Eosinophils % 2.8 % (0.0-5.0) 01/15/18 04:45 Basophils % 0.1 % (0.0-2.0) 01/15/18 04:45 Neutrophils (Manual) 88 % (40-80) H 01/10/18 15:04 Lymphocytes 2 % (20-50) L 01/10/18 15:04 Monocytes 5 % (2-10) 01/10/18 15:04 Eosinophils 0 % (0-5) 01/10/18 15:04 Basophils 0 % (0-3) 01/10/18 15:04 Platelet Estimate ADEQUATE (NORMAL) 01/10/18 15:04 Platelet Morphology NORMAL (NORMAL) 01/10/18 15:04 RBC Morph Micro Appear NORMAL (NORMAL) 01/10/18 15:04 PT 14.4 SECONDS (9.5-11.5) H 01/12/18 11:37 INR 1.36 (0.5-1.4) 01/12/18 11:37 PTT (Actin FS) 32.0 SECONDS (26.0-38.0) 01/12/18 11:37 Sodium 136 mEq/L (136-145) 01/15/18 04:45 Potassium 3.3 mEq/L (3.5-5.1) L 01/15/18 04:45 Chloride 99 mEq/L (98-107) 01/15/18 04:45 Carbon Dioxide 25.1 mEq/L (21.0-31.0) 01/15/18 04:45 Anion Gap 15.2 (7.0-16.0) 01/15/18 04:45 BUN 48 mg/dL (7-25) H 01/15/18 04:45 Creatinine 3.9 mg/dL (0.6-1.2) H 01/15/18 04:45 Est GFR ( Amer) TNP 01/15/18 04:45 Est GFR (Non-Af Amer) TNP 01/15/18 04:45 BUN/Creatinine Ratio 12.3 01/15/18 04:45 Glucose 122 mg/dL (70-105) H 01/15/18 04:45 POC Glucose 126 MG/DL (70 - 105) H 01/15/18 05:37 Hemoglobin A1c % 8.6 % (4.0-6.0) H 01/09/18 07:13 Whole Bld Lactic Acid 1.34 mmol/L (0.60-1.99) 01/09/18 18:54 Calcium 8.4 mg/dL (8.6-10.3) L 01/15/18 04:45 Total Bilirubin 0.7 mg/dL (0.3-1.0) 01/15/18 04:45 AST 14 U/L (13-39) 01/15/18 04:45 ALT 9 U/L (7-52) 01/15/18 04:45 Alkaline Phosphatase 118 U/L (34-104) H 01/15/18 04:45 Total Protein 5.9 gm/dL (6.0-8.3) L 01/15/18 04:45 Albumin 2.5 gm/dL (3.7-5.3) L 01/15/18 04:45 Globulin 3.4 gm/dL 01/15/18 04:45 Albumin/Globulin Ratio 0.7 (1.0-1.8) L 01/15/18 04:45 Gentamicin 2.7 ug/mL (0.5-10.0) 01/14/18 04:45 Random Vancomycin 33.9 ug/mL (5.0-40.0) 01/14/18 04:45 - Physical Exam Vitals and I&O: Vital Signs Temp 97.8 F 01/15/18 12:05 Pulse 98 01/15/18 12:05 Resp 16 01/15/18 12:05 BP 121/72 01/15/18 12:05 Pulse Ox 100 01/15/18 12:05 Intake & Output 01/14/18 01/15/18 01/15/18 18:59 06:59 18:59 Intake Total 250 222.5 Output Total 1 Balance 250 221.5 Weight (lbs) 127 lb 127 lb 127 lb Intake: Intake, IV Amount 102.5 Oral 250 120 Output: Stool 1 Other: # Voids 3 2 # Bowel Movements 1 Active Medications: Current Medications Acetaminophen (Tylenol 650mg Supp) 650 mg RC Q6H PRN PRN Reason: fever/pain Stop: 03/10/18 15:26 Last Admin: 01/09/18 16:01 Dose: 650 mg Epoetin Artemio (Epogen) 5,000 units SUBQ TuThSa [facility] Stop: 03/10/18 18:14 Last Admin: 01/14/18 17:55 Dose: 5,000 units Folic Acid (Folate) 1 mg PO DAILY [facility] Stop: 03/11/18 08:59 Last Admin: 01/15/18 08:43 Dose: 1 mg Heparin Sodium (Porcine) (Heparin) 5,000 units SUBQ Q12HR [facility] Stop: 03/11/18 08:59 Last Admin: 01/15/18 08:43 Dose: 5,000 units Insulin Aspart (Novolog) 0 units SUBQ ACHS [facility] PRN Reason: Protocol Stop: 03/10/18 20:59 Last Admin: 01/15/18 06:30 Dose: Not Given Lactobacillus Rhamnosus (Culturelle 15b) 1 each PO DAILY [facility] Stop: 03/14/18 08:59 Last Admin: 01/15/18 08:43 Dose: 1 each Lorazepam (Ativan) 1 mg IVP Q4HR PRN; Protocol PRN Reason: Agitation Stop: 03/10/18 07:05 Last Admin: 01/14/18 12:15 Dose: 1 mg Mineral Oil (Mineral Oil 30 Ml) 30 ml PO TID [facility] Stop: 01/16/18 20:59 Last Admin: 01/15/18 08:43 Dose: 30 ml Miscellaneous (Gentamicin Iv Per Pharmacy) 1 ea PRN PRN PRN Reason: PROTOCOL Stop: 03/13/18 12:52 Miscellaneous (Probiotic Screen) 1 ea PRN PRN PRN Reason: PROTOCOL Stop: 03/13/18 15:59 Miscellaneous (Vancomycin Iv Per Pharmacy) 1 ea PRN PRN PRN Reason: VANCOMYCIN PER RX Stop: 03/16/18 09:31 Vitamin B Complex/Vit C/Folic Acid (Vitamin B Complex W/Vitamin C) 1 tab PO DAILY [facility] Stop: 03/16/18 08:59 General: weak, alert HEENT: NC/AT, PERRLA Cardiovascular: RRR, Normal S1, Normal S2, without murmur Abdomen: soft, non-tender, non-distended, positive bowel sound Neurological: alert - Procedures Procedures: Procedures Procedure Code Date FLUOROSCOPY OF SUP VENA CAVA USING L OSM CONTRAST, GUIDANCE [id number] 12/28/17 INJECT/INFUSE NEC 99.29 06/24/13 INSERT TUNNELED CV CATH [id number] 01/09/18 INSERTION OF INFUSION DEV INTO L SUBCLAV VEIN, PERC APPROACH [id number] 01/09/18 INSERTION OF INFUSION DEV INTO SUP VENA CAVA, PERC APPROACH [id number] 12/28/17 PERFORMANCE OF URINARY FILTRATION, <6 HRS/DAY [id number] 12/28/17 REMOVAL OF INFUSION DEVICE FROM UPPER VEIN, IT QUALITY ASSURANCE ANALYST APPROACH [id number] 01/09/18 REMOVAL OF INFUSION DEVICE FROM UPPER VEIN, PERC APPROACH [id number] 12/28/17 REMOVAL TUNNELED CV CATH [id number] 01/09/18 Internal Medicine Assmt/Plan - Assessment Assessment: Chronic anemia (Acute) D64.9 Diabetes (Acute) E11.9 ESRD (end stage renal disease) on dialysis (Acute) N18.6, Z99.2 HTN (hypertension) (Acute) I10 Hyperkalemia (Acute) E87.5 Hypothyroid (Acute) E03.9 - Plan Plan: patient will be transferred to LTAC tomorrow monitor h/h follow up labs in am continue current plan of care Nutritional Asmnt/Malnutr-PDOC - Dietary Evaluation Malnutrition Findings (Please click <Entered> for more info): Nutritional Asmnt/Malnutrition Start: 01/11/18 16: 26 Text: Status: Complete Freq: Document 01/11/18 17:04 RODRÍGUEZ (Rec: 01/11/18 17:19 RODRÍGUEZ [email or web address]) Nutritional Asmnt/Malnutrition Patient General Information Nutritional Screening High Risk Consult Diagnosis acute kidney failure, dialysis , agitation, ALOC Pertinent Medical Hx/Surgical Hx ESRD, dialysis, HTN, DM, dementia, hypothyroidism, dementia, perm-A-cath Subjective Information consult received for high BS. Pt seen sleeping at time of visit. Per notes, pt received dialysis on 01/10. RN reported pt ate well, consumed 100% of meals today. Per records, PO intake 25-75% on 01/10. Current Diet Order/ Nutrition Support CCHO 60gm, mechanical soft, potassium 2gm per day, fluid restriction 1000ml Pertinent Medications folate, novolog, vit B complex , vit C Pertinent Labs 01/11 Na 138, K 3.2, Cl 96, BUN 49, Cr 4.9, glucose 166, POC 168-286 Nutritional Hx/Data Height 5 ft 4 in Height (Calculated Centimeters) 162.6 Current Weight (lbs) 145 lb Weight (Calculated Kilograms) 65.8 Weight (Calculated Grams) 52409.9 [place] Body Weight 120 % [place] Body Weight 121 Body Mass Index (BMI) 24.9 Weight Status Approriate GI Symptoms GI Symptoms None Last BM 01/10 Difficult in: None Skin Integrity/Comment: scar pressure area to buttocks DRY HEELS, HEALING ULCER BUTTOCKS Estimated Nutritional Goals BEE in Kcals: Using Current wt Calories/Kcals/Kg 25-30 Kcals Calculated 1881-4403 Protein: Using Current wt Protein g/k-1.3 Protein Calculated 66-86 Fluid: ml 1650-1980ml (1ml/kcal) Nutritional Problem 1. Problem Problem altered nutrition related lab values Etiology hx of DM, ESRD Signs/Symptoms: BUN 49, Cr 4.9, glucose 166, POC 168-286 Malnutrition Alert Protein-Calorie Malnutrition N/A Is there a minimum of two criteria No selected? Query Text:Check all the applicable criteria. A minimum of two criteria are recommended for diagnosis of either severe or non-severe malnutrition. Intervention/Recommendation Comments 1. Continue with current diet as ordered. 2. Monitor PO intake, wt, labs and skin integrity 3. F/U as moderate risk in 3-5 days, 01/14-01/16 Expected Outcomes/Goals Expected Outcomes/Goals 1. PO intake to meet at least 75% of nutritional needs. 2. Wt stability, skin to remain intact, labs to approach WNL.
--- NOTE | 2018-01-15 13:44 | Infectious Disease Prog Note ---
Infectious Disease Subjective - Review of Systems Service Date: 01/15/18 Subjective: Patient has not developed any fever. Infectious Disease Objective - Results Result Diagrams: 01/15/18 04:45 01/15/18 04:45 Recent Labs: Laboratory Last Values WBC 6.8 Th/cmm (4.8-10.8) 01/15/18 04:45 RBC 3.32 Mil/cmm (3.80-5.20) L 01/15/18 04:45 Hgb 10.1 gm/dL (12-16) L 01/15/18 04:45 Hct 31.0 % (41.0-60) L 01/15/18 04:45 MCV 93.4 fl (81-100) 01/15/18 04:45 MCH 30.5 pg (27.0-31.0) 01/15/18 04:45 MCHC Differential 32.6 pg (28.0-36.0) 01/15/18 04:45 RDW 16.5 % (11.5-20.0) 01/15/18 04:45 Plt Count 182 Th/cmm (150-400) 01/15/18 04:45 MPV 8.3 fl 01/15/18 04:45 Neutrophils % 68.6 % (40.0-80.0) 01/15/18 04:45 Band Neutrophils % 5 % (0-10) 01/10/18 15:04 Lymphocytes % 18.1 % (20.0-50.0) L 01/15/18 04:45 Monocytes % 10.4 % (2.0-10.0) H 01/15/18 04:45 Eosinophils % 2.8 % (0.0-5.0) 01/15/18 04:45 Basophils % 0.1 % (0.0-2.0) 01/15/18 04:45 Neutrophils (Manual) 88 % (40-80) H 01/10/18 15:04 Lymphocytes 2 % (20-50) L 01/10/18 15:04 Monocytes 5 % (2-10) 01/10/18 15:04 Eosinophils 0 % (0-5) 01/10/18 15:04 Basophils 0 % (0-3) 01/10/18 15:04 Platelet Estimate ADEQUATE (NORMAL) 01/10/18 15:04 Platelet Morphology NORMAL (NORMAL) 01/10/18 15:04 RBC Morph Micro Appear NORMAL (NORMAL) 01/10/18 15:04 PT 14.4 SECONDS (9.5-11.5) H 01/12/18 11:37 INR 1.36 (0.5-1.4) 01/12/18 11:37 PTT (Actin FS) 32.0 SECONDS (26.0-38.0) 01/12/18 11:37 Sodium 136 mEq/L (136-145) 01/15/18 04:45 Potassium 3.3 mEq/L (3.5-5.1) L 01/15/18 04:45 Chloride 99 mEq/L (98-107) 01/15/18 04:45 Carbon Dioxide 25.1 mEq/L (21.0-31.0) 01/15/18 04:45 Anion Gap 15.2 (7.0-16.0) 01/15/18 04:45 BUN 48 mg/dL (7-25) H 01/15/18 04:45 Creatinine 3.9 mg/dL (0.6-1.2) H 01/15/18 04:45 Est GFR ( Amer) TNP 01/15/18 04:45 Est GFR (Non-Af Amer) TNP 01/15/18 04:45 BUN/Creatinine Ratio 12.3 01/15/18 04:45 Glucose 122 mg/dL (70-105) H 01/15/18 04:45 POC Glucose 260 MG/DL (70 - 105) H 01/15/18 12:30 Hemoglobin A1c % 8.6 % (4.0-6.0) H 01/09/18 07:13 Whole Bld Lactic Acid 1.34 mmol/L (0.60-1.99) 01/09/18 18:54 Calcium 8.4 mg/dL (8.6-10.3) L 01/15/18 04:45 Total Bilirubin 0.7 mg/dL (0.3-1.0) 01/15/18 04:45 AST 14 U/L (13-39) 01/15/18 04:45 ALT 9 U/L (7-52) 01/15/18 04:45 Alkaline Phosphatase 118 U/L (34-104) H 01/15/18 04:45 Total Protein 5.9 gm/dL (6.0-8.3) L 01/15/18 04:45 Albumin 2.5 gm/dL (3.7-5.3) L 01/15/18 04:45 Globulin 3.4 gm/dL 01/15/18 04:45 Albumin/Globulin Ratio 0.7 (1.0-1.8) L 01/15/18 04:45 Gentamicin 2.7 ug/mL (0.5-10.0) 01/14/18 04:45 Random Vancomycin 33.9 ug/mL (5.0-40.0) 01/14/18 04:45 - Physical Exam Vitals and I&O: Vital Signs Temp 97.8 F 01/15/18 12:05 Pulse 98 01/15/18 12:05 Resp 16 01/15/18 12:05 BP 121/72 01/15/18 12:05 Pulse Ox 100 01/15/18 12:05 Intake & Output 01/14/18 01/15/18 01/15/18 18:59 06:59 18:59 Intake Total 250 222.5 Output Total 1 Balance 250 221.5 Weight (lbs) 57.606 kg 57.606 kg 57.606 kg Intake: Intake, IV Amount 102.5 Oral 250 120 Output: Stool 1 Other: # Voids 3 2 # Bowel Movements 1 Active Medications: Current Medications Acetaminophen (Tylenol 650mg Supp) 650 mg RC Q6H PRN PRN Reason: fever/pain Stop: 03/10/18 15:26 Last Admin: 01/09/18 16:01 Dose: 650 mg Epoetin Artemio (Epogen) 5,000 units SUBQ TuThSa [facility] Stop: 03/10/18 18:14 Last Admin: 01/14/18 17:55 Dose: 5,000 units Folic Acid (Folate) 1 mg PO DAILY [facility] Stop: 03/11/18 08:59 Last Admin: 01/15/18 08:43 Dose: 1 mg Heparin Sodium (Porcine) (Heparin) 5,000 units SUBQ Q12HR [facility] Stop: 03/11/18 08:59 Last Admin: 01/15/18 08:43 Dose: 5,000 units Insulin Aspart (Novolog) 0 units SUBQ ACHS [facility] PRN Reason: Protocol Stop: 03/10/18 20:59 Last Admin: 01/15/18 06:30 Dose: Not Given Lactobacillus Rhamnosus (Culturelle 15b) 1 each PO DAILY [facility] Stop: 03/14/18 08:59 Last Admin: 01/15/18 08:43 Dose: 1 each Lorazepam (Ativan) 1 mg IVP Q4HR PRN; Protocol PRN Reason: Agitation Stop: 03/10/18 07:05 Last Admin: 01/14/18 12:15 Dose: 1 mg Mineral Oil (Mineral Oil 30 Ml) 30 ml PO TID [facility] Stop: 01/16/18 20:59 Last Admin: 01/15/18 08:43 Dose: 30 ml Miscellaneous (Gentamicin Iv Per Pharmacy) 1 ea PRN PRN PRN Reason: PROTOCOL Stop: 03/13/18 12:52 Miscellaneous (Probiotic Screen) 1 ea PRN PRN PRN Reason: PROTOCOL Stop: 03/13/18 15:59 Miscellaneous (Vancomycin Iv Per Pharmacy) 1 ea PRN PRN PRN Reason: VANCOMYCIN PER RX Stop: 03/16/18 09:31 Vitamin B Complex/Vit C/Folic Acid (Vitamin B Complex W/Vitamin C) 1 tab PO DAILY [facility] Stop: 03/16/18 08:59 General: no acute distress, well developed, well nourished HEENT: atraumatic, normocephalic, PERRLA Neck: supple, no thyromegaly Cardiovascular: S1S2, regular Lungs: clear to auscultation bilaterally, clear to percussion Abdomen: soft, no tender, no distended Extremities: no cyanosis, no clubbing - Procedures Procedures: Procedures Procedure Code Date FLUOROSCOPY OF SUP VENA CAVA USING L OSM CONTRAST, GUIDANCE [id number] 12/28/17 INJECT/INFUSE NEC 99.29 06/24/13 INSERT TUNNELED CV CATH [id number] 01/09/18 INSERTION OF INFUSION DEV INTO L SUBCLAV VEIN, PERC APPROACH [id number] 01/09/18 INSERTION OF INFUSION DEV INTO SUP VENA CAVA, PERC APPROACH [id number] 12/28/17 PERFORMANCE OF URINARY FILTRATION, <6 HRS/DAY [id number] 12/28/17 REMOVAL OF INFUSION DEVICE FROM UPPER VEIN, EXPANSION ENVELOPE MAKER HAND APPROACH [id number] 01/09/18 REMOVAL OF INFUSION DEVICE FROM UPPER VEIN, PERC APPROACH [id number] 12/28/17 REMOVAL TUNNELED CV CATH [id number] 01/09/18 Infectious Disease Assmt/Plan - Problem List Patient Problems: All Active Problems Chronic anemia (Acute) D64.9 Diabetes (Acute) E11.9 ESRD (end stage renal disease) on dialysis (Acute) N18.6, Z99.2 HTN (hypertension) (Acute) I10 Hyperkalemia (Acute) E87.5 Hypothyroid (Acute) E03.9 - Assessment Assessment: 1. High grade MRSA sepsis. MRSA ( Vanco MICHELLE is 2). Suspect endocarditis. 2. Line sepsis. 3. DM2 4. CKD 5 on HD. 5. HTN. 6. Anemia of chronic disease. - Plan Plan: WIll continue vancomycin IV and gentamicin for synergy. Ltac eval DW micro at [facility]. and staff reported of [facility] Nutritional Asmnt/Malnutr-PDOC - Dietary Evaluation Malnutrition Findings (Please click <Entered> for more info): Nutritional Asmnt/Malnutrition Start: 01/11/18 16: 26 Text: Status: Complete Freq: Document 01/11/18 17:04 GRACE (Rec: 01/11/18 17:19 [email or web address] Nutritional Asmnt/Malnutrition Patient General Information Nutritional Screening High Risk Consult Diagnosis acute kidney failure, dialysis , agitation, ALOC Pertinent Medical Hx/Surgical Hx ESRD, dialysis, HTN, DM, dementia, hypothyroidism, dementia, perm-A-cath Subjective Information consult received for high BS. Pt seen sleeping at time of visit. Per notes, pt received dialysis on 01/10. RN reported pt ate well, consumed 100% of meals today. Per records, PO intake 25-75% on 01/10. Current Diet Order/ Nutrition Support CCHO 60gm, mechanical soft, potassium 2gm per day, fluid restriction 1000ml Pertinent Medications folate, novolog, vit B complex , vit C Pertinent Labs 01/11 Na 138, K 3.2, Cl 96, BUN 49, Cr 4.9, glucose 166, POC 168-286 Nutritional Hx/Data Height 1.63 m Height (Calculated Centimeters) 162.6 Current Weight (lbs) 65.771 kg Weight (Calculated Kilograms) 65.8 Weight (Calculated Grams) 41370.9 [place] Body Weight 120 % [place] Body Weight 121 Body Mass Index (BMI) 24.9 Weight Status Approriate GI Symptoms GI Symptoms None Last BM 01/10 Difficult in: None Skin Integrity/Comment: scar pressure area to buttocks DRY HEELS, HEALING ULCER BUTTOCKS Estimated Nutritional Goals BEE in Kcals: Using Current wt Calories/Kcals/Kg 25-30 Kcals Calculated 2479-0536 Protein: Using Current wt Protein g/k-1.3 Protein Calculated 66-86 Fluid: ml 1650-1980ml (1ml/kcal) Nutritional Problem 1. Problem Problem altered nutrition related lab values Etiology hx of DM, ESRD Signs/Symptoms: BUN 49, Cr 4.9, glucose 166, POC 168-286 Malnutrition Alert Protein-Calorie Malnutrition N/A Is there a minimum of two criteria No selected? Query Text:Check all the applicable criteria. A minimum of two criteria are recommended for diagnosis of either severe or non-severe malnutrition. Intervention/Recommendation Comments 1. Continue with current diet as ordered. 2. Monitor PO intake, wt, labs and skin integrity 3. F/U as moderate risk in 3-5 days, 01/14-01/16 Expected Outcomes/Goals Expected Outcomes/Goals 1. PO intake to meet at least 75% of nutritional needs. 2. Wt stability, skin to remain intact, labs to approach WNL.
--- NOTE | 2018-01-15 14:12 | General Progress Note ---
Subjective - Review of Systems Service Date: 01/15/18 Subjective: pt seen and examined new catheter in place Objective - Results Result Diagrams: 01/15/18 04:45 01/15/18 04:45 Recent Labs: Laboratory Last Values WBC 6.8 Th/cmm (4.8-10.8) 01/15/18 04:45 RBC 3.32 Mil/cmm (3.80-5.20) L 01/15/18 04:45 Hgb 10.1 gm/dL (12-16) L 01/15/18 04:45 Hct 31.0 % (41.0-60) L 01/15/18 04:45 MCV 93.4 fl (81-100) 01/15/18 04:45 MCH 30.5 pg (27.0-31.0) 01/15/18 04:45 MCHC Differential 32.6 pg (28.0-36.0) 01/15/18 04:45 RDW 16.5 % (11.5-20.0) 01/15/18 04:45 Plt Count 182 Th/cmm (150-400) 01/15/18 04:45 MPV 8.3 fl 01/15/18 04:45 Neutrophils % 68.6 % (40.0-80.0) 01/15/18 04:45 Band Neutrophils % 5 % (0-10) 01/10/18 15:04 Lymphocytes % 18.1 % (20.0-50.0) L 01/15/18 04:45 Monocytes % 10.4 % (2.0-10.0) H 01/15/18 04:45 Eosinophils % 2.8 % (0.0-5.0) 01/15/18 04:45 Basophils % 0.1 % (0.0-2.0) 01/15/18 04:45 Neutrophils (Manual) 88 % (40-80) H 01/10/18 15:04 Lymphocytes 2 % (20-50) L 01/10/18 15:04 Monocytes 5 % (2-10) 01/10/18 15:04 Eosinophils 0 % (0-5) 01/10/18 15:04 Basophils 0 % (0-3) 01/10/18 15:04 Platelet Estimate ADEQUATE (NORMAL) 01/10/18 15:04 Platelet Morphology NORMAL (NORMAL) 01/10/18 15:04 RBC Morph Micro Appear NORMAL (NORMAL) 01/10/18 15:04 PT 14.4 SECONDS (9.5-11.5) H 01/12/18 11:37 INR 1.36 (0.5-1.4) 01/12/18 11:37 PTT (Actin FS) 32.0 SECONDS (26.0-38.0) 01/12/18 11:37 Sodium 136 mEq/L (136-145) 01/15/18 04:45 Potassium 3.3 mEq/L (3.5-5.1) L 01/15/18 04:45 Chloride 99 mEq/L (98-107) 01/15/18 04:45 Carbon Dioxide 25.1 mEq/L (21.0-31.0) 01/15/18 04:45 Anion Gap 15.2 (7.0-16.0) 01/15/18 04:45 BUN 48 mg/dL (7-25) H 01/15/18 04:45 Creatinine 3.9 mg/dL (0.6-1.2) H 01/15/18 04:45 Est GFR ( Amer) TNP 01/15/18 04:45 Est GFR (Non-Af Amer) TNP 01/15/18 04:45 BUN/Creatinine Ratio 12.3 01/15/18 04:45 Glucose 122 mg/dL (70-105) H 01/15/18 04:45 POC Glucose 260 MG/DL (70 - 105) H 01/15/18 12:30 Hemoglobin A1c % 8.6 % (4.0-6.0) H 01/09/18 07:13 Whole Bld Lactic Acid 1.34 mmol/L (0.60-1.99) 01/09/18 18:54 Calcium 8.4 mg/dL (8.6-10.3) L 01/15/18 04:45 Total Bilirubin 0.7 mg/dL (0.3-1.0) 01/15/18 04:45 AST 14 U/L (13-39) 01/15/18 04:45 ALT 9 U/L (7-52) 01/15/18 04:45 Alkaline Phosphatase 118 U/L (34-104) H 01/15/18 04:45 Total Protein 5.9 gm/dL (6.0-8.3) L 01/15/18 04:45 Albumin 2.5 gm/dL (3.7-5.3) L 01/15/18 04:45 Globulin 3.4 gm/dL 01/15/18 04:45 Albumin/Globulin Ratio 0.7 (1.0-1.8) L 01/15/18 04:45 Gentamicin 2.7 ug/mL (0.5-10.0) 01/14/18 04:45 Random Vancomycin 33.9 ug/mL (5.0-40.0) 01/14/18 04:45 - Physical Exam Vitals and I&O: Vital Signs Temp 97.8 F 01/15/18 12:05 Pulse 98 01/15/18 12:05 Resp 16 01/15/18 12:05 BP 121/72 01/15/18 12:05 Pulse Ox 100 01/15/18 12:05 Intake & Output 01/14/18 01/15/18 01/15/18 18:59 06:59 18:59 Intake Total 250 222.5 Output Total 1 Balance 250 221.5 Weight (lbs) 57.606 kg 57.606 kg 57.606 kg Intake: Intake, IV Amount 102.5 Oral 250 120 Output: Stool 1 Other: # Voids 3 2 # Bowel Movements 1 Active Medications: Current Medications Acetaminophen (Tylenol 650mg Supp) 650 mg RC Q6H PRN PRN Reason: fever/pain Stop: 03/10/18 15:26 Last Admin: 01/09/18 16:01 Dose: 650 mg Bisacodyl (Dulcolax 10 Mg Supp) 10 mg RC DAILY [facility] Stop: 01/18/18 13:59 Epoetin Artemio (Epogen) 5,000 units SUBQ TuThSa [facility] Stop: 03/10/18 18:14 Last Admin: 01/14/18 17:55 Dose: 5,000 units Folic Acid (Folate) 1 mg PO DAILY [facility] Stop: 03/11/18 08:59 Last Admin: 01/15/18 08:43 Dose: 1 mg Heparin Sodium (Porcine) (Heparin) 5,000 units SUBQ Q12HR [facility] Stop: 03/11/18 08:59 Last Admin: 01/15/18 08:43 Dose: 5,000 units Insulin Aspart (Novolog) 0 units SUBQ ACHS [facility] PRN Reason: Protocol Stop: 03/10/18 20:59 Last Admin: 01/15/18 12:30 Dose: 6 units Lactobacillus Rhamnosus (Culturelle 15b) 1 each PO DAILY [facility] Stop: 03/14/18 08:59 Last Admin: 01/15/18 08:43 Dose: 1 each Lorazepam (Ativan) 1 mg IVP Q4HR PRN; Protocol PRN Reason: Agitation Stop: 03/10/18 07:05 Last Admin: 01/14/18 12:15 Dose: 1 mg Mineral Oil (Mineral Oil 30 Ml) 30 ml PO TID [facility] Stop: 01/16/18 20:59 Last Admin: 01/15/18 13:57 Dose: 30 ml Miscellaneous (Gentamicin Iv Per Pharmacy) 1 ea PRN PRN PRN Reason: PROTOCOL Stop: 03/13/18 12:52 Miscellaneous (Probiotic Screen) 1 [facility] PRN PRN PRN Reason: PROTOCOL Stop: 03/13/18 15:59 Miscellaneous (Vancomycin Iv Per Pharmacy) 1 ea PRN PRN PRN Reason: VANCOMYCIN PER RX Stop: 03/16/18 09:31 Polyethylene Glycol (Miralax) 17 gm PO DAILY [facility] Stop: 03/16/18 08:59 Vitamin B Complex/Vit C/Folic Acid (Vitamin B Complex W/Vitamin C) 1 tab PO DAILY [facility] Stop: 03/16/18 08:59 Last Admin: 01/15/18 10:00 Dose: Not Given General: Other (Severe dementia) HEENT: Atraumatic, PERRLA Neck: Supple Cardiovascular: Regular rate Lungs: Clear to auscultation Abdomen: Bowel sounds - Procedures Procedures: Procedures Procedure Code Date FLUOROSCOPY OF SUP VENA CAVA USING L OSM CONTRAST, GUIDANCE [id number] 12/28/17 INJECT/INFUSE NEC 99.29 06/24/13 INSERT TUNNELED CV CATH [id number] 01/09/18 INSERTION OF INFUSION DEV INTO L SUBCLAV VEIN, PERC APPROACH [id number] 01/09/18 INSERTION OF INFUSION DEV INTO SUP VENA CAVA, PERC APPROACH [id number] 12/28/17 PERFORMANCE OF URINARY FILTRATION, <6 HRS/DAY [id number] 12/28/17 REMOVAL OF INFUSION DEVICE FROM UPPER VEIN, QUALITY CONTROL SPECIALIST APPROACH 52HES5V 01/09/18 REMOVAL OF INFUSION DEVICE FROM UPPER VEIN, PERC APPROACH [id number] 12/28/17 REMOVAL TUNNELED CV CATH [id number] 01/09/18 Assessment/Plan - Problem List Patient Problems: All Active Problems Chronic anemia (Acute) D64.9 Diabetes (Acute) E11.9 ESRD (end stage renal disease) on dialysis (Acute) N18.6, Z99.2 HTN (hypertension) (Acute) I10 Hyperkalemia (Acute) E87.5 Hypothyroid (Acute) E03.9 - Assessment Assessment: catheter failure - Plan Plan: continue hd support staph infection on abx placement of permcath and AVF Nutritional Asmnt/Malnutr-PDOC - Dietary Evaluation Malnutrition Findings (Please click <Entered> for more info): Nutritional Asmnt/Malnutrition Start: 01/11/18 16: 26 Text: Status: Complete Freq: Document 01/11/18 17:04 RODRÍGUEZ (Rec: 01/11/18 17:19 RODRÍGUEZ [email or web address]) Nutritional Asmnt/Malnutrition Patient General Information Nutritional Screening High Risk Consult Diagnosis acute kidney failure, dialysis , agitation, ALOC Pertinent Medical Hx/Surgical Hx ESRD, dialysis, HTN, DM, dementia, hypothyroidism, dementia, perm-A-cath Subjective Information consult received for high BS. Pt seen sleeping at time of visit. Per notes, pt received dialysis on 01/10. RN reported pt ate well, consumed 100% of meals today. Per records, PO intake 25-75% on 01/10. Current Diet Order/ Nutrition Support CCHO 60gm, mechanical soft, potassium 2gm per day, fluid restriction 1000ml Pertinent Medications folate, novolog, vit B complex , vit C Pertinent Labs 01/11 Na 138, K 3.2, Cl 96, BUN 49, Cr 4.9, glucose 166, POC 168-286 Nutritional Hx/Data Height 1.63 m Height (Calculated Centimeters) 162.6 Current Weight (lbs) 65.771 kg Weight (Calculated Kilograms) 65.8 Weight (Calculated Grams) 14784.9 [place] Body Weight 120 % [place] Body Weight 121 Body Mass Index (BMI) 24.9 Weight Status Approriate GI Symptoms GI Symptoms None Last BM 01/10 Difficult in: None Skin Integrity/Comment: scar pressure area to buttocks DRY HEELS, HEALING ULCER BUTTOCKS Estimated Nutritional Goals BEE in Kcals: Using Current wt Calories/Kcals/Kg 25-30 Kcals Calculated 6150-9437 Protein: Using Current wt Protein g/k-1.3 Protein Calculated 66-86 Fluid: ml 1650-1980ml (1ml/kcal) Nutritional Problem 1. Problem Problem altered nutrition related lab values Etiology hx of DM, ESRD Signs/Symptoms: BUN 49, Cr 4.9, glucose 166, POC 168-286 Malnutrition Alert Protein-Calorie Malnutrition N/A Is there a minimum of two criteria No selected? Query Text:Check all the applicable criteria. A minimum of two criteria are recommended for diagnosis of either severe or non-severe malnutrition. Intervention/Recommendation Comments 1. Continue with current diet as ordered. 2. Monitor PO intake, wt, labs and skin integrity 3. F/U as moderate risk in 3-5 days, 01/14-01/16 Expected Outcomes/Goals Expected Outcomes/Goals 1. PO intake to meet at least 75% of nutritional needs. 2. Wt stability, skin to remain intact, labs to approach WNL.
[2018-01-15] MEDS: POLYETHYLENE GLYCOL 3350 17 GM PACK PO SCH (15:08)
--- NOTE | 2018-01-15 15:52 | General Progress Note ---
Subjective - Review of Systems Service Date: 01/15/18 Events since last encounter: prelim blood culture negative will plan for surgery on Thursday if cleared Objective - Results Result Diagrams: 01/15/18 04:45 01/15/18 04:45 Recent Labs: Laboratory Last Values WBC 6.8 Th/cmm (4.8-10.8) 01/15/18 04:45 RBC 3.32 Mil/cmm (3.80-5.20) L 01/15/18 04:45 Hgb 10.1 gm/dL (12-16) L 01/15/18 04:45 Hct 31.0 % (41.0-60) L 01/15/18 04:45 MCV 93.4 fl (81-100) 01/15/18 04:45 MCH 30.5 pg (27.0-31.0) 01/15/18 04:45 MCHC Differential 32.6 pg (28.0-36.0) 01/15/18 04:45 RDW 16.5 % (11.5-20.0) 01/15/18 04:45 Plt Count 182 Th/cmm (150-400) 01/15/18 04:45 MPV 8.3 fl 01/15/18 04:45 Neutrophils % 68.6 % (40.0-80.0) 01/15/18 04:45 Band Neutrophils % 5 % (0-10) 01/10/18 15:04 Lymphocytes % 18.1 % (20.0-50.0) L 01/15/18 04:45 Monocytes % 10.4 % (2.0-10.0) H 01/15/18 04:45 Eosinophils % 2.8 % (0.0-5.0) 01/15/18 04:45 Basophils % 0.1 % (0.0-2.0) 01/15/18 04:45 Neutrophils (Manual) 88 % (40-80) H 01/10/18 15:04 Lymphocytes 2 % (20-50) L 01/10/18 15:04 Monocytes 5 % (2-10) 01/10/18 15:04 Eosinophils 0 % (0-5) 01/10/18 15:04 Basophils 0 % (0-3) 01/10/18 15:04 Platelet Estimate ADEQUATE (NORMAL) 01/10/18 15:04 Platelet Morphology NORMAL (NORMAL) 01/10/18 15:04 RBC Morph Micro Appear NORMAL (NORMAL) 01/10/18 15:04 PT 14.4 SECONDS (9.5-11.5) H 01/12/18 11:37 INR 1.36 (0.5-1.4) 01/12/18 11:37 PTT (Actin FS) 32.0 SECONDS (26.0-38.0) 01/12/18 11:37 Sodium 136 mEq/L (136-145) 01/15/18 04:45 Potassium 3.3 mEq/L (3.5-5.1) L 01/15/18 04:45 Chloride 99 mEq/L (98-107) 01/15/18 04:45 Carbon Dioxide 25.1 mEq/L (21.0-31.0) 01/15/18 04:45 Anion Gap 15.2 (7.0-16.0) 01/15/18 04:45 BUN 48 mg/dL (7-25) H 01/15/18 04:45 Creatinine 3.9 mg/dL (0.6-1.2) H 01/15/18 04:45 Est GFR ( Amer) TNP 01/15/18 04:45 Est GFR (Non-Af Amer) TNP 01/15/18 04:45 BUN/Creatinine Ratio 12.3 01/15/18 04:45 Glucose 122 mg/dL (70-105) H 01/15/18 04:45 POC Glucose 260 MG/DL (70 - 105) H 01/15/18 12:30 Hemoglobin A1c % 8.6 % (4.0-6.0) H 01/09/18 07:13 Whole Bld Lactic Acid 1.34 mmol/L (0.60-1.99) 01/09/18 18:54 Calcium 8.4 mg/dL (8.6-10.3) L 01/15/18 04:45 Total Bilirubin 0.7 mg/dL (0.3-1.0) 01/15/18 04:45 AST 14 U/L (13-39) 01/15/18 04:45 ALT 9 U/L (7-52) 01/15/18 04:45 Alkaline Phosphatase 118 U/L (34-104) H 01/15/18 04:45 Total Protein 5.9 gm/dL (6.0-8.3) L 01/15/18 04:45 Albumin 2.5 gm/dL (3.7-5.3) L 01/15/18 04:45 Globulin 3.4 gm/dL 01/15/18 04:45 Albumin/Globulin Ratio 0.7 (1.0-1.8) L 01/15/18 04:45 Gentamicin 2.7 ug/mL (0.5-10.0) 01/14/18 04:45 Random Vancomycin 33.9 ug/mL (5.0-40.0) 01/14/18 04:45 - Physical Exam Vitals and I&O: Vital Signs Temp 98.2 F 01/15/18 15:37 Pulse 93 01/15/18 15:37 Resp 17 01/15/18 15:37 BP 131/61 01/15/18 15:37 Pulse Ox 99 01/15/18 15:37 Intake & Output 01/14/18 01/15/18 01/15/18 18:59 06:59 18:59 Intake Total 250 222.5 Output Total 1 Balance 250 221.5 Weight (lbs) 57.606 kg 57.606 kg 57.606 kg Intake: Intake, IV Amount 102.5 Oral 250 120 Output: Stool 1 Other: # Voids 3 2 # Bowel Movements 1 Active Medications: Current Medications Acetaminophen (Tylenol 650mg Supp) 650 mg RC Q6H PRN PRN Reason: fever/pain Stop: 03/10/18 15:26 Last Admin: 01/09/18 16:01 Dose: 650 mg Bisacodyl (Dulcolax 10 Mg Supp) 10 mg RC DAILY [facility] Stop: 01/18/18 13:59 Last Admin: 01/15/18 15:08 Dose: 10 mg Epoetin Artemio (Epogen) 5,000 units SUBQ TuThSa [facility] Stop: 03/10/18 18:14 Last Admin: 01/14/18 17:55 Dose: 5,000 units Folic Acid (Folate) 1 mg PO DAILY [facility] Stop: 03/11/18 08:59 Last Admin: 01/15/18 08:43 Dose: 1 mg Heparin Sodium (Porcine) (Heparin) 5,000 units SUBQ Q12HR [facility] Stop: 03/11/18 08:59 Last Admin: 01/15/18 08:43 Dose: 5,000 units Insulin Aspart (Novolog) 0 units SUBQ ACHS [facility] PRN Reason: Protocol Stop: 03/10/18 20:59 Last Admin: 01/15/18 12:30 Dose: 6 units Lactobacillus Rhamnosus (Culturelle 15b) 1 each PO DAILY [facility] Stop: 03/14/18 08:59 Last Admin: 01/15/18 08:43 Dose: 1 each Lorazepam (Ativan) 1 mg IVP Q4HR PRN; Protocol PRN Reason: Agitation Stop: 03/10/18 07:05 Last Admin: 01/14/18 12:15 Dose: 1 mg Mineral Oil (Mineral Oil 30 Ml) 30 ml PO TID [facility] Stop: 01/16/18 20:59 Last Admin: 01/15/18 13:57 Dose: 30 ml Miscellaneous (Gentamicin Iv Per Pharmacy) 1 ea PRN PRN PRN Reason: PROTOCOL Stop: 03/13/18 12:52 Miscellaneous (Probiotic Screen) 1 ea PRN PRN PRN Reason: PROTOCOL Stop: 03/13/18 15:59 Miscellaneous (Vancomycin Iv Per Pharmacy) 1 ea PRN PRN PRN Reason: VANCOMYCIN PER RX Stop: 03/16/18 09:31 Polyethylene Glycol (Miralax) 17 gm PO DAILY [facility] Stop: 03/16/18 08:59 Last Admin: 01/15/18 15:08 Dose: 17 gm Vitamin B Complex/Vit C/Folic Acid (Vitamin B Complex W/Vitamin C) 1 tab PO DAILY [facility] Stop: 03/16/18 08:59 Last Admin: 01/15/18 10:00 Dose: Not Given General: Other (Severe dementia) HEENT: Atraumatic, PERRLA Neck: Supple Cardiovascular: Regular rate Lungs: Clear to auscultation Abdomen: Bowel sounds - Procedures Procedures: Procedures Procedure Code Date FLUOROSCOPY OF SUP VENA CAVA USING L OSM CONTRAST, GUIDANCE [id number] 12/28/17 INJECT/INFUSE NEC 99.29 06/24/13 INSERT TUNNELED CV CATH [id number] 01/09/18 INSERTION OF INFUSION DEV INTO L SUBCLAV VEIN, PERC APPROACH [id number] 01/09/18 INSERTION OF INFUSION DEV INTO SUP VENA CAVA, PERC APPROACH [id number] 12/28/17 PERFORMANCE OF URINARY FILTRATION, <6 HRS/DAY [id number] 12/28/17 REMOVAL OF INFUSION DEVICE FROM UPPER VEIN, MANPOWER DEVELOPMENT SPECIALIST MANAGER APPROACH 76STQ4P 01/09/18 REMOVAL OF INFUSION DEVICE FROM UPPER VEIN, PERC APPROACH [id number] 12/28/17 REMOVAL TUNNELED CV CATH [id number] 01/09/18 Assessment/Plan - Problem List Patient Problems: All Active Problems Chronic anemia (Acute) D64.9 Diabetes (Acute) E11.9 ESRD (end stage renal disease) on dialysis (Acute) N18.6, Z99.2 HTN (hypertension) (Acute) I10 Hyperkalemia (Acute) E87.5 Hypothyroid (Acute) E03.9 Nutritional Asmnt/Malnutr-PDOC - Dietary Evaluation Malnutrition Findings (Please click <Entered> for more info): Nutritional Asmnt/Malnutrition Start: 01/11/18 16: 26 Text: Status: Complete Freq: Document 01/11/18 17:04 RODRÍGUEZ (Rec: 01/11/18 17:19 ZACH [email or web address]) Nutritional Asmnt/Malnutrition Patient General Information Nutritional Screening High Risk Consult Diagnosis acute kidney failure, dialysis , agitation, ALOC Pertinent Medical Hx/Surgical Hx ESRD, dialysis, HTN, DM, dementia, hypothyroidism, dementia, perm-A-cath Subjective Information consult received for high BS. Pt seen sleeping at time of visit. Per notes, pt received dialysis on 01/10. RN reported pt ate well, consumed 100% of meals today. Per records, PO intake 25-75% on 01/10. Current Diet Order/ Nutrition Support CCHO 60gm, mechanical soft, potassium 2gm per day, fluid restriction 1000ml Pertinent Medications folate, novolog, vit B complex , vit C Pertinent Labs 01/11 Na 138, K 3.2, Cl 96, BUN 49, Cr 4.9, glucose 166, POC 168-286 Nutritional Hx/Data Height 1.63 m Height (Calculated Centimeters) 162.6 Current Weight (lbs) 65.771 kg Weight (Calculated Kilograms) 65.8 Weight (Calculated Grams) 17678.9 [place] Body Weight 120 % [place] Body Weight 121 Body Mass Index (BMI) 24.9 Weight Status Approriate GI Symptoms GI Symptoms None Last BM 01/10 Difficult in: None Skin Integrity/Comment: scar pressure area to buttocks DRY HEELS, HEALING ULCER BUTTOCKS Estimated Nutritional Goals BEE in Kcals: Using Current wt Calories/Kcals/Kg 25-30 Kcals Calculated 5110-8492 Protein: Using Current wt Protein g/k-1.3 Protein Calculated 66-86 Fluid: ml 1650-1980ml (1ml/kcal) Nutritional Problem 1. Problem Problem altered nutrition related lab values Etiology hx of DM, ESRD Signs/Symptoms: BUN 49, Cr 4.9, glucose 166, POC 168-286 Malnutrition Alert Protein-Calorie Malnutrition N/A Is there a minimum of two criteria No selected? Query Text:Check all the applicable criteria. A minimum of two criteria are recommended for diagnosis of either severe or non-severe malnutrition. Intervention/Recommendation Comments 1. Continue with current diet as ordered. 2. Monitor PO intake, wt, labs and skin integrity 3. F/U as moderate risk in 3-5 days, 01/14-01/16 Expected Outcomes/Goals Expected Outcomes/Goals 1. PO intake to meet at least 75% of nutritional needs. 2. Wt stability, skin to remain intact, labs to approach WNL.
[2018-01-16 07:01] LABS: ANION GAP 11.6 (7.0-16.0); BUN - UREA NITROGEN 58 mg/dL (7-25); CALCIUM SERUM 8.6 mg/dL (8.6-10.3); CHLORIDE 100 mEq/L (98-107); GLUCOSE 234 mg/dL (70-105); POTASSIUM SERUM 3.6 mEq/L (3.5-5.1); SODIUM SERUM 130 mEq/L (136-145)
[2018-01-16 07:12] LABS: CREATININE - SERUM 4.4 mg/dL (0.6-1.2)
[2018-01-16 07:28] LABS: % BASOPHILS 0.1 % (0.0-2.0); % EOSINOPHILS 2.2 % (0.0-5.0); % LYMPHOCYTES 16.7 % (20.0-50.0); % MONOCYTES 11.2 % (2.0-10.0); % NEUTROPHILS 69.8 % (40.0-80.0); EOSINOPHILE ABSOLUTE 0.1 Th/cmm (0.1-0.4); HEMATOCRIT 30.3 % (41.0-60); HEMOGLOBIN 9.8 gm/dL (12-16); LYMPHOCYTE ABSOLUTE 1.1 Th/cmm (1.5-3.0); MEAN CELL VOLUME 93.3 fl (81-100); MEAN CORPUSCULAR HEMOGLOBIN 30.3 pg (27.0-31.0); MEAN CORPUSCULAR HGB CONC 32.5 pg (28.0-36.0); MEAN PLATELET VOLUME 8.4 fl; MONOCYTE ABSOLUTE 0.8 Th/cmm (0.3-1.0); NEUTROPHILE ABSOLUTE 4.7 Th/cmm (1.8-8.0); PLATELET COUNT 195 Th/cmm (150-400); RED BLOOD COUNT 3.25 Mil/cmm (3.80-5.20); RED CELL DISTRIBUTION WIDTH 16.4 % (11.5-20.0); WHITE BLOOD COUNT 6.7 Th/cmm (4.8-10.8)
--- NOTE | 2018-01-16 08:47 | GI Progress Note ---
Subjective - Review of Systems Service Date: 01/16/18 Subjective: Feels ok, had small Bm yesterday Objective - Results Result Diagrams: 01/16/18 06:27 01/16/18 06:27 Recent Labs: Laboratory Last Values WBC 6.7 Th/cmm (4.8-10.8) 01/16/18 06:27 RBC 3.25 Mil/cmm (3.80-5.20) L 01/16/18 06:27 Hgb 9.8 gm/dL (12-16) L 01/16/18 06:27 Hct 30.3 % (41.0-60) L 01/16/18 06:27 MCV 93.3 fl (81-100) 01/16/18 06:27 MCH 30.3 pg (27.0-31.0) 01/16/18 06:27 MCHC Differential 32.5 pg (28.0-36.0) 01/16/18 06:27 RDW 16.4 % (11.5-20.0) 01/16/18 06:27 Plt Count 195 Th/cmm (150-400) 01/16/18 06:27 MPV 8.4 fl 01/16/18 06:27 Neutrophils % 69.8 % (40.0-80.0) 01/16/18 06:27 Band Neutrophils % 5 % (0-10) 01/10/18 15:04 Lymphocytes % 16.7 % (20.0-50.0) L 01/16/18 06:27 Monocytes % 11.2 % (2.0-10.0) H 01/16/18 06:27 Eosinophils % 2.2 % (0.0-5.0) 01/16/18 06:27 Basophils % 0.1 % (0.0-2.0) 01/16/18 06:27 Neutrophils (Manual) 88 % (40-80) H 01/10/18 15:04 Lymphocytes 2 % (20-50) L 01/10/18 15:04 Monocytes 5 % (2-10) 01/10/18 15:04 Eosinophils 0 % (0-5) 01/10/18 15:04 Basophils 0 % (0-3) 01/10/18 15:04 Platelet Estimate ADEQUATE (NORMAL) 01/10/18 15:04 Platelet Morphology NORMAL (NORMAL) 01/10/18 15:04 RBC Morph Micro Appear NORMAL (NORMAL) 01/10/18 15:04 PT 14.4 SECONDS (9.5-11.5) H 01/12/18 11:37 INR 1.36 (0.5-1.4) 01/12/18 11:37 PTT (Actin FS) 32.0 SECONDS (26.0-38.0) 01/12/18 11:37 Sodium 130 mEq/L (136-145) L 01/16/18 06:27 Potassium 3.6 mEq/L (3.5-5.1) 01/16/18 06:27 Chloride 100 mEq/L (98-107) 01/16/18 06:27 Carbon Dioxide 22.0 mEq/L (21.0-31.0) 01/16/18 06:27 Anion Gap 11.6 (7.0-16.0) 01/16/18 06:27 BUN 58 mg/dL (7-25) H 01/16/18 06:27 Creatinine 4.4 mg/dL (0.6-1.2) H* 01/16/18 06:27 Est GFR ( Amer) TNP 01/16/18 06:27 Est GFR (Non-Af Amer) TNP 01/16/18 06:27 BUN/Creatinine Ratio 13.2 01/16/18 06:27 Glucose 234 mg/dL (70-105) H 01/16/18 06:27 POC Glucose 238 MG/DL (70 - 105) H 01/16/18 06:07 Hemoglobin A1c % 8.6 % (4.0-6.0) H 01/09/18 07:13 Whole Bld Lactic Acid 1.34 mmol/L (0.60-1.99) 01/09/18 18:54 Calcium 8.6 mg/dL (8.6-10.3) 01/16/18 06:27 Total Bilirubin 0.7 mg/dL (0.3-1.0) 01/15/18 04:45 AST 14 U/L (13-39) 01/15/18 04:45 ALT 9 U/L (7-52) 01/15/18 04:45 Alkaline Phosphatase 118 U/L (34-104) H 01/15/18 04:45 Total Protein 5.9 gm/dL (6.0-8.3) L 01/15/18 04:45 Albumin 2.5 gm/dL (3.7-5.3) L 01/15/18 04:45 Globulin 3.4 gm/dL 01/15/18 04:45 Albumin/Globulin Ratio 0.7 (1.0-1.8) L 01/15/18 04:45 Gentamicin 2.7 ug/mL (0.5-10.0) 01/14/18 04:45 Random Vancomycin 23.2 ug/mL (5.0-40.0) 01/16/18 06:27 - Physical Exam Vitals and I&O: Vital Signs Temp 78 F 01/16/18 04:00 Pulse 89 01/16/18 04:00 Resp 20 01/16/18 04:00 BP 123/71 01/16/18 04:00 Pulse Ox 97 01/16/18 04:00 Intake & Output 01/15/18 01/16/18 01/16/18 18:59 06:59 18:59 Intake Total 200 Balance 200 Weight (lbs) 57.606 kg 57.606 kg Intake: Oral 200 Other: # Voids 2 # Bowel Movements 1 Active Medications: Current Medications Acetaminophen (Tylenol 650mg Supp) 650 mg RC Q6H PRN PRN Reason: fever/pain Stop: 03/10/18 15:26 Last Admin: 01/09/18 16:01 Dose: 650 mg Bisacodyl (Dulcolax 10 Mg Supp) 10 mg RC DAILY [facility] Stop: 01/18/18 13:59 Last Admin: 01/15/18 15:08 Dose: 10 mg Epoetin Artemio (Epogen) 5,000 units SUBQ TuThSa [facility] Stop: 03/10/18 18:14 Last Admin: 01/14/18 17:55 Dose: 5,000 units Folic Acid (Folate) 1 mg PO DAILY [facility] Stop: 03/11/18 08:59 Last Admin: 01/15/18 08:43 Dose: 1 mg Heparin Sodium (Porcine) (Heparin) 5,000 units SUBQ Q12HR [facility] Stop: 03/11/18 08:59 Last Admin: 01/15/18 20:32 Dose: 5,000 units Vancomycin HCl 1 gm/ Sodium (Chloride) 250 mls @ 165 mls/hr IV 2100 [facility] Stop: 01/16/18 23:59 Insulin Aspart (Novolog) 0 units SUBQ ACHS [facility] PRN Reason: Protocol Stop: 03/10/18 20:59 Last Admin: 01/15/18 20:32 Dose: 8 units Lactobacillus Rhamnosus (Culturelle 15b) 1 each PO DAILY ALINE Stop: 03/14/18 08:59 Last Admin: 01/15/18 08:43 Dose: 1 each Lorazepam (Ativan) 1 mg IVP Q4HR PRN; Protocol PRN Reason: Agitation Stop: 03/10/18 07:05 Last Admin: 01/14/18 12:15 Dose: 1 mg Mineral Oil (Mineral Oil 30 Ml) 30 ml PO TID ALINE Stop: 01/16/18 20:59 Last Admin: 01/15/18 20:32 Dose: 30 ml Miscellaneous (Gentamicin Iv Per Pharmacy) 1 ea PRN PRN PRN Reason: PROTOCOL Stop: 03/13/18 12:52 Miscellaneous (Probiotic Screen) 1 ea PRN PRN PRN Reason: PROTOCOL Stop: 03/13/18 15:59 Miscellaneous (Vancomycin Iv Per Pharmacy) 1 ea PRN PRN PRN Reason: VANCOMYCIN PER RX Stop: 03/16/18 09:31 Polyethylene Glycol (Miralax) 17 gm PO DAILY ALINE Stop: 03/16/18 08:59 Last Admin: 01/15/18 15:08 Dose: 17 gm Vitamin B Complex/Vit C/Folic Acid (Vitamin B Complex W/Vitamin C) 1 tab PO DAILY ALINE Stop: 03/16/18 08:59 Last Admin: 01/15/18 10:00 Dose: Not Given General: Alert, Other (Severe dementia) HEENT: Atraumatic, PERRLA Neck: Supple Cardiovascular: Regular rate Lungs: Clear to auscultation Abdomen: Bowel sounds, Obese, no Soft, no Tender, no Hepatomegaly, no Rebound, no Mass - Procedures Procedures: Procedures Procedure Code Date FLUOROSCOPY OF SUP VENA CAVA USING L OSM CONTRAST, GUIDANCE [id number] 12/28/17 INJECT/INFUSE NEC 99.29 06/24/13 INSERT TUNNELED CV CATH [id number] 01/09/18 INSERTION OF INFUSION DEV INTO L SUBCLAV VEIN, PERC APPROACH [id number] 01/09/18 INSERTION OF INFUSION DEV INTO SUP VENA CAVA, PERC APPROACH [id number] 12/28/17 PERFORMANCE OF URINARY FILTRATION, <6 HRS/DAY [id number] 12/28/17 REMOVAL OF INFUSION DEVICE FROM UPPER VEIN, FLOOR INSTALLER APPROACH [id number] 01/09/18 REMOVAL OF INFUSION DEVICE FROM UPPER VEIN, PERC APPROACH [id number] 12/28/17 REMOVAL TUNNELED CV CATH [id number] 01/09/18 Assessment/Plan - Problem List Patient Problems: All Active Problems Chronic anemia (Acute) D64.9 Diabetes (Acute) E11.9 ESRD (end stage renal disease) on dialysis (Acute) N18.6, Z99.2 HTN (hypertension) (Acute) I10 Hyperkalemia (Acute) E87.5 Hypothyroid (Acute) E03.9 - Assessment Assessment: # Fecal impaction Improved, will add tap water enemas to help with stool evacuation. ON miralax and mineral oil and dulcolax at this time # Anemia Awaiting records from her primary MD regarding previous GI workup Plan: - add tap water enema to regimen above - review outside records regarding previous anemia workup - trend hgb, transfuse to keep above 7
[2018-01-16] MEDS: POLYETHYLENE GLYCOL 3350 17 GM PACK PO SCH (09:03)
[2018-01-16] MEDS: Lactobacillus Rhamnosus GG 15 Billion CFU CAP.SPRINK PO SCH (09:03)
[2018-01-16] MEDS: Vitamin B Complex w/Vitamin C Tab PO SCH (09:03)
[2018-01-16] MEDS: INSULIN ASPART, RECOMBINANT 100 UNITS/ML SUBQ SCH ×4 (09:12→21:32)
--- NOTE | 2018-01-16 13:20 | General Progress Note ---
Subjective - Review of Systems Service Date: 01/16/18 Events since last encounter: latrell Boyce today, HD not completed will replace in AM Objective - Results Result Diagrams: 01/16/18 06:27 01/16/18 06:27 Recent Labs: Laboratory Last Values WBC 6.7 Th/cmm (4.8-10.8) 01/16/18 06:27 RBC 3.25 Mil/cmm (3.80-5.20) L 01/16/18 06:27 Hgb 9.8 gm/dL (12-16) L 01/16/18 06:27 Hct 30.3 % (41.0-60) L 01/16/18 06:27 MCV 93.3 fl (81-100) 01/16/18 06: MCH 30.3 pg (27.0-31.0) 01/16/18 06: MCHC Differential 32.5 pg (28.0-36.0) 01/16/18 06: RDW 16.4 % (11.5-20.0) 01/16/18:27 Plt Count 195 Th/cmm (150-400) 01/16/18 06:27 MPV 8.4 fl 01/16/18 06:27 Neutrophils % 69.8 % (40.0-80.0) 01/16/18 06:27 Band Neutrophils % 5 % (0-10) 01/10/18 15:04 Lymphocytes % 16.7 % (20.0-50.0) L 01/16/18 06:27 Monocytes % 11.2 % (2.0-10.0) H 01/16/18 06:27 Eosinophils % 2.2 % (0.0-5.0) 01/16/18 06:27 Basophils % 0.1 % (0.0-2.0) 01/16/18 06:27 Neutrophils (Manual) 88 % (40-80) H 01/10/18 15:04 Lymphocytes 2 % (20-50) L 01/10/18 15:04 Monocytes 5 % (2-10) 01/10/18 15:04 Eosinophils 0 % (0-5) 01/10/18 15:04 Basophils 0 % (0-3) 01/10/18 15:04 Platelet Estimate ADEQUATE (NORMAL) 01/10/18 15:04 Platelet Morphology NORMAL (NORMAL) 01/10/18 15:04 RBC Morph Micro Appear NORMAL (NORMAL) 01/10/18 15:04 PT 14.4 SECONDS (9.5-11.5) H 01/12/18 11:37 INR 1.36 (0.5-1.4) 01/12/18 11:37 PTT (Actin FS) 32.0 SECONDS (26.0-38.0) 01/12/18 11:37 Sodium 130 mEq/L (136-145) L 01/16/18 06:27 Potassium 3.6 mEq/L (3.5-5.1) 01/16/18 06:27 Chloride 100 mEq/L (98-107) 01/16/18 06:27 Carbon Dioxide 22.0 mEq/L (21.0-31.0) 01/16/18 06:27 Anion Gap 11.6 (7.0-16.0) 01/16/18 06:27 BUN 58 mg/dL (7-25) H 01/16/18 06:27 Creatinine 4.4 mg/dL (0.6-1.2) H* 01/16/18 06:27 Est GFR ( Amer) TNP 01/16/18 06:27 Est GFR (Non-Af Amer) TNP 01/16/18 06:27 BUN/Creatinine Ratio 13.2 01/16/18 06:27 Glucose 234 mg/dL (70-105) H 01/16/18 06:27 POC Glucose 218 MG/DL (70 - 105) H 01/16/18 12:21 Hemoglobin A1c % 8.6 % (4.0-6.0) H 01/09/18 07:13 Whole Bld Lactic Acid 1.34 mmol/L (0.60-1.99) 01/09/18 18:54 Calcium 8.6 mg/dL (8.6-10.3) 01/16/18 06:27 Total Bilirubin 0.7 mg/dL (0.3-1.0) 01/15/18 04:45 AST 14 U/L (13-39) 01/15/18 04:45 ALT 9 U/L (7-52) 01/15/18 04:45 Alkaline Phosphatase 118 U/L (34-104) H 01/15/18 04:45 Total Protein 5.9 gm/dL (6.0-8.3) L 01/15/18 04:45 Albumin 2.5 gm/dL (3.7-5.3) L 01/15/18 04:45 Globulin 3.4 gm/dL 01/15/18 04:45 Albumin/Globulin Ratio 0.7 (1.0-1.8) L 01/15/18 04:45 Gentamicin 1.1 ug/mL (0.5-10.0) 01/16/18 06:27 Random Vancomycin 23.2 ug/mL (5.0-40.0) 01/16/18 06:27 - Physical Exam Vitals and I&O: Vital Signs Temp 97.2 F 01/16/18 08:00 Pulse 93 01/16/18 08:00 Resp 20 01/16/18 08:00 BP 137/62 01/16/18 08:00 Pulse Ox 96 01/16/18 08:00 Intake & Output 01/15/18 01/16/18 01/16/18 18:59 06:59 18:59 Intake Total 200 Balance 200 Weight (lbs) 57.606 kg 57.606 kg Intake: Oral 200 Other: # Voids 2 # Bowel Movements 1 Stool Characteristics Soft Formed Active Medications: Current Medications Acetaminophen (Tylenol 650mg Supp) 650 mg RC Q6H PRN PRN Reason: fever/pain Stop: 03/10/18 15:26 Last Admin: 01/09/18 16:01 Dose: 650 mg Bisacodyl (Dulcolax 10 Mg Supp) 10 mg RC DAILY [facility] Stop: 01/18/18 13:59 Last Admin: 01/16/18 09:03 Dose: 10 mg Epoetin Artemio (Epogen) 5,000 units SUBQ TuThSa [facility] Stop: 03/10/18 18:14 Last Admin: 01/14/18 17:55 Dose: 5,000 units Folic Acid (Folate) 1 mg PO DAILY [facility] Stop: 03/11/18 08:59 Last Admin: 01/16/18 09:03 Dose: 1 mg Heparin Sodium (Porcine) (Heparin) 5,000 units SUBQ Q12HR [facility] Stop: 03/11/18 08:59 Last Admin: 01/16/18 12:38 Dose: 5,000 units Vancomycin HCl 1 gm/ Dextrose 250 mls @ 165 mls/hr IV 2100 [facility] Stop: 01/16/18 23:59 Gentamicin Sulfate 100 mg/ (Sodium Chloride) 102.5 mls @ 100 mls/hr IV 1500 [facility] Stop: 01/16/18 23:00 Insulin Aspart (Novolog) 0 units SUBQ ACHS [facility] PRN Reason: Protocol Stop: 03/10/18 20:59 Last Admin: 01/16/18 12:37 Dose: 4 units Lactobacillus Rhamnosus (Culturelle 15b) 1 each PO DAILY [facility] Stop: 03/14/18 08:59 Last Admin: 01/16/18 09:03 Dose: 1 each Lorazepam (Ativan) 1 mg IVP Q4HR PRN; Protocol PRN Reason: Agitation Stop: 03/10/18 07:05 Last Admin: 01/14/18 12:15 Dose: 1 mg Mineral Oil (Mineral Oil 30 Ml) 30 ml PO TID [facility] Stop: 01/16/18 20:59 Last Admin: 01/16/18 09:03 Dose: 30 ml Miscellaneous (Gentamicin Iv Per Pharmacy) 1 ea PRN PRN PRN Reason: PROTOCOL Stop: 03/13/18 12:52 Miscellaneous (Probiotic Screen) 1 ea PRN PRN PRN Reason: PROTOCOL Stop: 03/13/18 15:59 Miscellaneous (Vancomycin Iv Per Pharmacy) 1 ea PRN PRN PRN Reason: VANCOMYCIN PER RX Stop: 03/16/18 09:31 Polyethylene Glycol (Miralax) 17 gm PO DAILY [facility] Stop: 03/16/18 08:59 Last Admin: 01/16/18 09:03 Dose: 17 gm Vitamin B Complex/Vit C/Folic Acid (Vitamin B Complex W/Vitamin C) 1 tab PO DAILY [facility] Stop: 03/16/18 08:59 Last Admin: 01/16/18 09:03 Dose: 1 tab General: Alert, Other (Severe dementia) HEENT: Atraumatic, PERRLA Neck: Supple Cardiovascular: Regular rate Lungs: Clear to auscultation Abdomen: Bowel sounds, Obese, no Soft, no Tender, no Hepatomegaly, no Rebound, no Mass - Procedures Procedures: Procedures Procedure Code Date FLUOROSCOPY OF SUP VENA CAVA USING L OSM CONTRAST, GUIDANCE [id number] 12/28/17 INJECT/INFUSE NEC 99.29 06/24/13 INSERT TUNNELED CV CATH [id number] 01/09/18 INSERTION OF INFUSION DEV INTO L SUBCLAV VEIN, PERC APPROACH [id number] 01/09/18 INSERTION OF INFUSION DEV INTO SUP VENA CAVA, PERC APPROACH [id number] 12/28/17 PERFORMANCE OF URINARY FILTRATION, <6 HRS/DAY 2D0P46V 12/28/17 REMOVAL OF INFUSION DEVICE FROM UPPER VEIN, ANIMAL TAXONOMIST APPROACH [id number] 01/09/18 REMOVAL OF INFUSION DEVICE FROM UPPER VEIN, PERC APPROACH [id number] 12/28/17 REMOVAL TUNNELED CV CATH [id number] 01/09/18 Assessment/Plan - Problem List Patient Problems: All Active Problems Chronic anemia (Acute) D64.9 Diabetes (Acute) E11.9 ESRD (end stage renal disease) on dialysis (Acute) N18.6, Z99.2 HTN (hypertension) (Acute) I10 Hyperkalemia (Acute) E87.5 Hypothyroid (Acute) E03.9 Nutritional Asmnt/Malnutr-PDOC - Dietary Evaluation Malnutrition Findings (Please click <Entered> for more info): Nutritional Asmnt/Malnutrition Start: 01/11/18 16: 26 Text: Status: Complete Freq: Document 01/11/18 17:04 LCARAG (Rec: 01/11/18 17:19 LCARAG [email or web address]) Nutritional Asmnt/Malnutrition Patient General Information Nutritional Screening High Risk Consult Diagnosis acute kidney failure, dialysis , agitation, ALOC Pertinent Medical Hx/Surgical Hx ESRD, dialysis, HTN, DM, dementia, hypothyroidism, dementia, perm-A-cath Subjective Information consult received for high BS. Pt seen sleeping at time of visit. Per notes, pt received dialysis on 01/10. RN reported pt ate well, consumed 100% of meals today. Per records, PO intake 25-75% on 01/10. Current Diet Order/ Nutrition Support CCHO 60gm, mechanical soft, potassium 2gm per day, fluid restriction 1000ml Pertinent Medications folate, novolog, vit B complex , vit C Pertinent Labs 01/11 Na 138, K 3.2, Cl 96, BUN 49, Cr 4.9, glucose 166, POC 168-286 Nutritional Hx/Data Height 1.63 m Height (Calculated Centimeters) 162.6 Current Weight (lbs) 65.771 kg Weight (Calculated Kilograms) 65.8 Weight (Calculated Grams) 69145.9 [place] Body Weight 120 % [place] Body Weight 121 Body Mass Index (BMI) 24.9 Weight Status Approriate GI Symptoms GI Symptoms None Last BM 01/10 Difficult in: None Skin Integrity/Comment: scar pressure area to buttocks DRY HEELS, HEALING ULCER BUTTOCKS Estimated Nutritional Goals BEE in Kcals: Using Current wt Calories/Kcals/Kg 25-30 Kcals Calculated 5113-8047 Protein: Using Current wt Protein g/k-1.3 Protein Calculated 66-86 Fluid: ml 1650-1980ml (1ml/kcal) Nutritional Problem 1. Problem Problem altered nutrition related lab values Etiology hx of DM, ESRD Signs/Symptoms: BUN 49, Cr 4.9, glucose 166, POC 168-286 Malnutrition Alert Protein-Calorie Malnutrition N/A Is there a minimum of two criteria No selected? Query Text:Check all the applicable criteria. A minimum of two criteria are recommended for diagnosis of either severe or non-severe malnutrition. Intervention/Recommendation Comments 1. Continue with current diet as ordered. 2. Monitor PO intake, wt, labs and skin integrity 3. F/U as moderate risk in 3-5 days, 01/14-01/16 Expected Outcomes/Goals Expected Outcomes/Goals 1. PO intake to meet at least 75% of nutritional needs. 2. Wt stability, skin to remain intact, labs to approach WNL.
[2018-01-16] MEDS: Epoetin Alfa 20000 Units/mL Vial SUBQ SCH (17:28)
--- NOTE | 2018-01-16 19:44 | Progress Notes ---
DATE: 01/16/2018 SUBJECTIVE: The patient was seen in her room, lying in the bed. The patient is more awake now, but seems to be weak, had new catheter placed for dialysis. Otherwise, the patient appears to be in no acute distress. OBJECTIVE: VITAL SIGNS: Temperature 98, heart rate 89, blood pressure 133/71, respirations 20, and 97% on room air. HEENT: Head is atraumatic and normocephalic. Eyes: Bilateral conjunctivae are clear. Bilateral pupils are equally round and reactive. NECK: Supple. No JVD. CARDIOVASCULAR: S1 and S2 without murmur. PULMONARY: Clear to auscultation. GASTROINTESTINAL: Soft and nontender without guarding. Positive bowel sounds. MUSCULOSKELETAL: No clubbing. No cyanosis noted. ASSESSMENT: 1. End-stage renal disease, hemodialysis dependent. 2. Hypertension. 3. Hypothyroidism. 4. Diabetes. 5. Chronic anemia. 6. Sepsis. PLAN: We will continue IV antibiotics and follow up with ID doctor. We will also follow up with the it audit manager for hemodialysis schedule. The patient will be for LTAC transfer. Treatment plans were discussed with the patient's nurse. Treatment plans were discussed with Dr. Moreira. JOB# [id number]
[2018-01-17 08:04] LABS: % BASOPHILS 3.5 % (0.0-2.0); % EOSINOPHILS 2.3 % (0.0-5.0); % LYMPHOCYTES 18.1 % (20.0-50.0); % MONOCYTES 8.8 % (2.0-10.0); % NEUTROPHILS 67.3 % (40.0-80.0); BASOPHILE ABSOLUTE 0.2 Th/cumm (0-0.2); EOSINOPHILE ABSOLUTE 0.2 Th/cmm (0.1-0.4); HEMATOCRIT 30.4 % (41.0-60); LYMPHOCYTE ABSOLUTE 1.2 Th/cmm (1.5-3.0); MEAN CORPUSCULAR HEMOGLOBIN 30.4 pg (27.0-31.0); MEAN CORPUSCULAR HGB CONC 32.7 pg (28.0-36.0); MEAN PLATELET VOLUME 8.1 fl; MONOCYTE ABSOLUTE 0.6 Th/cmm (0.3-1.0); NEUTROPHILE ABSOLUTE 4.6 Th/cmm (1.8-8.0); PLATELET COUNT 198 Th/cmm (150-400); RED BLOOD COUNT 3.27 Mil/cmm (3.80-5.20); RED CELL DISTRIBUTION WIDTH 16.5 % (11.5-20.0); WHITE BLOOD COUNT 6.8 Th/cmm (4.8-10.8)
[2018-01-17 08:15] LABS: ANION GAP 17.8 (7.0-16.0); BUN - UREA NITROGEN 57 mg/dL (7-25); CALCIUM SERUM 8.6 mg/dL (8.6-10.3); CARBON DIOXIDE 21.9 mEq/L (21.0-31.0); CHLORIDE 94 mEq/L (98-107); GLUCOSE 190 mg/dL (70-105); POTASSIUM SERUM 3.7 mEq/L (3.5-5.1); SODIUM SERUM 130 mEq/L (136-145)
[2018-01-17 08:34] LABS: CREATININE - SERUM 4.7 mg/dL (0.6-1.2)
--- NOTE | 2018-01-17 08:40 | GI Progress Note ---
Subjective - Review of Systems Service Date: 01/17/18 Subjective: Had 2 BMs overnight Objective - Results Result Diagrams: 01/17/18 07:54 01/17/18 07:54 Recent Labs: Laboratory Last Values WBC 6.8 Th/cmm (4.8-10.8) 01/17/18 07:54 RBC 3.27 Mil/cmm (3.80-5.20) L 01/17/18 07:54 Hgb 10.0 gm/dL (12-16) L 01/17/18 07:54 Hct 30.4 % (41.0-60) L 01/17/18 07:54 MCV 93.0 fl (81-100) 01/17/18 07:54 MCH 30.4 pg (27.0-31.0) 01/17/18 07:54 MCHC Differential 32.7 pg (28.0-36.0) 01/17/18 07:54 RDW 16.5 % (11.5-20.0) 01/17/18 07:54 Plt Count 198 Th/cmm (150-400) 01/17/18 07:54 MPV 8.1 fl 01/17/18 07:54 Neutrophils % 67.3 % (40.0-80.0) 01/17/18 07:54 Band Neutrophils % 5 % (0-10) 01/10/18 15:04 Lymphocytes % 18.1 % (20.0-50.0) L 01/17/18 07:54 Monocytes % 8.8 % (2.0-10.0) 01/17/18 07:54 Eosinophils % 2.3 % (0.0-5.0) 01/17/18 07:54 Basophils % 3.5 % (0.0-2.0) H 01/17/18 07:54 Neutrophils (Manual) 88 % (40-80) H 01/10/18 15:04 Lymphocytes 2 % (20-50) L 01/10/18 15:04 Monocytes 5 % (2-10) 01/10/18 15:04 Eosinophils 0 % (0-5) 01/10/18 15:04 Basophils 0 % (0-3) 01/10/18 15:04 Platelet Estimate ADEQUATE (NORMAL) 01/10/18 15:04 Platelet Morphology NORMAL (NORMAL) 01/10/18 15:04 RBC Morph Micro Appear NORMAL (NORMAL) 01/10/18 15:04 PT 14.4 SECONDS (9.5-11.5) H 01/12/18 11:37 INR 1.36 (0.5-1.4) 01/12/18 11:37 PTT (Actin FS) 32.0 SECONDS (26.0-38.0) 01/12/18 11:37 Sodium 130 mEq/L (136-145) L 01/17/18 07:54 Potassium 3.7 mEq/L (3.5-5.1) 01/17/18 07:54 Chloride 94 mEq/L (98-107) L 01/17/18 07:54 Carbon Dioxide 21.9 mEq/L (21.0-31.0) 01/17/18 07:54 Anion Gap 17.8 (7.0-16.0) H 01/17/18 07:54 BUN 57 mg/dL (7-25) H 01/17/18 07:54 Creatinine 4.7 mg/dL (0.6-1.2) H* 01/17/18 07:54 Est GFR ( Amer) TNP 01/17/18 07:54 Est GFR (Non-Af Amer) TNP 01/17/18 07:54 BUN/Creatinine Ratio 12.1 01/17/18 07:54 Glucose 190 mg/dL (70-105) H 01/17/18 07:54 POC Glucose 191 MG/DL (70 - 105) H 01/17/18 06:51 Hemoglobin A1c % 8.6 % (4.0-6.0) H 01/09/18 07:13 Whole Bld Lactic Acid 1.34 mmol/L (0.60-1.99) 01/09/18 18:54 Calcium 8.6 mg/dL (8.6-10.3) 01/17/18 07:54 Total Bilirubin 0.7 mg/dL (0.3-1.0) 01/15/18 04:45 AST 14 U/L (13-39) 01/15/18 04:45 ALT 9 U/L (7-52) 01/15/18 04:45 Alkaline Phosphatase 118 U/L (34-104) H 01/15/18 04:45 Total Protein 5.9 gm/dL (6.0-8.3) L 01/15/18 04:45 Albumin 2.5 gm/dL (3.7-5.3) L 01/15/18 04:45 Globulin 3.4 gm/dL 01/15/18 04:45 Albumin/Globulin Ratio 0.7 (1.0-1.8) L 01/15/18 04:45 Gentamicin 1.1 ug/mL (0.5-10.0) 01/16/18 06:27 Random Vancomycin 23.2 ug/mL (5.0-40.0) 01/16/18 06:27 - Physical Exam Vitals and I&O: Vital Signs Temp 98.4 F 01/17/18 04:00 Pulse 105 01/17/18 04:00 Resp 22 01/17/18 04:00 BP 116/62 01/17/18 04:00 Pulse Ox 98 01/17/18 04:00 Intake & Output 01/16/18 01/17/18 01/17/18 18:59 06:59 18:59 Intake Total 502.5 490 Output Total 2 Balance 502.5 488 Weight (lbs) 57.833 kg 62.641 kg Intake: Intake, IV Amount 102.5 250 Gentamicin 100 mg In 102.5 Sodium Chloride 0.9% 100 ml @ 100 mls/hr IV 1500 [facility] Rx#:[id number] Oral 400 240 Output: Stool 2 Other: # Voids 4 4 # Bowel Movements 2 Stool Characteristics Soft Formed Active Medications: Current Medications Acetaminophen (Tylenol 650mg Supp) 650 mg RC Q6H PRN PRN Reason: fever/pain Stop: 03/10/18 15:26 Last Admin: 01/09/18 16:01 Dose: 650 mg Bisacodyl (Dulcolax 10 Mg Supp) 10 mg RC DAILY [facility] Stop: 01/18/18 13:59 Last Admin: 01/16/18 09:03 Dose: 10 mg Folic Acid (Folate) 1 mg PO DAILY [facility] Stop: 03/11/18 08:59 Last Admin: 01/16/18 09:03 Dose: 1 mg Heparin Sodium (Porcine) (Heparin) 5,000 units SUBQ Q12HR [facility] Stop: 03/11/18 08:59 Last Admin: 01/16/18 21:30 Dose: 5,000 units Insulin Aspart (Novolog) 0 units SUBQ ACHS [facility] PRN Reason: Protocol Stop: 03/10/18 20:59 Last Admin: 01/16/18 21:32 Dose: 2 units Lactobacillus Rhamnosus (Culturelle 15b) 1 each PO DAILY [facility] Stop: 03/14/18 08:59 Last Admin: 01/16/18 09:03 Dose: 1 each Miscellaneous (Gentamicin Iv Per Pharmacy) 1 ea PRN PRN PRN Reason: PROTOCOL Stop: 03/13/18 12:52 Miscellaneous (Probiotic Screen) 1 ea PRN PRN PRN Reason: PROTOCOL Stop: 03/13/18 15:59 Miscellaneous (Vancomycin Iv Per Pharmacy) 1 ea PRN PRN PRN Reason: VANCOMYCIN PER RX Stop: 03/16/18 09:31 Polyethylene Glycol (Miralax) 17 gm PO DAILY [facility] Stop: 03/16/18 08:59 Last Admin: 01/16/18 09:03 Dose: 17 gm Vitamin B Complex/Vit C/Folic Acid (Vitamin B Complex W/Vitamin C) 1 tab PO DAILY [facility] Stop: 03/16/18 08:59 Last Admin: 01/16/18 09:03 Dose: 1 tab General: Alert, Other (Severe dementia) HEENT: Atraumatic, PERRLA Neck: Supple Cardiovascular: Regular rate Lungs: Clear to auscultation Abdomen: Bowel sounds, Obese, no Soft, no Tender, no Hepatomegaly, no Rebound, no Mass - Procedures Procedures: Procedures Procedure Code Date FLUOROSCOPY OF SUP VENA CAVA USING L OSM CONTRAST, GUIDANCE [id number] 12/28/17 INJECT/INFUSE NEC 99.29 06/24/13 INSERT TUNNELED CV CATH [id number] 01/09/18 INSERTION OF INFUSION DEV INTO L SUBCLAV VEIN, PERC APPROACH [id number] 01/09/18 INSERTION OF INFUSION DEV INTO SUP VENA CAVA, PERC APPROACH 99II53X 12/28/17 PERFORMANCE OF URINARY FILTRATION, <6 HRS/DAY 5D0B44V 12/28/17 REMOVAL OF INFUSION DEVICE FROM UPPER VEIN, PILE DRIVING TECHNICIAN APPROACH 41MGW7V 01/09/18 REMOVAL OF INFUSION DEVICE FROM UPPER VEIN, PERC APPROACH [id number] 12/28/17 REMOVAL TUNNELED CV CATH [id number] 01/09/18 Assessment/Plan - Problem List Patient Problems: All Active Problems Chronic anemia (Acute) D64.9 Diabetes (Acute) E11.9 ESRD (end stage renal disease) on dialysis (Acute) N18.6, Z99.2 HTN (hypertension) (Acute) I10 Hyperkalemia (Acute) E87.5 Hypothyroid (Acute) E03.9 - Assessment Assessment: # Fecal impaction Improved, will add tap water enemas to help with stool evacuation. ON miralax and mineral oil and dulcolax at this time # Anemia Awaiting records from her primary MD regarding previous GI workup, did not see in the chart Plan: - add tap water enema to regimen above - review outside records regarding previous anemia workup - trend hgb, transfuse to keep above 7
[2018-01-17] MEDS: Vitamin B Complex w/Vitamin C Tab PO SCH (08:54)
[2018-01-17] MEDS: POLYETHYLENE GLYCOL 3350 17 GM PACK PO SCH (08:54)
[2018-01-17] MEDS: Lactobacillus Rhamnosus GG 15 Billion CFU CAP.SPRINK PO SCH (08:54)
[2018-01-17] MEDS: INSULIN ASPART, RECOMBINANT 100 UNITS/ML SUBQ SCH ×4 (08:54→21:45)
--- NOTE | 2018-01-17 10:12 | General Progress Note ---
Subjective - Review of Systems Service Date: 01/17/18 Events since last encounter: [place] replaced Plan: right arm fistula vs shunt in AM, change to permcath Objective - Results Result Diagrams: 01/17/18 07:54 01/17/18 07:54 Recent Labs: Laboratory Last Values WBC 6.8 Th/cmm (4.8-10.8) 01/17/18 07:54 RBC 3.27 Mil/cmm (3.80-5.20) L 01/17/18 07:54 Hgb 10.0 gm/dL (12-16) L 01/17/18 07:54 Hct 30.4 % (41.0-60) L 01/17/18 07:54 MCV 93.0 fl (81-100) 01/17/18 07:54 MCH 30.4 pg (27.0-31.0) 01/17/18 07:54 MCHC Differential 32.7 pg (28.0-36.0) 01/17/18 07:54 RDW 16.5 % (11.5-20.0) 01/17/18 07:54 Plt Count 198 Th/cmm (150-400) 01/17/18 07:54 MPV 8.1 fl 01/17/18 07:54 Neutrophils % 67.3 % (40.0-80.0) 01/17/18 07:54 Band Neutrophils % 5 % (0-10) 01/10/18 15:04 Lymphocytes % 18.1 % (20.0-50.0) L 01/17/18 07:54 Monocytes % 8.8 % (2.0-10.0) 01/17/18 07:54 Eosinophils % 2.3 % (0.0-5.0) 01/17/18 07:54 Basophils % 3.5 % (0.0-2.0) H 01/17/18 07:54 Neutrophils (Manual) 88 % (40-80) H 01/10/18 15:04 Lymphocytes 2 % (20-50) L 01/10/18 15:04 Monocytes 5 % (2-10) 01/10/18 15:04 Eosinophils 0 % (0-5) 01/10/18 15:04 Basophils 0 % (0-3) 01/10/18 15:04 Platelet Estimate ADEQUATE (NORMAL) 01/10/18 15:04 Platelet Morphology NORMAL (NORMAL) 01/10/18 15:04 RBC Morph Micro Appear NORMAL (NORMAL) 01/10/18 15:04 PT 14.4 SECONDS (9.5-11.5) H 01/12/18 11:37 INR 1.36 (0.5-1.4) 01/12/18 11:37 PTT (Actin FS) 32.0 SECONDS (26.0-38.0) 01/12/18 11:37 Sodium 130 mEq/L (136-145) L 01/17/18 07:54 Potassium 3.7 mEq/L (3.5-5.1) 01/17/18 07:54 Chloride 94 mEq/L (98-107) L 01/17/18 07:54 Carbon Dioxide 21.9 mEq/L (21.0-31.0) 01/17/18 07:54 Anion Gap 17.8 (7.0-16.0) H 01/17/18 07:54 BUN 57 mg/dL (7-25) H 01/17/18 07:54 Creatinine 4.7 mg/dL (0.6-1.2) H* 01/17/18 07:54 Est GFR ( Amer) TNP 01/17/18 07:54 Est GFR (Non-Af Amer) TNP 01/17/18 07:54 BUN/Creatinine Ratio 12.1 01/17/18 07:54 Glucose 190 mg/dL (70-105) H 01/17/18 07:54 POC Glucose 191 MG/DL (70 - 105) H 01/17/18 06:51 Hemoglobin A1c % 8.6 % (4.0-6.0) H 01/09/18 07:13 Whole Bld Lactic Acid 1.34 mmol/L (0.60-1.99) 01/09/18 18:54 Calcium 8.6 mg/dL (8.6-10.3) 01/17/18 07:54 Total Bilirubin 0.7 mg/dL (0.3-1.0) 01/15/18 04:45 AST 14 U/L (13-39) 01/15/18 04:45 ALT 9 U/L (7-52) 01/15/18 04:45 Alkaline Phosphatase 118 U/L (34-104) H 01/15/18 04:45 Total Protein 5.9 gm/dL (6.0-8.3) L 01/15/18 04:45 Albumin 2.5 gm/dL (3.7-5.3) L 01/15/18 04:45 Globulin 3.4 gm/dL 01/15/18 04:45 Albumin/Globulin Ratio 0.7 (1.0-1.8) L 01/15/18 04:45 Gentamicin 1.1 ug/mL (0.5-10.0) 01/16/18 06:27 Random Vancomycin 23.2 ug/mL (5.0-40.0) 01/16/18 06:27 - Physical Exam Vitals and I&O: Vital Signs Temp 98.4 F 01/17/18 04:00 Pulse 105 01/17/18 04:00 Resp 22 01/17/18 04:00 BP 116/62 01/17/18 04:00 Pulse Ox 98 01/17/18 04:00 Intake & Output 01/16/18 01/17/18 01/17/18 18:59 06:59 18:59 Intake Total 502.5 490 Output Total 2 Balance 502.5 488 Weight (lbs) 57.833 kg 62.641 kg Intake: Intake, IV Amount 102.5 250 Gentamicin 100 mg In 102.5 Sodium Chloride 0.9% 100 ml @ 100 mls/hr IV 1500 [facility] Rx#:[id number] Oral 400 240 Output: Stool 2 Other: # Voids 4 4 # Bowel Movements 2 Stool Characteristics Soft Formed Active Medications: Current Medications Acetaminophen (Tylenol 650mg Supp) 650 mg RC Q6H PRN PRN Reason: fever/pain Stop: 03/10/18 15:26 Last Admin: 01/09/18 16:01 Dose: 650 mg Bisacodyl (Dulcolax 10 Mg Supp) 10 mg RC DAILY [facility] Stop: 01/18/18 13:59 Last Admin: 01/17/18 08:54 Dose: 10 mg Folic Acid (Folate) 1 mg PO DAILY [facility] Stop: 03/11/18 08:59 Last Admin: 01/17/18 08:54 Dose: 1 mg Heparin Sodium (Porcine) (Heparin) 5,000 units SUBQ Q12HR [facility] Stop: 03/11/18 08:59 Last Admin: 01/17/18 09:09 Dose: 5,000 units Insulin Aspart (Novolog) 0 units SUBQ ACHS [facility] PRN Reason: Protocol Stop: 03/10/18 20:59 Last Admin: 01/17/18 08:54 Dose: 2 units Lactobacillus Rhamnosus (Culturelle 15b) 1 each PO DAILY [facility] Stop: 03/14/18 08:59 Last Admin: 01/17/18 08:54 Dose: 1 each Miscellaneous (Gentamicin Iv Per Pharmacy) 1 ea PRN PRN PRN Reason: PROTOCOL Stop: 03/13/18 12:52 Miscellaneous (Probiotic Screen) 1 ea PRN PRN PRN Reason: PROTOCOL Stop: 03/13/18 15:59 Miscellaneous (Vancomycin Iv Per Pharmacy) 1 ea PRN PRN PRN Reason: VANCOMYCIN PER RX Stop: 03/16/18 09:31 Polyethylene Glycol (Miralax) 17 gm PO DAILY [facility] Stop: 03/16/18 08:59 Last Admin: 01/17/18 08:54 Dose: 17 gm Vitamin B Complex/Vit C/Folic Acid (Vitamin B Complex W/Vitamin C) 1 tab PO DAILY [facility] Stop: 03/16/18 08:59 Last Admin: 01/17/18 08:54 Dose: 1 tab General: Alert, Other (Severe dementia) HEENT: Atraumatic, PERRLA Neck: Supple Cardiovascular: Regular rate Lungs: Clear to auscultation Abdomen: Bowel sounds, Obese, no Soft, no Tender, no Hepatomegaly, no Rebound, no Mass - Procedures Procedures: Procedures Procedure Code Date FLUOROSCOPY OF SUP VENA CAVA USING L OSM CONTRAST, GUIDANCE [id number] 12/28/17 INJECT/INFUSE NEC 99.29 06/24/13 INSERT TUNNELED CV CATH [id number] 01/09/18 INSERTION OF INFUSION DEV INTO L SUBCLAV VEIN, PERC APPROACH [id number] 01/09/18 INSERTION OF INFUSION DEV INTO SUP VENA CAVA, PERC APPROACH [id number] 12/28/17 PERFORMANCE OF URINARY FILTRATION, <6 HRS/DAY [id number] 12/28/17 REMOVAL OF INFUSION DEVICE FROM UPPER VEIN, SET BUILDER APPROACH [id number] 01/09/18 REMOVAL OF INFUSION DEVICE FROM UPPER VEIN, PERC APPROACH [id number] 12/28/17 REMOVAL TUNNELED CV CATH [id number] 01/09/18 Assessment/Plan - Problem List Patient Problems: All Active Problems Chronic anemia (Acute) D64.9 Diabetes (Acute) E11.9 ESRD (end stage renal disease) on dialysis (Acute) N18.6, Z99.2 HTN (hypertension) (Acute) I10 Hyperkalemia (Acute) E87.5 Hypothyroid (Acute) E03.9 Nutritional Asmnt/Malnutr-PDOC - Dietary Evaluation Malnutrition Findings (Please click <Entered> for more info): Nutritional Asmnt/Malnutrition Start: 01/11/18 16: 26 Text: Status: Complete Freq: Document 01/11/18 17:04 ARA (Rec: 01/11/18 17:19 ARA [email or web address]) Nutritional Asmnt/Malnutrition Patient General Information Nutritional Screening High Risk Consult Diagnosis acute kidney failure, dialysis , agitation, ALOC Pertinent Medical Hx/Surgical Hx ESRD, dialysis, HTN, DM, dementia, hypothyroidism, dementia, perm-A-cath Subjective Information consult received for high BS. Pt seen sleeping at time of visit. Per notes, pt received dialysis on 01/10. RN reported pt ate well, consumed 100% of meals today. Per records, PO intake 25-75% on 01/10. Current Diet Order/ Nutrition Support CCHO 60gm, mechanical soft, potassium 2gm per day, fluid restriction 1000ml Pertinent Medications folate, novolog, vit B complex , vit C Pertinent Labs 01/11 Na 138, K 3.2, Cl 96, BUN 49, Cr 4.9, glucose 166, POC 168-286 Nutritional Hx/Data Height 1.63 m Height (Calculated Centimeters) 162.6 Current Weight (lbs) 65.771 kg Weight (Calculated Kilograms) 65.8 Weight (Calculated Grams) 42896.9 Morrow Body Weight 120 % Morrow Body Weight 121 Body Mass Index (BMI) 24.9 Weight Status Approriate GI Symptoms GI Symptoms None Last BM 01/10 Difficult in: None Skin Integrity/Comment: scar pressure area to buttocks DRY HEELS, HEALING ULCER BUTTOCKS Estimated Nutritional Goals BEE in Kcals: Using Current wt Calories/Kcals/Kg 25-30 Kcals Calculated 1977-7427 Protein: Using Current wt Protein g/k-1.3 Protein Calculated 66-86 Fluid: ml 1650-1980ml (1ml/kcal) Nutritional Problem 1. Problem Problem altered nutrition related lab values Etiology hx of DM, ESRD Signs/Symptoms: BUN 49, Cr 4.9, glucose 166, POC 168-286 Malnutrition Alert Protein-Calorie Malnutrition N/A Is there a minimum of two criteria No selected? Query Text:Check all the applicable criteria. A minimum of two criteria are recommended for diagnosis of either severe or non-severe malnutrition. Intervention/Recommendation Comments 1. Continue with current diet as ordered. 2. Monitor PO intake, wt, labs and skin integrity 3. F/U as moderate risk in 3-5 days, 01/14-01/16 Expected Outcomes/Goals Expected Outcomes/Goals 1. PO intake to meet at least 75% of nutritional needs. 2. Wt stability, skin to remain intact, labs to approach WNL.
--- NOTE | 2018-01-17 10:31 | Diagnostic Imaging Report ---
Exam: Chest x-ray portable HISTORY: Austen catheter placement. Findings: Portable summation of the chest at the 09 16 reviewed the study compared to prior exam of the the chest at 01/10/2018. The study demonstrates right-sided pneumonia and effusion. Congestion is noted. The heart is enlarged. Left subclavian catheter terminates. Vena cava. Bony thorax intact. IMPRESSION cardiomegaly congestion right-sided pneumonia and effusion. Follow-up dictation recommended. Left study subclavian catheter terminates in superior vena cava
[2018-01-17 10:34] LABS: ALB/GLOB RATIO 0.8 (1.0-1.8); ALBUMIN 2.7 gm/dL (3.7-5.3); ALKALINE PHOSPHATASE 102 U/L (34-104); ANION GAP 19.2 (7.0-16.0); BILIRUBIN,TOTAL 0.7 mg/dL (0.3-1.0); BUN - UREA NITROGEN 58 mg/dL (7-25); CALCIUM SERUM 8.6 mg/dL (8.6-10.3); CARBON DIOXIDE 20.5 mEq/L (21.0-31.0); CHLORIDE 95 mEq/L (98-107); GLUCOSE 191 mg/dL (70-105); POTASSIUM SERUM 3.7 mEq/L (3.5-5.1); SGOT 11 U/L (13-39); SGPT/ALT 7 U/L (7-52); SODIUM SERUM 131 mEq/L (136-145); TOTAL PROTEIN,SERUM 6.1 gm/dL (6.0-8.3)
[2018-01-17 10:49] LABS: CREATININE - SERUM 4.7 mg/dL (0.6-1.2)
[2018-01-17] MEDS ORDERED: Heparin Sod 1,000 Units/mL 10ml HD ONE ×2 (11:45→11:46)
--- NOTE | 2018-01-17 13:38 | Internal Medicine Prog Note ---
Internal Medicine Subjective - Subjective Service Date: 01/17/18 Patient seen and examined:: with staff Patient is:: awake Per staff patient has:: tolerating meds Internal Medicine Objective - Results Result Diagrams: 01/17/18 07:54 01/17/18 10:18 Recent Labs: Laboratory Last Values WBC 6.8 Th/cmm (4.8-10.8) 01/17/18 07:54 RBC 3.27 Mil/cmm (3.80-5.20) L 01/17/18 07:54 Hgb 10.0 gm/dL (12-16) L 01/17/18 07:54 Hct 30.4 % (41.0-60) L 01/17/18 07:54 MCV 93.0 fl (81-100) 01/17/18 07:54 MCH 30.4 pg (27.0-31.0) 01/17/18 07:54 MCHC Differential 32.7 pg (28.0-36.0) 01/17/18 07:54 RDW 16.5 % (11.5-20.0) 01/17/18 07:54 Plt Count 198 Th/cmm (150-400) 01/17/18 07:54 MPV 8.1 fl 01/17/18 07:54 Neutrophils % 67.3 % (40.0-80.0) 01/17/18 07:54 Band Neutrophils % 5 % (0-10) 01/10/18 15:04 Lymphocytes % 18.1 % (20.0-50.0) L 01/17/18 07:54 Monocytes % 8.8 % (2.0-10.0) 01/17/18 07:54 Eosinophils % 2.3 % (0.0-5.0) 01/17/18 07:54 Basophils % 3.5 % (0.0-2.0) H 01/17/18 07:54 Neutrophils (Manual) 88 % (40-80) H 01/10/18 15:04 Lymphocytes 2 % (20-50) L 01/10/18 15:04 Monocytes 5 % (2-10) 01/10/18 15:04 Eosinophils 0 % (0-5) 01/10/18 15:04 Basophils 0 % (0-3) 01/10/18 15:04 Platelet Estimate ADEQUATE (NORMAL) 01/10/18 15:04 Platelet Morphology NORMAL (NORMAL) 01/10/18 15:04 RBC Morph Micro Appear NORMAL (NORMAL) 01/10/18 15:04 PT 14.4 SECONDS (9.5-11.5) H 01/12/18 11:37 INR 1.36 (0.5-1.4) 01/12/18 11:37 PTT (Actin FS) 32.0 SECONDS (26.0-38.0) 01/12/18 11:37 Sodium 131 mEq/L (136-145) L 01/17/18 10:18 Potassium 3.7 mEq/L (3.5-5.1) 01/17/18 10:18 Chloride 95 mEq/L (98-107) L 01/17/18 10:18 Carbon Dioxide 20.5 mEq/L (21.0-31.0) L 01/17/18 10:18 Anion Gap 19.2 (7.0-16.0) H 01/17/18 10:18 BUN 58 mg/dL (7-25) H 01/17/18 10:18 Creatinine 4.7 mg/dL (0.6-1.2) H* 01/17/18 10:18 Est GFR ( Amer) TNP 01/17/18 10:18 Est GFR (Non-Af Amer) TNP 01/17/18 10:18 BUN/Creatinine Ratio 12.3 01/17/18 10:18 Glucose 191 mg/dL (70-105) H 01/17/18 10:18 POC Glucose 238 MG/DL (70 - 105) H 01/17/18 11:34 Hemoglobin A1c % 8.6 % (4.0-6.0) H 01/09/18 07:13 Whole Bld Lactic Acid 1.34 mmol/L (0.60-1.99) 01/09/18 18:54 Calcium 8.6 mg/dL (8.6-10.3) 01/17/18 10:18 Total Bilirubin 0.7 mg/dL (0.3-1.0) 01/17/18 10:18 AST 11 U/L (13-39) L 01/17/18 10:18 ALT 7 U/L (7-52) 01/17/18 10:18 Alkaline Phosphatase 102 U/L (34-104) 01/17/18 10:18 Total Protein 6.1 gm/dL (6.0-8.3) 01/17/18 10:18 Albumin 2.7 gm/dL (3.7-5.3) L 01/17/18 10:18 Globulin 3.4 gm/dL 01/17/18 10:18 Albumin/Globulin Ratio 0.8 (1.0-1.8) L 01/17/18 10:18 Gentamicin 1.1 ug/mL (0.5-10.0) 01/16/18 06:27 Random Vancomycin 23.2 ug/mL (5.0-40.0) 01/16/18 06:27 - Physical Exam Vitals and I&O: Vital Signs Temp 98.4 F 01/17/18 04:00 Pulse 105 01/17/18 04:00 Resp 22 01/17/18 04:00 BP 116/62 01/17/18 04:00 Pulse Ox 98 01/17/18 04:00 Intake & Output 01/16/18 01/17/18 01/17/18 18:59 06:59 18:59 Intake Total 502.5 490 Output Total 2 Balance 502.5 488 Weight (lbs) 127 lb 8 oz 138 lb 1.6 oz Intake: Intake, IV Amount 102.5 250 Gentamicin 100 mg In 102.5 Sodium Chloride 0.9% 100 ml @ 100 mls/hr IV 1500 [facility] Rx#:[id number] Oral 400 240 Output: Stool 2 Other: # Voids 4 4 # Bowel Movements 2 Stool Characteristics Soft Formed Active Medications: Current Medications Acetaminophen (Tylenol 650mg Supp) 650 mg RC Q6H PRN PRN Reason: fever/pain Stop: 03/10/18 15:26 Last Admin: 01/09/18 16:01 Dose: 650 mg Bisacodyl (Dulcolax 10 Mg Supp) 10 mg RC DAILY [facility] Stop: 01/18/18 13:59 Last Admin: 01/17/18 08:54 Dose: 10 mg Folic Acid (Folate) 1 mg PO DAILY [facility] Stop: 03/11/18 08:59 Last Admin: 01/17/18 08:54 Dose: 1 mg Heparin Sodium (Porcine) (Heparin) 5,000 units SUBQ Q12HR [facility] Stop: 03/11/18 08:59 Last Admin: 01/17/18 09:09 Dose: 5,000 units Insulin Aspart (Novolog) 0 units SUBQ ACHS [facility] PRN Reason: Protocol Stop: 03/10/18 20:59 Last Admin: 01/17/18 12:58 Dose: 4 units Lactobacillus Rhamnosus (Culturelle 15b) 1 each PO DAILY [facility] Stop: 03/14/18 08:59 Last Admin: 01/17/18 08:54 Dose: 1 each Miscellaneous (Gentamicin Iv Per Pharmacy) 1 ea PRN PRN PRN Reason: PROTOCOL Stop: 03/13/18 12:52 Miscellaneous (Probiotic Screen) 1 ea PRN PRN PRN Reason: PROTOCOL Stop: 03/13/18 15:59 Miscellaneous (Vancomycin Iv Per Pharmacy) 1 ea PRN PRN PRN Reason: VANCOMYCIN PER RX Stop: 03/16/18 09:31 Polyethylene Glycol (Miralax) 17 gm PO DAILY [facility] Stop: 03/16/18 08:59 Last Admin: 01/17/18 08:54 Dose: 17 gm Vitamin B Complex/Vit C/Folic Acid (Vitamin B Complex W/Vitamin C) 1 tab PO DAILY [facility] Stop: 03/16/18 08:59 Last Admin: 01/17/18 08:54 Dose: 1 tab General: weak, alert HEENT: NC/AT, PERRLA Cardiovascular: RRR, Normal S1, Normal S2, without murmur Abdomen: soft, non-tender, non-distended, positive bowel sound Neurological: alert - Procedures Procedures: Procedures Procedure Code Date FLUOROSCOPY OF SUP VENA CAVA USING L OSM CONTRAST, GUIDANCE [id number] 12/28/17 INJECT/INFUSE NEC 99.29 06/24/13 INSERT TUNNELED CV CATH [id number] 01/09/18 INSERTION OF INFUSION DEV INTO L SUBCLAV VEIN, PERC APPROACH [id number] 01/09/18 INSERTION OF INFUSION DEV INTO SUP VENA CAVA, PERC APPROACH [id number] 12/28/17 PERFORMANCE OF URINARY FILTRATION, <6 HRS/DAY [id number] 12/28/17 REMOVAL OF INFUSION DEVICE FROM UPPER VEIN, FINISHING INSPECTOR APPROACH [id number] 01/09/18 REMOVAL OF INFUSION DEVICE FROM UPPER VEIN, PERC APPROACH [id number] 12/28/17 REMOVAL TUNNELED CV CATH [id number] 01/09/18 Internal Medicine Assmt/Plan - Assessment Assessment: Chronic anemia (Acute) D64.9 Diabetes (Acute) E11.9 ESRD (end stage renal disease) on dialysis (Acute) N18.6, Z99.2 HTN (hypertension) (Acute) I10 Hyperkalemia (Acute) E87.5 Hypothyroid (Acute) E03.9 - Plan Plan: monitor h/h follow up labs in am continue current plan of care Nutritional Asmnt/Malnutr-PDOC - Dietary Evaluation Malnutrition Findings (Please click <Entered> for more info): Nutritional Asmnt/Malnutrition Start: 01/11/18 16: 26 Text: Status: Complete Freq: Document 01/11/18 17:04 RODRÍGUEZ (Rec: 01/11/18 17:19 RODRÍGUEZ [email or web address]) Nutritional Asmnt/Malnutrition Patient General Information Nutritional Screening High Risk Consult Diagnosis acute kidney failure, dialysis , agitation, ALOC Pertinent Medical Hx/Surgical Hx ESRD, dialysis, HTN, DM, dementia, hypothyroidism, dementia, perm-A-cath Subjective Information consult received for high BS. Pt seen sleeping at time of visit. Per notes, pt received dialysis on 01/10. RN reported pt ate well, consumed 100% of meals today. Per records, PO intake 25-75% on 01/10. Current Diet Order/ Nutrition Support CCHO 60gm, mechanical soft, potassium 2gm per day, fluid restriction 1000ml Pertinent Medications folate, novolog, vit B complex , vit C Pertinent Labs 01/11 Na 138, K 3.2, Cl 96, BUN 49, Cr 4.9, glucose 166, POC 168-286 Nutritional Hx/Data Height 5 ft 4 in Height (Calculated Centimeters) 162.6 Current Weight (lbs) 145 lb Weight (Calculated Kilograms) 65.8 Weight (Calculated Grams) 28844.9 [place] Body Weight 120 % [place] Body Weight 121 Body Mass Index (BMI) 24.9 Weight Status Approriate GI Symptoms GI Symptoms None Last BM 01/10 Difficult in: None Skin Integrity/Comment: scar pressure area to buttocks DRY HEELS, HEALING ULCER BUTTOCKS Estimated Nutritional Goals BEE in Kcals: Using Current wt Calories/Kcals/Kg 25-30 Kcals Calculated 6300-8168 Protein: Using Current wt Protein g/k-1.3 Protein Calculated 66-86 Fluid: ml 1650-1980ml (1ml/kcal) Nutritional Problem 1. Problem Problem altered nutrition related lab values Etiology hx of DM, ESRD Signs/Symptoms: BUN 49, Cr 4.9, glucose 166, POC 168-286 Malnutrition Alert Protein-Calorie Malnutrition N/A Is there a minimum of two criteria No selected? Query Text:Check all the applicable criteria. A minimum of two criteria are recommended for diagnosis of either severe or non-severe malnutrition. Intervention/Recommendation Comments 1. Continue with current diet as ordered. 2. Monitor PO intake, wt, labs and skin integrity 3. F/U as moderate risk in 3-5 days, 01/14-01/16 Expected Outcomes/Goals Expected Outcomes/Goals 1. PO intake to meet at least 75% of nutritional needs. 2. Wt stability, skin to remain intact, labs to approach WNL.
--- NOTE | 2018-01-17 16:44 | Infectious Disease Prog Note ---
Infectious Disease Subjective - Review of Systems Service Date: 01/17/18 Subjective: Patient has not developed any fever. Austen cath placed in the left upper chest. Infectious Disease Objective - Results Result Diagrams: 01/17/18 07:54 01/17/18 10:18 Recent Labs: Laboratory Last Values WBC 6.8 Th/cmm (4.8-10.8) 01/17/18 07:54 RBC 3.27 Mil/cmm (3.80-5.20) L 01/17/18 07:54 Hgb 10.0 gm/dL (12-16) L 01/17/18 07:54 Hct 30.4 % (41.0-60) L 01/17/18 07:54 MCV 93.0 fl (81-100) 01/17/18 07:54 MCH 30.4 pg (27.0-31.0) 01/17/18 07:54 MCHC Differential 32.7 pg (28.0-36.0) 01/17/18 07:54 RDW 16.5 % (11.5-20.0) 01/17/18 07:54 Plt Count 198 Th/cmm (150-400) 01/17/18 07:54 MPV 8.1 fl 01/17/18 07:54 Neutrophils % 67.3 % (40.0-80.0) 01/17/18 07:54 Band Neutrophils % 5 % (0-10) 01/10/18 15:04 Lymphocytes % 18.1 % (20.0-50.0) L 01/17/18 07:54 Monocytes % 8.8 % (2.0-10.0) 01/17/18 07:54 Eosinophils % 2.3 % (0.0-5.0) 01/17/18 07:54 Basophils % 3.5 % (0.0-2.0) H 01/17/18 07:54 Neutrophils (Manual) 88 % (40-80) H 01/10/18 15:04 Lymphocytes 2 % (20-50) L 01/10/18 15:04 Monocytes 5 % (2-10) 01/10/18 15:04 Eosinophils 0 % (0-5) 01/10/18 15:04 Basophils 0 % (0-3) 01/10/18 15:04 Platelet Estimate ADEQUATE (NORMAL) 01/10/18 15:04 Platelet Morphology NORMAL (NORMAL) 01/10/18 15:04 RBC Morph Micro Appear NORMAL (NORMAL) 01/10/18 15:04 PT 14.4 SECONDS (9.5-11.5) H 01/12/18 11:37 INR 1.36 (0.5-1.4) 01/12/18 11:37 PTT (Actin FS) 32.0 SECONDS (26.0-38.0) 01/12/18 11:37 Sodium 131 mEq/L (136-145) L 01/17/18 10:18 Potassium 3.7 mEq/L (3.5-5.1) 01/17/18 10:18 Chloride 95 mEq/L (98-107) L 01/17/18 10:18 Carbon Dioxide 20.5 mEq/L (21.0-31.0) L 01/17/18 10:18 Anion Gap 19.2 (7.0-16.0) H 01/17/18 10:18 BUN 58 mg/dL (7-25) H 01/17/18 10:18 Creatinine 4.7 mg/dL (0.6-1.2) H* 01/17/18 10:18 Est GFR ( Amer) TNP 01/17/18 10:18 Est GFR (Non-Af Amer) TNP 01/17/18 10:18 BUN/Creatinine Ratio 12.3 01/17/18 10:18 Glucose 191 mg/dL (70-105) H 01/17/18 10:18 POC Glucose 238 MG/DL (70 - 105) H 01/17/18 11:34 Hemoglobin A1c % 8.6 % (4.0-6.0) H 01/09/18 07:13 Whole Bld Lactic Acid 1.34 mmol/L (0.60-1.99) 01/09/18 18:54 Calcium 8.6 mg/dL (8.6-10.3) 01/17/18 10:18 Total Bilirubin 0.7 mg/dL (0.3-1.0) 01/17/18 10:18 AST 11 U/L (13-39) L 01/17/18 10:18 ALT 7 U/L (7-52) 01/17/18 10:18 Alkaline Phosphatase 102 U/L (34-104) 01/17/18 10:18 Total Protein 6.1 gm/dL (6.0-8.3) 01/17/18 10:18 Albumin 2.7 gm/dL (3.7-5.3) L 01/17/18 10:18 Globulin 3.4 gm/dL 01/17/18 10:18 Albumin/Globulin Ratio 0.8 (1.0-1.8) L 01/17/18 10:18 Gentamicin 1.1 ug/mL (0.5-10.0) 01/16/18 06:27 Random Vancomycin 23.2 ug/mL (5.0-40.0) 01/16/18 06:27 - Physical Exam Vitals and I&O: Vital Signs Temp 96.2 F 01/17/18 14:17 Pulse 91 01/17/18 14:17 Resp 18 01/17/18 14:17 BP 126/69 01/17/18 14:17 Pulse Ox 100 01/17/18 12:00 Intake & Output 01/16/18 01/17/18 01/17/18 18:59 06:59 18:59 Intake Total 502.5 490 Output Total 2 Balance 502.5 488 Weight (lbs) 57.833 kg 62.641 kg Intake: Intake, IV Amount 102.5 250 Gentamicin 100 mg In 102.5 Sodium Chloride 0.9% 100 ml @ 100 mls/hr IV 1500 COUNTS INCLUDE 234 BEDS AT THE [facility] Rx#:[id number] Oral 400 240 Output: Stool 2 Other: # Voids 4 4 # Bowel Movements 2 Stool Characteristics Soft Soft Formed Formed Active Medications: Current Medications Acetaminophen (Tylenol 650mg Supp) 650 mg RC Q6H PRN PRN Reason: fever/pain Stop: 03/10/18 15:26 Last Admin: 01/09/18 16:01 Dose: 650 mg Bisacodyl (Dulcolax 10 Mg Supp) 10 mg RC DAILY [facility]S INCLUDE 234 BEDS AT THE [facility] Stop: 01/18/18 13:59 Last Admin: 01/17/18 08:54 Dose: 10 mg Folic Acid (Folate) 1 mg PO DAILY [facility]S INCLUDE 234 BEDS AT THE [facility] Stop: 03/11/18 08:59 Last Admin: 01/17/18 08:54 Dose: 1 mg Heparin Sodium (Porcine) (Heparin) 5,000 units SUBQ Q12HR COUNTS INCLUDE 234 BEDS AT THE [facility] Stop: 04/12/18 08:59 Last Admin: 01/17/18 09:09 Dose: 5,000 units Insulin Aspart (Novolog) 0 units SUBQ ACHS [facility] PRN Reason: Protocol Stop: 03/10/18 20:59 Last Admin: 01/17/18 12:58 Dose: 4 units Lactobacillus Rhamnosus (Culturelle 15b) 1 each PO DAILY [facility] Stop: 03/14/18 08:59 Last Admin: 01/17/18 08:54 Dose: 1 each Miscellaneous (Gentamicin Iv Per Pharmacy) 1 ea PRN PRN PRN Reason: PROTOCOL Stop: 03/13/18 12:52 Miscellaneous (Probiotic Screen) 1 ea PRN PRN PRN Reason: PROTOCOL Stop: 03/13/18 15:59 Miscellaneous (Vancomycin Iv Per Pharmacy) 1 ea PRN PRN PRN Reason: VANCOMYCIN PER RX Stop: 03/16/18 09:31 Polyethylene Glycol (Miralax) 17 gm PO DAILY [facility] Stop: 03/16/18 08:59 Last Admin: 01/17/18 08:54 Dose: 17 gm Vitamin B Complex/Vit C/Folic Acid (Vitamin B Complex W/Vitamin C) 1 tab PO DAILY [facility] Stop: 03/16/18 08:59 Last Admin: 01/17/18 08:54 Dose: 1 tab General: no acute distress, well developed, well nourished HEENT: atraumatic, normocephalic, PERRLA Neck: supple, no thyromegaly Cardiovascular: S1S2, regular Lungs: clear to auscultation bilaterally, clear to percussion Abdomen: soft, no tender, no distended Extremities: no cyanosis, no clubbing, no edema Neurological: awake, alert, oriented Skin: intact - Procedures Procedures: Procedures Procedure Code Date FLUOROSCOPY OF SUP VENA CAVA USING L OSM CONTRAST, GUIDANCE [id number] 12/28/17 INJECT/INFUSE NEC 99.29 06/24/13 INSERT TUNNELED CV CATH [id number] 01/09/18 INSERTION OF INFUSION DEV INTO L SUBCLAV VEIN, PERC APPROACH [id number] 01/09/18 INSERTION OF INFUSION DEV INTO SUP VENA CAVA, PERC APPROACH [id number] 12/28/17 PERFORMANCE OF URINARY FILTRATION, <6 HRS/DAY 5R6C26Q 12/28/17 REMOVAL OF INFUSION DEVICE FROM UPPER VEIN, VARIETY PERFORMER APPROACH [id number] 01/09/18 REMOVAL OF INFUSION DEVICE FROM UPPER VEIN, PERC APPROACH [id number] 12/28/17 REMOVAL TUNNELED CV CATH [id number] 01/09/18 Infectious Disease Assmt/Plan - Problem List Patient Problems: All Active Problems Chronic anemia (Acute) D64.9 Diabetes (Acute) E11.9 ESRD (end stage renal disease) on dialysis (Acute) N18.6, Z99.2 HTN (hypertension) (Acute) I10 Hyperkalemia (Acute) E87.5 Hypothyroid (Acute) E03.9 - Assessment Assessment: 1. High grade MRSA sepsis. MRSA ( Vanco MICHELLE is 2). Suspect endocarditis. 2. Line sepsis. 3. DM2 4. CKD 5 on HD. 5. HTN. 6. Anemia of chronic disease. - Plan Plan: WIll continue vancomycin IV and gentamicin for synergy. Barbi alston, eval and transfer. Nutritional Asmnt/Malnutr-PDOC - Dietary Evaluation Malnutrition Findings (Please click <Entered> for more info): Nutritional Asmnt/Malnutrition Start: 01/11/18 16: 26 Text: Status: Complete Freq: Document 01/11/18 17:04 LCHENG (Rec: 01/11/18 17:19 LCHENG [email or web address]) Nutritional Asmnt/Malnutrition Patient General Information Nutritional Screening High Risk Consult Diagnosis acute kidney failure, dialysis , agitation, ALOC Pertinent Medical Hx/Surgical Hx ESRD, dialysis, HTN, DM, dementia, hypothyroidism, dementia, perm-A-cath Subjective Information consult received for high BS. Pt seen sleeping at time of visit. Per notes, pt received dialysis on 01/10. RN reported pt ate well, consumed 100% of meals today. Per records, PO intake 25-75% on 01/10. Current Diet Order/ Nutrition Support CCHO 60gm, mechanical soft, potassium 2gm per day, fluid restriction 1000ml Pertinent Medications folate, novolog, vit B complex , vit C Pertinent Labs 01/11 Na 138, K 3.2, Cl 96, BUN 49, Cr 4.9, glucose 166, POC 168-286 Nutritional Hx/Data Height 1.63 m Height (Calculated Centimeters) 162.6 Current Weight (lbs) 65.771 kg Weight (Calculated Kilograms) 65.8 Weight (Calculated Grams) 24925.9 [place] Body Weight 120 % [place] Body Weight 121 Body Mass Index (BMI) 24.9 Weight Status Approriate GI Symptoms GI Symptoms None Last BM 01/10 Difficult in: None Skin Integrity/Comment: scar pressure area to buttocks DRY HEELS, HEALING ULCER BUTTOCKS Estimated Nutritional Goals BEE in Kcals: Using Current wt Calories/Kcals/Kg 25-30 Kcals Calculated 5016-5520 Protein: Using Current wt Protein g/k-1.3 Protein Calculated 66-86 Fluid: ml 1650-1980ml (1ml/kcal) Nutritional Problem 1. Problem Problem altered nutrition related lab values Etiology hx of DM, ESRD Signs/Symptoms: BUN 49, Cr 4.9, glucose 166, POC 168-286 Malnutrition Alert Protein-Calorie Malnutrition N/A Is there a minimum of two criteria No selected? Query Text:Check all the applicable criteria. A minimum of two criteria are recommended for diagnosis of either severe or non-severe malnutrition. Intervention/Recommendation Comments 1. Continue with current diet as ordered. 2. Monitor PO intake, wt, labs and skin integrity 3. F/U as moderate risk in 3-5 days, 01/14-01/16 Expected Outcomes/Goals Expected Outcomes/Goals 1. PO intake to meet at least 75% of nutritional needs. 2. Wt stability, skin to remain intact, labs to approach WNL.
[2018-01-18 05:59] LABS: % BASOPHILS 0.1 % (0.0-2.0); % EOSINOPHILS 1.5 % (0.0-5.0); % LYMPHOCYTES 16.9 % (20.0-50.0); % MONOCYTES 9.4 % (2.0-10.0); % NEUTROPHILS 72.1 % (40.0-80.0); EOSINOPHILE ABSOLUTE 0.1 Th/cmm (0.1-0.4); HEMATOCRIT 33.3 % (41.0-60); HEMOGLOBIN 10.8 gm/dL (12-16); MEAN CELL VOLUME 93.1 fl (81-100); MEAN CORPUSCULAR HEMOGLOBIN 30.1 pg (27.0-31.0); MEAN CORPUSCULAR HGB CONC 32.3 pg (28.0-36.0); MONOCYTE ABSOLUTE 0.6 Th/cmm (0.3-1.0); NEUTROPHILE ABSOLUTE 4.3 Th/cmm (1.8-8.0); RED BLOOD COUNT 3.57 Mil/cmm (3.80-5.20); RED CELL DISTRIBUTION WIDTH 17.4 % (11.5-20.0)
[2018-01-18 06:02] LABS: PLATELET COUNT 241 Th/cmm (150-400)
[2018-01-18 06:09] LABS: ANION GAP 16.8 (7.0-16.0); BUN - UREA NITROGEN 39 mg/dL (7-25); CALCIUM SERUM 8.8 mg/dL (8.6-10.3); CARBON DIOXIDE 26.8 mEq/L (21.0-31.0); CHLORIDE 96 mEq/L (98-107); GLUCOSE 179 mg/dL (70-105); POTASSIUM SERUM 3.6 mEq/L (3.5-5.1); SODIUM SERUM 136 mEq/L (136-145)
[2018-01-18 06:15] LABS: CREATININE - SERUM 4.1 mg/dL (0.6-1.2)
[2018-01-18] MEDS: INSULIN ASPART, RECOMBINANT 100 UNITS/ML SUBQ SCH ×2 (07:57→12:23)
--- NOTE | 2018-01-18 08:20 | General Progress Note ---
Subjective - Review of Systems Service Date: 01/18/18 Subjective: pt seen and examined left subclavien new catheter in place Objective - Results Result Diagrams: 01/18/18 05:30 01/18/18 05:30 Recent Labs: Laboratory Last Values WBC 6.0 Th/cmm (4.8-10.8) 01/18/18 05:30 RBC 3.57 Mil/cmm (3.80-5.20) L 01/18/18 05:30 Hgb 10.8 gm/dL (12-16) L 01/18/18 05:30 Hct 33.3 % (41.0-60) L 01/18/18 05:30 MCV 93.1 fl (81-100) 01/18/18 05:30 MCH 30.1 pg (27.0-31.0) 01/18/18 05:30 MCHC Differential 32.3 pg (28.0-36.0) 01/18/18 05:30 RDW 17.4 % (11.5-20.0) 01/18/18 05:30 Plt Count 241 Th/cmm (150-400) D 01/18/18 05:30 MPV 8.0 fl 01/18/18 05:30 Neutrophils % 72.1 % (40.0-80.0) 01/18/18 05:30 Band Neutrophils % 5 % (0-10) 01/10/18 15:04 Lymphocytes % 16.9 % (20.0-50.0) L 01/18/18 05:30 Monocytes % 9.4 % (2.0-10.0) 01/18/18 05:30 Eosinophils % 1.5 % (0.0-5.0) 01/18/18 05:30 Basophils % 0.1 % (0.0-2.0) 01/18/18 05:30 Neutrophils (Manual) 88 % (40-80) H 01/10/18 15:04 Lymphocytes 2 % (20-50) L 01/10/18 15:04 Monocytes 5 % (2-10) 01/10/18 15:04 Eosinophils 0 % (0-5) 01/10/18 15:04 Basophils 0 % (0-3) 01/10/18 15:04 Platelet Estimate ADEQUATE (NORMAL) 01/10/18 15:04 Platelet Morphology NORMAL (NORMAL) 01/10/18 15:04 RBC Morph Micro Appear NORMAL (NORMAL) 01/10/18 15:04 PT 14.4 SECONDS (9.5-11.5) H 01/12/18 11:37 INR 1.36 (0.5-1.4) 01/12/18 11:37 PTT (Actin FS) 32.0 SECONDS (26.0-38.0) 01/12/18 11:37 Sodium 136 mEq/L (136-145) 01/18/18 05:30 Potassium 3.6 mEq/L (3.5-5.1) 01/18/18 05:30 Chloride 96 mEq/L (98-107) L 01/18/18 05:30 Carbon Dioxide 26.8 mEq/L (21.0-31.0) 01/18/18 05:30 Anion Gap 16.8 (7.0-16.0) H 01/18/18 05:30 BUN 39 mg/dL (7-25) H 01/18/18 05:30 Creatinine 4.1 mg/dL (0.6-1.2) H* 01/18/18 05:30 Est GFR ( Amer) TNP 01/18/18 05:30 Est GFR (Non-Af Amer) TNP 01/18/18 05:30 BUN/Creatinine Ratio 9.5 01/18/18 05:30 Glucose 179 mg/dL (70-105) H 01/18/18 05:30 POC Glucose 176 MG/DL (70 - 105) H 01/18/18 06:35 Hemoglobin A1c % 8.6 % (4.0-6.0) H 01/09/18 07:13 Whole Bld Lactic Acid 1.34 mmol/L (0.60-1.99) 01/09/18 18:54 Calcium 8.8 mg/dL (8.6-10.3) 01/18/18 05:30 Total Bilirubin 0.7 mg/dL (0.3-1.0) 01/17/18 10:18 AST 11 U/L (13-39) L 01/17/18 10:18 ALT 7 U/L (7-52) 01/17/18 10:18 Alkaline Phosphatase 102 U/L (34-104) 01/17/18 10:18 Total Protein 6.1 gm/dL (6.0-8.3) 01/17/18 10:18 Albumin 2.7 gm/dL (3.7-5.3) L 01/17/18 10:18 Globulin 3.4 gm/dL 01/17/18 10:18 Albumin/Globulin Ratio 0.8 (1.0-1.8) L 01/17/18 10:18 Gentamicin 1.1 ug/mL (0.5-10.0) 01/16/18 06:27 Random Vancomycin 28.4 ug/mL (5.0-40.0) 01/18/18 05:30 - Physical Exam Vitals and I&O: Vital Signs Temp 97.2 F 01/18/18 06:00 Pulse 88 01/18/18 06:00 Resp 18 01/18/18 06:00 BP 120/64 01/18/18 06:00 Pulse Ox 95 01/18/18 04:00 Intake & Output 01/17/18 01/18/18 01/18/18 18:59 06:59 18:59 Intake Total 500 250 Balance 500 250 Weight (lbs) 62.686 kg 62.596 kg Intake: Oral 500 250 Other: # Voids 1 # Bowel Movements 2 Stool Characteristics Soft Formed Active Medications: Current Medications Acetaminophen (Tylenol 650mg Supp) 650 mg RC Q6H PRN PRN Reason: fever/pain Stop: 03/10/18 15:26 Last Admin: 01/09/18 16:01 Dose: 650 mg Bisacodyl (Dulcolax 10 Mg Supp) 10 mg RC DAILY [facility] Stop: 01/18/18 13:59 Last Admin: 01/17/18 08:54 Dose: 10 mg Folic Acid (Folate) 1 mg PO DAILY [facility] Stop: 03/11/18 08:59 Last Admin: 01/17/18 08:54 Dose: 1 mg Insulin Aspart (Novolog) 0 units SUBQ ACHS [facility] PRN Reason: Protocol Stop: 03/10/18 20:59 Last Admin: 01/18/18 07:57 Dose: 2 units Lactobacillus Rhamnosus (Culturelle 15b) 1 each PO DAILY [facility] Stop: 03/14/18 08:59 Last Admin: 01/17/18 08:54 Dose: 1 each Miscellaneous (Gentamicin Iv Per Pharmacy) 1 ea PRN PRN PRN Reason: PROTOCOL Stop: 03/13/18 12:52 Miscellaneous (Probiotic Screen) 1 [facility] PRN PRN PRN Reason: PROTOCOL Stop: 03/13/18 15:59 Miscellaneous (Vancomycin Iv Per Pharmacy) 1 [facility] PRN PRN PRN Reason: VANCOMYCIN PER RX Stop: 03/16/18 09:31 Polyethylene Glycol (Miralax) 17 gm PO DAILY [facility] Stop: 03/16/18 08:59 Last Admin: 01/17/18 08:54 Dose: 17 gm Vitamin B Complex/Vit C/Folic Acid (Vitamin B Complex W/Vitamin C) 1 tab PO DAILY [facility] Stop: 03/16/18 08:59 Last Admin: 01/17/18 08:54 Dose: 1 tab General: Alert, Other (Severe dementia) HEENT: Atraumatic, PERRLA Neck: Supple Cardiovascular: Regular rate Lungs: Clear to auscultation Abdomen: Bowel sounds, Obese, no Soft, no Tender, no Hepatomegaly, no Rebound, no Mass - Procedures Procedures: Procedures Procedure Code Date FLUOROSCOPY OF SUP VENA CAVA USING L OSM CONTRAST, GUIDANCE [id number] 12/28/17 INJECT/INFUSE NEC 99.29 06/24/13 INSERT TUNNELED CV CATH [id number] 01/09/18 INSERTION OF INFUSION DEV INTO L SUBCLAV VEIN, PERC APPROACH [id number] 01/09/18 INSERTION OF INFUSION DEV INTO SUP VENA CAVA, PERC APPROACH [id number] 12/28/17 PERFORMANCE OF URINARY FILTRATION, <6 HRS/DAY [id number] 12/28/17 REMOVAL OF INFUSION DEVICE FROM UPPER VEIN, CHEMISTRY LECTURER APPROACH [id number] 01/09/18 REMOVAL OF INFUSION DEVICE FROM UPPER VEIN, PERC APPROACH [id number] 12/28/17 REMOVAL TUNNELED CV CATH [id number] 01/09/18 Assessment/Plan - Problem List Patient Problems: All Active Problems Chronic anemia (Acute) D64.9 Diabetes (Acute) E11.9 ESRD (end stage renal disease) on dialysis (Acute) N18.6, Z99.2 HTN (hypertension) (Acute) I10 Hyperkalemia (Acute) E87.5 Hypothyroid (Acute) E03.9 - Assessment Assessment: catheter failure pt keep pulling out catheter or damages it - Plan Plan: continue hd support staph infection on abx placement of permcath and AVF Nutritional Asmnt/Malnutr-PDOC - Dietary Evaluation Malnutrition Findings (Please click <Entered> for more info): Nutritional Asmnt/Malnutrition Start: 01/11/18 16: 26 Text: Status: Complete Freq: Document 01/11/18 17:04 RODRÍGUEZ (Rec: 01/11/18 17:19 RODRÍGUEZ [email or web address]) Nutritional Asmnt/Malnutrition Patient General Information Nutritional Screening High Risk Consult Diagnosis acute kidney failure, dialysis , agitation, ALOC Pertinent Medical Hx/Surgical Hx ESRD, dialysis, HTN, DM, dementia, hypothyroidism, dementia, perm-A-cath Subjective Information consult received for high BS. Pt seen sleeping at time of visit. Per notes, pt received dialysis on 01/10. RN reported pt ate well, consumed 100% of meals today. Per records, PO intake 25-75% on 01/10. Current Diet Order/ Nutrition Support CCHO 60gm, mechanical soft, potassium 2gm per day, fluid restriction 1000ml Pertinent Medications folate, novolog, vit B complex , vit C Pertinent Labs 01/11 Na 138, K 3.2, Cl 96, BUN 49, Cr 4.9, glucose 166, POC 168-286 Nutritional Hx/Data Height 1.63 m Height (Calculated Centimeters) 162.6 Current Weight (lbs) 65.771 kg Weight (Calculated Kilograms) 65.8 Weight (Calculated Grams) 94620.9 [place] Body Weight 120 % [place] Body Weight 121 Body Mass Index (BMI) 24.9 Weight Status Approriate GI Symptoms GI Symptoms None Last BM 01/10 Difficult in: None Skin Integrity/Comment: scar pressure area to buttocks DRY HEELS, HEALING ULCER BUTTOCKS Estimated Nutritional Goals BEE in Kcals: Using Current wt Calories/Kcals/Kg 25-30 Kcals Calculated 8552-1571 Protein: Using Current wt Protein g/k-1.3 Protein Calculated 66-86 Fluid: ml 1650-1980ml (1ml/kcal) Nutritional Problem 1. Problem Problem altered nutrition related lab values Etiology hx of DM, ESRD Signs/Symptoms: BUN 49, Cr 4.9, glucose 166, POC 168-286 Malnutrition Alert Protein-Calorie Malnutrition N/A Is there a minimum of two criteria No selected? Query Text:Check all the applicable criteria. A minimum of two criteria are recommended for diagnosis of either severe or non-severe malnutrition. Intervention/Recommendation Comments 1. Continue with current diet as ordered. 2. Monitor PO intake, wt, labs and skin integrity 3. F/U as moderate risk in 3-5 days, 01/14-01/16 Expected Outcomes/Goals Expected Outcomes/Goals 1. PO intake to meet at least 75% of nutritional needs. 2. Wt stability, skin to remain intact, labs to approach WNL.
--- NOTE | 2018-01-18 09:17 | General Progress Note ---
Subjective - Review of Systems Events since last encounter: left subclavien new catheter in place no distress Objective - Results Result Diagrams: 01/18/18 05:30 01/18/18 05:30 Recent Labs: Laboratory Last Values WBC 6.0 Th/cmm (4.8-10.8) 01/18/18 05:30 RBC 3.57 Mil/cmm (3.80-5.20) L 01/18/18 05:30 Hgb 10.8 gm/dL (12-16) L 01/18/18 05:30 Hct 33.3 % (41.0-60) L 01/18/18 05:30 MCV 93.1 fl (81-100) 01/18/18 05:30 MCH 30.1 pg (27.0-31.0) 01/18/18 05:30 MCHC Differential 32.3 pg (28.0-36.0) 01/18/18 05:30 RDW 17.4 % (11.5-20.0) 01/18/18 05:30 Plt Count 241 Th/cmm (150-400) D 01/18/18 05:30 MPV 8.0 fl 01/18/18 05:30 Neutrophils % 72.1 % (40.0-80.0) 01/18/18 05:30 Band Neutrophils % 5 % (0-10) 01/10/18 15:04 Lymphocytes % 16.9 % (20.0-50.0) L 01/18/18 05:30 Monocytes % 9.4 % (2.0-10.0) 01/18/18 05:30 Eosinophils % 1.5 % (0.0-5.0) 01/18/18 05:30 Basophils % 0.1 % (0.0-2.0) 01/18/18 05:30 Neutrophils (Manual) 88 % (40-80) H 01/10/18 15:04 Lymphocytes 2 % (20-50) L 01/10/18 15:04 Monocytes 5 % (2-10) 01/10/18 15:04 Eosinophils 0 % (0-5) 01/10/18 15:04 Basophils 0 % (0-3) 01/10/18 15:04 Platelet Estimate ADEQUATE (NORMAL) 01/10/18 15:04 Platelet Morphology NORMAL (NORMAL) 01/10/18 15:04 RBC Morph Micro Appear NORMAL (NORMAL) 01/10/18 15:04 PT 14.4 SECONDS (9.5-11.5) H 01/12/18 11:37 INR 1.36 (0.5-1.4) 01/12/18 11:37 PTT (Actin FS) 32.0 SECONDS (26.0-38.0) 01/12/18 11:37 Sodium 136 mEq/L (136-145) 01/18/18 05:30 Potassium 3.6 mEq/L (3.5-5.1) 01/18/18 05:30 Chloride 96 mEq/L (98-107) L 01/18/18 05:30 Carbon Dioxide 26.8 mEq/L (21.0-31.0) 01/18/18 05:30 Anion Gap 16.8 (7.0-16.0) H 01/18/18 05:30 BUN 39 mg/dL (7-25) H 01/18/18 05:30 Creatinine 4.1 mg/dL (0.6-1.2) H* 01/18/18 05:30 Est GFR ( Amer) TNP 01/18/18 05:30 Est GFR (Non-Af Amer) TNP 01/18/18 05:30 BUN/Creatinine Ratio 9.5 01/18/18 05:30 Glucose 179 mg/dL (70-105) H 01/18/18 05:30 POC Glucose 176 MG/DL (70 - 105) H 01/18/18 06:35 Hemoglobin A1c % 8.6 % (4.0-6.0) H 01/09/18 07:13 Whole Bld Lactic Acid 1.34 mmol/L (0.60-1.99) 01/09/18 18:54 Calcium 8.8 mg/dL (8.6-10.3) 01/18/18 05:30 Total Bilirubin 0.7 mg/dL (0.3-1.0) 01/17/18 10:18 AST 11 U/L (13-39) L 01/17/18 10:18 ALT 7 U/L (7-52) 01/17/18 10:18 Alkaline Phosphatase 102 U/L (34-104) 01/17/18 10:18 Total Protein 6.1 gm/dL (6.0-8.3) 01/17/18 10:18 Albumin 2.7 gm/dL (3.7-5.3) L 01/17/18 10:18 Globulin 3.4 gm/dL 01/17/18 10:18 Albumin/Globulin Ratio 0.8 (1.0-1.8) L 01/17/18 10:18 Gentamicin 2.5 ug/mL (0.5-10.0) 01/18/18 05:30 Random Vancomycin 28.4 ug/mL (5.0-40.0) 01/18/18 05:30 - Physical Exam Vitals and I&O: Vital Signs Temp 97.2 F 01/18/18 06:00 Pulse 88 01/18/18 06:00 Resp 18 01/18/18 06:00 BP 120/64 01/18/18 06:00 Pulse Ox 95 01/18/18 04:00 Intake & Output 01/17/18 01/18/18 01/18/18 18:59 06:59 18:59 Intake Total 500 250 Balance 500 250 Weight (lbs) 62.686 kg 62.596 kg Intake: Oral 500 250 Other: # Voids 1 # Bowel Movements 2 Stool Characteristics Soft Formed Active Medications: Current Medications Acetaminophen (Tylenol 650mg Supp) 650 mg RC Q6H PRN PRN Reason: fever/pain Stop: 03/10/18 15:26 Last Admin: 01/09/18 16:01 Dose: 650 mg Bisacodyl (Dulcolax 10 Mg Supp) 10 mg RC DAILY [facility] Stop: 01/18/18 13:59 Last Admin: 01/17/18 08:54 Dose: 10 mg Folic Acid (Folate) 1 mg PO DAILY [facility] Stop: 03/11/18 08:59 Last Admin: 01/17/18 08:54 Dose: 1 mg Insulin Aspart (Novolog) 0 units SUBQ ACHS [facility] PRN Reason: Protocol Stop: 03/10/18 20:59 Last Admin: 01/18/18 07:57 Dose: 2 units Lactobacillus Rhamnosus (Culturelle 15b) 1 each PO DAILY [facility] Stop: 03/14/18 08:59 Last Admin: 01/17/18 08:54 Dose: 1 each Miscellaneous (Gentamicin Iv Per Pharmacy) 1 ea [facility] PRN PRN PRN Reason: PROTOCOL Stop: 03/13/18 12:52 Miscellaneous (Probiotic Screen) 1 ea [facility] PRN PRN PRN Reason: PROTOCOL Stop: 03/13/18 15:59 Miscellaneous (Vancomycin Iv Per Pharmacy) 1 ea [facility] PRN PRN PRN Reason: VANCOMYCIN PER RX Stop: 03/16/18 09:31 Polyethylene Glycol (Miralax) 17 gm PO DAILY [facility] Stop: 03/16/18 08:59 Last Admin: 01/17/18 08:54 Dose: 17 gm Vitamin B Complex/Vit C/Folic Acid (Vitamin B Complex W/Vitamin C) 1 tab PO DAILY [facility] Stop: 03/16/18 08:59 Last Admin: 01/17/18 08:54 Dose: 1 tab General: Alert, Other (Severe dementia) HEENT: Atraumatic, PERRLA Neck: Supple Cardiovascular: Regular rate Lungs: Clear to auscultation Abdomen: Bowel sounds, Obese, no Soft, no Tender, no Hepatomegaly, no Rebound, no Mass - Procedures Procedures: Procedures Procedure Code Date FLUOROSCOPY OF SUP VENA CAVA USING L OSM CONTRAST, GUIDANCE [id number] 12/28/17 INJECT/INFUSE NEC 99.29 06/24/13 INSERT TUNNELED CV CATH [id number] 01/09/18 INSERTION OF INFUSION DEV INTO L SUBCLAV VEIN, PERC APPROACH [id number] 01/09/18 INSERTION OF INFUSION DEV INTO SUP VENA CAVA, PERC APPROACH [id number] 12/28/17 PERFORMANCE OF URINARY FILTRATION, <6 HRS/DAY 9H3K45W 12/28/17 REMOVAL OF INFUSION DEVICE FROM UPPER VEIN, RUBBER TIRE CURER APPROACH [id number] 01/09/18 REMOVAL OF INFUSION DEVICE FROM UPPER VEIN, PERC APPROACH [id number] 12/28/17 REMOVAL TUNNELED CV CATH [id number] 01/09/18 Assessment/Plan - Problem List Patient Problems: All Active Problems Chronic anemia (Acute) D64.9 Diabetes (Acute) E11.9 ESRD (end stage renal disease) on dialysis (Acute) N18.6, Z99.2 HTN (hypertension) (Acute) I10 Hyperkalemia (Acute) E87.5 Hypothyroid (Acute) E03.9 Nutritional Asmnt/Malnutr-PDOC - Dietary Evaluation Malnutrition Findings (Please click <Entered> for more info): Nutritional Asmnt/Malnutrition Start: 02/12/18 16: 26 Text: Status: Complete Freq: Document 01/11/18 17:04 RODRÍGUEZ (Rec: 01/11/18 17:19 [email or web address] [email or web address]) Nutritional Asmnt/Malnutrition Patient General Information Nutritional Screening High Risk Consult Diagnosis acute kidney failure, dialysis , agitation, ALOC Pertinent Medical Hx/Surgical Hx ESRD, dialysis, HTN, DM, dementia, hypothyroidism, dementia, perm-A-cath Subjective Information consult received for high BS. Pt seen sleeping at time of visit. Per notes, pt received dialysis on 01/10. RN reported pt ate well, consumed 100% of meals today. Per records, PO intake 25-75% on 01/10. Current Diet Order/ Nutrition Support CCHO 60gm, mechanical soft, potassium 2gm per day, fluid restriction 1000ml Pertinent Medications folate, novolog, vit B complex , vit C Pertinent Labs 01/11 Na 138, K 3.2, Cl 96, BUN 49, Cr 4.9, glucose 166, POC 168-286 Nutritional Hx/Data Height 1.63 m Height (Calculated Centimeters) 162.6 Current Weight (lbs) 65.771 kg Weight (Calculated Kilograms) 65.8 Weight (Calculated Grams) 36878.9 [place] Body Weight 120 % [place] Body Weight 121 Body Mass Index (BMI) 24.9 Weight Status Approriate GI Symptoms GI Symptoms None Last BM 01/10 Difficult in: None Skin Integrity/Comment: scar pressure area to buttocks DRY HEELS, HEALING ULCER BUTTOCKS Estimated Nutritional Goals BEE in Kcals: Using Current wt Calories/Kcals/Kg 25-30 Kcals Calculated 4895-6096 Protein: Using Current wt Protein g/k-1.3 Protein Calculated 66-86 Fluid: ml 1650-1980ml (1ml/kcal) Nutritional Problem 1. Problem Problem altered nutrition related lab values Etiology hx of DM, ESRD Signs/Symptoms: BUN 49, Cr 4.9, glucose 166, POC 168-286 Malnutrition Alert Protein-Calorie Malnutrition N/A Is there a minimum of two criteria No selected? Query Text:Check all the applicable criteria. A minimum of two criteria are recommended for diagnosis of either severe or non-severe malnutrition. Intervention/Recommendation Comments 1. Continue with current diet as ordered. 2. Monitor PO intake, wt, labs and skin integrity 3. F/U as moderate risk in 3-5 days, 01/14-01/16 Expected Outcomes/Goals Expected Outcomes/Goals 1. PO intake to meet at least 75% of nutritional needs. 2. Wt stability, skin to remain intact, labs to approach WNL.
[2018-01-18] MEDS: POLYETHYLENE GLYCOL 3350 17 GM PACK PO SCH (10:00)
[2018-01-18] MEDS: Lactobacillus Rhamnosus GG 15 Billion CFU CAP.SPRINK PO SCH (10:00)
[2018-01-18] MEDS: Vitamin B Complex w/Vitamin C Tab PO SCH (10:00)
--- NOTE | 2018-01-21 16:42 | Operative Report ---
DATE OF SURGERY: 01/17/2018 PREOPERATIVE DIAGNOSES: 1. Malfunctioning Austen catheter, left subclavian vein. 2. Dementia. 3. End-stage renal disease. POSTOPERATIVE DIAGNOSES: 1. Malfunctioning Austen catheter, left subclavian vein. 2. Dementia. 3. End-stage renal disease. OPERATION DONE: Replacement of Austen catheter, left subclavian vein. DESCRIPTION OF PROCEDURE: Consent was given by son regarding the procedure. The left chest was prepped with Betadine including the external components of the catheter, which is nonfunctioning. The guidewire was inserted into the venous port. The old catheter removed and a 20 cm dual lumen catheter was inserted part way into the superior vena cava. This secured in place with 2-0 silk. Sterile dressing was placed over this. Portable chest x-ray is ordered. JOB# [id number]
--- NOTE | 2018-01-24 12:08 | Discharge Summary ---
DATE OF DISCHARGE: 01/18/2018 HOSPITAL COURSE: The patient is a 77-year-old female admitted because of the hemodialysis catheter malfunction and the patient also had cellulitis and the patient has history of end-stage renal disease and dementia and osteoarthritis, and the patient was sent to hemodialysis catheter replacement and nephrology had seen the patient for dialysis. The patient also had cellulitis, which was treated and had ID doctor i.e. infectious disease doctor, Dr. Coronel see the patient and the patient needed a continuation of care for IV antibiotics and further therapy for hemodialysis catheter monitoring and the patient was sent to [facility] where I will follow the patient with a final diagnosis of catheter malfunction improving, cellulitis improving, end-stage renal disease, history of hypertension, dementia, osteoarthritis. CONDITION AT THE TIME OF DISCHARGE: Stable. [facility]# [id number]
== END 2018-01-18 13:15 | DRG 314 ==
LOC: ER 01:19 → MSI 02:35 → TELE 01-13 15:27 → MSI 01-15 15:25 → TELE 01-15 19:07
PROVIDERS: ADMIT Internal Medicine; ATTEND Internal Medicine
PROC: 02HV33Z Insertion of Infusion Device into Superior Vena Cava, Percutaneous Approach (ICD-10-PCS; principal; 2018-01-10)
PROC: B548ZZA Ultrasonography of Superior Vena Cava, Guidance (ICD-10-PCS; 2018-01-10)
PROC: 5A1D70Z Performance of Urinary Filtration, Intermittent, Less than 6 Hours Per Day (ICD-10-PCS; 2018-01-10)
PROC: 05PYX3Z Removal of Infusion Device from Upper Vein, External Approach (ICD-10-PCS; 2018-01-11)
PROC: 5A1D70Z Performance of Urinary Filtration, Intermittent, Less than 6 Hours Per Day (ICD-10-PCS; 2018-01-12)
PROC: 5A1D70Z Performance of Urinary Filtration, Intermittent, Less than 6 Hours Per Day (ICD-10-PCS; 2018-01-14)
PROC: 5A1D70Z Performance of Urinary Filtration, Intermittent, Less than 6 Hours Per Day (ICD-10-PCS; 2018-01-16)
PROC: 5A1D70Z Performance of Urinary Filtration, Intermittent, Less than 6 Hours Per Day (ICD-10-PCS; 2018-01-17)
DX: T80.211A Bloodstream infection due to central venous catheter, initial encounter (principal); N18.6 End stage renal disease; A41.02 Sepsis due to Methicillin resistant Staphylococcus aureus; J18.9 Pneumonia, unspecified organism; N17.9 Acute kidney failure, unspecified; I13.2 Hypertensive heart and chronic kidney disease with heart failure and with stage 5 chronic kidney disease, or end stage renal disease; E11.22 Type 2 diabetes mellitus with diabetic chronic kidney disease; I42.9 Cardiomyopathy, unspecified; E11.65 Type 2 diabetes mellitus with hyperglycemia; I50.21 Acute systolic (congestive) heart failure; T82.41XA Breakdown (mechanical) of vascular dialysis catheter, initial encounter; E87.1 Hypo-osmolality and hyponatremia; E87.5 Hyperkalemia; F03.90 Unspecified dementia, unspecified severity, without behavioral disturbance, psychotic disturbance, mood disturbance, and anxiety; M19.90 Unspecified osteoarthritis, unspecified site; E66.9 Obesity, unspecified; E03.9 Hypothyroidism, unspecified; D50.9 Iron deficiency anemia, unspecified; K56.41 Fecal impaction; D63.8 Anemia in other chronic diseases classified elsewhere; Y83.8 Other surgical procedures as the cause of abnormal reaction of the patient, or of later complication, without mention of misadventure at the time of the procedure; Y92.89 Other specified places as the place of occurrence of the external cause; Z99.2 Dependence on renal dialysis; Z74.01 Bed confinement status; Z88.5 Allergy status to narcotic agent; Z91.041 Radiographic dye allergy status; Z79.4 Long term (current) use of insulin; Z68.23 Body mass index [BMI] 23.0-23.9, adult
CPT/HCPCS: 36415-UA; 71045-TC; 71250-TC; 74000-TC; 80048-TC; 80053-TC; 80170-TC; 80202-TC; 82948-90; 83036-90; 83605; 85007-TC; 85025-TC; 85027-TC; 85610-TC; 87070; 87070-90; 90937; 93005; 93970-TC-50; J0885; J1580; J1644; J1815; J2001; J2060; J3370; J7030; Z7610

== ENCOUNTER 2018-02-05 04:59 | Inpatient (IN) | payer MEDICARE, MEDICAID ==
[2018-02-05 06:01] VITALS: BP 112/61
[2018-02-05 07:09] LABS: % BASOPHILS 0.9 % (0.0-2.0); % EOSINOPHILS 1.6 % (0.0-5.0); % LYMPHOCYTES 15.4 % (20.0-50.0); % MONOCYTES 11.4 % (2.0-10.0); % NEUTROPHILS 70.7 % (40.0-80.0); EOSINOPHILE ABSOLUTE 0.1 Th/cmm (0.1-0.4); HEMATOCRIT 31.5 % (41.0-60); HEMOGLOBIN 10.5 gm/dL (12-16); LYMPHOCYTE ABSOLUTE 0.8 Th/cmm (1.5-3.0); MEAN CELL VOLUME 92.1 fl (81-100); MEAN CORPUSCULAR HEMOGLOBIN 30.7 pg (27.0-31.0); MEAN CORPUSCULAR HGB CONC 33.4 pg (28.0-36.0); MEAN PLATELET VOLUME 7.5 fl; MONOCYTE ABSOLUTE 0.6 Th/cmm (0.3-1.0); NEUTROPHILE ABSOLUTE 3.8 Th/cmm (1.8-8.0); PLATELET COUNT 180 Th/cmm (150-400); RED BLOOD COUNT 3.42 Mil/cmm (3.80-5.20); WHITE BLOOD COUNT 5.3 Th/cmm (4.8-10.8)
[2018-02-05] MEDS ORDERED: Thrombin, Bovine 5,000 IU Vial TP ONE (07:24)
[2018-02-05 07:34] LABS: INR 1.03 (0.5-1.4); PROTHROMBIN TIME (TEST) 10.7 SECONDS (9.5-11.5)
[2018-02-05 07:51] LABS: ALBUMIN 3.5 gm/dL (3.7-5.3); ALKALINE PHOSPHATASE 94 U/L (34-104); BILIRUBIN,TOTAL 0.7 mg/dL (0.3-1.0); BUN - UREA NITROGEN 62 mg/dL (7-25); CALCIUM SERUM 9.1 mg/dL (8.6-10.3); CARBON DIOXIDE 24.8 mEq/L (21.0-31.0); CHLORIDE 96 mEq/L (98-107); GLUCOSE 214 mg/dL (70-105); POTASSIUM SERUM 4.8 mEq/L (3.5-5.1); SGOT 24 U/L (13-39); SGPT/ALT 13 U/L (7-52); SODIUM SERUM 131 mEq/L (136-145)
[2018-02-05 08:06] LABS: CREATININE - SERUM 5.5 mg/dL (0.6-1.2)
--- NOTE | 2018-02-05 08:43 | Diagnostic Imaging Report ---
CHEST X-RAY: AP view INDICATION: Permacath placement COMPARISON: Chest x-ray 01/17/2018 FINDINGS: No permacath is visualized. There appear to be external material along the right humeral region. Mild CHF is noted with small right effusion and right lung hazy infiltrates. Cardiomegaly is noted with atherosclerosis. Degenerative changes spine are noted. IMPRESSION: No permacath is visualized. There appear to be external material along the right humeral region, correlate clinically Mild CHF with right effusion and right lung infiltrates.
--- NOTE | 2018-02-05 09:38 | General Progress Note ---
Subjective - Review of Systems Service Date: 02/05/18 Events since last encounter: labs noted patient needs permanent access as she has pulled out around 8 catheters even with restraints Objective - Results Result Diagrams: 02/05/18 06:59 02/05/18 06:59 Recent Labs: Laboratory Last Values WBC 5.3 Th/cmm (4.8-10.8) 02/05/18 06:59 RBC 3.42 Mil/cmm (3.80-5.20) L 02/05/18 06:59 Hgb 10.5 gm/dL (12-16) L 02/05/18 06:59 Hct 31.5 % (41.0-60) L 02/05/18 06:59 MCV 92.1 fl (81-100) 02/05/18 06:59 MCH 30.7 pg (27.0-31.0) 02/05/18 06:59 MCHC Differential 33.4 pg (28.0-36.0) 02/05/18 06:59 RDW 17.0 % (11.5-20.0) 02/05/18 06:59 Plt Count 180 Th/cmm (150-400) 02/05/18 06:59 MPV 7.5 fl 02/05/18 06:59 Neutrophils % 70.7 % (40.0-80.0) 02/05/18 06:59 Lymphocytes % 15.4 % (20.0-50.0) L 02/05/18 06:59 Monocytes % 11.4 % (2.0-10.0) H 02/05/18 06:59 Eosinophils % 1.6 % (0.0-5.0) 02/05/18 06:59 Basophils % 0.9 % (0.0-2.0) 02/05/18 06:59 PT 10.7 SECONDS (9.5-11.5) 02/05/18 06:59 INR 1.03 (0.5-1.4) 02/05/18 06:59 PTT (Actin FS) 29.0 SECONDS (26.0-38.0) 02/05/18 06:59 Sodium 131 mEq/L (136-145) L 02/05/18 06:59 Potassium 4.8 mEq/L (3.5-5.1) 02/05/18 06:59 Chloride 96 mEq/L (98-107) L 02/05/18 06:59 Carbon Dioxide 24.8 mEq/L (21.0-31.0) 02/05/18 06:59 Anion Gap 15.0 (7.0-16.0) 02/05/18 06:59 BUN 62 mg/dL (7-25) H 02/05/18 06:59 Creatinine 5.5 mg/dL (0.6-1.2) H* 02/05/18 06:59 Est GFR ( Amer) TNP 02/05/18 06:59 Est GFR (Non-Af Amer) TNP 02/05/18 06:59 BUN/Creatinine Ratio 11.3 02/05/18 06:59 Glucose 214 mg/dL (70-105) H 02/05/18 06:59 Calcium 9.1 mg/dL (8.6-10.3) 02/05/18 06:59 Total Bilirubin 0.7 mg/dL (0.3-1.0) 02/05/18 06:59 AST 24 U/L (13-39) 02/05/18 06:59 ALT 13 U/L (7-52) 02/05/18 06:59 Alkaline Phosphatase 94 U/L (34-104) 02/05/18 06:59 Total Protein 7.0 gm/dL (6.0-8.3) 02/05/18 06:59 Albumin 3.5 gm/dL (3.7-5.3) L 02/05/18 06:59 Globulin 3.5 gm/dL 02/05/18 06:59 Albumin/Globulin Ratio 1.0 (1.0-1.8) 02/05/18 06:59 - Physical Exam Vitals and I&O: Vital Signs Temp Pulse Resp BP 112/61 02/05/18 06:01 Pulse Ox - Procedures Procedures: Procedures Procedure Code Date FLUOROSCOPY OF SUP VENA CAVA USING L OSM CONTRAST, GUIDANCE [id number] 12/28/17 INJECT/INFUSE NEC 99.29 06/24/13 INSERT TUNNELED CV CATH [id number] 01/09/18 INSERTION OF INFUSION DEV INTO SUP VENA CAVA, PERC APPROACH [id number] 01/09/18 PERFORMANCE OF URINARY FILTRATION, <6 HRS/DAY [id number] 01/09/18 REMOVAL OF INFUSION DEVICE FROM UPPER VEIN, INTELLECTUAL PROPERTY LEGAL ASSISTANT APPROACH [id number] 01/09/18 REMOVAL OF INFUSION DEVICE FROM UPPER VEIN, PERC APPROACH [id number] 12/28/17 REMOVAL TUNNELED CV CATH [id number] 01/09/18 ULTRASONOGRAPHY OF SUPERIOR VENA CAVA, GUIDANCE [id number] 01/09/18
--- NOTE | 2018-02-05 09:56 | Internal Medicine Prog Note ---
Internal Medicine Subjective - Subjective Service Date: 02/05/18 ([facility] [id number]) Internal Medicine Objective - Results Result Diagrams: 02/05/18 06:59 02/05/18 06:59 Recent Labs: Laboratory Last Values WBC 5.3 Th/cmm (4.8-10.8) 02/05/18 06:59 RBC 3.42 Mil/cmm (3.80-5.20) L 02/05/18 06:59 Hgb 10.5 gm/dL (12-16) L 02/05/18 06:59 Hct 31.5 % (41.0-60) L 02/05/18 06:59 MCV 92.1 fl (81-100) 02/05/18 06:59 MCH 30.7 pg (27.0-31.0) 02/05/18 06:59 MCHC Differential 33.4 pg (28.0-36.0) 02/05/18 06:59 RDW 17.0 % (11.5-20.0) 02/05/18 06:59 Plt Count 180 Th/cmm (150-400) 02/05/18 06:59 MPV 7.5 fl 02/05/18 06:59 Neutrophils % 70.7 % (40.0-80.0) 02/05/18 06:59 Lymphocytes % 15.4 % (20.0-50.0) L 02/05/18 06:59 Monocytes % 11.4 % (2.0-10.0) H 02/05/18 06:59 Eosinophils % 1.6 % (0.0-5.0) 02/05/18 06:59 Basophils % 0.9 % (0.0-2.0) 02/05/18 06:59 PT 10.7 SECONDS (9.5-11.5) 02/05/18 06:59 INR 1.03 (0.5-1.4) 02/05/18 06:59 PTT (Actin FS) 29.0 SECONDS (26.0-38.0) 02/05/18 06:59 Sodium 131 mEq/L (136-145) L 02/05/18 06:59 Potassium 4.8 mEq/L (3.5-5.1) 02/05/18 06:59 Chloride 96 mEq/L (98-107) L 02/05/18 06:59 Carbon Dioxide 24.8 mEq/L (21.0-31.0) 02/05/18 06:59 Anion Gap 15.0 (7.0-16.0) 02/05/18 06:59 BUN 62 mg/dL (7-25) H 02/05/18 06:59 Creatinine 5.5 mg/dL (0.6-1.2) H* 02/05/18 06:59 Est GFR ( Amer) TNP 02/05/18 06:59 Est GFR (Non-Af Amer) TNP 02/05/18 06:59 BUN/Creatinine Ratio 11.3 02/05/18 06:59 Glucose 214 mg/dL (70-105) H 02/05/18 06:59 Calcium 9.1 mg/dL (8.6-10.3) 02/05/18 06:59 Total Bilirubin 0.7 mg/dL (0.3-1.0) 02/05/18 06:59 AST 24 U/L (13-39) 02/05/18 06:59 ALT 13 U/L (7-52) 02/05/18 06:59 Alkaline Phosphatase 94 U/L (34-104) 02/05/18 06:59 Total Protein 7.0 gm/dL (6.0-8.3) 02/05/18 06:59 Albumin 3.5 gm/dL (3.7-5.3) L 02/05/18 06:59 Globulin 3.5 gm/dL 02/05/18 06:59 Albumin/Globulin Ratio 1.0 (1.0-1.8) 02/05/18 06:59 - Physical Exam Vitals and I&O: Vital Signs Temp Pulse Resp BP 112/61 02/05/18 06:01 Pulse Ox - Procedures Procedures: Procedures Procedure Code Date FLUOROSCOPY OF SUP VENA CAVA USING L OSM CONTRAST, GUIDANCE [id number] 12/28/17 INJECT/INFUSE NEC 99.29 06/24/13 INSERT TUNNELED CV CATH [id number] 01/09/18 INSERTION OF INFUSION DEV INTO SUP VENA CAVA, PERC APPROACH [id number] 01/09/18 PERFORMANCE OF URINARY FILTRATION, <6 HRS/DAY [id number] 01/09/18 REMOVAL OF INFUSION DEVICE FROM UPPER VEIN, AUTOMOBILE SERVICE WRITER APPROACH [id number] 01/09/18 REMOVAL OF INFUSION DEVICE FROM UPPER VEIN, PERC APPROACH [id number] 12/28/17 REMOVAL TUNNELED CV CATH [id number] 01/09/18 ULTRASONOGRAPHY OF SUPERIOR VENA CAVA, GUIDANCE [id number] 01/09/18
[2018-02-05] MEDS ORDERED: Propofol **SURGERY USE ONLY** 20 ML IV ONE (10:09)
--- NOTE | 2018-02-05 11:52 | Diagnostic Imaging Report ---
Fluoroscopy was utilized for facilitation of permacath insertion. Please refer to the procedural report for complete details. The total fluoroscopic time was 21 seconds.
[2018-02-05] MEDS ORDERED: fentaNYL Citrate 100 mcg/2mL Vial IVP PRN (12:01)
--- NOTE | 2018-02-05 12:11 | Diagnostic Imaging Report ---
CHEST X-RAY: AP view INDICATION: Permacath COMPARISON: 02/05/2018 FINDINGS: Left-sided permacath is in place with tip in SVC. No evidence of pneumothorax. Findings of CHF are noted with bilateral infiltrates, right greater than left, and right effusion. Cardiomegaly is noted. Right apical pleural capping is noted. IMPRESSION: New left-sided permacath with tip in SVC. No evidence of pneumothorax CHF with bilateral infiltrates and right effusion.
[2018-02-05] MEDS ORDERED: Pneumococcal Vaccine 0.5 mL Vial IM ONE (17:37)
[2018-02-05] MEDS: INSULIN ASPART SLIDING SCALE 100 UNITS/ML UNIT SUBQ SCH ×2 (19:10→20:53)
[2018-02-06] MEDS ORDERED: Dextrose 50% 50 mL Abboject IVP PRN (08:31)
[2018-02-06] MEDS ORDERED: Non-Formulary Item 1 EA (Amino Acids/Protein Hydrolys [Pro-Stat Awc Liquid] 30 ML) PO SCH (09:00)
[2018-02-06] MEDS: INSULIN ASPART SLIDING SCALE 100 UNITS/ML UNIT SUBQ SCH ×4 (09:17→21:37)
[2018-02-06] MEDS: POLYETHYLENE GLYCOL 3350 17 GM PACK PO SCH (10:13)
[2018-02-06] MEDS: Lactobacillus Rhamnosus GG 15 Billion CFU CAP.SPRINK PO SCH (10:14)
--- NOTE | 2018-02-06 10:25 | General Progress Note ---
Subjective - Review of Systems Service Date: 02/06/18 Events since last encounter: alert, awake, restrained right arm AV shunt is patent, dressings ok Objective - Results Result Diagrams: 02/05/18 06:59 02/05/18 06:59 Recent Labs: Laboratory Last Values WBC 5.3 Th/cmm (4.8-10.8) 02/05/18 06:59 RBC 3.42 Mil/cmm (3.80-5.20) L 02/05/18 06:59 Hgb 10.5 gm/dL (12-16) L 02/05/18 06:59 Hct 31.5 % (41.0-60) L 02/05/18 06:59 MCV 92.1 fl (81-100) 02/05/18 06:59 MCH 30.7 pg (27.0-31.0) 02/05/18 06:59 MCHC Differential 33.4 pg (28.0-36.0) 02/05/18 06:59 RDW 17.0 % (11.5-20.0) 02/05/18 06:59 Plt Count 180 Th/cmm (150-400) 02/05/18 06:59 MPV 7.5 fl 02/05/18 06:59 Neutrophils % 70.7 % (40.0-80.0) 02/05/18 06:59 Lymphocytes % 15.4 % (20.0-50.0) L 02/05/18 06:59 Monocytes % 11.4 % (2.0-10.0) H 02/05/18 06:59 Eosinophils % 1.6 % (0.0-5.0) 02/05/18 06:59 Basophils % 0.9 % (0.0-2.0) 02/05/18 06:59 PT 10.7 SECONDS (9.5-11.5) 02/05/18 06:59 INR 1.03 (0.5-1.4) 02/05/18 06:59 PTT (Actin FS) 29.0 SECONDS (26.0-38.0) 02/05/18 06:59 Sodium 131 mEq/L (136-145) L 02/05/18 06:59 Potassium 4.8 mEq/L (3.5-5.1) 02/05/18 06:59 Chloride 96 mEq/L (98-107) L 02/05/18 06:59 Carbon Dioxide 24.8 mEq/L (21.0-31.0) 02/05/18 06:59 Anion Gap 15.0 (7.0-16.0) 02/05/18 06:59 BUN 62 mg/dL (7-25) H 02/05/18 06:59 Creatinine 5.5 mg/dL (0.6-1.2) H* 02/05/18 06:59 Est GFR ( Amer) TNP 02/05/18 06:59 Est GFR (Non-Af Amer) TNP 02/05/18 06:59 BUN/Creatinine Ratio 11.3 02/05/18 06:59 Glucose 214 mg/dL (70-105) H 02/05/18 06:59 POC Glucose 213 MG/DL (70 - 105) H 02/06/18 06:38 Calcium 9.1 mg/dL (8.6-10.3) 02/05/18 06:59 Total Bilirubin 0.7 mg/dL (0.3-1.0) 02/05/18 06:59 AST 24 U/L (13-39) 02/05/18 06:59 ALT 13 U/L (7-52) 02/05/18 06:59 Alkaline Phosphatase 94 U/L (34-104) 02/05/18 06:59 Total Protein 7.0 gm/dL (6.0-8.3) 02/05/18 06:59 Albumin 3.5 gm/dL (3.7-5.3) L 02/05/18 06:59 Globulin 3.5 gm/dL 02/05/18 06:59 Albumin/Globulin Ratio 1.0 (1.0-1.8) 02/05/18 06:59 Salicylates < 25.0 mg/L (30.0-100.0) L 02/05/18 06:59 - Physical Exam Vitals and I&O: Vital Signs Temp 96.6 F 02/06/18 06:00 Pulse 100 02/06/18 10:14 Resp 18 02/06/18 05:59 BP 113/54 02/06/18 10:14 Pulse Ox 98 02/06/18 05:59 Intake & Output 02/05/18 02/06/18 02/06/18 18:59 06:59 18:59 Intake Total 720 138 Balance 720 138 Weight (lbs) 62.596 kg 62.596 kg Intake: Oral 720 138 Other: # Voids 3 Active Medications: Current Medications Acetaminophen (Tylenol) 650 mg PO Q4HR PRN PRN Reason: Pain or Fever >101 Stop: 04/07/18 08:30 Acetaminophen (Tylenol 650mg Supp) 650 mg RC Q6H PRN PRN Reason: fever/pain Stop: 04/07/18 08:30 Bisacodyl (Dulcolax 10 Mg Supp) 10 mg RC DAILY ALINE Stop: 04/07/18 08:59 Last Admin: 02/06/18 10:13 Dose: 10 mg Carvedilol (Coreg) 3.125 mg PO BID ALINE Stop: 04/07/18 08:59 Last Admin: 02/06/18 10:14 Dose: 3.125 mg Donepezil HCl (Aricept) 5 mg PO DAILY ALINE Stop: 04/07/18 08:59 Last Admin: 02/06/18 10:13 Dose: 5 mg Folic Acid (Folate) 1 mg PO DAILY ALINE Stop: 04/07/18 08:59 Last Admin: 02/06/18 10:13 Dose: 1 mg Insulin Aspart (Novolog Insulin Sliding Scale) 0 units SUBQ ACHS ALINE PRN Reason: Protocol Stop: 04/06/18 16:29 Last Admin: 02/06/18 09:17 Dose: 4 units Insulin Aspart (Novolog) 0 units SUBQ ACHS ALINE PRN Reason: Protocol Stop: 04/07/18 11:29 Lactobacillus Rhamnosus (Culturelle 15b) 1 each PO DAILY ALINE Stop: 04/07/18 08:59 Last Admin: 02/06/18 10:14 Dose: 1 each Levothyroxine Sodium (Synthroid) 0.1 mg PO QDAC ALINE Stop: 04/08/18 07:29 Lorazepam (Ativan) 1 mg IVP Q4HR PRN; Protocol PRN Reason: Agitation Stop: 04/06/18 13:25 Last Admin: 02/05/18 16:17 Dose: 1 mg Memantine (Namenda) 5 mg PO DAILY ALINE Stop: 04/07/18 08:59 Last Admin: 02/06/18 10:14 Dose: 5 mg Miscellaneous (Dextrose 50% [D50w]) 50 ml IV PRN PRN PRN Reason: HYPOGLYCEMIA Polyethylene Glycol (Miralax) 17 gm PO DAILY ALINE Stop: 04/07/18 08:59 Last Admin: 02/06/18 10:13 Dose: 17 gm Quetiapine Fumarate (Seroquel) 12.5 mg PO DAILY ALINE PRN Reason: Protocol Stop: 04/07/18 08:59 Quetiapine Fumarate (Seroquel) 25 mg PO HS ALINE PRN Reason: Protocol Stop: 04/07/18 20:59 - Procedures Procedures: Procedures Procedure Code Date FLUOROSCOPY OF SUP VENA CAVA USING L OSM CONTRAST, GUIDANCE [id number] 12/28/17 INJECT/INFUSE NEC 99.29 06/24/13 INSERT TUNNELED CV CATH [id number] 01/09/18 INSERTION OF INFUSION DEV INTO SUP VENA CAVA, PERC APPROACH [id number] 01/09/18 PERFORMANCE OF URINARY FILTRATION, <6 HRS/DAY [id number] 01/09/18 REMOVAL OF INFUSION DEVICE FROM UPPER VEIN, PIPE COVERING MOLDER APPROACH [id number] 01/09/18 REMOVAL OF INFUSION DEVICE FROM UPPER VEIN, PERC APPROACH [id number] 12/28/17 REMOVAL TUNNELED CV CATH [id number] 01/09/18 ULTRASONOGRAPHY OF SUPERIOR VENA CAVA, GUIDANCE [id number] 01/09/18
[2018-02-06] MEDS ORDERED: INSULIN HUMAN REGULAR 100 UNITS/ML UNIT SUBQ SCH (11:30)
--- NOTE | 2018-02-06 12:05 | Infectious Disease Prog Note ---
Infectious Disease Subjective - Review of Systems Service Date: 02/06/18 Subjective: Patient was brought in for AV graft placement. It was performed by DR Mckinney in her right arm. Otherwise, she is doing well. Infectious Disease Objective - Results Result Diagrams: 02/05/18 06:59 03 06:59 Recent Labs: Laboratory Last Values WBC 5.3 Th/cmm (4.8-10.8) 02/05/18 06:59 RBC 3.42 Mil/cmm (3.80-5.20) L 02/05/18 06:59 Hgb 10.5 gm/dL (12-16) L 02/05/18 06:59 Hct 31.5 % (41.0-60) L 02/05/18 06:59 MCV 92.1 fl (81-100) 02/05/18 06:59 MCH 30.7 pg (27.0-31.0) 02/05/18 06:59 MCHC Differential 33.4 pg (28.0-36.0) 02/05/18 06:59 RDW 17.0 % (11.5-20.0) 02/05/18 06:59 Plt Count 180 Th/cmm (150-400) 02/05/18 06:59 MPV 7.5 fl 02/05/18 06:59 Neutrophils % 70.7 % (40.0-80.0) 02/05/18 06:59 Lymphocytes % 15.4 % (20.0-50.0) L 02/05/18 06:59 Monocytes % 11.4 % (2.0-10.0) H 02/05/18 06:59 Eosinophils % 1.6 % (0.0-5.0) 02/05/18 06:59 Basophils % 0.9 % (0.0-2.0) 02/05/18 06:59 PT 10.7 SECONDS (9.5-11.5) 02/05/18 06:59 INR 1.03 (0.5-1.4) 02/05/18 06:59 PTT (Actin FS) 29.0 SECONDS (26.0-38.0) 02/05/18 06:59 Sodium 131 mEq/L (136-145) L 02/05/18 06:59 Potassium 4.8 mEq/L (3.5-5.1) 02/05/18 06:59 Chloride 96 mEq/L (98-107) L 02/05/18 06:59 Carbon Dioxide 24.8 mEq/L (21.0-31.0) 02/05/18 06:59 Anion Gap 15.0 (7.0-16.0) 02/05/18 06:59 BUN 62 mg/dL (7-25) H 02/05/18 06:59 Creatinine 5.5 mg/dL (0.6-1.2) H* 02/05/18 06:59 Est GFR ( Amer) TNP 02/05/18 06:59 Est GFR (Non-Af Amer) TNP 02/05/18 06:59 BUN/Creatinine Ratio 11.3 02/05/18 06:59 Glucose 214 mg/dL (70-105) H 02/05/18 06:59 POC Glucose 151 MG/DL (70 - 105) H 02/06/18 11:52 Calcium 9.1 mg/dL (8.6-10.3) 02/05/18 06:59 Total Bilirubin 0.7 mg/dL (0.3-1.0) 02/05/18 06:59 AST 24 U/L (13-39) 02/05/18 06:59 ALT 13 U/L (7-52) 02/05/18 06:59 Alkaline Phosphatase 94 U/L (34-104) 02/05/18 06:59 Total Protein 7.0 gm/dL (6.0-8.3) 02/05/18 06:59 Albumin 3.5 gm/dL (3.7-5.3) L 02/05/18 06:59 Globulin 3.5 gm/dL 02/05/18 06:59 Albumin/Globulin Ratio 1.0 (1.0-1.8) 02/05/18 06:59 Salicylates < 25.0 mg/L (30.0-100.0) L 02/05/18 06:59 - Physical Exam Vitals and I&O: Vital Signs Temp 97.7 F 02/06/18 10:00 Pulse 100 02/06/18 10:14 Resp 18 02/06/18 10:00 BP 113/54 02/06/18 10:14 Pulse Ox 100 02/06/18 09:00 Intake & Output 02/05/18 02/06/18 02/06/18 18:59 06:59 18:59 Intake Total 720 138 Balance 720 138 Weight (lbs) 62.596 kg 62.596 kg Intake: Oral 720 138 Other: # Voids 3 Stool Characteristics Soft Active Medications: Current Medications Acetaminophen (Tylenol) 650 mg PO Q4HR PRN PRN Reason: Pain or Fever >101 Stop: 04/07/18 08:30 Acetaminophen (Tylenol 650mg Supp) 650 mg RC Q6H PRN PRN Reason: fever/pain Stop: 04/07/18 08:30 Bisacodyl (Dulcolax 10 Mg Supp) 10 mg RC DAILY [facility] Stop: 04/07/18 08:59 Last Admin: 02/06/18 10:13 Dose: 10 mg Carvedilol (Coreg) 3.125 mg PO BID ALINE Stop: 04/07/18 08:59 Last Admin: 02/06/18 10:14 Dose: 3.125 mg Donepezil HCl (Aricept) 5 mg PO DAILY ALINE Stop: 04/07/18 08:59 Last Admin: 02/06/18 10:13 Dose: 5 mg Folic Acid (Folate) 1 mg PO DAILY ALINE Stop: 04/07/18 08:59 Last Admin: 02/06/18 10:13 Dose: 1 mg Insulin Aspart (Novolog Insulin Sliding Scale) 0 units SUBQ ACHS ALINE PRN Reason: Protocol Stop: 04/06/18 16:29 Last Admin: 02/06/18 09:17 Dose: 4 units Insulin Aspart (Novolog) 0 units SUBQ ACHS ALINE PRN Reason: Protocol Stop: 04/07/18 11:29 Lactobacillus Rhamnosus (Culturelle 15b) 1 each PO DAILY ALINE Stop: 04/07/18 08:59 Last Admin: 02/06/18 10:14 Dose: 1 each Levothyroxine Sodium (Synthroid) 0.1 mg PO QDAC ALINE Stop: 04/08/18 07:29 Lorazepam (Ativan) 1 mg IVP Q4HR PRN; Protocol PRN Reason: Agitation Stop: 04/06/18 13:25 Last Admin: 02/05/18 16:17 Dose: 1 mg Memantine (Namenda) 5 mg PO DAILY ALINE Stop: 04/07/18 08:59 Last Admin: 02/06/18 10:14 Dose: 5 mg Miscellaneous (Dextrose 50% [D50w]) 50 ml IV PRN PRN PRN Reason: HYPOGLYCEMIA Polyethylene Glycol (Miralax) 17 gm PO DAILY ALINE Stop: 04/07/18 08:59 Last Admin: 02/06/18 10:13 Dose: 17 gm Quetiapine Fumarate (Seroquel) 12.5 mg PO DAILY ALINE PRN Reason: Protocol Stop: 04/07/18 08:59 Quetiapine Fumarate (Seroquel) 25 mg PO HS ALINE PRN Reason: Protocol Stop: 04/07/18 20:59 General: no acute distress, well developed, well nourished HEENT: atraumatic, normocephalic, PERRLA Neck: supple, no thyromegaly Cardiovascular: S1S2, regular Lungs: clear to auscultation bilaterally, clear to percussion Abdomen: soft, no tender Extremities: no cyanosis, no clubbing, no edema Neurological: awake, alert, oriented, other (confused) - Procedures Procedures: Procedures Procedure Code Date FLUOROSCOPY OF SUP VENA CAVA USING L OSM CONTRAST, GUIDANCE [id number] 12/28/17 INJECT/INFUSE NEC 99.29 06/24/13 INSERT TUNNELED CV CATH [id number] 01/09/18 INSERTION OF INFUSION DEV INTO SUP VENA CAVA, PERC APPROACH [id number] 01/09/18 PERFORMANCE OF URINARY FILTRATION, <6 HRS/DAY [id number] 01/09/18 REMOVAL OF INFUSION DEVICE FROM UPPER VEIN, SMOKE JUMPER SUPERVISOR APPROACH [id number] 01/09/18 REMOVAL OF INFUSION DEVICE FROM UPPER VEIN, PERC APPROACH [id number] 12/28/17 REMOVAL TUNNELED CV CATH [id number] 01/09/18 ULTRASONOGRAPHY OF SUPERIOR VENA CAVA, GUIDANCE [id number] 01/09/18 Infectious Disease Assmt/Plan - Assessment Assessment: 1. MRSA sepsis, resolved, receiving Vanco IV. 2, CKD 5 on HD. 3. Anemia of CD. - Plan Plan: Continue Vancomycin IV for 2 more weeks. Dc planning.
[2018-02-06] MEDS: INSULIN ASPART, RECOMBINANT 100 UNITS/ML SUBQ SCH ×2 (12:10→16:53)
--- NOTE | 2018-02-06 12:19 | Consultation ---
Consult Note - Consult Note Service Date: 02/06/18 Consult Note: PHYSICIAN Consultation Note: Date of Admission: 02/05/18 Purpose of Consultation: ESRD on HD Chief Complaint: NO HD ACCESS History of Present Illness: Patient KENJI BLAKE was admitted to [facility] I with PERMA CATH PLACEMENT. PATIENT WAS TRANSFERRED FROM [place] FOR SHUNT PLACEMENT Past Medical History: DEMENTIA HTN ESRD ANEMIA of CKD DM PSYCHOSIS Allergies Allergy/AdvReac Type Severity Reaction Status Date / Time iodine Allergy Verified 09/27/17 21:04 morphine Allergy Verified 09/27/17 21:04 Vital Signs Temp 97.7 F 02/06/18 10:00 Pulse 100 02/06/18 10:14 Resp 18 02/06/18 10:00 BP 113/54 02/06/18 10:14 Pulse Ox 100 02/06/18 09:00 Intake & Output 02/05/18 02/06/18 02/06/18 18:59 06:59 18:59 Intake Total 720 138 Balance 720 138 Weight (lbs) 62.596 kg 62.596 kg Intake: Oral 720 138 Other: # Voids 3 Stool Characteristics Soft Laboratory Results - last 24 hr 02/05/18 02/05/18 02/05/18 06:59 18:45 20:33 POC Glucose 208 H 249 H Salicylates < 25.0 L 02/06/18 02/06/18 06:38 11:52 POC Glucose 213 H 151 H Salicylates Home Medication Medication Instructions Recorded Type Acetaminophen [Tylenol] 650 mg PO Q4HR PRN 01/09/18 History Amino Acids/Protein Hydrolys 30 ml PO TID 01/09/18 History [Pro-Stat Awc Liquid] Carvedilol 3.125 mg PO BID 01/09/18 History Dextrose 50% [D50w] 50 ml IV PRN PRN 01/09/18 History Donepezil Hcl [Aricept] 5 mg PO DAILY 01/09/18 History Insulin Human Regular [NovoLIN R*] See Protocol SUBQ ACHS 01/09/18 History Levothyroxine Sodium 100 mcg PO QDAC 01/09/18 History Memantine [Namenda] 5 mg PO DAILY 01/09/18 History QUEtiapine Fumarate [SEROquel] 12.5 mg PO DAILY 01/09/18 History QUEtiapine Fumarate [SEROquel] 25 mg PO HS 01/09/18 History Acetaminophen [Tylenol 650mg Supp] 650 mg RC Q6H PRN sup 01/18/18 Rx Bisacodyl [Dulcolax 10 Mg Supp] 10 mg RC DAILY sup 01/18/18 Rx Folic Acid [Folate*] 1 mg PO DAILY tab 01/18/18 Rx Insulin Aspart, Recombinant See Protocol SUBQ ACHS unit 01/18/18 Rx [NovoLOG] Lactobacillus Rhamnosus GG 15B 1 each PO DAILY cap.sprink 01/18/18 Rx [Culturelle 15B] Polyethylene Glycol 3350 [Miralax] 17 gm PO DAILY pack 01/18/18 Rx Vitamin B Complex w/Vitamin C 1 tab PO DAILY tab 01/18/18 Rx Current Medications Generic Name Dose Route Start Last Admin Trade Name Freq PRN Reason Stop Dose Admin Acetaminophen 650 mg 02/06/18 08:31 Tylenol PO 04/07/18 08:30 Q4HR PRN Pain or Fever >101 Acetaminophen 650 mg 02/06/18 08:31 Tylenol 650mg Supp RC 04/07/18 08:30 Q6H PRN fever/pain Bisacodyl 10 mg 02/06/18 09:00 02/06/18 10:13 Dulcolax 10 Mg Supp RC 04/07/18 08:59 10 mg DAILY ALINE Administration Carvedilol 3.125 mg 02/06/18 09:00 02/06/18 10:14 Coreg PO 04/07/18 08:59 3.125 mg BID ALINE Administration Donepezil HCl 5 mg 02/06/18 09:00 02/06/18 10:13 Aricept PO 04/07/18 08:59 5 mg DAILY ALINE Administration Folic Acid 1 mg 02/06/18 09:00 02/06/18 10:13 Folate PO 04/07/18 08:59 1 mg DAILY ALINE Administration Insulin Aspart 0 units 02/05/18 16:30 02/06/18 12:08 Novolog Insulin Sliding Scale SUBQ 04/06/18 16:29 2 units ACHS ALINE Administration Protocol Insulin Aspart 0 units 02/06/18 11:30 02/06/18 12:10 Novolog SUBQ 04/07/18 11:29 Not Given ACHS ALINE Protocol Lactobacillus Rhamnosus 1 each 02/06/18 09:00 02/06/18 10:14 Culturelle 15b PO 04/07/18 08:59 1 each DAILY ALINE Administration Levothyroxine Sodium 0.1 mg 02/07/18 07:30 Synthroid PO 04/08/18 07:29 QDAC ALINE Lorazepam 1 mg 02/05/18 13:26 02/05/18 16:17 Ativan IVP 04/06/18 13:25 1 mg Q4HR PRN Administration Agitation Protocol Memantine 5 mg 02/06/18 09:00 02/06/18 10:14 Namenda PO 04/07/18 08:59 5 mg DAILY ALINE Administration Miscellaneous 50 ml 02/06/18 08:31 Dextrose 50% [D50w] IV PRN PRN HYPOGLYCEMIA Polyethylene Glycol 17 gm 02/06/18 09:00 02/06/18 10:13 Miralax PO 04/07/18 08:59 17 gm DAILY ALINE Administration Quetiapine Fumarate 12.5 mg 02/06/18 09:00 Seroquel PO 04/07/18 08:59 DAILY ALINE Protocol Quetiapine Fumarate 25 mg 02/06/18 21:00 Seroquel PO 04/07/18 20:59 HS ALINE Protocol Review of Systems: A 12 point ROS was reviewed with the pertinent positive and negatives noted in the HPI. Social History Smoking Status Never smoker Drug Use No Alcohol Use No Family Medical History Family Medical History Start: 02/05/18 10: 50 Freq: ONCE Status: Active Document 02/05/18 08:00 [email or web address] (Rec: 02/05/18 17:36 [id number] [id number]) Family Medical History Son History Unknown Yes Ethnicity Mother History Unknown Yes Ethnicity Living Status Physical Exam: General: no distress HEENT: MARION EOMI Neck: SUPPLE Cardio: S1S2 RRR Respiratory: CTA B/L Abdominal: SOFT NT ND Genital/Urinary: Extremities: NO EDEMA Neurological: CONFUSED Assessment: S/P PERMCATH PLACEMENT ESRD HTN DM DEMENTIA / PSYCHOSIS Plan: CONTINUE HD SUPPORT Signed, Jignesh Cowan M.D. 216
--- NOTE | 2018-02-06 15:14 | History & Physical ---
ADMIT DATE: 02/06/2018 CHIEF COMPLAINT: Hemodialysis access or catheter malfunction. HISTORY OF PRESENT ILLNESS: This is a 77-year-old female who was originally admitted from long-term acute care, was transferred to the Emergency Room due to the Perm-A-Cath was pulled out that resulted the patient to have some bleeding, stitches was done in the Emergency Room on the right upper chest area. REVIEW OF SYSTEMS: GENERAL: This is a 77-year-old female that appears as stated. The patient is a poor historian. HEENT: No headache. No dizziness. EYES: No eye pain, no blurring of vision. NECK: No neck pain, no nuchal rigidity. CHEST: No chest pain. No palpitation. PULMONARY: No coughing. No shortness of breath. GASTROINTESTINAL: No abdominal pain, no constipation, no diarrhea. MUSCULOSKELETAL: No muscle pain, no joint pain. SOCIAL HISTORY: The patient lives in a chcf facility prior to hospitalization and moved to long-term acute care. PAST SURGICAL HISTORY: Unremarkable. FAMILY HISTORY: Unremarkable. PAST MEDICAL HISTORY: Includes end-stage renal disease, osteoarthritis, hypertension, anemia, diabetes, hypothyroidism and dementia. PHYSICAL EXAMINATION: GENERAL: This is a 77-year-old female, in no acute distress. VITAL SIGNS: Temperature 97.9, heart rate of 98, blood pressure 116/61, respiration of 18 and 100% on room air. HEENT: Head is atraumatic, normocephalic. Eyes: Bilateral conjunctivae are clear. Bilateral pupils are equally round and reactive. NECK: Supple. No JVD. CARDIOVASCULAR: S1 and S2 without murmur. LUNGS: Clear to auscultation. GASTROINTESTINAL: Soft and nontender without guarding. Positive bowel sounds. MUSCULOSKELETAL: No clubbing, no cyanosis noted. ASSESSMENT: 1. Hemodialysis catheter malfunction. 2. End-stage renal disease, hemodialysis dependent. 3. Hypertension. 4. Anemia. 5. Diabetes. 6. Anemia. 7. Hypothyroidism. 8. Dementia. PLAN: Hemodialysis catheter replaced to continue dialysis as scheduled. I am also going to monitor the patient's nutritional status and also going to monitor the patient's electrolyte status. Treatment plans were discussed with the patient's nurse. Treatment plans were discussed with Dr. Moreira. JOB# [id number]
[2018-02-06] MEDS ORDERED: Alteplase, Recombinant 100 mg Kit IV STA ×2 (16:29→16:40)
[2018-02-06 20:05] LABS: A1C % 7.8 % (4.0-6.0)
--- NOTE | 2018-02-06 22:23 | History & Physical ---
ADMIT DATE: 02/05/2018 DICTATING FOR: Dr. Moreira. CHIEF COMPLAINT: Perm-A-Cath placement. HISTORY OF PRESENT ILLNESS: This is a 77-year-old female who is a halfway resident, who was brought here to [facility] due to malfunctioning of the hemodialysis catheter. For further management, the patient is admitted. PAST MEDICAL HISTORY: ESRD, hemodialysis dependent, hypertension, diabetes, dementia, hypothyroidism, and anemia. FAMILY HISTORY: Noncontributory. PAST SURGICAL HISTORY: Perm-A-Cath placement. SOCIAL HISTORY: The patient is a halfway resident, requiring 24-hour nursing care. REVIEW OF SYSTEMS: GENERAL: Denies any fevers and chills. CARDIOVASCULAR: Denies chest pain. RESPIRATORY: Denies shortness of breath. GASTROINTESTINAL: Denies nausea, vomiting, abdominal pain. GENITOURINARY: Denies increased frequency or dysuria. NEUROLOGIC: No headache, seizures, or syncope. All other systems are reviewed and are negative. PHYSICAL EXAMINATION: GENERAL: This is an elderly female, awake, alert, in no apparent distress. VITAL SIGNS: At this time, blood pressure is 112/61. HEENT: Normocephalic, atraumatic. NECK: Supple. No mass. LUNGS: Clear bilaterally. ABDOMEN: Soft, nontender. ASSESSMENT: Hemodialysis catheter malfunction, end-stage renal disease on hemodialysis, hypertension, dementia. PLAN: Get surgical consultation for replacement of the patient's HD catheter. We will continue to follow this patient. [facility]# [id number]
[2018-02-07] MEDS: Levothyroxine 0.1 Mg Tab PO SCH (08:00)
[2018-02-07] MEDS: INSULIN ASPART SLIDING SCALE 100 UNITS/ML UNIT SUBQ SCH ×4 (09:59→21:34)
[2018-02-07] MEDS: Lactobacillus Rhamnosus GG 15 Billion CFU CAP.SPRINK PO SCH (10:00)
[2018-02-07] MEDS: POLYETHYLENE GLYCOL 3350 17 GM PACK PO SCH (10:00)
--- NOTE | 2018-02-07 10:15 | General Progress Note ---
Subjective - Review of Systems Events since last encounter: s/o AV graft placement by DR Mckinney in her right arm. patient doing well Objective - Results Result Diagrams: 02/05/18 06:59 02/05/18 06:59 Recent Labs: Laboratory Last Values WBC 5.3 Th/cmm (4.8-10.8) 02/05/18 06:59 RBC 3.42 Mil/cmm (3.80-5.20) L 02/05/18 06:59 Hgb 10.5 gm/dL (12-16) L 02/05/18 06:59 Hct 31.5 % (41.0-60) L 02/05/18 06:59 MCV 92.1 fl (81-100) 02/05/18 06:59 MCH 30.7 pg (27.0-31.0) 02/05/18 06:59 MCHC Differential 33.4 pg (28.0-36.0) 02/05/18 06:59 RDW 17.0 % (11.5-20.0) 02/05/18 06:59 Plt Count 180 Th/cmm (150-400) 02/05/18 06:59 MPV 7.5 fl 02/05/18 06:59 Neutrophils % 70.7 % (40.0-80.0) 02/05/18 06:59 Lymphocytes % 15.4 % (20.0-50.0) L 02/05/18 06:59 Monocytes % 11.4 % (2.0-10.0) H 02/05/18 06:59 Eosinophils % 1.6 % (0.0-5.0) 02/05/18 06:59 Basophils % 0.9 % (0.0-2.0) 02/05/18 06:59 PT 10.7 SECONDS (9.5-11.5) 02/05/18 06:59 INR 1.03 (0.5-1.4) 02/05/18 06:59 PTT (Actin FS) 29.0 SECONDS (26.0-38.0) 02/05/18 06:59 Sodium 131 mEq/L (136-145) L 02/05/18 06:59 Potassium 4.8 mEq/L (3.5-5.1) 02/05/18 06:59 Chloride 96 mEq/L (98-107) L 02/05/18 06:59 Carbon Dioxide 24.8 mEq/L (21.0-31.0) 02/05/18 06:59 Anion Gap 15.0 (7.0-16.0) 02/05/18 06:59 BUN 62 mg/dL (7-25) H 02/05/18 06:59 Creatinine 5.5 mg/dL (0.6-1.2) H* 02/05/18 06:59 Est GFR ( Amer) TNP 02/05/18 06:59 Est GFR (Non-Af Amer) TNP 02/05/18 06:59 BUN/Creatinine Ratio 11.3 02/05/18 06:59 Glucose 214 mg/dL (70-105) H 02/05/18 06:59 POC Glucose 167 MG/DL (70 - 105) H 02/06/18 16:15 Hemoglobin A1c % 7.8 % (4.0-6.0) H 02/05/18 06:39 Calcium 9.1 mg/dL (8.6-10.3) 02/05/18 06:59 Total Bilirubin 0.7 mg/dL (0.3-1.0) 02/05/18 06:59 AST 24 U/L (13-39) 02/05/18 06:59 ALT 13 U/L (7-52) 02/05/18 06:59 Alkaline Phosphatase 94 U/L (34-104) 02/05/18 06:59 Total Protein 7.0 gm/dL (6.0-8.3) 02/05/18 06:59 Albumin 3.5 gm/dL (3.7-5.3) L 02/05/18 06:59 Globulin 3.5 gm/dL 02/05/18 06:59 Albumin/Globulin Ratio 1.0 (1.0-1.8) 02/05/18 06:59 Salicylates < 25.0 mg/L (30.0-100.0) L 02/05/18 06:59 - Physical Exam Vitals and I&O: Vital Signs Temp 96.8 F 02/07/18 05:55 Pulse 97 02/07/18 10:01 Resp 18 02/07/18 05:55 BP 104/52 02/07/18 10:01 Pulse Ox 99 02/07/18 05:55 Intake & Output 02/06/18 02/07/18 02/07/18 17:59 06:59 18:59 Intake Total Balance Weight (lbs) Intake: Oral Other: # Voids # Bowel Movements Stool Characteristics Active Medications: Current Medications Acetaminophen (Tylenol) 650 mg PO Q4HR PRN PRN Reason: Pain or Fever >101 Stop: 04/07/18 08:30 Acetaminophen (Tylenol 650mg Supp) 650 mg RC Q6H PRN PRN Reason: fever/pain Stop: 04/07/18 08:30 Bisacodyl (Dulcolax 10 Mg Supp) 10 mg RC DAILY [facility] Stop: 04/07/18 08:59 Last Admin: 02/07/18 10:01 Dose: 10 mg Carvedilol (Coreg) 3.125 mg PO BID [facility] Stop: 04/07/18 08:59 Last Admin: 02/07/18 10:01 Dose: Not Given Donepezil HCl (Aricept) 5 mg PO DAILY [facility] Stop: 04/07/18 08:59 Last Admin: 02/07/18 10:00 Dose: 5 mg Folic Acid (Folate) 1 mg PO DAILY [facility] Stop: 04/07/18 08:59 Last Admin: 02/07/18 10:00 Dose: 1 mg Insulin Aspart (Novolog Insulin Sliding Scale) 0 units SUBQ ACHS [facility]INE PRN Reason: Protocol Stop: 04/06/18 16:29 Last Admin: 02/07/18 09:59 Dose: Not Given Insulin Aspart (Novolog) 0 units SUBQ ACHS ALINE PRN Reason: Protocol Stop: 04/07/18 11:29 Last Admin: 02/06/18 16:53 Dose: Not Given Lactobacillus Rhamnosus (Culturelle 15b) 1 each PO DAILY [facility] Stop: 04/07/18 08:59 Last Admin: 02/07/18 10:00 Dose: 1 each Levothyroxine Sodium (Synthroid) 0.1 mg PO QDAC [facility] Stop: 04/08/18 07:29 Lorazepam (Ativan) 1 mg IVP Q4HR PRN; Protocol PRN Reason: Agitation Stop: 04/06/18 13:25 Last Admin: 02/05/18 16:17 Dose: 1 mg Memantine (Namenda) 5 mg PO DAILY [facility] Stop: 04/07/18 08:59 Last Admin: 02/07/18 10:01 Dose: 5 mg Miscellaneous (Dextrose 50% [D50w]) 50 ml IV PRN PRN PRN Reason: HYPOGLYCEMIA Polyethylene Glycol (Miralax) 17 gm PO DAILY [facility] Stop: 04/07/18 08:59 Last Admin: 02/07/18 10:00 Dose: 17 gm Quetiapine Fumarate (Seroquel) 12.5 mg PO DAILY [facility] PRN Reason: Protocol Stop: 04/07/18 08:59 Quetiapine Fumarate (Seroquel) 25 mg PO HS ALINE PRN Reason: Protocol Stop: 04/07/18 20:59 - Procedures Procedures: Procedures Procedure Code Date FLUOROSCOPY OF SUP VENA CAVA USING L OSM CONTRAST, GUIDANCE [id number] 12/28/17 INJECT/INFUSE NEC 99.29 06/24/13 INSERT TUNNELED CV CATH [id number] 01/09/18 INSERTION OF INFUSION DEV INTO SUP VENA CAVA, PERC APPROACH [id number] 01/09/18 PERFORMANCE OF URINARY FILTRATION, <6 HRS/DAY [id number] 01/09/18 REMOVAL OF INFUSION DEVICE FROM UPPER VEIN, CT TECHNOLOGIST APPROACH [id number] 01/09/18 REMOVAL OF INFUSION DEVICE FROM UPPER VEIN, PERC APPROACH [id number] 12/28/17 REMOVAL TUNNELED CV CATH [id number] 01/09/18 ULTRASONOGRAPHY OF SUPERIOR VENA CAVA, GUIDANCE [id number] 01/09/18
--- NOTE | 2018-02-07 11:33 | General Progress Note ---
Subjective - Review of Systems Service Date: 02/07/18 Events since last encounter: AV shunt with good pulse, dressings dry Objective - Results Result Diagrams: 02/05/18 06:59 03 06:59 Recent Labs: Laboratory Last Values WBC 5.3 Th/cmm (4.8-10.8) 02/05/18 06:59 RBC 3.42 Mil/cmm (3.80-5.20) L 02/05/18 06:59 Hgb 10.5 gm/dL (12-16) L 02/05/18 06:59 Hct 31.5 % (41.0-60) L 02/05/18 06:59 MCV 92.1 fl (81-100) 02/05/18 06:59 MCH 30.7 pg (27.0-31.0) 02/05/18 06:59 MCHC Differential 33.4 pg (28.0-36.0) 02/05/18 06:59 RDW 17.0 % (11.5-20.0) 02/05/18 06:59 Plt Count 180 Th/cmm (150-400) 02/05/18 06:59 MPV 7.5 fl 02/05/18 06:59 Neutrophils % 70.7 % (40.0-80.0) 02/05/18 06:59 Lymphocytes % 15.4 % (20.0-50.0) L 02/05/18 06:59 Monocytes % 11.4 % (2.0-10.0) H 02/05/18 06:59 Eosinophils % 1.6 % (0.0-5.0) 02/05/18 06:59 Basophils % 0.9 % (0.0-2.0) 02/05/18 06:59 PT 10.7 SECONDS (9.5-11.5) 02/05/18 06:59 INR 1.03 (0.5-1.4) 02/05/18 06:59 PTT (Actin FS) 29.0 SECONDS (26.0-38.0) 02/05/18 06:59 Sodium 131 mEq/L (136-145) L 02/05/18 06:59 Potassium 4.8 mEq/L (3.5-5.1) 02/05/18 06:59 Chloride 96 mEq/L (98-107) L 02/05/18 06:59 Carbon Dioxide 24.8 mEq/L (21.0-31.0) 02/05/18 06:59 Anion Gap 15.0 (7.0-16.0) 02/05/18 06:59 BUN 62 mg/dL (7-25) H 02/05/18 06:59 Creatinine 5.5 mg/dL (0.6-1.2) H* 02/05/18 06:59 Est GFR ( Amer) TNP 02/05/18 06:59 Est GFR (Non-Af Amer) TNP 02/05/18 06:59 BUN/Creatinine Ratio 11.3 02/05/18 06:59 Glucose 214 mg/dL (70-105) H 02/05/18 06:59 POC Glucose 167 MG/DL (70 - 105) H 02/06/18 16:15 Hemoglobin A1c % 7.8 % (4.0-6.0) H 02/05/18 06:39 Calcium 9.1 mg/dL (8.6-10.3) 02/05/18 06:59 Total Bilirubin 0.7 mg/dL (0.3-1.0) 02/05/18 06:59 AST 24 U/L (13-39) 02/05/18 06:59 ALT 13 U/L (7-52) 02/05/18 06:59 Alkaline Phosphatase 94 U/L (34-104) 02/05/18 06:59 Total Protein 7.0 gm/dL (6.0-8.3) 02/05/18 06:59 Albumin 3.5 gm/dL (3.7-5.3) L 02/05/18 06:59 Globulin 3.5 gm/dL 02/05/18 06:59 Albumin/Globulin Ratio 1.0 (1.0-1.8) 02/05/18 06:59 Salicylates < 25.0 mg/L (30.0-100.0) L 02/05/18 06:59 - Physical Exam Vitals and I&O: Vital Signs Temp 97 F 02/07/18 09:00 Pulse 97 02/07/18 10:01 Resp 19 02/07/18 09:00 BP 104/52 02/07/18 10:01 Pulse Ox 99 02/07/18 05:55 Intake & Output 02/06/18 02/07/18 02/07/18 17:59 06:59 18:59 Intake Total Balance Weight (lbs) 62.596 kg Intake: Oral Other: # Voids # Bowel Movements Stool Characteristics Soft Active Medications: Current Medications Acetaminophen (Tylenol) 650 mg PO Q4HR PRN PRN Reason: Pain or Fever >101 Stop: 04/07/18 08:30 Acetaminophen (Tylenol 650mg Supp) 650 mg RC Q6H PRN PRN Reason: fever/pain Stop: 04/07/18 08:30 Bisacodyl (Dulcolax 10 Mg Supp) 10 mg RC DAILY [facility] Stop: 04/07/18 08:59 Last Admin: 02/07/18 10:01 Dose: 10 mg Carvedilol (Coreg) 3.125 mg PO BID [facility] Stop: 04/07/18 08:59 Last Admin: 02/07/18 10:01 Dose: Not Given Donepezil HCl (Aricept) 5 mg PO DAILY [facility] Stop: 04/07/18 08:59 Last Admin: 02/07/18 10:00 Dose: 5 mg Folic Acid (Folate) 1 mg PO DAILY [facility] Stop: 04/07/18 08:59 Last Admin: 02/07/18 10:00 Dose: 1 mg Insulin Aspart (Novolog Insulin Sliding Scale) 0 units SUBQ ACHS [facility]INE PRN Reason: Protocol Stop: 04/06/18 16:29 Last Admin: 02/07/18 09:59 Dose: Not Given Insulin Aspart (Novolog) 0 units SUBQ ACHS ALINE PRN Reason: Protocol Stop: 04/07/18 11:29 Last Admin: 02/06/18 16:53 Dose: Not Given Lactobacillus Rhamnosus (Culturelle 15b) 1 each PO DAILY [facility] Stop: 04/07/18 08:59 Last Admin: 02/07/18 10:00 Dose: 1 each Levothyroxine Sodium (Synthroid) 0.1 mg PO QDAC [facility] Stop: 04/08/18 07:29 Lorazepam (Ativan) 1 mg IVP Q4HR PRN; Protocol PRN Reason: Agitation Stop: 04/06/18 13:25 Last Admin: 02/05/18 16:17 Dose: 1 mg Memantine (Namenda) 5 mg PO DAILY [facility] Stop: 04/07/18 08:59 Last Admin: 02/07/18 10:01 Dose: 5 mg Miscellaneous (Dextrose 50% [D50w]) 50 ml IV PRN PRN PRN Reason: HYPOGLYCEMIA Polyethylene Glycol (Miralax) 17 gm PO DAILY [facility] Stop: 04/07/18 08:59 Last Admin: 02/07/18 10:00 Dose: 17 gm Quetiapine Fumarate (Seroquel) 12.5 mg PO DAILY [facility] PRN Reason: Protocol Stop: 04/07/18 08:59 Quetiapine Fumarate (Seroquel) 25 mg PO HS [facility] PRN Reason: Protocol Stop: 04/07/18 20:59 - Procedures Procedures: Procedures Procedure Code Date FLUOROSCOPY OF SUP VENA CAVA USING L OSM CONTRAST, GUIDANCE [id number] 12/28/17 INJECT/INFUSE NEC 99.29 06/24/13 INSERT TUNNELED CV CATH [id number] 01/09/18 INSERTION OF INFUSION DEV INTO SUP VENA CAVA, PERC APPROACH [id number] 01/09/18 PERFORMANCE OF URINARY FILTRATION, <6 HRS/DAY [id number] 01/09/18 REMOVAL OF INFUSION DEVICE FROM UPPER VEIN, DURALUMIN MECHANIC APPROACH [id number] 01/09/18 REMOVAL OF INFUSION DEVICE FROM UPPER VEIN, PERC APPROACH [id number] 12/28/17 REMOVAL TUNNELED CV CATH [id number] 01/09/18 ULTRASONOGRAPHY OF SUPERIOR VENA CAVA, GUIDANCE [id number] 01/09/18
--- NOTE | 2018-02-07 17:42 | General Progress Note ---
Subjective - Review of Systems Service Date: 02/07/18 Subjective: pt in bed very confused Objective - Results Result Diagrams: 02/05/18 06:59 02/05/18 06:59 Recent Labs: Laboratory Last Values WBC 5.3 Th/cmm (4.8-10.8) 02/05/18 06:59 RBC 3.42 Mil/cmm (3.80-5.20) L 02/05/18 06:59 Hgb 10.5 gm/dL (12-16) L 02/05/18 06:59 Hct 31.5 % (41.0-60) L 02/05/18 06:59 MCV 92.1 fl (81-100) 02/05/18 06:59 MCH 30.7 pg (27.0-31.0) 02/05/18 06:59 MCHC Differential 33.4 pg (28.0-36.0) 02/05/18 06:59 RDW 17.0 % (11.5-20.0) 02/05/18 06:59 Plt Count 180 Th/cmm (150-400) 02/05/18 06:59 MPV 7.5 fl 02/05/18 06:59 Neutrophils % 70.7 % (40.0-80.0) 02/05/18 06:59 Lymphocytes % 15.4 % (20.0-50.0) L 02/05/18 06:59 Monocytes % 11.4 % (2.0-10.0) H 02/05/18 06:59 Eosinophils % 1.6 % (0.0-5.0) 02/05/18 06:59 Basophils % 0.9 % (0.0-2.0) 02/05/18 06:59 PT 10.7 SECONDS (9.5-11.5) 02/05/18 06:59 INR 1.03 (0.5-1.4) 02/05/18 06:59 PTT (Actin FS) 29.0 SECONDS (26.0-38.0) 02/05/18 06:59 Sodium 131 mEq/L (136-145) L 02/05/18 06:59 Potassium 4.8 mEq/L (3.5-5.1) 02/05/18 06:59 Chloride 96 mEq/L (98-107) L 02/05/18 06:59 Carbon Dioxide 24.8 mEq/L (21.0-31.0) 02/05/18 06:59 Anion Gap 15.0 (7.0-16.0) 02/05/18 06:59 BUN 62 mg/dL (7-25) H 02/05/18 06:59 Creatinine 5.5 mg/dL (0.6-1.2) H* 02/05/18 06:59 Est GFR ( Amer) TNP 02/05/18 06:59 Est GFR (Non-Af Amer) TNP 02/05/18 06:59 BUN/Creatinine Ratio 11.3 02/05/18 06:59 Glucose 214 mg/dL (70-105) H 02/05/18 06:59 POC Glucose 324 MG/DL (70 - 105) H 02/07/18 17:06 Hemoglobin A1c % 7.8 % (4.0-6.0) H 02/05/18 06:39 Calcium 9.1 mg/dL (8.6-10.3) 02/05/18 06:59 Total Bilirubin 0.7 mg/dL (0.3-1.0) 02/05/18 06:59 AST 24 U/L (13-39) 02/05/18 06:59 ALT 13 U/L (7-52) 02/05/18 06:59 Alkaline Phosphatase 94 U/L (34-104) 02/05/18 06:59 Total Protein 7.0 gm/dL (6.0-8.3) 02/05/18 06:59 Albumin 3.5 gm/dL (3.7-5.3) L 02/05/18 06:59 Globulin 3.5 gm/dL 02/05/18 06:59 Albumin/Globulin Ratio 1.0 (1.0-1.8) 02/05/18 06:59 Salicylates < 25.0 mg/L (30.0-100.0) L 02/05/18 06:59 - Physical Exam Vitals and I&O: Vital Signs Temp 98 F 02/07/18 14:00 Pulse 70 02/07/18 14:00 Resp 18 02/07/18 14:00 BP 131/53 02/07/18 14:00 Pulse Ox 99 02/07/18 05:55 Intake & Output 02/06/18 02/07/18 02/07/18 17:59 06:59 18:59 Intake Total Balance Weight (lbs) 62.596 kg Intake: Oral Other: # Voids # Bowel Movements Stool Characteristics Soft Active Medications: Current Medications Acetaminophen (Tylenol) 650 mg PO Q4HR PRN PRN Reason: Pain or Fever >101 Stop: 04/07/18 08:30 Acetaminophen (Tylenol 650mg Supp) 650 mg RC Q6H PRN PRN Reason: fever/pain Stop: 04/07/18 08:30 Bisacodyl (Dulcolax 10 Mg Supp) 10 mg RC DAILY [facility] Stop: 04/07/18 08:59 Last Admin: 02/07/18 10:01 Dose: 10 mg Carvedilol (Coreg) 3.125 mg PO BID [facility] Stop: 04/07/18 08:59 Last Admin: 02/07/18 10:01 Dose: Not Given Donepezil HCl (Aricept) 5 mg PO DAILY [facility] Stop: 04/07/18 08:59 Last Admin: 02/07/18 10:00 Dose: 5 mg Folic Acid (Folate) 1 mg PO DAILY [facility] Stop: 04/07/18 08:59 Last Admin: 02/07/18 10:00 Dose: 1 mg Insulin Aspart (Novolog Insulin Sliding Scale) 0 units SUBQ ACHS ALINE PRN Reason: Protocol Stop: 04/06/18 16:29 Last Admin: 02/07/18 12:52 Dose: 8 units Insulin Aspart (Novolog) 0 units SUBQ ACHS ALINE PRN Reason: Protocol Stop: 04/07/18 11:29 Last Admin: 02/06/18 16:53 Dose: Not Given Lactobacillus Rhamnosus (Culturelle 15b) 1 each PO DAILY [facility] Stop: 04/07/18 08:59 Last Admin: 02/07/18 10:00 Dose: 1 each Levothyroxine Sodium (Synthroid) 0.1 mg PO QDAC [facility] Stop: 04/08/18 07:29 Last Admin: 02/07/18 08:00 Dose: Not Given Lorazepam (Ativan) 1 mg IVP Q4HR PRN; Protocol PRN Reason: Agitation Stop: 04/06/18 13:25 Last Admin: 02/05/18 16:17 Dose: 1 mg Memantine (Namenda) 5 mg PO DAILY [facility] Stop: 04/07/18 08:59 Last Admin: 02/07/18 10:01 Dose: 5 mg Miscellaneous (Dextrose 50% [D50w]) 50 ml IV PRN PRN PRN Reason: HYPOGLYCEMIA Polyethylene Glycol (Miralax) 17 gm PO DAILY [facility] Stop: 04/07/18 08:59 Last Admin: 02/07/18 10:00 Dose: 17 gm Quetiapine Fumarate (Seroquel) 12.5 mg PO DAILY [facility] PRN Reason: Protocol Stop: 04/07/18 08:59 Quetiapine Fumarate (Seroquel) 25 mg PO HS [facility] PRN Reason: Protocol Stop: 04/07/18 20:59 General: Alert HEENT: PERRLA Neck: Supple Cardiovascular: Regular rate, Normal S1, Normal S2 Lungs: Clear to auscultation - Procedures Procedures: Procedures Procedure Code Date FLUOROSCOPY OF SUP VENA CAVA USING L OSM CONTRAST, GUIDANCE [id number] 12/28/17 INJECT/INFUSE NEC 99.29 06/24/13 INSERT TUNNELED CV CATH [id number] 01/09/18 INSERTION OF INFUSION DEV INTO SUP VENA CAVA, PERC APPROACH [id number] 01/09/18 PERFORMANCE OF URINARY FILTRATION, <6 HRS/DAY [id number] 01/09/18 REMOVAL OF INFUSION DEVICE FROM UPPER VEIN, FAGOT HEATER HELPER APPROACH [id number] 01/09/18 REMOVAL OF INFUSION DEVICE FROM UPPER VEIN, PERC APPROACH [id number] 12/28/17 REMOVAL TUNNELED CV CATH [id number] 01/09/18 ULTRASONOGRAPHY OF SUPERIOR VENA CAVA, GUIDANCE [id number] 01/09/18 Assessment/Plan - Assessment Assessment: ESRD HTN DM DEMENTIA CONFUSED NEW AVF - Plan Plan: CONTINUE HD SUPPORT
--- NOTE | 2018-02-08 | Infectious Disease Prog Note ---
Infectious Disease Subjective - Review of Systems Service Date: 02/08/18 Subjective: Patient was brought in for AV graft placement. It was performed by DR Mckinney in her right arm. Otherwise, she is doing well. Infectious Disease Objective - Results Result Diagrams: 02/05/18 06:59 03 06:59 Recent Labs: Laboratory Last Values WBC 5.3 Th/cmm (4.8-10.8) 02/05/18 06:59 RBC 3.42 Mil/cmm (3.80-5.20) L 02/05/18 06:59 Hgb 10.5 gm/dL (12-16) L 02/05/18 06:59 Hct 31.5 % (41.0-60) L 02/05/18 06:59 MCV 92.1 fl (81-100) 02/05/18 06:59 MCH 30.7 pg (27.0-31.0) 02/05/18 06:59 MCHC Differential 33.4 pg (28.0-36.0) 02/05/18 06:59 RDW 17.0 % (11.5-20.0) 02/05/18 06:59 Plt Count 180 Th/cmm (150-400) 02/05/18 06:59 MPV 7.5 fl 02/05/18 06:59 Neutrophils % 70.7 % (40.0-80.0) 02/05/18 06:59 Lymphocytes % 15.4 % (20.0-50.0) L 02/05/18 06:59 Monocytes % 11.4 % (2.0-10.0) H 02/05/18 06:59 Eosinophils % 1.6 % (0.0-5.0) 02/05/18 06:59 Basophils % 0.9 % (0.0-2.0) 02/05/18 06:59 PT 10.7 SECONDS (9.5-11.5) 02/05/18 06:59 INR 1.03 (0.5-1.4) 02/05/18 06:59 PTT (Actin FS) 29.0 SECONDS (26.0-38.0) 02/05/18 06:59 Sodium 131 mEq/L (136-145) L 02/05/18 06:59 Potassium 4.8 mEq/L (3.5-5.1) 02/05/18 06:59 Chloride 96 mEq/L (98-107) L 02/05/18 06:59 Carbon Dioxide 24.8 mEq/L (21.0-31.0) 02/05/18 06:59 Anion Gap 15.0 (7.0-16.0) 02/05/18 06:59 BUN 62 mg/dL (7-25) H 02/05/18 06:59 Creatinine 5.5 mg/dL (0.6-1.2) H* 02/05/18 06:59 Est GFR ( Amer) TNP 02/05/18 06:59 Est GFR (Non-Af Amer) TNP 02/05/18 06:59 BUN/Creatinine Ratio 11.3 02/05/18 06:59 Glucose 214 mg/dL (70-105) H 02/05/18 06:59 POC Glucose 324 MG/DL (70 - 105) H 02/07/18 17:06 Hemoglobin A1c % 7.8 % (4.0-6.0) H 02/05/18 06:39 Calcium 9.1 mg/dL (8.6-10.3) 02/05/18 06:59 Total Bilirubin 0.7 mg/dL (0.3-1.0) 02/05/18 06:59 AST 24 U/L (13-39) 02/05/18 06:59 ALT 13 U/L (7-52) 02/05/18 06:59 Alkaline Phosphatase 94 U/L (34-104) 02/05/18 06:59 Total Protein 7.0 gm/dL (6.0-8.3) 02/05/18 06:59 Albumin 3.5 gm/dL (3.7-5.3) L 02/05/18 06:59 Globulin 3.5 gm/dL 02/05/18 06:59 Albumin/Globulin Ratio 1.0 (1.0-1.8) 02/05/18 06:59 Salicylates < 25.0 mg/L (30.0-100.0) L 02/05/18 06:59 - Physical Exam Vitals and I&O: Vital Signs Temp 98.5 F 02/07/18 20:00 Pulse 104 02/07/18 20:00 Resp 19 02/07/18 20:00 BP 144/73 02/07/18 20:00 Pulse Ox 98 02/07/18 20:00 Intake & Output 02/07/18 02/07/18 02/08/18 06:59 18:59 06:59 Intake Total Balance Weight (lbs) 62.596 kg Intake: Oral Other: # Voids Stool Characteristics Soft Active Medications: Current Medications Acetaminophen (Tylenol) 650 mg PO Q4HR PRN PRN Reason: Pain or Fever >101 Stop: 04/07/18 08:30 Acetaminophen (Tylenol 650mg Supp) 650 mg RC Q6H PRN PRN Reason: fever/pain Stop: 04/07/18 08:30 Bisacodyl (Dulcolax 10 Mg Supp) 10 mg RC DAILY [facility] Stop: 04/07/18 08:59 Last Admin: 02/07/18 10:01 Dose: 10 mg Carvedilol (Coreg) 3.125 mg PO BID [facility] Stop: 04/07/18 08:59 Last Admin: 02/07/18 18:12 Dose: Not Given Donepezil HCl (Aricept) 5 mg PO DAILY [facility] Stop: 04/07/18 08:59 Last Admin: 02/07/18 10:00 Dose: 5 mg Folic Acid (Folate) 1 mg PO DAILY [facility] Stop: 04/07/18 08:59 Last Admin: 02/07/18 10:00 Dose: 1 mg Insulin Aspart (Novolog Insulin Sliding Scale) 0 units SUBQ ACHS [facility]INE PRN Reason: Protocol Stop: 04/06/18 16:29 Last Admin: 02/07/18 21:34 Dose: 4 units Insulin Aspart (Novolog) 0 units SUBQ ACHS ALINE PRN Reason: Protocol Stop: 04/07/18 11:29 Last Admin: 02/06/18 16:53 Dose: Not Given Lactobacillus Rhamnosus (Culturelle 15b) 1 each PO DAILY [facility] Stop: 04/07/18 08:59 Last Admin: 02/07/18 10:00 Dose: 1 each Levothyroxine Sodium (Synthroid) 0.1 mg PO QDAC [facility] Stop: 04/08/18 07:29 Last Admin: 02/07/18 08:00 Dose: Not Given Lorazepam (Ativan) 1 mg IVP Q4HR PRN; Protocol PRN Reason: Agitation Stop: 04/06/18 13:25 Last Admin: 02/05/18 16:17 Dose: 1 mg Memantine (Namenda) 5 mg PO DAILY [facility] Stop: 04/07/18 08:59 Last Admin: 02/07/18 10:01 Dose: 5 mg Miscellaneous (Dextrose 50% [D50w]) 50 ml IV PRN PRN PRN Reason: HYPOGLYCEMIA Polyethylene Glycol (Miralax) 17 gm PO DAILY [facility] Stop: 04/07/18 08:59 Last Admin: 02/07/18 10:00 Dose: 17 gm Quetiapine Fumarate (Seroquel) 12.5 mg PO DAILY [facility] PRN Reason: Protocol Stop: 04/07/18 08:59 Quetiapine Fumarate (Seroquel) 25 mg PO HS [facility] PRN Reason: Protocol Stop: 04/07/18 20:59 General: no acute distress, well developed, well nourished HEENT: atraumatic, normocephalic, PERRLA, EOMI Neck: supple, thyromegaly Cardiovascular: S1S2, regular Lungs: clear to auscultation bilaterally, clear to percussion Abdomen: soft, no tender Extremities: AVF/AVG (right), no cyanosis, no clubbing, no edema Neurological: awake, alert Skin: intact - Procedures Procedures: Procedures Procedure Code Date FLUOROSCOPY OF SUP VENA CAVA USING L OSM CONTRAST, GUIDANCE [id number] 12/28/17 INJECT/INFUSE NEC 99.29 06/24/13 INSERT TUNNELED CV CATH [id number] 01/09/18 INSERTION OF INFUSION DEV INTO SUP VENA CAVA, PERC APPROACH [id number] 01/09/18 PERFORMANCE OF URINARY FILTRATION, <6 HRS/DAY [id number] 01/09/18 REMOVAL OF INFUSION DEVICE FROM UPPER VEIN, BINDERY OPERATOR APPROACH [id number] 01/09/18 REMOVAL OF INFUSION DEVICE FROM UPPER VEIN, PERC APPROACH [id number] 12/28/17 REMOVAL TUNNELED CV CATH [id number] 01/09/18 ULTRASONOGRAPHY OF SUPERIOR VENA CAVA, GUIDANCE [id number] 01/09/18 Infectious Disease Assmt/Plan - Assessment Assessment: 1. MRSA sepsis, resolved, receiving Vanco IV. 2, CKD 5 on HD. 3. Anemia of CD. - Plan Plan: Continue Vancomycin IV for 2 more weeks. Dc planning.
[2018-02-08] MEDS ORDERED: Ipratropium Neb 0.5 mg/2.5 mL UD HHN PRN (02:11)
[2018-02-08] MEDS ORDERED: Ipratropium Neb 0.5 mg/2.5 mL UD HHN ONE (02:38)
[2018-02-08] MEDS: INSULIN ASPART SLIDING SCALE 100 UNITS/ML UNIT SUBQ SCH ×4 (08:00→22:49)
--- NOTE | 2018-02-08 08:05 | General Progress Note ---
Subjective - Review of Systems Service Date: 02/08/18 Events since last encounter: right arm AV shunt pulse is strong for HD today Objective - Results Result Diagrams: 02/05/18 06:59 03 06:59 Recent Labs: Laboratory Last Values WBC 5.3 Th/cmm (4.8-10.8) 02/05/18 06:59 RBC 3.42 Mil/cmm (3.80-5.20) L 02/05/18 06:59 Hgb 10.5 gm/dL (12-16) L 02/05/18 06:59 Hct 31.5 % (41.0-60) L 02/05/18 06:59 MCV 92.1 fl (81-100) 02/05/18 06:59 MCH 30.7 pg (27.0-31.0) 02/05/18 06:59 MCHC Differential 33.4 pg (28.0-36.0) 02/05/18 06:59 RDW 17.0 % (11.5-20.0) 02/05/18 06:59 Plt Count 180 Th/cmm (150-400) 02/05/18 06:59 MPV 7.5 fl 02/05/18 06:59 Neutrophils % 70.7 % (40.0-80.0) 02/05/18 06:59 Lymphocytes % 15.4 % (20.0-50.0) L 02/05/18 06:59 Monocytes % 11.4 % (2.0-10.0) H 02/05/18 06:59 Eosinophils % 1.6 % (0.0-5.0) 02/05/18 06:59 Basophils % 0.9 % (0.0-2.0) 02/05/18 06:59 PT 10.7 SECONDS (9.5-11.5) 02/05/18 06:59 INR 1.03 (0.5-1.4) 02/05/18 06:59 PTT (Actin FS) 29.0 SECONDS (26.0-38.0) 02/05/18 06:59 Sodium 131 mEq/L (136-145) L 02/05/18 06:59 Potassium 4.8 mEq/L (3.5-5.1) 02/05/18 06:59 Chloride 96 mEq/L (98-107) L 02/05/18 06:59 Carbon Dioxide 24.8 mEq/L (21.0-31.0) 02/05/18 06:59 Anion Gap 15.0 (7.0-16.0) 02/05/18 06:59 BUN 62 mg/dL (7-25) H 02/05/18 06:59 Creatinine 5.5 mg/dL (0.6-1.2) H* 02/05/18 06:59 Est GFR ( Amer) TNP 02/05/18 06:59 Est GFR (Non-Af Amer) TNP 02/05/18 06:59 BUN/Creatinine Ratio 11.3 02/05/18 06:59 Glucose 214 mg/dL (70-105) H 02/05/18 06:59 POC Glucose 324 MG/DL (70 - 105) H 02/07/18 17:06 Hemoglobin A1c % 7.8 % (4.0-6.0) H 02/05/18 06:39 Calcium 9.1 mg/dL (8.6-10.3) 02/05/18 06:59 Total Bilirubin 0.7 mg/dL (0.3-1.0) 02/05/18 06:59 AST 24 U/L (13-39) 02/05/18 06:59 ALT 13 U/L (7-52) 02/05/18 06:59 Alkaline Phosphatase 94 U/L (34-104) 02/05/18 06:59 Total Protein 7.0 gm/dL (6.0-8.3) 02/05/18 06:59 Albumin 3.5 gm/dL (3.7-5.3) L 02/05/18 06:59 Globulin 3.5 gm/dL 02/05/18 06:59 Albumin/Globulin Ratio 1.0 (1.0-1.8) 02/05/18 06:59 Salicylates < 25.0 mg/L (30.0-100.0) L 02/05/18 06:59 - Physical Exam Vitals and I&O: Vital Signs Temp 98.4 F 02/08/18 04:00 Pulse 109 02/08/18 04:00 Resp 18 02/08/18 04:00 BP 168/75 02/08/18 04:00 Pulse Ox 100 02/08/18 04:00 Intake & Output 02/07/18 02/08/18 02/08/18 18:59 06:59 18:59 Intake Total 150 Balance 150 Weight (lbs) 62.596 kg 62.596 kg Intake: Oral 150 Other: Stool Characteristics Soft Active Medications: Current Medications Acetaminophen (Tylenol) 650 mg PO Q4HR PRN PRN Reason: Pain or Fever >101 Stop: 04/07/18 08:30 Last Admin: 02/08/18 06:02 Dose: 650 mg Acetaminophen (Tylenol 650mg Supp) 650 mg RC Q6H PRN PRN Reason: fever/pain Stop: 04/07/18 08:30 Bisacodyl (Dulcolax 10 Mg Supp) 10 mg RC DAILY [facility] Stop: 04/07/18 08:59 Last Admin: 02/07/18 10:01 Dose: 10 mg Carvedilol (Coreg) 3.125 mg PO BID [facility] Stop: 04/07/18 08:59 Last Admin: 02/07/18 18:12 Dose: Not Given Donepezil HCl (Aricept) 5 mg PO DAILY [facility] Stop: 04/07/18 08:59 Last Admin: 02/07/18 10:00 Dose: 5 mg Folic Acid (Folate) 1 mg PO DAILY [facility] Stop: 04/07/18 08:59 Last Admin: 02/07/18 10:00 Dose: 1 mg Insulin Aspart (Novolog Insulin Sliding Scale) 0 units SUBQ ACHS [facility] PRN Reason: Protocol Stop: 04/06/18 16:29 Last Admin: 02/07/18 21:34 Dose: 4 units Insulin Aspart (Novolog) 0 units SUBQ ACHS [facility] PRN Reason: Protocol Stop: 04/07/18 11:29 Last Admin: 02/06/18 16:53 Dose: Not Given Ipratropium [place] (Atrovent Neb 0.5mg/2.5ml) 0.5 mg HHN Q4HRT PRN PRN Reason: Shortness of Breath Stop: 04/09/18 02:10 Last Admin: 02/08/18 02:27 Dose: 0.5 mg Lactobacillus Rhamnosus (Culturelle 15b) 1 each PO DAILY [facility] Stop: 04/07/18 08:59 Last Admin: 02/07/18 10:00 Dose: 1 each Levothyroxine Sodium (Synthroid) 0.1 mg PO QDAC [facility] Stop: 04/08/18 07:29 Last Admin: 02/07/18 08:00 Dose: Not Given Lorazepam (Ativan) 1 mg IVP Q4HR PRN; Protocol PRN Reason: Agitation Stop: 04/06/18 13:25 Last Admin: 02/05/18 16:17 Dose: 1 mg Memantine (Namenda) 5 mg PO DAILY [facility] Stop: 04/07/18 08:59 Last Admin: 02/07/18 10:01 Dose: 5 mg Miscellaneous (Dextrose 50% [D50w]) 50 ml IV PRN PRN PRN Reason: HYPOGLYCEMIA Polyethylene Glycol (Miralax) 17 gm PO DAILY [facility] Stop: 04/07/18 08:59 Last Admin: 02/07/18 10:00 Dose: 17 gm Quetiapine Fumarate (Seroquel) 12.5 mg PO DAILY [facility] PRN Reason: Protocol Stop: 04/07/18 08:59 Quetiapine Fumarate (Seroquel) 25 mg PO HS [facility] PRN Reason: Protocol Stop: 04/07/18 20:59 General: Alert HEENT: PERRLA Neck: Supple Cardiovascular: Regular rate, Normal S1, Normal S2 Lungs: Clear to auscultation - Procedures Procedures: Procedures Procedure Code Date FLUOROSCOPY OF SUP VENA CAVA USING L OSM CONTRAST, GUIDANCE [id number] 12/28/17 INJECT/INFUSE NEC 99.29 06/24/13 INSERT TUNNELED CV CATH [id number] 01/09/18 INSERTION OF INFUSION DEV INTO SUP VENA CAVA, PERC APPROACH [id number] 01/09/18 PERFORMANCE OF URINARY FILTRATION, <6 HRS/DAY [id number] 01/09/18 REMOVAL OF INFUSION DEVICE FROM UPPER VEIN, REJECTOR APPROACH [id number] 01/09/18 REMOVAL OF INFUSION DEVICE FROM UPPER VEIN, PERC APPROACH [id number] 12/28/17 REMOVAL TUNNELED CV CATH [id number] 01/09/18 ULTRASONOGRAPHY OF SUPERIOR VENA CAVA, GUIDANCE [id number] 01/09/18
--- NOTE | 2018-02-08 08:34 | Diagnostic Imaging Report ---
CHEST X-RAY: AP view INDICATION: Shortness of breath COMPARISON: 02/05/2018 FINDINGS: Left dialysis catheter is stable. Mildly Improving CHF is noted. Persistent bilateral infiltrates are noted right effusion. Cardiomegaly is noted. IMPRESSION: Mild improvement in CHF Persistent bilateral infiltrates and small right effusion. Cardiomegaly.
[2018-02-08] MEDS: Levothyroxine 0.1 Mg Tab PO SCH (08:51)
[2018-02-08] MEDS: Lactobacillus Rhamnosus GG 15 Billion CFU CAP.SPRINK PO SCH (08:51)
[2018-02-08] MEDS: POLYETHYLENE GLYCOL 3350 17 GM PACK PO SCH (08:52)
--- NOTE | 2018-02-08 09:39 | General Progress Note ---
Subjective - Review of Systems Events since last encounter: patient doing well no new issues Objective - Results Result Diagrams: 02/05/18 06:59 02/05/18 06:59 Recent Labs: Laboratory Last Values WBC 5.3 Th/cmm (4.8-10.8) 02/05/18 06:59 RBC 3.42 Mil/cmm (3.80-5.20) L 02/05/18 06:59 Hgb 10.5 gm/dL (12-16) L 02/05/18 06:59 Hct 31.5 % (41.0-60) L 02/05/18 06:59 MCV 92.1 fl (81-100) 02/05/18 06:59 MCH 30.7 pg (27.0-31.0) 02/05/18 06:59 MCHC Differential 33.4 pg (28.0-36.0) 02/05/18 06:59 RDW 17.0 % (11.5-20.0) 02/05/18 06:59 Plt Count 180 Th/cmm (150-400) 02/05/18 06:59 MPV 7.5 fl 02/05/18 06:59 Neutrophils % 70.7 % (40.0-80.0) 02/05/18 06:59 Lymphocytes % 15.4 % (20.0-50.0) L 02/05/18 06:59 Monocytes % 11.4 % (2.0-10.0) H 02/05/18 06:59 Eosinophils % 1.6 % (0.0-5.0) 02/05/18 06:59 Basophils % 0.9 % (0.0-2.0) 02/05/18 06:59 PT 10.7 SECONDS (9.5-11.5) 02/05/18 06:59 INR 1.03 (0.5-1.4) 02/05/18 06:59 PTT (Actin FS) 29.0 SECONDS (26.0-38.0) 02/05/18 06:59 Sodium 131 mEq/L (136-145) L 02/05/18 06:59 Potassium 4.8 mEq/L (3.5-5.1) 02/05/18 06:59 Chloride 96 mEq/L (98-107) L 02/05/18 06:59 Carbon Dioxide 24.8 mEq/L (21.0-31.0) 02/05/18 06:59 Anion Gap 15.0 (7.0-16.0) 02/05/18 06:59 BUN 62 mg/dL (7-25) H 02/05/18 06:59 Creatinine 5.5 mg/dL (0.6-1.2) H* 02/05/18 06:59 Est GFR ( Amer) TNP 02/05/18 06:59 Est GFR (Non-Af Amer) TNP 02/05/18 06:59 BUN/Creatinine Ratio 11.3 02/05/18 06:59 Glucose 214 mg/dL (70-105) H 02/05/18 06:59 POC Glucose 324 MG/DL (70 - 105) H 02/07/18 17:06 Hemoglobin A1c % 7.8 % (4.0-6.0) H 02/05/18 06:39 Calcium 9.1 mg/dL (8.6-10.3) 02/05/18 06:59 Total Bilirubin 0.7 mg/dL (0.3-1.0) 02/05/18 06:59 AST 24 U/L (13-39) 02/05/18 06:59 ALT 13 U/L (7-52) 02/05/18 06:59 Alkaline Phosphatase 94 U/L (34-104) 02/05/18 06:59 Total Protein 7.0 gm/dL (6.0-8.3) 02/05/18 06:59 Albumin 3.5 gm/dL (3.7-5.3) L 02/05/18 06:59 Globulin 3.5 gm/dL 02/05/18 06:59 Albumin/Globulin Ratio 1.0 (1.0-1.8) 02/05/18 06:59 Salicylates < 25.0 mg/L (30.0-100.0) L 02/05/18 06:59 - Physical Exam Vitals and I&O: Vital Signs Temp 98.4 F 02/08/18 04:00 Pulse 98 02/08/18 08:52 Resp 22 02/08/18 07:58 BP 145/58 02/08/18 08:52 Pulse Ox 100 03/12/18 07:58 Intake & Output 02/07/1818 18 18:59 06:59 18:59 Intake Total 150 Balance 150 Weight (lbs) 62.596 kg 62.596 kg Intake: Oral 150 Other: Stool Characteristics Soft Active Medications: Current Medications Acetaminophen (Tylenol) 650 mg PO Q4HR PRN PRN Reason: Pain or Fever >101 Stop: 04/07/18 08:30 Last Admin: 02/08/18 06:02 Dose: 650 mg Acetaminophen (Tylenol 650mg Supp) 650 mg RC Q6H PRN PRN Reason: fever/pain Stop: 04/07/18 08:30 Bisacodyl (Dulcolax 10 Mg Supp) 10 mg RC DAILY [facility] Stop: 04/07/18 08:59 Last Admin: 02/08/18 08:51 Dose: 10 mg Carvedilol (Coreg) 3.125 mg PO BID [facility] Stop: 04/07/18 08:59 Last Admin: 02/08/18 08:52 Dose: Not Given Donepezil HCl (Aricept) 5 mg PO DAILY [facility] Stop: 04/07/18 08:59 Last Admin: 02/08/18 08:52 Dose: 5 mg Folic Acid (Folate) 1 mg PO DAILY [facility] Stop: 04/07/18 08:59 Last Admin: 02/08/18 08:51 Dose: 1 mg Insulin Aspart (Novolog Insulin Sliding Scale) 0 units SUBQ ACHS [facility] PRN Reason: Protocol Stop: 04/06/18 16:29 Last Admin: 02/08/18 08:00 Dose: Not Given Ipratropium [place] (Atrovent Neb 0.5mg/2.5ml) 0.5 mg HHN Q4HRT PRN PRN Reason: Shortness of Breath Stop: 04/09/18 02:10 Last Admin: 02/08/18 02:27 Dose: 0.5 mg Lactobacillus Rhamnosus (Culturelle 15b) 1 each PO DAILY [facility] Stop: 04/07/18 08:59 Last Admin: 02/08/18 08:51 Dose: 1 each Levothyroxine Sodium (Synthroid) 0.1 mg PO QDAC [facility] Stop: 04/08/18 07:29 Last Admin: 02/08/18 08:51 Dose: 0.1 mg Lorazepam (Ativan) 1 mg IVP Q4HR PRN; Protocol PRN Reason: Agitation Stop: 04/06/18 13:25 Last Admin: 02/05/18 16:17 Dose: 1 mg Memantine (Namenda) 5 mg PO DAILY [facility] Stop: 04/07/18 08:59 Last Admin: 02/08/18 08:52 Dose: 5 mg Miscellaneous (Dextrose 50% [D50w]) 50 ml IV PRN PRN PRN Reason: HYPOGLYCEMIA Polyethylene Glycol (Miralax) 17 gm PO DAILY [facility] Stop: 04/07/18 08:59 Last Admin: 02/08/18 08:52 Dose: 17 gm Quetiapine Fumarate (Seroquel) 12.5 mg PO DAILY [facility] PRN Reason: Protocol Stop: 04/07/18 08:59 Quetiapine Fumarate (Seroquel) 25 mg PO HS [facility] PRN Reason: Protocol Stop: 04/07/18 20:59 General: Alert HEENT: PERRLA Neck: Supple Cardiovascular: Regular rate, Normal S1, Normal S2 Lungs: Clear to auscultation - Procedures Procedures: Procedures Procedure Code Date FLUOROSCOPY OF SUP VENA CAVA USING L OSM CONTRAST, GUIDANCE [id number] 12/28/17 INJECT/INFUSE NEC 99.29 06/24/13 INSERT TUNNELED CV CATH [id number] 01/09/18 INSERTION OF INFUSION DEV INTO SUP VENA CAVA, PERC APPROACH [id number] 01/09/18 PERFORMANCE OF URINARY FILTRATION, <6 HRS/DAY [id number] 01/09/18 REMOVAL OF INFUSION DEVICE FROM UPPER VEIN, ROLE PLAYER APPROACH [id number] 01/09/18 REMOVAL OF INFUSION DEVICE FROM UPPER VEIN, PERC APPROACH [id number] 12/28/17 REMOVAL TUNNELED CV CATH [id number] 01/09/18 ULTRASONOGRAPHY OF SUPERIOR VENA CAVA, GUIDANCE [id number] 01/09/18
[2018-02-08 10:09] LABS: BASOPHILE ABSOLUTE 0.1 Th/cumm (0-0.2); HEMOGLOBIN 8.8 gm/dL (12-16); LYMPHOCYTE ABSOLUTE 0.7 Th/cmm (1.5-3.0); MEAN CELL VOLUME 92.5 fl (81-100); MEAN CORPUSCULAR HEMOGLOBIN 30.1 pg (27.0-31.0); MEAN CORPUSCULAR HGB CONC 32.5 pg (28.0-36.0); MEAN PLATELET VOLUME 7.4 fl; MONOCYTE ABSOLUTE 0.8 Th/cmm (0.3-1.0); NEUTROPHILE ABSOLUTE 3.8 Th/cmm (1.8-8.0); PLATELET COUNT 167 Th/cmm (150-400); RED BLOOD COUNT 2.92 Mil/cmm (3.80-5.20); RED CELL DISTRIBUTION WIDTH 16.2 % (11.5-20.0); WHITE BLOOD COUNT 5.4 Th/cmm (4.8-10.8)
[2018-02-08 10:11] LABS: % BASOPHILS 1.5 % (0.0-2.0); % EOSINOPHILS 0.1 % (0.0-5.0); % LYMPHOCYTES 13.4 % (20.0-50.0); % MONOCYTES 15.1 % (2.0-10.0); % NEUTROPHILS 69.9 % (40.0-80.0)
[2018-02-08 10:24] LABS: ALBUMIN 3.2 gm/dL (3.7-5.3); ALKALINE PHOSPHATASE 89 U/L (34-104); ANION GAP 16.7 (7.0-16.0); BILIRUBIN,TOTAL 0.6 mg/dL (0.3-1.0); BUN - UREA NITROGEN 59 mg/dL (7-25); CALCIUM SERUM 8.9 mg/dL (8.6-10.3); CARBON DIOXIDE 22.7 mEq/L (21.0-31.0); CHLORIDE 97 mEq/L (98-107); GLUCOSE 171 mg/dL (70-105); POTASSIUM SERUM 5.4 mEq/L (3.5-5.1); SGOT 22 U/L (13-39); SGPT/ALT 5 U/L (7-52); SODIUM SERUM 131 mEq/L (136-145); TOTAL PROTEIN,SERUM 6.5 gm/dL (6.0-8.3)
[2018-02-08 10:31] LABS: CREATININE - SERUM 5.7 mg/dL (0.6-1.2)
[2018-02-08] MEDS ORDERED: Albumin 25% 25gm/100mL 25 GM/100 ML BTL IV ONE (14:15)
--- NOTE | 2018-02-08 14:28 | Infectious Disease Prog Note ---
Infectious Disease Subjective - Review of Systems Service Date: 02/08/18 Subjective: Still chewing her left subclavian catheter. Otherwise, she is doing well. Infectious Disease Objective - Results Result Diagrams: 02/08/18 09:50 02/08/18 09:50 Recent Labs: Laboratory Last Values WBC 5.4 Th/cmm (4.8-10.8) 02/08/18 09:50 RBC 2.92 Mil/cmm (3.80-5.20) L 02/08/18 09:50 Hgb 8.8 gm/dL (12-16) L 02/08/18 09:50 Hct 27.0 % (41.0-60) L 02/08/18 09:50 MCV 92.5 fl (81-100) 02/08/18 09:50 MCH 30.1 pg (27.0-31.0) 02/08/18 09:50 MCHC Differential 32.5 pg (28.0-36.0) 02/08/18 09:50 RDW 16.2 % (11.5-20.0) 02/08/18 09:50 Plt Count 167 Th/cmm (150-400) 02/08/18 09:50 MPV 7.4 fl 02/08/18 09:50 Neutrophils % 69.9 % (40.0-80.0) 02/08/18 09:50 Lymphocytes % 13.4 % (20.0-50.0) L 02/08/18 09:50 Monocytes % 15.1 % (2.0-10.0) H 02/08/18 09:50 Eosinophils % 0.1 % (0.0-5.0) 02/08/18 09:50 Basophils % 1.5 % (0.0-2.0) 02/08/18 09:50 PT 10.7 SECONDS (9.5-11.5) 02/05/18 06:59 INR 1.03 (0.5-1.4) 02/05/18 06:59 PTT (Actin FS) 29.0 SECONDS (26.0-38.0) 03 06:59 Sodium 131 mEq/L (136-145) L 02/08/18 09:50 Potassium 5.4 mEq/L (3.5-5.1) H 02/08/18 09:50 Chloride 97 mEq/L (98-107) L 02/08/18 09:50 Carbon Dioxide 22.7 mEq/L (21.0-31.0) 02/08/18 09:50 Anion Gap 16.7 (7.0-16.0) H 02/08/18 09:50 BUN 59 mg/dL (7-25) H 02/08/18 09:50 Creatinine 5.7 mg/dL (0.6-1.2) H* 02/08/18 09:50 Est GFR ( Amer) TNP 02/08/18 09:50 Est GFR (Non-Af Amer) TNP 02/08/18 09:50 BUN/Creatinine Ratio 10.4 02/08/18 09:50 Glucose 171 mg/dL (70-105) H 02/08/18 09:50 POC Glucose 178 MG/DL (70 - 105) H 02/08/18 11:52 Hemoglobin A1c % 7.8 % (4.0-6.0) H 02/05/18 06:39 Calcium 8.9 mg/dL (8.6-10.3) 02/08/18 09:50 Total Bilirubin 0.6 mg/dL (0.3-1.0) 02/08/18 09:50 AST 22 U/L (13-39) 02/08/18 09:50 ALT 5 U/L (7-52) L 02/08/18 09:50 Alkaline Phosphatase 89 U/L (34-104) 02/08/18 09:50 Total Protein 6.5 gm/dL (6.0-8.3) 02/08/18 09:50 Albumin 3.2 gm/dL (3.7-5.3) L 02/08/18 09:50 Globulin 3.3 gm/dL 02/08/18 09:50 Albumin/Globulin Ratio 1.0 (1.0-1.8) 02/08/18 09:50 Salicylates < 25.0 mg/L (30.0-100.0) L 02/05/18 06:59 - Physical Exam Vitals and I&O: Vital Signs Temp 96.7 F 02/08/18 11:44 Pulse 87 02/08/18 11:44 Resp 17 02/08/18 11:44 BP 144/61 02/08/18 11:44 Pulse Ox 99 02/08/18 11:44 Intake & Output 02/07/18 02/08/18 02/08/18 18:59 06:59 18:59 Intake Total 150 60 Balance 150 60 Weight (lbs) 62.596 kg 62.596 kg 62.596 kg Intake: Oral 150 60 Other: Stool Characteristics Soft Soft Active Medications: Current Medications Acetaminophen (Tylenol) 650 mg PO Q4HR PRN PRN Reason: Pain or Fever >101 Stop: 04/07/18 08:30 Last Admin: 02/08/18 06:02 Dose: 650 mg Acetaminophen (Tylenol 650mg Supp) 650 mg RC Q6H PRN PRN Reason: fever/pain Stop: 04/07/18 08:30 Bisacodyl (Dulcolax 10 Mg Supp) 10 mg RC DAILY [facility] Stop: 04/07/18 08:59 Last Admin: 02/08/18 08:51 Dose: 10 mg Carvedilol (Coreg) 3.125 mg PO BID [facility] Stop: 04/07/18 08:59 Last Admin: 02/08/18 08:52 Dose: Not Given Dextrose (D50w) 50 ml IVP PRN PRN PRN Reason: HYPOGLYCEMIA, BS<70 Donepezil HCl (Aricept) 5 mg PO DAILY [facility] Stop: 04/07/18 08:59 Last Admin: 02/08/18 08:52 Dose: 5 mg Folic Acid (Folate) 1 mg PO DAILY [facility] Stop: 04/07/18 08:59 Last Admin: 02/08/18 08:51 Dose: 1 mg Albumin Human (Albuminar 25%) 25 gm in 100 mls @ 50 mls/hr IV X1 ONE Stop: 02/08/18 16:14 Last Admin: 02/08/18 14:02 Dose: 50 mls/hr Ceftriaxone Sodium 1 gm/ (Sodium Chloride) 50 mls @ 100 mls/hr IV Q24HR [facility] Stop: 04/09/18 14:14 Insulin Aspart (Novolog Insulin Sliding Scale) 0 units SUBQ ACHS [facility] PRN Reason: Protocol Stop: 04/06/18 16:29 Last Admin: 02/08/18 12:00 Dose: 2 units Ipratropium [place] (Atrovent Neb 0.5mg/2.5ml) 0.5 mg HHN Q4HRT PRN PRN Reason: Shortness of Breath Stop: 04/09/18 02:10 Last Admin: 02/08/18 02:27 Dose: 0.5 mg Lactobacillus Rhamnosus (Culturelle 15b) 1 each PO DAILY [facility] Stop: 04/07/18 08:59 Last Admin: 02/08/18 08:51 Dose: 1 each Levothyroxine Sodium (Synthroid) 0.1 mg PO QDAC [facility] Stop: 04/08/18 07:29 Last Admin: 02/08/18 08:51 Dose: 0.1 mg Lorazepam (Ativan) 1 mg IVP Q4HR PRN; Protocol PRN Reason: Agitation Stop: 04/06/18 13:25 Last Admin: 02/05/18 16:17 Dose: 1 mg Memantine (Namenda) 5 mg PO DAILY [facility] Stop: 04/07/18 08:59 Last Admin: 02/08/18 08:52 Dose: 5 mg Polyethylene Glycol (Miralax) 17 gm PO DAILY [facility] Stop: 04/07/18 08:59 Last Admin: 02/08/18 08:52 Dose: 17 gm Quetiapine Fumarate (Seroquel) 12.5 mg PO DAILY [facility] PRN Reason: Protocol Stop: 04/07/18 08:59 Quetiapine Fumarate (Seroquel) 25 mg PO HS [facility] PRN Reason: Protocol Stop: 04/07/18 20:59 General: no acute distress, well developed, well nourished HEENT: atraumatic, normocephalic, PERRLA, EOMI Neck: supple, no thyromegaly Cardiovascular: S1S2, regular Lungs: clear to auscultation bilaterally, clear to percussion Abdomen: soft, no tender, no distended, no mass Extremities: no cyanosis, no clubbing, no edema Neurological: awake, alert, oriented Skin: intact - Procedures Procedures: Procedures Procedure Code Date FLUOROSCOPY OF SUP VENA CAVA USING L OSM CONTRAST, GUIDANCE [id number] 12/28/17 INJECT/INFUSE NEC 99.29 06/24/13 INSERT TUNNELED CV CATH [id number] 01/09/18 INSERTION OF INFUSION DEV INTO SUP VENA CAVA, PERC APPROACH [id number] 01/09/18 PERFORMANCE OF URINARY FILTRATION, <6 HRS/DAY [id number] 01/09/18 REMOVAL OF INFUSION DEVICE FROM UPPER VEIN, BENDER MACHINE OPERATOR APPROACH [id number] 01/09/18 REMOVAL OF INFUSION DEVICE FROM UPPER VEIN, PERC APPROACH [id number] 12/28/17 REMOVAL TUNNELED CV CATH [id number] 01/09/18 ULTRASONOGRAPHY OF SUPERIOR VENA CAVA, GUIDANCE [id number] 01/09/18 Infectious Disease Assmt/Plan - Assessment Assessment: 1. MRSA sepsis, resolved, receiving Vanco IV. 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 - Plan Plan: Continue Vancomycin IV for 2 more weeks. Dc planning.
--- NOTE | 2018-02-08 16:46 | General Progress Note ---
Subjective - Review of Systems Service Date: 02/08/18 Subjective: pt in bed very confused Objective - Results Result Diagrams: 02/08/18 09:50 02/08/18 09:50 Recent Labs: Laboratory Last Values WBC 5.4 Th/cmm (4.8-10.8) 03 09:50 RBC 2.92 Mil/cmm (3.80-5.20) L 02/08/18 09:50 Hgb 8.8 gm/dL (12-16) L 02/08/18 09:50 Hct 27.0 % (41.0-60) L 02/08/18 09:50 MCV 92.5 fl (81-100) 02/08/18 09:50 MCH 30.1 pg (27.0-31.0) 02/08/18 09:50 MCHC Differential 32.5 pg (28.0-36.0) 02/08/18 09:50 RDW 16.2 % (11.5-20.0) 02/08/18 09:50 Plt Count 167 Th/cmm (150-400) 02/08/18 09:50 MPV 7.4 fl 02/08/18 09:50 Neutrophils % 69.9 % (40.0-80.0) 02/08/18 09:50 Lymphocytes % 13.4 % (20.0-50.0) L 02/08/18 09:50 Monocytes % 15.1 % (2.0-10.0) H 02/08/18 09:50 Eosinophils % 0.1 % (0.0-5.0) 02/08/18 09:50 Basophils % 1.5 % (0.0-2.0) 02/08/18 09:50 PT 10.7 SECONDS (9.5-11.5) 02/05/18 06:59 INR 1.03 (0.5-1.4) 02/05/18 06:59 PTT (Actin FS) 29.0 SECONDS (26.0-38.0) 03 06:59 Sodium 131 mEq/L (136-145) L 03 09:50 Potassium 5.4 mEq/L (3.5-5.1) H 02/08/18 09:50 Chloride 97 mEq/L (98-107) L 02/08/18 09:50 Carbon Dioxide 22.7 mEq/L (21.0-31.0) 02/08/18 09:50 Anion Gap 16.7 (7.0-16.0) H 02/08/18 09:50 BUN 59 mg/dL (7-25) H 02/08/18 09:50 Creatinine 5.7 mg/dL (0.6-1.2) H* 02/08/18 09:50 Est GFR ( Amer) TNP 02/08/18 09:50 Est GFR (Non-Af Amer) TNP 02/08/18 09:50 BUN/Creatinine Ratio 10.4 02/08/18 09:50 Glucose 171 mg/dL (70-105) H 02/08/18 09:50 POC Glucose 273 MG/DL (70 - 105) H 02/08/18 16:41 Hemoglobin A1c % 7.8 % (4.0-6.0) H 02/05/18 06:39 Calcium 8.9 mg/dL (8.6-10.3) 02/08/18 09:50 Total Bilirubin 0.6 mg/dL (0.3-1.0) 02/08/18 09:50 AST 22 U/L (13-39) 02/08/18 09:50 ALT 5 U/L (7-52) L 02/08/18 09:50 Alkaline Phosphatase 89 U/L (34-104) 02/08/18 09:50 Total Protein 6.5 gm/dL (6.0-8.3) 02/08/18 09:50 Albumin 3.2 gm/dL (3.7-5.3) L 02/08/18 09:50 Globulin 3.3 gm/dL 02/08/18 09:50 Albumin/Globulin Ratio 1.0 (1.0-1.8) 02/08/18 09:50 Salicylates < 25.0 mg/L (30.0-100.0) L 02/05/18 06:59 - Physical Exam Vitals and I&O: Vital Signs Temp 96.8 F 02/08/18 15:24 Pulse 85 02/08/18 16:13 Resp 18 02/08/18 15:24 BP 107/53 02/08/18 16:13 Pulse Ox 98 02/08/18 15:24 Intake & Output 02/07/18 02/08/18 02/08/18 18:59 06:59 18:59 Intake Total 150 60 Balance 150 60 Weight (lbs) 62.596 kg 62.596 kg 62.596 kg Intake: Oral 150 60 Other: Stool Characteristics Soft Soft Active Medications: Current Medications Acetaminophen (Tylenol) 650 mg PO Q4HR PRN PRN Reason: Pain or Fever >101 Stop: 04/07/18 08:30 Last Admin: 02/08/18 06:02 Dose: 650 mg Acetaminophen (Tylenol 650mg Supp) 650 mg RC Q6H PRN PRN Reason: fever/pain Stop: 04/07/18 08:30 Bisacodyl (Dulcolax 10 Mg Supp) 10 mg RC DAILY [facility] Stop: 04/07/18 08:59 Last Admin: 02/08/18 08:51 Dose: 10 mg Carvedilol (Coreg) 3.125 mg PO BID [facility] Stop: 04/07/18 08:59 Last Admin: 02/08/18 16:13 Dose: Not Given Dextrose (D50w) 50 ml IVP PRN PRN PRN Reason: HYPOGLYCEMIA, BS<70 Donepezil HCl (Aricept) 5 mg PO DAILY [facility] Stop: 04/07/18 08:59 Last Admin: 02/08/18 08:52 Dose: 5 mg Folic Acid (Folate) 1 mg PO DAILY [facility] Stop: 04/07/18 08:59 Last Admin: 02/08/18 08:51 Dose: 1 mg Ceftriaxone Sodium 1 gm/ (Sodium Chloride) 50 mls @ 100 mls/hr IV Q24HR [facility] Stop: 04/09/18 14:14 Insulin Aspart (Novolog Insulin Sliding Scale) 0 units SUBQ ACHS [facility] PRN Reason: Protocol Stop: 04/06/18 16:29 Last Admin: 02/08/18 12:00 Dose: 2 units Ipratropium [place] (Atrovent Neb 0.5mg/2.5ml) 0.5 mg HHN Q4HRT PRN PRN Reason: Shortness of Breath Stop: 04/09/18 02:10 Last Admin: 02/08/18 02:27 Dose: 0.5 mg Lactobacillus Rhamnosus (Culturelle 15b) 1 each PO DAILY [facility] Stop: 04/07/18 08:59 Last Admin: 02/08/18 08:51 Dose: 1 each Levothyroxine Sodium (Synthroid) 0.1 mg PO QDAC [facility] Stop: 04/08/18 07:29 Last Admin: 02/08/18 08:51 Dose: 0.1 mg Lorazepam (Ativan) 1 mg IVP Q4HR PRN; Protocol PRN Reason: Agitation Stop: 04/06/18 13:25 Last Admin: 02/05/18 16:17 Dose: 1 mg Memantine (Namenda) 5 mg PO DAILY [facility] Stop: 04/07/18 08:59 Last Admin: 02/08/18 08:52 Dose: 5 mg Polyethylene Glycol (Miralax) 17 gm PO DAILY [facility] Stop: 04/07/18 08:59 Last Admin: 02/08/18 08:52 Dose: 17 gm Quetiapine Fumarate (Seroquel) 12.5 mg PO DAILY [facility] PRN Reason: Protocol Stop: 04/07/18 08:59 Quetiapine Fumarate (Seroquel) 25 mg PO HS [facility] PRN Reason: Protocol Stop: 04/07/18 20:59 General: Alert HEENT: PERRLA Neck: Supple Cardiovascular: Regular rate, Normal S1, Normal S2 Lungs: Clear to auscultation - Procedures Procedures: Procedures Procedure Code Date FLUOROSCOPY OF SUP VENA CAVA USING L OSM CONTRAST, GUIDANCE U4221MG 12/28/17 INJECT/INFUSE NEC 99.29 06/24/13 INSERT TUNNELED CV CATH [id number] 01/09/18 INSERTION OF INFUSION DEV INTO SUP VENA CAVA, PERC APPROACH [id number] 01/09/18 PERFORMANCE OF URINARY FILTRATION, <6 HRS/DAY [id number] 01/09/18 REMOVAL OF INFUSION DEVICE FROM UPPER VEIN, GIMP TACKER APPROACH [id number] 01/09/18 REMOVAL OF INFUSION DEVICE FROM UPPER VEIN, PERC APPROACH [id number] 12/28/17 REMOVAL TUNNELED CV CATH [id number] 01/09/18 ULTRASONOGRAPHY OF SUPERIOR VENA CAVA, GUIDANCE [id number] 01/09/18 Assessment/Plan - Assessment Assessment: ESRD HTN DM DEMENTIA CONFUSED NEW AVF - Plan Plan: CONTINUE HD SUPPORT
[2018-02-08] MEDS: cefTRIAXone 1 GM in Sodium Chloride 0.9% 50 ML IV SCH (18:34)
--- NOTE | 2018-02-08 19:52 | Consultation ---
DATE OF CONSULTATION: 02/08/2018 PATIENT OF: Dr. Moreira. Thank you very much Dr. Moreira for this consultation. HISTORY OF PRESENT ILLNESS: This is a 77-year-old female with history of end-stage renal disease, pneumonia, came from [facility] for placement of Perm-A-Cath she pulled, a Austen catheter was placed. The patient had dialysis undergoing, blood pressure on the lower side, getting some albumin. Some congestion on and off. PAST MEDICAL HISTORY: End-stage renal disease, hypertension, diabetes, hypothyroidism, and anemia. SOCIAL HISTORY: No smoking or drinking. PHYSICAL EXAMINATION: GENERAL: The patient is arousable, but lethargic. VITAL SIGNS: Temperature 96.7, pulse 87, respiration is 17, blood pressure 144/61, saturation is 99%. HEENT: Atraumatic, normocephalic. Pupils are equal to light and accommodation. Ears, nose and throat are normal. NECK: Supple. No JVD. CHEST: There is rhonchi bilaterally. HEART: Regular rate and rhythm. ABDOMEN: Soft. EXTREMITIES: No edema. Chest x-ray showed bibasilar opacity, more on the right than the left. No obvious pulmonary edema. Austen catheter in place. LABORATORY DATA: WBC is 5.4, hemoglobin 8.8, hematocrit 27.0, platelets 167. Sodium 130, potassium 5.4, BUN 59, creatinine 5.7. IMPRESSION: 1. A 77-year-old female with end-stage renal disease, on dialysis. 2. Pneumonia with respiratory failure. PLAN: 1. The patient underwent hemodialysis, a 2. Antibiotics. 3. Nebulizer treatment. 4. Follow up chest x-ray, she is going back to [facility]. Thank you very much for this consultation. We will follow the patient with you. JOB# [id number]
[2018-02-09] MEDS: INSULIN ASPART SLIDING SCALE 100 UNITS/ML UNIT SUBQ SCH ×3 (06:59→19:09)
[2018-02-09] MEDS: Levothyroxine 0.1 Mg Tab PO SCH (07:00)
[2018-02-09] MEDS: POLYETHYLENE GLYCOL 3350 17 GM PACK PO SCH (09:00)
[2018-02-09] MEDS: Lactobacillus Rhamnosus GG 15 Billion CFU CAP.SPRINK PO SCH (09:00)
[2018-02-09 10:44] LABS: HEMATOCRIT 28.6 % (41.0-60); HEMOGLOBIN 9.4 gm/dL (12-16); LYMPHOCYTE ABSOLUTE 1.1 Th/cmm (1.5-3.0); MEAN CELL VOLUME 92.3 fl (81-100); MEAN CORPUSCULAR HEMOGLOBIN 30.1 pg (27.0-31.0); MEAN CORPUSCULAR HGB CONC 32.6 pg (28.0-36.0); MEAN PLATELET VOLUME 7.7 fl; MONOCYTE ABSOLUTE 1.2 Th/cmm (0.3-1.0); NEUTROPHILE ABSOLUTE 5.3 Th/cmm (1.8-8.0); PLATELET COUNT 163 Th/cmm (150-400); RED CELL DISTRIBUTION WIDTH 16.3 % (11.5-20.0); WHITE BLOOD COUNT 7.6 Th/cmm (4.8-10.8)
[2018-02-09 10:48] LABS: % EOSINOPHILS 0.1 % (0.0-5.0); % LYMPHOCYTES 14.5 % (20.0-50.0); % MONOCYTES 15.5 % (2.0-10.0); % NEUTROPHILS 69.9 % (40.0-80.0)
[2018-02-09 11:06] LABS: ALB/GLOB RATIO 1.1 (1.0-1.8); ALBUMIN 3.5 gm/dL (3.7-5.3); ALKALINE PHOSPHATASE 82 U/L (34-104); ANION GAP 18.6 (7.0-16.0); BILIRUBIN,TOTAL 0.6 mg/dL (0.3-1.0); BUN - UREA NITROGEN 53 mg/dL (7-25); CALCIUM SERUM 8.9 mg/dL (8.6-10.3); CARBON DIOXIDE 21.9 mEq/L (21.0-31.0); CHLORIDE 98 mEq/L (98-107); GLUCOSE 195 mg/dL (70-105); POTASSIUM SERUM 5.5 mEq/L (3.5-5.1); SGOT 22 U/L (13-39); SGPT/ALT 4 U/L (7-52); SODIUM SERUM 133 mEq/L (136-145); TOTAL PROTEIN,SERUM 6.8 gm/dL (6.0-8.3)
[2018-02-09 11:15] LABS: CREATININE - SERUM 5.2 mg/dL (0.6-1.2)
--- NOTE | 2018-02-09 16:02 | Internal Medicine Prog Note ---
Internal Medicine Subjective - Subjective Service Date: 02/09/18 Patient seen and examined:: with staff Patient is:: awake Per staff patient has:: tolerating meds Internal Medicine Objective - Results Result Diagrams: 02/09/18 10:30 02/09/18 10:30 Recent Labs: Laboratory Last Values WBC 7.6 Th/cmm (4.8-10.8) 02/09/18 10:30 RBC 3.10 Mil/cmm (3.80-5.20) L 02/09/18 10:30 Hgb 9.4 gm/dL (12-16) L 02/09/18 10:30 Hct 28.6 % (41.0-60) L 02/09/18 10:30 MCV 92.3 fl (81-100) 02/09/18 10:30 MCH 30.1 pg (27.0-31.0) 02/09/18 10:30 MCHC Differential 32.6 pg (28.0-36.0) 02/09/18 10:30 RDW 16.3 % (11.5-20.0) 02/09/18 10:30 Plt Count 163 Th/cmm (150-400) 02/09/18 10:30 MPV 7.7 fl 02/09/18 10:30 Neutrophils % 69.9 % (40.0-80.0) 02/09/18 10:30 Lymphocytes % 14.5 % (20.0-50.0) L 02/09/18 10:30 Monocytes % 15.5 % (2.0-10.0) H 02/09/18 10:30 Eosinophils % 0.1 % (0.0-5.0) 02/09/18 10:30 Basophils % 0.0 % (0.0-2.0) 02/09/18 10:30 PT 10.7 SECONDS (9.5-11.5) 02/05/18 06:59 INR 1.03 (0.5-1.4) 02/05/18 06:59 PTT (Actin FS) 29.0 SECONDS (26.0-38.0) 02/05/18 06:59 Sodium 133 mEq/L (136-145) L 02/09/18 10:30 Potassium 5.5 mEq/L (3.5-5.1) H 02/09/18 10:30 Chloride 98 mEq/L (98-107) 02/09/18 10:30 Carbon Dioxide 21.9 mEq/L (21.0-31.0) 02/09/18 10:30 Anion Gap 18.6 (7.0-16.0) H 02/09/18 10:30 BUN 53 mg/dL (7-25) H 02/09/18 10:30 Creatinine 5.2 mg/dL (0.6-1.2) H* 02/09/18 10:30 Est GFR ( Amer) TNP 02/09/18 10:30 Est GFR (Non-Af Amer) TNP 02/09/18 10:30 BUN/Creatinine Ratio 10.2 02/09/18 10:30 Glucose 195 mg/dL (70-105) H 02/09/18 10:30 POC Glucose 132 MG/DL (70 - 105) H 02/09/18 06:35 Hemoglobin A1c % 7.8 % (4.0-6.0) H 02/05/18 06:39 Calcium 8.9 mg/dL (8.6-10.3) 02/09/18 10:30 Total Bilirubin 0.6 mg/dL (0.3-1.0) 02/09/18 10:30 AST 22 U/L (13-39) 02/09/18 10:30 ALT 4 U/L (7-52) L 02/09/18 10:30 Alkaline Phosphatase 82 U/L (34-104) 02/09/18 10:30 Total Protein 6.8 gm/dL (6.0-8.3) 02/09/18 10:30 Albumin 3.5 gm/dL (3.7-5.3) L 02/09/18 10:30 Globulin 3.3 gm/dL 02/09/18 10:30 Albumin/Globulin Ratio 1.1 (1.0-1.8) 02/09/18 10:30 Salicylates < 25.0 mg/L (30.0-100.0) L 02/05/18 06:59 - Physical Exam Vitals and I&O: Vital Signs Temp 98.9 F 02/09/18 13:00 Pulse 61 02/09/18 13:02 Resp 18 02/09/18 13:00 BP 110/62 03/13/18 13:02 Pulse Ox 97 02/09/18 07:35 Intake & Output 02/08/18 02/09/18 02/09/18 18:59 06:59 18:59 Intake Total 310 200 Output Total 3000 Balance -2690 200 Weight (lbs) 138 lb 138 lb Intake: Oral 310 200 Tube Feeding 0 Output: Hemodialysis 3000 Other: # Voids 2 # Bowel Movements 0 Stool Characteristics Soft Active Medications: Current Medications Acetaminophen (Tylenol) 650 mg PO Q4HR PRN PRN Reason: Pain or Fever >101 Stop: 04/07/18 08:30 Last Admin: 02/08/18 06:02 Dose: 650 mg Acetaminophen (Tylenol 650mg Supp) 650 mg RC Q6H PRN PRN Reason: fever/pain Stop: 04/07/18 08:30 Bisacodyl (Dulcolax 10 Mg Supp) 10 mg RC DAILY [facility] Stop: 04/07/18 08:59 Last Admin: 02/09/18 09:00 Dose: 10 mg Carvedilol (Coreg) 3.125 mg PO BID [facility] Stop: 04/07/18 08:59 Last Admin: 02/09/18 13:02 Dose: 3.125 mg Dextrose (D50w) 50 ml IVP PRN PRN PRN Reason: HYPOGLYCEMIA, BS<70 Donepezil HCl (Aricept) 5 mg PO DAILY [facility] Stop: 04/07/18 08:59 Last Admin: 02/09/18 09:00 Dose: 5 mg Folic Acid (Folate) 1 mg PO DAILY [facility] Stop: 04/07/18 08:59 Last Admin: 02/09/18 09:00 Dose: 1 mg Ceftriaxone Sodium 1 gm/ (Sodium Chloride) 50 mls @ 100 mls/hr IV Q24HR [facility] Stop: 04/09/18 17:59 Last Admin: 02/08/18 18:34 Dose: 100 mls/hr Insulin Aspart (Novolog Insulin Sliding Scale) 0 units SUBQ ACHS [facility] PRN Reason: Protocol Stop: 04/06/18 16:29 Last Admin: 02/09/18 13:21 Dose: 14 units Ipratropium [place] (Atrovent Neb 0.5mg/2.5ml) 0.5 mg HHN Q4HRT PRN PRN Reason: Shortness of Breath Stop: 04/09/18 02:10 Last Admin: 02/08/18 02:27 Dose: 0.5 mg Lactobacillus Rhamnosus (Culturelle 15b) 1 each PO DAILY [facility] Stop: 04/07/18 08:59 Last Admin: 02/09/18 09:00 Dose: 1 each Levothyroxine Sodium (Synthroid) 0.1 mg PO QDAC [facility] Stop: 04/08/18 07:29 Last Admin: 02/09/18 07:00 Dose: 0.1 mg Lorazepam (Ativan) 1 mg IVP Q4HR PRN; Protocol PRN Reason: Agitation Stop: 04/06/18 13:25 Last Admin: 02/05/18 16:17 Dose: 1 mg Memantine (Namenda) 5 mg PO DAILY [facility] Stop: 04/07/18 08:59 Last Admin: 02/09/18 09:00 Dose: 5 mg Polyethylene Glycol (Miralax) 17 gm PO DAILY [facility] Stop: 04/07/18 08:59 Last Admin: 02/09/18 09:00 Dose: Not Given Quetiapine Fumarate (Seroquel) 12.5 mg PO DAILY [facility] PRN Reason: Protocol Stop: 04/07/18 08:59 Quetiapine Fumarate (Seroquel) 25 mg PO HS [facility] PRN Reason: Protocol Stop: 04/07/18 20:59 General: weak, alert HEENT: NC/AT, PERRLA Neck: Supple Lungs: CTAB Cardiovascular: RRR - Procedures Procedures: Procedures Procedure Code Date FLUOROSCOPY OF SUP VENA CAVA USING L OSM CONTRAST, GUIDANCE [id number] 12/28/17 INJECT/INFUSE NEC 99.29 06/24/13 INSERT TUNNELED CV CATH [id number] 01/09/18 INSERTION OF INFUSION DEV INTO SUP VENA CAVA, PERC APPROACH [id number] 01/09/18 PERFORMANCE OF URINARY FILTRATION, <6 HRS/DAY [id number] 01/09/18 REMOVAL OF INFUSION DEVICE FROM UPPER VEIN, WOVEN LABEL DESIGNER APPROACH [id number] 01/09/18 REMOVAL OF INFUSION DEVICE FROM UPPER VEIN, PERC APPROACH [id number] 12/28/17 REMOVAL TUNNELED CV CATH [id number] 01/09/18 ULTRASONOGRAPHY OF SUPERIOR VENA CAVA, GUIDANCE [id number] 01/09/18 Internal Medicine Assmt/Plan - Assessment Assessment: 1. MRSA sepsis, resolved, receiving Vanco IV. 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 - Plan Plan: case repairer arranging dc planning cpm Nutritional Asmnt/Malnutr-PDOC - Dietary Evaluation Malnutrition Findings (Please click <Entered> for more info): Nutritional Asmnt/Malnutrition Start: 02/08/18 17: 37 Text: Status: Complete Freq: Document 02/08/18 17:37 RODRÍGUEZ (Rec: 02/08/18 17:47 [email or web address]) Nutritional Asmnt/Malnutrition Patient General Information Nutritional Screening High Risk Consult Diagnosis perma cath placement Pertinent Medical Hx/Surgical Hx ESRD on HD, HTN, DM, dementia, hypothyroidism, anemia Subjective Information Consult received for sabra < 12. Pt seen sleeping at time of visit. Per EMR, PO intake 10-40% in the past 2 days with assistance of feeding. pt consumed 75% of breakfast this morning. Pt had dialysis today noted. Current Diet Order/ Nutrition Support CCHO 45gm, soft diet Pertinent Medications folate, novolog, culturelle, synthroid, seroquel Pertinent Labs 02/08 na 131, K 5.4, Cl 97, BUN 59, Cr 5.7, Glucose 171, POC 178-273 3 A1c 7.8 Nutritional Hx/Data Height 5 ft 4 in Height (Calculated Centimeters) 162.6 Current Weight (lbs) 138 lb Weight (Calculated Kilograms) 62.6 Weight (Calculated Grams) 90157.7 [place] Body Weight 120 Body Mass Index (BMI) 23.6 Weight Status Approriate GI Symptoms GI Symptoms None Last BM 310 Difficult in: None Skin Integrity/Comment: dryness Current %PO Fair (50-74%) Estimated Nutritional Goals Calories/Kcals/Kg 25-30 Kcals Calculated 1856-4202 Protein g/k-1.2 Protein Calculated 63-76 Fluid: ml 1575-1890ml (1ml/kcal) Nutritional Problem 1. Problem Problem altered nutrition related lab Etiology hx of ESRD and DM Signs/Symptoms: K 5.4, BUN 59, Cr 5.7, Glucose 171, POC 178-273 A1c 7.8 Malnutrition Alert Protein-Calorie Malnutrition N/A Is there a minimum of two criteria No selected? Query Text:Check all the applicable criteria. A minimum of two criteria are recommended for diagnosis of either severe or non-severe malnutrition. Intervention/Recommendation Comments 1. Recommend adding Renal diet considering ESRD and elevated K level 2. Monitor PO intake, wt, labs and skin integrity 3. F/U as high risk in 2-3 days, 02/10-02/11 Expected Outcomes/Goals Expected Outcomes/Goals 1. PO intake to meet at least 75% of nutritional needs. 2. Wt stability, skin to remain intact, labs to approach WNL.
--- NOTE | 2018-02-09 18:19 | General Progress Note ---
Subjective - Review of Systems Service Date: 02/09/18 Subjective: pt in bed very confused Objective - Results Result Diagrams: 02/09/18 10:30 02/09/18 10:30 Recent Labs: Laboratory Last Values WBC 7.6 Th/cmm (4.8-10.8) 02/09/18 10:30 RBC 3.10 Mil/cmm (3.80-5.20) L 02/09/18 10:30 Hgb 9.4 gm/dL (12-16) L 02/09/18 10:30 Hct 28.6 % (41.0-60) L 02/09/18 10:30 MCV 92.3 fl (81-100) 02/09/18 10:30 MCH 30.1 pg (27.0-31.0) 02/09/18 10:30 MCHC Differential 32.6 pg (28.0-36.0) 02/09/18 10:30 RDW 16.3 % (11.5-20.0) 02/09/18 10:30 Plt Count 163 Th/cmm (150-400) 02/09/18 10:30 MPV 7.7 fl 02/09/18 10:30 Neutrophils % 69.9 % (40.0-80.0) 02/09/18 10:30 Lymphocytes % 14.5 % (20.0-50.0) L 02/09/18 10:30 Monocytes % 15.5 % (2.0-10.0) H 02/09/18 10:30 Eosinophils % 0.1 % (0.0-5.0) 02/09/18 10:30 Basophils % 0.0 % (0.0-2.0) 02/09/18 10:30 PT 10.7 SECONDS (9.5-11.5) 02/05/18 06:59 INR 1.03 (0.5-1.4) 02/05/18 06:59 PTT (Actin FS) 29.0 SECONDS (26.0-38.0) 02/05/18 06:59 Sodium 133 mEq/L (136-145) L 02/09/18 10:30 Potassium 5.5 mEq/L (3.5-5.1) H 02/09/18 10:30 Chloride 98 mEq/L (98-107) 02/09/18 10:30 Carbon Dioxide 21.9 mEq/L (21.0-31.0) 02/09/18 10:30 Anion Gap 18.6 (7.0-16.0) H 02/09/18 10:30 BUN 53 mg/dL (7-25) H 02/09/18 10:30 Creatinine 5.2 mg/dL (0.6-1.2) H* 02/09/18 10:30 Est GFR ( Amer) TNP 02/09/18 10:30 Est GFR (Non-Af Amer) TNP 02/09/18 10:30 BUN/Creatinine Ratio 10.2 02/09/18 10:30 Glucose 195 mg/dL (70-105) H 02/09/18 10:30 POC Glucose 132 MG/DL (70 - 105) H 02/09/18 06:35 Hemoglobin A1c % 7.8 % (4.0-6.0) H 02/05/18 06:39 Calcium 8.9 mg/dL (8.6-10.3) 02/09/18 10:30 Total Bilirubin 0.6 mg/dL (0.3-1.0) 02/09/18 10:30 AST 22 U/L (13-39) 02/09/18 10:30 ALT 4 U/L (7-52) L 02/09/18 10:30 Alkaline Phosphatase 82 U/L (34-104) 02/09/18 10:30 Total Protein 6.8 gm/dL (6.0-8.3) 02/09/18 10:30 Albumin 3.5 gm/dL (3.7-5.3) L 02/09/18 10:30 Globulin 3.3 gm/dL 02/09/18 10:30 Albumin/Globulin Ratio 1.1 (1.0-1.8) 02/09/18 10:30 Salicylates < 25.0 mg/L (30.0-100.0) L 02/05/18 06:59 - Physical Exam Vitals and I&O: Vital Signs Temp 97.8 F 02/09/18 16:00 Pulse 100 02/09/18 16:00 Resp 18 02/09/18 16:00 BP 105/55 02/09/18 16:00 Pulse Ox 99 02/09/18 16:00 Intake & Output 02/08/18 02/09/18 02/09/18 18:59 06:59 18:59 Intake Total 310 200 720 Output Total 3000 Balance -2690 200 720 Weight (lbs) 62.596 kg 62.596 kg 62.596 kg Intake: Oral 310 200 720 Tube Feeding 0 Output: Hemodialysis 3000 Other: # Voids 2 2 # Bowel Movements 0 Stool Characteristics Soft Active Medications: Current Medications Acetaminophen (Tylenol) 650 mg PO Q4HR PRN PRN Reason: Pain or Fever >101 Stop: 04/07/18 08:30 Last Admin: 02/08/18 06:02 Dose: 650 mg Acetaminophen (Tylenol 650mg Supp) 650 mg RC Q6H PRN PRN Reason: fever/pain Stop: 04/07/18 08:30 Bisacodyl (Dulcolax 10 Mg Supp) 10 mg RC DAILY [facility] Stop: 04/07/18 08:59 Last Admin: 02/09/18 09:00 Dose: 10 mg Carvedilol (Coreg) 3.125 mg PO BID [facility] [place] Stop: 04/07/18 08:59 Last Admin: 02/09/18 13:02 Dose: 3.125 mg Dextrose (D50w) 50 ml IVP PRN PRN PRN Reason: HYPOGLYCEMIA, BS<70 Donepezil HCl (Aricept) 5 mg PO DAILY [facility] [place] Stop: 04/07/18 08:59 Last Admin: 02/09/18 09:00 Dose: 5 mg Folic Acid (Folate) 1 mg PO DAILY [facility] Stop: 04/07/18 08:59 Last Admin: 02/09/18 09:00 Dose: 1 mg Ceftriaxone Sodium 1 gm/ (Sodium Chloride) 50 mls @ 100 mls/hr IV Q24HR [facility] Stop: 04/09/18 17:59 Last Admin: 02/08/18 18:34 Dose: 100 mls/hr Insulin Aspart (Novolog Insulin Sliding Scale) 0 units SUBQ ACHS [facility] PRN Reason: Protocol Stop: 04/06/18 16:29 Last Admin: 02/09/18 13:21 Dose: 14 units Ipratropium [place] (Atrovent Neb 0.5mg/2.5ml) 0.5 mg HHN Q4HRT PRN PRN Reason: Shortness of Breath Stop: 04/09/18 02:10 Last Admin: 02/08/18 02:27 Dose: 0.5 mg Lactobacillus Rhamnosus (Culturelle 15b) 1 each PO DAILY [facility] Stop: 04/07/18 08:59 Last Admin: 02/09/18 09:00 Dose: 1 each Levothyroxine Sodium (Synthroid) 0.1 mg PO QDAC [facility] Stop: 04/08/18 07:29 Last Admin: 02/09/18 07:00 Dose: 0.1 mg Lorazepam (Ativan) 1 mg IVP Q4HR PRN; Protocol PRN Reason: Agitation Stop: 04/06/18 13:25 Last Admin: 02/05/18 16:17 Dose: 1 mg Memantine (Namenda) 5 mg PO DAILY [facility] Stop: 04/07/18 08:59 Last Admin: 02/09/18 09:00 Dose: 5 mg Polyethylene Glycol (Miralax) 17 gm PO DAILY [facility] Stop: 04/07/18 08:59 Last Admin: 02/09/18 09:00 Dose: Not Given Quetiapine Fumarate (Seroquel) 12.5 mg PO DAILY [facility] PRN Reason: Protocol Stop: 04/07/18 08:59 Quetiapine Fumarate (Seroquel) 25 mg PO HS [facility] PRN Reason: Protocol Stop: 04/07/18 20:59 General: Alert HEENT: PERRLA Neck: Supple Cardiovascular: Regular rate, Normal S1, Normal S2 Lungs: Clear to auscultation - Procedures Procedures: Procedures Procedure Code Date FLUOROSCOPY OF SUP VENA CAVA USING L OSM CONTRAST, GUIDANCE [id number] 12/28/17 INJECT/INFUSE NEC 99.29 06/24/13 INSERT TUNNELED CV CATH [id number] 01/09/18 INSERTION OF INFUSION DEV INTO SUP VENA CAVA, PERC APPROACH [id number] 01/09/18 PERFORMANCE OF URINARY FILTRATION, <6 HRS/DAY [id number] 01/09/18 REMOVAL OF INFUSION DEVICE FROM UPPER VEIN, NEONATAL NURSE PRACTITIONER APPROACH [id number] 01/09/18 REMOVAL OF INFUSION DEVICE FROM UPPER VEIN, PERC APPROACH [id number] 12/28/17 REMOVAL TUNNELED CV CATH [id number] 01/09/18 ULTRASONOGRAPHY OF SUPERIOR VENA CAVA, GUIDANCE [id number] 01/09/18 Assessment/Plan - Assessment Assessment: ESRD HTN DM DEMENTIA CONFUSED NEW AVF - Plan Plan: CONTINUE HD SUPPORT Nutritional Asmnt/Malnutr-PDOC - Dietary Evaluation Malnutrition Findings (Please click <Entered> for more info): Nutritional Asmnt/Malnutrition Start: 02/08/18 17: 37 Text: Status: Complete Freq: Document 02/08/18 17:37 RODRÍGUEZ (Rec: 02/08/18 17:47 [email or web address]) Nutritional Asmnt/Malnutrition Patient General Information Nutritional Screening High Risk Consult Diagnosis perma cath placement Pertinent Medical Hx/Surgical Hx ESRD on HD, HTN, DM, dementia, hypothyroidism, anemia Subjective Information Consult received for sabra < 12. Pt seen sleeping at time of visit. Per EMR, PO intake 10-40% in the past 2 days with assistance of feeding. pt consumed 75% of breakfast this morning. Pt had dialysis today noted. Current Diet Order/ Nutrition Support CCHO 45gm, soft diet Pertinent Medications folate, novolog, culturelle, synthroid, seroquel Pertinent Labs 02/08 na 131, K 5.4, Cl 97, BUN 59, Cr 5.7, Glucose 171, POC 178-273 02/05 A1c 7.8 Nutritional Hx/Data Height 1.63 m Height (Calculated Centimeters) 162.6 Current Weight (lbs) 62.596 kg Weight (Calculated Kilograms) 62.6 Weight (Calculated Grams) 72212.7 [place] Body Weight 120 Body Mass Index (BMI) 23.6 Weight Status Approriate GI Symptoms GI Symptoms None Last BM 02/06 Difficult in: None Skin Integrity/Comment: dryness Current %PO Fair (50-74%) Estimated Nutritional Goals Calories/Kcals/Kg 25-30 Kcals Calculated 1101-2938 Protein g/k-1.2 Protein Calculated 63-76 Fluid: ml 1575-1890ml (1ml/kcal) Nutritional Problem 1. Problem Problem altered nutrition related lab Etiology hx of ESRD and DM Signs/Symptoms: K 5.4, BUN 59, Cr 5.7, Glucose 171, POC 178-273 A1c 7.8 Malnutrition Alert Protein-Calorie Malnutrition N/A Is there a minimum of two criteria No selected? Query Text:Check all the applicable criteria. A minimum of two criteria are recommended for diagnosis of either severe or non-severe malnutrition. Intervention/Recommendation Comments 1. Recommend adding Renal diet considering ESRD and elevated K level 2. Monitor PO intake, wt, labs and skin integrity 3. F/U as high risk in 2-3 days, 02/10-02/11 Expected Outcomes/Goals Expected Outcomes/Goals 1. PO intake to meet at least 75% of nutritional needs. 2. Wt stability, skin to remain intact, labs to approach WNL.
[2018-02-09] MEDS: cefTRIAXone 1 GM in Sodium Chloride 0.9% 50 ML IV SCH (19:10)
--- NOTE | 2018-02-12 11:34 | Operative Report ---
DATE OF SURGERY: 02/05/2018 PREOPERATIVE DIAGNOSES: 1. End-stage renal disease. 2. Diabetes mellitus. 3. Hypertension. 4. Dementia. POSTOPERATIVE DIAGNOSES: 1. End-stage renal disease. 2. Diabetes mellitus. 3. Hypertension. 4. Dementia. OPERATION DONE: 1. Placement of Perm-A-Cath, left subclavian vein under ultrasound guidance and fluoroscopy. 2. Right arm AV shunt (bovine). SURGEON: Faye Mclaughlin M.D. ANESTHESIA: MAC. ANESTHESIOLOGIST: Matt Sandhu. DESCRIPTION OF PROCEDURE: The patient was given IV sedation. The left chest was prepped with ChloraPrep and draped in appropriate manner. 1% lidocaine was used to infiltrate the area identified on ultrasound. An incision was made and a size 18 needle was used to locate the vein. Under fluoroscopy, the guide was inserted and followed the course into the inferior vena cava. The dilator was then placed over the guidewire and then the introducer and finally, the 24-[place] MediPort. There was good inflow and outflow and 2 mL of heparin was instilled into each port. The catheter was anchored to the chest wall with 2-0 silk. The right arm was prepped with Betadine and draped in appropriate manner. 1% lidocaine was used to infiltrate the antecubital fossa. An incision was made along the skin line. Search for suitable vein was done. This did not show any vein that was of any size acceptable for fistula. A separate incision was made in the right axilla and the axillary vein was identified. This measured about 5 mm. 3000 units of heparin was given intravenously. The vein was tied proximally and occluded distally and venotomy was made in the anterior wall. The Bovine graft was sutured in end-to-side fashion to the vein utilizing running suture of 5-0 Prolene. On release of clamps, there was no leak at the anastomosis. Gelfoam and thrombin was placed for further hemostasis. Additional lidocaine was infiltrated in the anterolateral aspect of the arm and a tunneler was used to retrieve the vein from the axilla. This was brought out into the antecubital fossa and the artery was clamped proximal and distal. An arteriotomy was made anterior wall. The graft was cut in angle to fit the arteriotomy and the bovine graft was narrowed to 4 mm in size and sutured end-to-side fashion to the artery utilizing running suture of 5-0 Prolene. Following release of the clamps, there was a good flow through the shunt. Hemostasis achieved with additional application of Gelfoam and thrombin. The incision was closed with running suture of 3-0 Vicryl subcutaneously and the skin with 4-0 Vicryl subcuticular. Sterile dressing was placed over this. The patient tolerated the procedure well. JOB# [id number]
== END 2018-02-09 20:28 | disposition home or self-care (01) | DRG 314 ==
LOC: MSII 04:59 → MSI 05:00 → TELE 02-08 06:55
PROVIDERS: ADMIT Internal Medicine; ATTEND Internal Medicine
PROC: 5A1D70Z Performance of Urinary Filtration, Intermittent, Less than 6 Hours Per Day (ICD-10-PCS; principal; 2018-02-06)
PROC: 05PYX3Z Removal of Infusion Device from Upper Vein, External Approach (ICD-10-PCS; 2018-02-06)
PROC: 05HY33Z Insertion of Infusion Device into Upper Vein, Percutaneous Approach (ICD-10-PCS; 2018-02-06)
PROC: 5A1D70Z Performance of Urinary Filtration, Intermittent, Less than 6 Hours Per Day (ICD-10-PCS; 2018-02-07)
PROC: 5A1D70Z Performance of Urinary Filtration, Intermittent, Less than 6 Hours Per Day (ICD-10-PCS; 2018-02-08)
DX: T82.41XA Breakdown (mechanical) of vascular dialysis catheter, initial encounter (principal); N18.6 End stage renal disease; I12.0 Hypertensive chronic kidney disease with stage 5 chronic kidney disease or end stage renal disease; A41.02 Sepsis due to Methicillin resistant Staphylococcus aureus; J96.90 Respiratory failure, unspecified, unspecified whether with hypoxia or hypercapnia; J18.9 Pneumonia, unspecified organism; E11.22 Type 2 diabetes mellitus with diabetic chronic kidney disease; D63.1 Anemia in chronic kidney disease; F45.8 Other somatoform disorders; Z99.2 Dependence on renal dialysis; F03.90 Unspecified dementia, unspecified severity, without behavioral disturbance, psychotic disturbance, mood disturbance, and anxiety; E03.9 Hypothyroidism, unspecified; F29 Unspecified psychosis not due to a substance or known physiological condition; Z23 Encounter for immunization; Z88.3 Allergy status to other anti-infective agents; Z88.5 Allergy status to narcotic agent
CPT/HCPCS: 36415-UA; 71045-TC; 76000-TC; 80053-TC; 80329-TC; 82948-90; 83036-90; 85025-TC; 85610-TC; 90779; 93005; 94760; J0696; J1644; J1815; J2001; J2060; J2405; J2704; J2997; J7030; P9046; X6158; Z7610